=== PATIENT | male | born 1960 | race Caucasian/White ===

== ENCOUNTER 2019-01-12 18:37 | Inpatient (IN) | payer BC ==
[2019-01-12] MEDS ORDERED: IPRATROPIUM-ALBUTEROL 3 ML NEB INHALATION STA (19:37)
[2019-01-12] MEDS ORDERED: FUROSEMIDE 10 MG/ML 4 ML VIAL IV STA (19:37)
[2019-01-12] MEDS ORDERED: methylPREDNISolone SOD SUCCI 125 MG/2 ML VIAL IV STA (19:37)
[2019-01-12] MEDS ORDERED: ASPIRIN 81 MG PO STA (19:39)
[2019-01-12 20:29] LABS: Anisocytosis Slight; Basophils # (A) 0.1 k/uL (0-0.2); Basophils % (A) 1 %; Eosinophils # (A) 0.2 k/uL (0-0.7); Eosinophils % (A) 2 %; HCT 55.9 % (39.0-53.0); HGB 17.5 gm/dL (13.0-17.5); Hypochromasia Slight; Lymphocytes # (A) 1.2 k/uL (1.0-4.8); Lymphocytes % (A) 12 %; MCH 29.9 pg (25.0-35.0); MCHC 31.2 g/dL (31.0-37.0); MCV 95.8 fL (80.0-100.0); Mean Platelet Volume 8.4; Monocytes # (A) 0.7 k/uL (0-1.0); Monocytes % (A) 7 %; Neutrophils # (A) 7.5 k/uL (1.3-7.7); Neutrophils % (A) 77 %; Platelet Count 153 k/uL (150-450); RBC 5.84 m/uL (4.30-5.90); RDW 16.6 % (11.5-15.5); WBC 9.8 k/uL (3.8-10.6)
--- NOTE | 2019-01-12 20:30 | ED ---
SOB HPI - General Source: patient Mode of arrival: ambulatory Limitations: no limitations <Ed Jackson - Last Filed: 01/12/19 20:26> <Mark Victor - Last Filed: 01/13/19 04:48> - General Chief Complaint: Shortness of Breath Stated Complaint: POSS COPD, CHF Time Seen by Provider: 01/12/19 19:32 - History of Present Illness Initial Comments: This 58-year-old white male presents complaining of some shortness of breath. He states that this is been present over the past couple of weeks. He is had a cough with whitish production. He does relate that he has a history of COPD. He is not aware of a history of congestive heart failure. He states that he's had some lower extremity edema over the past 2 days. His symptoms are worse with any exertion. He was seen at his primary care physician's office today and they found his pulse ox to be of 78% so he was sent to the emergency department. He denies any fever or chills. He denies any chest pain. No other complaints or modifying factors. (Ed Jackson) - Related Data Home Medications Medication Instructions Recorded Confirmed Albuterol Inhaler [Ventolin Hfa 2 puff INHALATION RT-Q8H 01/12/19 01/12/19 Inhaler] Amoxicillin 500 mg PO QID 01/12/19 01/12/19 Allergies Allergy/AdvReac Type Severity Reaction Status Date / Time No Known Allergies Allergy Verified 01/12/19 19:55 Review of Systems ROS Other: All systems not noted in ROS Statement are negative. <Ed Jackson - Last Filed: 01/12/19 20:26> ROS Other: All systems not noted in ROS Statement are negative. <Mark Victor - Last Filed: 01/13/19 04:48> ROS Statement: Those systems with pertinent positive or pertinent negative responses have been documented in the HPI. Past Medical History Past Medical History: COPD History of Any Multi-Drug Resistant Organisms: None Reported Past Surgical History: Hernia Repair Past Psychological History: No Psychological Hx Reported Smoking Status: Current every day smoker Past Alcohol Use History: Occasional Past Drug Use History: None Reported <Ed Jackson - Last Filed: 01/12/19 20:26> - Past Family History Father Additional Family Medical History / Comment(s): father and grandfather had heartattacks 60's. <Mark Victor - Last Filed: 01/13/19 04:48> General Exam Limitations: no limitations <Ed Jackson - Last Filed: 01/12/19 20:26> - General Exam Comments Initial Comments: GENERAL: The patient is well nourished and well hydrated. VITAL SIGNS: Heart rate, blood pressure, respiratory rate reviewed as recorded in nurse's notes. EYES: Pupils are round and reactive. Extraocular movements are intact. No conjunctival / lid redness or swelling. ENT: No external evidence of injury, swelling, or ecchymosis. Airway is patent. Throat is clear. NECK: Nontender. No swelling or evidence of injury. No subcutaneous emphysema. Trachea is midline. No thyroid mass. HEART: Regular rate and rhythm. Good peripheral pulses. Peripheral edema noted bilateral lower extremities from the knee down. LUNGS/CHEST: Wheezing noted to bilateral chest. No acute respiratory distress identified. No ecchymosis, subcutaneous emphysema, or tenderness. ABDOMEN: Abdomen soft without tenderness. No palpable masses or organomegaly. No peritoneal signs. No abdominal wall swelling or ecchymosis. EXTREMITIES: No extremity tenderness. Normal muscle tone and function. No thoracolumbar tenderness. NEUROLOGIC: Sensation is grossly intact. Cranial nerve exam reveals face is symmetrical, tongue is midline, speech is clear. SKIN: No abrasions or ecchymosis is noted. No induration or masses noted. PSYCHIATRIC: Alert and oriented. Appropriate behavior and judgment. (Ed Jackson) Course Vital Signs 01/12/19 01/12/19 01/12/19 19:09 19:44 19:46 Temperature 98.6 F Pulse Rate 94 85 Pulse Rate [ Pulse Oximetery ] Respiratory 18 24 24 Rate Blood Pressure 116/68 123/73 Blood Pressure [Left Arm] O2 Sat by Pulse 78 L 91 L Oximetry 01/12/19 01/12/19 01/12/19 20:36 20:51 20:56 Temperature Pulse Rate 80 77 87 Pulse Rate [ Pulse Oximetery ] Respiratory 28 H Rate Blood Pressure 124/62 Blood Pressure [Left Arm] O2 Sat by Pulse 90 L Oximetry 01/12/19 01/12/19 22:40 23:15 Temperature 98.5 F 97.9 F Pulse Rate 80 Pulse Rate [ 93 Pulse Oximetery ] Respiratory 22 18 Rate Blood Pressure 114/86 Blood Pressure 134/68 [Left Arm] O2 Sat by Pulse 89 L 93 L Oximetry Medical Decision Making <Ed Jackson - Last Filed: 01/12/19 20:26> - Lab Data Result diagrams: 01/12/19 20:16 01/12/19 20:16 - EKG Data -: EKG Interpreted by Mt EKG shows normal: sinus rhythm (With bigeminy pattern), intervals (MT interval normal, QRS normal. QTC is 481 ms, mildly prolonged.), QRS complexes (There is a left posterior fascicular block) Rate: normal (Rate approximately 86 bpm) Interpretation: nonspecific ST-T wave changes <Mark Victor - Last Filed: 01/13/19 04:48> - Medical Decision Making The patient was seen and examined. All diagnostics were reviewed. 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 An IV is established she does receive some aspirin, Nitropaste, and 60 mg of Lasix intravenously. He receives a double DuoNeb breathing treatment as well as Solu-Medrol 125 mg IV. (Ed Jackson) I receive this patient has a sign out pending results of his studies. I reviewed these with the patient and also Dr. Jackson's recommendation for admission. The patient is in agreement. Case discussed with Dr. Brantley, who is covering and his treatment recommendations are incorporated. (Mark Victor) - Lab Data Lab Results 01/12/19 01/12/19 01/12/19 Range/Units 20:16 20:16 20:16 WBC 9.8 (3.8-10.6) k/uL RBC 5.84 (4.30-5.90) m/uL Hgb 17.5 (13.0-17.5) gm/dL Hct 55.9 H (39.0-53.0) % MCV 95.8 (80.0-100.0) fL MCH 29.9 (25.0-35.0) pg MCHC 31.2 (31.0-37.0) g/dL RDW 16.6 H (11.5-15.5) % Plt Count 153 (150-450) k/uL Neutrophils % 77 % Lymphocytes % 12 % Monocytes % 7 % Eosinophils % 2 % Basophils % 1 % Neutrophils # 7.5 (1.3-7.7) k/uL Lymphocytes # 1.2 (1.0-4.8) k/uL Monocytes # 0.7 (0-1.0) k/uL Eosinophils # 0.2 (0-0.7) k/uL Basophils # 0.1 (0-0.2) k/uL Hypochromasia Slight Anisocytosis Slight PT (9.0-12.0) sec INR (<1.2) APTT (22.0-30.0) sec Sodium 143 (137-145) mmol/L Potassium 4.0 (3.5-5.1) mmol/L Chloride 105 (98-107) mmol/L Carbon Dioxide 32 H (22-30) mmol/L Anion Gap 6 mmol/L BUN 18 (9-20) mg/dL Creatinine 0.78 (0.66-1.25) mg/dL Est GFR (CKD-EPI)AfAm >90 (>60 ml/min/1.73 sqM) Est GFR (CKD-EPI)NonAf >90 (>60 ml/min/1.73 sqM) Glucose 183 H (74-99) mg/dL Calcium 7.9 L (8.4-10.2) mg/dL Total Bilirubin 0.5 (0.2-1.3) mg/dL AST 36 (17-59) U/L ALT 43 (21-72) U/L Alkaline Phosphatase 77 (38-126) U/L Troponin I (0.000-0.034) ng/mL NT-Pro-B Natriuret Pep 1580 pg/mL Total Protein 5.8 L (6.3-8.2) g/dL Albumin 3.4 L (3.5-5.0) g/dL 01/12/19 01/12/19 Range/Units 20:16 21:39 WBC (3.8-10.6) k/uL RBC (4.30-5.90) m/uL Hgb (13.0-17.5) gm/dL Hct (39.0-53.0) % MCV (80.0-100.0) fL MCH (25.0-35.0) pg MCHC (31.0-37.0) g/dL RDW (11.5-15.5) % Plt Count (150-450) k/uL Neutrophils % % Lymphocytes % % Monocytes % % Eosinophils % % Basophils % % Neutrophils # (1.3-7.7) k/uL Lymphocytes # (1.0-4.8) k/uL Monocytes # (0-1.0) k/uL Eosinophils # (0-0.7) k/uL Basophils # (0-0.2) k/uL Hypochromasia Anisocytosis PT 12.1 H (9.0-12.0) sec INR 1.2 H (<1.2) APTT 27.2 (22.0-30.0) sec Sodium (137-145) mmol/L Potassium (3.5-5.1) mmol/L Chloride (98-107) mmol/L Carbon Dioxide (22-30) mmol/L Anion Gap mmol/L BUN (9-20) mg/dL Creatinine (0.66-1.25) mg/dL Est GFR (CKD-EPI)AfAm (>60 ml/min/1.73 sqM) Est GFR (CKD-EPI)NonAf (>60 ml/min/1.73 sqM) Glucose (74-99) mg/dL Calcium (8.4-10.2) mg/dL Total Bilirubin (0.2-1.3) mg/dL AST (17-59) U/L ALT (21-72) U/L Alkaline Phosphatase (38-126) U/L Troponin I 0.024 (0.000-0.034) ng/mL NT-Pro-B Natriuret Pep pg/mL Total Protein (6.3-8.2) g/dL Albumin (3.5-5.0) g/dL Disposition <Ed Jackson - Last Filed: 01/12/19 20:26> <Mark Victor - Last Filed: 01/13/19 04:48> Clinical Impression: Acute respiratory failure, Acute exacerbation of chronic obstructive airways disease, Bilateral lower extremity edema Disposition: ADMITTED IP TO THIS HOSP Condition: Fair
[2019-01-12 20:36] LABS: ALT 43 U/L (21-72); AST 36 U/L (17-59); African American GFR (CKD) >90 (>60 ml/min/1.73 sqM); Albumin 3.4 g/dL (3.5-5.0); Alkaline Phosphatase 77 U/L (38-126); Anion Gap 6 mmol/L; Blood Urea Nitrogen 18 mg/dL (9-20); Calcium 7.9 mg/dL (8.4-10.2); Carbon Dioxide 32 mmol/L (22-30); Chloride 105 mmol/L (98-107); Glucose 183 mg/dL (74-99); Sodium 143 mmol/L (137-145); Total Bilirubin 0.5 mg/dL (0.2-1.3); Total Protein 5.8 g/dL (6.3-8.2)
--- NOTE | 2019-01-12 21:10 | XR ---
EXAMINATION: XR chest 2V DATE AND TIME: 01/12/2019 8:29 PM CLINICAL INDICATION: PHH; difficulty breathing TECHNIQUE: Departmental protocol COMPARISON: None FINDINGS: EKG leads noted. There is moderate silhouetting of the pulmonary vasculature bilaterally by a fine reticular pattern o f increased attenuation symmetrically, consistent with interstitial phase pulmonary edema. Moderately enlarged cardiac silhouette noted. Pleural spaces are negative. No acute skeletal or soft tissue findings. IMPRESSION: Cardiogenic interstitial phase pulmonary edema.
[2019-01-12 21:54] LABS: INR 1.2 (<1.2); Partial Thromboplastin Time 27.2 sec (22.0-30.0); Prothrombin Time 12.1 sec (9.0-12.0)
[2019-01-12] MEDS ORDERED: IPRATROPIUM-ALBUTEROL 3 ML NEB INHALATION PRN (22:58)
[2019-01-13] MEDS: methylPREDNISolone SOD SUCCI 125 MG/2 ML VIAL IV SCH ×3 (00:29→12:36)
[2019-01-13 06:48] LABS: Glucose,Whole Blood 136 mg/dL (75-99)
[2019-01-13] MEDS: INSULIN ASPART (NovoLOG) 100 UNIT/ML VIAL SQ SCH ×4 (06:53→20:17)
[2019-01-13 11:54] VITALS: BMI 40.9
--- NOTE | 2019-01-13 12:08 | ECHOF ---
Referral Reason:mild CHF MEASUREMENTS -------- HEIGHT: 176.5 cm WEIGHT: 129.3 kg BP: 145/84 RVIDd: 3.6 cm (< 3.3) IVSd: 1.7 cm (0.6 - 1.1) LVIDd: 5.6 cm (3.9 - 5.3) LVPWd: 1.8 cm (0.6 - 1.1) IVSs: 2.1 cm LVIDs: 3.6 cm LVPWs: 2.1 cm LAESV Index (A-L): 26.61 ml/m Ao Diam: 3.7 cm (2.0 - 3.7) AV Cusp: 1.6 cm (1.5 - 2.6) LA Diam: 4.9 cm (2.7 - 3.8) MV EXCURSION: 15.618 mm (> 18.000) MV EF SLOPE: 61 mm/s (70 - 150) EPSS: 1.0 cm MV E Jose Daniel: 0.96 m/s MV DecT: 170 ms MV A Jose Daniel: 0.84 m/s MV E/A Ratio: 1.14 RAP: 20.00 mmHg RVSP: 76.91 mmHg FINDINGS -------- Sinus rhythm. This was a technically difficult study with suboptimal parasternal views. There is moderate concentric left ventricular hypertrophy. Overall left ventricular systolic functi on is normal with, an EF between 55 - 60 %. Mitral Doppler inflow pattern suggests diastolic fillin g abnormality 17.60. The right ventricle is mildly enlarged. Normal LA size by volume 22+/-6 ml/m2. The right atrium is moderately enlarged. Lumason used Interatrial and interventricular septum intact. Aortic valve is trileaflet and is mildly thickened. There is no evidence of aortic regurgitation. There is no evidence of aortic stenosis. There is trace to mild mitral regurgitation. Irzw-db-frovljzw tricuspid regurgitation present. There is severe pulmonary hypertension. The rig ht ventricular systolic pressure, as measured by Doppler, is 76.91mmHg. There is no pulmonic regurgitation present. The aortic root size is normal. The inferior vena cava is dilated with no significant inspiratory collapse which is consistent estima huseyin right atrial pressure of >20 mmHg. There is no pericardial effusion. CONCLUSIONS -------- 1. Sinus rhythm. 2. This was a technically difficult study with suboptimal parasternal views. 3. There is moderate concentric left ventricular hypertrophy. 4. Overall left ventricular systolic function is normal with, an EF between 55 - 60 %. 5. Mitral Doppler inflow pattern suggest diastolic filling abnormality 17.60. 6. The right ventricle is mildly enlarged. 7. Normal LA size by volume 22+/-6 ml/m2. 8. The right atrium is moderately enlarged. 9. Lumason used 10. Interatrial and interventricular septum intact. 11. Aortic valve is trileaflet and is mildly thickened. 12. There is no evidence of aortic regurgitation. 13. There is no evidence of aortic stenosis. 14. There is trace to mild mitral regurgitation. 15. Bivj-qn-lbslwabp tricuspid regurgitation present. 16. There is severe pulmonary hypertension. 17. The right ventricular systolic pressure, as measured by Doppler, is 76.91mmHg. 18. There is no pulmonic regurgitation present. 19. The aortic root size is normal. 20. The inferior vena cava is dilated with no significant inspiratory collapse which is consistent es timated right atrial pressure of >20 mmHg. 21. There is no pericardial effusion. JOURNEY[employer] SHEET METAL WORKER: Mónica Diez RDCS
[2019-01-13 12:23] LABS: Glucose,Whole Blood 186 mg/dL (75-99)
[2019-01-13] MEDS: FUROSEMIDE 40 MG TAB PO SCH (12:36)
[2019-01-13 13:21] LABS: African American GFR (CKD) >90 (>60 ml/min/1.73 sqM); Anion Gap 5 mmol/L; Blood Urea Nitrogen 15 mg/dL (9-20); Calcium 8.3 mg/dL (8.4-10.2); Carbon Dioxide 37 mmol/L (22-30); Chloride 101 mmol/L (98-107); Glucose 229 mg/dL (74-99); Potassium 4.1 mmol/L (3.5-5.1); Sodium 143 mmol/L (137-145)
[2019-01-13 16:45] LABS: Glucose,Whole Blood 160 mg/dL (75-99)
[2019-01-14] MEDS: INSULIN ASPART (NovoLOG) 100 UNIT/ML VIAL SQ SCH (06:21)
[2019-01-14 06:45] LABS: HGB 17.3 gm/dL (13.0-17.5); Hypochromasia Moderate; MCH 29.9 pg (25.0-35.0); MCHC 30.3 g/dL (31.0-37.0); MCV 98.6 fL (80.0-100.0); Macrocytosis Slight; Mean Platelet Volume 7.1; Platelet Count 190 k/uL (150-450); RBC 5.78 m/uL (4.30-5.90); RDW 15.7 % (11.5-15.5); WBC 12.2 k/uL (3.8-10.6)
[2019-01-14 06:52] LABS: African American GFR (CKD) >90 (>60 ml/min/1.73 sqM); Blood Urea Nitrogen 17 mg/dL (9-20); Calcium 8.2 mg/dL (8.4-10.2); Chloride 99 mmol/L (98-107); Glucose 110 mg/dL (74-99); Potassium 4.2 mmol/L (3.5-5.1); Sodium 142 mmol/L (137-145)
[2019-01-14 06:59] LABS: Anion Gap 2 mmol/L
[2019-01-14 07:02] LABS: Carbon Dioxide 41 mmol/L (22-30)
[2019-01-14] MEDS: FUROSEMIDE 10 MG/ML 4 ML VIAL IV SCH ×2 (09:57→17:54)
[2019-01-14] MEDS: SPIRONOLACTONE 25 MG TAB PO SCH (09:57)
[2019-01-14] MEDS: FUROSEMIDE 40 MG TAB PO SCH (09:58)
--- NOTE | 2019-01-14 10:08 | P.HPIM ---
History of Present Illness H&P Date: 01/13/19 Chief Complaint: JARET Lee is a 58 yo M with PMH significant for COPD, tobacco abuse, obesity who presents to [facility] for progressive dyspnea over the past few days. He also complains of new onset leg swelling and orthopnea which had previously never experienced. Pt states he usually loses weight every spring but this year he has gained an additional 10 lbs. He has never had an echocardiogram performed and no cardiac history. He denies fevers, chills, or cough productive for sputum. He is a current daily cigarette smoker. In the ED, his SpO2 was 89% on 2L O2, BNP 1500, creatinine at baseline and WBC 9.8. CXR with interstitial edema. He was given 60 mg IV lasix and solumedrol. On exam today he does feel his breathing has improved lying in bed but still complaining of leg swelling and orthopnea. Past Medical History Past Medical History: COPD History of Any Multi-Drug Resistant Organisms: None Reported Past Surgical History: Hernia Repair Additional Past Surgical History / Comment(s): dental implants. Past Anesthesia/Blood Transfusion Reactions: No Reported Reaction Past Psychological History: No Psychological Hx Reported Smoking Status: Current every day smoker Past Alcohol Use History: Occasional Past Drug Use History: None Reported - Past Family History Father Additional Family Medical History / Comment(s): father and grandfather had heartattacks 60's. Medications and Allergies Home Medications Medication Instructions Recorded Confirmed Type Albuterol Inhaler [Ventolin Hfa 2 puff INHALATION RT-Q8H 01/12/19 01/12/19 History Inhaler] Amoxicillin 500 mg PO QID 01/12/19 01/12/19 History Allergies Allergy/AdvReac Type Severity Reaction Status Date / Time No Known Allergies Allergy Verified 01/12/19 19:55 Physical Exam Vitals: Vital Signs Temp Pulse Pulse Resp BP BP Pulse Ox 01/13/19 08:25 98.2 F 83 17 144/82 90 L 01/13/19 08:17 92 L 01/13/19 04:00 78 18 145/84 92 L 01/12/19 23:15 97.9 F 93 18 134/68 93 L 01/12/19 22:40 98.5 F 80 22 114/86 89 L 01/12/19 20:56 87 28 H 124/62 90 L 01/12/19 20:51 77 01/12/19 20:36 80 01/12/19 19:46 85 24 123/73 91 L 01/12/19 19:44 24 01/12/19 19:09 98.6 F 94 18 116/68 78 L Intake and Output 01/12/19 01/13/19 01/13/19 22:59 06:59 14:59 Intake Total 240 Output Total 1400 Balance -1400 240 Intake: Oral 240 Output: Urine 1400 Other: Voiding Method Toilet # Voids 2 1 2 Weight 129.274 kg 127.6 kg General: upright in chair, conversational. Vitals reviewed Eyes: PERRL, EOMI, conjunctiva normal HENT: normocephalic, mucus membranes moist Neck: supple, no JVD Lungs: normal respiratory effort, minimal wheezing, no rales CV: Regular rate and rhythm, no murmur. 1+ edema bilaterally Abdomen: soft, nondistended, no organomegaly Lymph: no cervical or axillary LAD Skin: warm and dry Neuro: A&Ox3, normal mood and affect Results CBC & Chem 7: 01/12/19 20:16 01/12/19 20:16 Labs: Abnormal Lab Results - Last 24 Hours (Table) 01/12/19 01/12/19 01/12/19 Range/Units 20:16 20:16 21:39 Hct 55.9 H (39.0-53.0) % RDW 16.6 H (11.5-15.5) % PT 12.1 H (9.0-12.0) sec INR 1.2 H (<1.2) Carbon Dioxide 32 H (22-30) mmol/L Glucose 183 H (74-99) mg/dL POC Glucose (mg/dL) (75-99) mg/dL Calcium 7.9 L (8.4-10.2) mg/dL Total Protein 5.8 L (6.3-8.2) g/dL Albumin 3.4 L (3.5-5.0) g/dL 01/13/19 Range/Units 06:45 Hct (39.0-53.0) % RDW (11.5-15.5) % PT (9.0-12.0) sec INR (<1.2) Carbon Dioxide (22-30) mmol/L Glucose (74-99) mg/dL POC Glucose (mg/dL) 136 H (75-99) mg/dL Calcium (8.4-10.2) mg/dL Total Protein (6.3-8.2) g/dL Albumin (3.5-5.0) g/dL Thrombosis Risk Factor Assmnt - Choose All That Apply Each Factor Represents 1 point: Abnormal pulmonary function (COPD), Age 41-60 years, Obesity (BMI >25) Thrombosis Risk Factor Assessment Total Risk Factor Score: 3 Thrombosis Risk Factor Assessment Level: Moderate Risk Assessment and Plan (1) Acute exacerbation of CHF (congestive heart failure) Current Visit: Yes Status: Acute Code(s): I50.9 - HEART FAILURE, UNSPECIFIED SNOMED Code(s): 225789114 (2) COPD (chronic obstructive pulmonary disease) with chronic bronchitis Current Visit: Yes Status: Acute Code(s): J44.9 - CHRONIC OBSTRUCTIVE PULMONARY DISEASE, UNSPECIFIED SNOMED Code(s): 871369872 (3) Obesity Current Visit: Yes Status: Acute Code(s): E66.9 - OBESITY, UNSPECIFIED SNOMED Code(s): 133333466 (4) Bilateral lower extremity edema Current Visit: Yes Status: Acute Code(s): R60.0 - LOCALIZED EDEMA SNOMED Code(s): 269224052 (5) Obesity hypoventilation syndrome Current Visit: Yes Status: Acute Code(s): E66.2 - MORBID (SEVERE) OBESITY WITH ALVEOLAR HYPOVENTILATION SNOMED Code(s): 549376326 Plan: 1. Acute exacerbation of diastolic CHF. No previous diagnosis of CHF. BNP on admission 1500 and echo today with LVEF 60%, diastolic dysfunction noted. Pt given 60 mg IV lasix in the ED. Continue 40 mg lasix qd today. AM BMP 2. Obesity hypoventillation syndrome. Echo noted elevated RVSP. Consider sleep study and CPAP outpatient 3. COPD. No evidence of exacerbation. Pt given solumedrol in the ED. Continue breathing tx prn 4. Lower extremity edema
--- NOTE | 2019-01-14 10:13 | P.PN ---
Subjective Progress Note Date: 01/14/19 Darshan Lee is a 58 yo M with PMH significant for COPD, tobacco abuse, obesity who presents to [facility] for progressive dyspnea over the past few days. He also complains of new onset leg swelling and orthopnea which had previously never experienced. Pt states he usually loses weight every spring but this year he has gained an additional 10 lbs. He has never had an echocardiogram performed and no cardiac history. He denies fevers, chills, or cough productive for sputum. He is a current daily cigarette smoker. In the ED, his SpO2 was 89% on 2L O2, BNP 1500, creatinine at baseline and WBC 9.8. CXR with interstitial edema. He was given 60 mg IV lasix and solumedrol. On exam today he does feel his breathing has improved lying in bed but still complaining of leg swelling and orthopnea. 01/14/19. Pt seen and evaluated. He has diuresed approx 3 lbs since admission and feels his swelling has improved and breathing a bit better. His bicarb is elevated today and echo did show elevated RVSP and diastolic dysfunction. Pt has never used a CPAP but is okay with the idea. He continues to complain of orth opnea but denies shortness of breath at baseline. He is saturating high 80s on 2 L O2. Objective - Vital Signs Vital signs: Vital Signs Temp 98.2 F 01/14/19 04:00 Pulse 74 01/14/19 08:34 Resp 18 01/14/19 04:00 BP 137/84 01/14/19 04:00 Pulse Ox 93 L 01/14/19 04:00 Intake & Output 01/13/19 01/14/19 01/14/19 18:59 06:59 18:59 Intake Total 720 Balance 720 Weight 127.6 kg 128.5 kg Intake: Oral 720 Other: # Voids 1 2 - Exam General: upright in chair, conversational. Vitals reviewed Lungs: normal respiratory effort, minimal wheezing, no rales CV: Regular rate and rhythm, no murmur. No edema Skin: warm and dry Neuro: A&Ox3, normal mood and affect - Labs CBC & Chem 7: 01/14/19 06:18 01/14/19 06:18 Labs: Abnormal Lab Results - Last 24 Hours (Table) 01/13/19 01/13/19 01/13/19 Range/Units 11:52 12:20 16:42 WBC (3.8-10.6) k/uL Hct (39.0-53.0) % MCHC (31.0-37.0) g/dL RDW (11.5-15.5) % Carbon Dioxide 37 H (22-30) mmol/L Creatinine 0.55 L (0.66-1.25) mg/dL Glucose 229 H (74-99) mg/dL POC Glucose (mg/dL) 186 H 160 H (75-99) mg/dL Calcium 8.3 L (8.4-10.2) mg/dL 01/14/19 01/14/19 Range/Units 06:18 06:18 WBC 12.2 H (3.8-10.6) k/uL Hct 57.0 H (39.0-53.0) % MCHC 30.3 L (31.0-37.0) g/dL RDW 15.7 H (11.5-15.5) % Carbon Dioxide 41 H* (22-30) mmol/L Creatinine 0.62 L (0.66-1.25) mg/dL Glucose 110 H (74-99) mg/dL POC Glucose (mg/dL) (75-99) mg/dL Calcium 8.2 L (8.4-10.2) mg/dL Microbiology - Last 24 Hours (Table) 01/12/19 20:16 Blood Culture - Preliminary Blood No Growth after 24 hours Assessment and Plan (1) Acute exacerbation of CHF (congestive heart failure) Current Visit: Yes Status: Acute Code(s): I50.9 - HEART FAILURE, UNSPECIFIED SNOMED Code(s): 067757366 (2) COPD (chronic obstructive pulmonary disease) with chronic bronchitis Current Visit: Yes Status: Acute Code(s): J44.9 - CHRONIC OBSTRUCTIVE PULMONARY DISEASE, UNSPECIFIED SNOMED Code(s): 713193571 (3) Obesity Current Visit: Yes Status: Acute Code(s): E66.9 - OBESITY, UNSPECIFIED SNOMED Code(s): 937742575 (4) Bilateral lower extremity edema Current Visit: Yes Status: Acute Code(s): R60.0 - LOCALIZED EDEMA SNOMED Code(s): 990825056 (5) Obesity hypoventilation syndrome Current Visit: Yes Status: Acute Code(s): E66.2 - MORBID (SEVERE) OBESITY WITH ALVEOLAR HYPOVENTILATION SNOMED Code(s): 253784372 Plan: 1. Acute exacerbation of diastolic CHF. IV lasix 40 mg bid. Added spironolactone today. Continue strict I/Os 2. Obesity hypoventillation syndrome. Echo noted elevated RVSP and pt retaining CO2. Will try to stop O2 as this is likely suppressing his respiratory drive. Script written for CPAP on discharge 3. COPD. No evidence of exacerbation. Pt given solumedrol in the ED. Continue breathing tx prn 4. Lower extremity edema, improving
--- NOTE | 2019-01-14 15:15 | CDI ---
Documentation Clarification Form Date: 01/14/2019 3:02:59 PM From: Sharon Hooker Phone: [phone] Admit Date: 01/12/2019 10:59:00 PM Patient Name: Darshan Lee Visit Number: [id number] Discharge Date: ATTENTION: The Clinical Documentation Specialists (CDI) and [facility] Coding Staff appreciate your assistance in clarifying documentation. Please respond to the clarification below the line at the bottom and electronically sign. The CDI & [facility] Coding staff will review the response and follow-up if needed. Please note: Queries are made part of the Legal Health Record. If you have any questions, please contact the author of this message via ITS. Dr. Yevgeniy Brantley The patient presented with the progressive dyspnea over the past few days. History/Risk Factors: 58 y/o male presents to the ED with progressive shortness breath. Medical History of Obesity; Obesity hypoventilation syndrome, COPD; Tobacco use: abuse Clinical Indicators: Vital signs: On admission 116/68 94 98.6 18 78% ra 01/12/90% 3L nasal cannula Lung/Breathing assessment: Wheezing noted to bilateral chest Treatment: Breathing tx Ventolin; Duoneb; Lasix; Aldactone Solumedrol Oxygen Nasal cannula 3 5L nasal cannula In your professional opinion, can you please clarify if these findings signify one of the following conditions? Acute Hypoxic Respiratory Failure Acute Respiratory Distress Other Diagnosis, please specify Unable to determine (Last Revision: September 2017) This patient did have acute hypoxic respiratory failure on admission. MTDD
[2019-01-15 07:17] LABS: Anisocytosis Slight; HCT 54.8 % (39.0-53.0); HGB 17.1 gm/dL (13.0-17.5); Hypochromasia Moderate; MCH 30.5 pg (25.0-35.0); MCHC 31.2 g/dL (31.0-37.0); MCV 97.6 fL (80.0-100.0); Macrocytosis Slight; Mean Platelet Volume 8.1; Platelet Count 165 k/uL (150-450); RBC 5.62 m/uL (4.30-5.90); RDW 16.8 % (11.5-15.5); WBC 9.8 k/uL (3.8-10.6)
[2019-01-15 07:32] LABS: African American GFR (CKD) >90 (>60 ml/min/1.73 sqM); Blood Urea Nitrogen 20 mg/dL (9-20); Calcium 8.2 mg/dL (8.4-10.2); Chloride 93 mmol/L (98-107); Glucose 86 mg/dL (74-99); Potassium 3.9 mmol/L (3.5-5.1); Sodium 142 mmol/L (137-145)
[2019-01-15 07:39] LABS: Anion Gap 3 mmol/L
[2019-01-15 07:45] LABS: Carbon Dioxide 46 mmol/L (22-30)
[2019-01-15] MEDS: FUROSEMIDE 10 MG/ML 4 ML VIAL IV SCH ×2 (07:47→15:52)
[2019-01-15] MEDS: SPIRONOLACTONE 25 MG TAB PO SCH (07:47)
[2019-01-15] MEDS: ALBUTEROL NEBULIZED 2.5 MG/3 ML INHALATION PRN ×2 (07:52→11:55)
[2019-01-16 06:30] VITALS: BP 103/81; TEMP 97.9
[2019-01-16] MEDS: FUROSEMIDE 10 MG/ML 4 ML VIAL IV SCH (08:10)
[2019-01-16] MEDS: SPIRONOLACTONE 25 MG TAB PO SCH (08:10)
[2019-01-16 08:21] VITALS: PULSE 81
[2019-01-16 09:17] LABS: African American GFR (CKD) >90 (>60 ml/min/1.73 sqM); Blood Urea Nitrogen 18 mg/dL (9-20); Calcium 8.6 mg/dL (8.4-10.2); Chloride 93 mmol/L (98-107); Glucose 175 mg/dL (74-99); Sodium 140 mmol/L (137-145)
[2019-01-16 09:23] LABS: Anion Gap 4 mmol/L
[2019-01-16 09:31] LABS: Carbon Dioxide 43 mmol/L (22-30)
[2019-01-16 09:53] VITALS: RESP 16
--- NOTE | 2019-01-16 11:45 | P.DS ---
Providers Date of admission: 01/12/19 22:59 Expected date of discharge: 01/16/19 Attending physician: Yevgeniy Brantley MD Primary care physician: Vandana Wilkinson - Discharge Diagnosis(es) (1) Acute exacerbation of CHF (congestive heart failure) Current Visit: Yes Status: Acute (2) COPD (chronic obstructive pulmonary disease) with chronic bronchitis Current Visit: Yes Status: Acute (3) Obesity Current Visit: Yes Status: Acute (4) Bilateral lower extremity edema Current Visit: Yes Status: Acute (5) Obesity hypoventilation syndrome Current Visit: Yes Status: Acute Hospital Course: Darshan Lee is a 58 yo M with PMH significant for COPD, tobacco abuse, obesity who presents to [facility] for progressive dyspnea over the past few days. He also complains of new onset leg swelling and orthopnea which had previously never experienced. Pt states he usually loses weight every spring but this year he has gained an additional 10 lbs. He has never had an echocardiogram performed and no cardiac history. He denies fevers, chills, or cough productive for sputum. He is a current daily cigarette smoker. In the ED, his SpO2 was 89% on 2L O2, BNP 1500, creatinine at baseline and WBC 9.8. CXR with interstitial edema. He was given 60 mg IV lasix and solumedrol. Pt was admitted to medicine and an echocardiogram was performed. This demonstrated LVH, diastolic dysfunction and elevated RVSP to 75 mmHg. Pt was diuresed with IV lasix bid and started on aldactone. Throughout his hospitaliz ation pt diuresed approx 5 kg of fluid with resolution of his symptomatic dyspnea. During this hospitalization, pt's bicarbonate was persistently noted to be elevated and he remained hypoxic to the low 90s on room air, dropping into mid 80s with ambulation. He is given a new diagnosis of obesity hypoventillation syndrome and recommended to complete a sleep study which is scheduled with Dr. Fritz. Pt was discharged on home O2 to wear 2 L qhs and with activity. He was given a script to continue lasix and aldactone daily upon discharge. General: morbidly obese, NAD. Vitals reviewed Lungs: normal respiratory effort, no wheezes or rales CV: Regular rate and rhythm, no murmur. Peripheral pulses 2+ Abdomen: soft, nondistended, no organomegaly Skin: warm and dry. Patient Condition at Discharge: Fair Plan - Discharge Summary Discharge Rx Participant: No New Discharge Prescriptions: New Spironolactone [Aldactone] 25 mg PO DAILY #30 tab Furosemide [Lasix] 20 mg PO DAILY #20 tab Continue Albuterol Inhaler [Ventolin Hfa Inhaler] 2 puff INHALATION RT-Q8H Discontinued Amoxicillin 500 mg PO QID Discharge Medication List Albuterol Inhaler [Ventolin Hfa Inhaler] 2 puff INHALATION RT-Q8H 01/12/19 [History] Furosemide [Lasix] 20 mg PO DAILY #20 tab 01/16/19 [Rx] Spironolactone [Aldactone] 25 mg PO DAILY #30 tab 01/16/19 [Rx] Follow up Appointment(s)/Referral(s): Vandana Wilkinson DO [Primary Care Provider] - 01/19/19 1:30 pm (Friday at [place] office with [facility]) Patient Instructions/Handouts: COPD (Chronic Obstructive Pulmonary Disease) (DC) Activity/Diet/Wound Care/Special Instructions: Appointment at [facility] for Sleep Medicine - March [address] Fritz at 3:20 p.m. - given patient CPAP script at discharge home o2 set up for discharge Discharge Disposition: HOME SELF-CARE
--- NOTE | 2019-01-16 11:49 | P.PN ---
Subjective Progress Note Date: 01/15/19 Darshan Lee is a 58 yo M with PMH significant for COPD, tobacco abuse, obesity who presents to [facility] for progressive dyspnea over the past few days. He also complains of new onset leg swelling and orthopnea which had previously never experienced. Pt states he usually loses weight every spring but this year he has gained an additional 10 lbs. He has never had an echocardiogram performed and no cardiac history. He denies fevers, chills, or cough productive for sputum. He is a current daily cigarette smoker. In the ED, his SpO2 was 89% on 2L O2, BNP 1500, creatinine at baseline and WBC 9.8. CXR with interstitial edema. He was given 60 mg IV lasix and solumedrol. On exam today he does feel his breathing has improved lying in bed but still complaining of leg swelling and orthopnea. 01/14/19. Pt seen and evaluated. He has diuresed approx 3 lbs since admission and feels his swelling has improved and breathing a bit better. His bicarb is elevated today and echo did show elevated RVSP and diastolic dysfunction. Pt has never used a CPAP but is okay with the idea. He continues to complain of orth opnea but denies shortness of breath at baseline. He is saturating high 80s on 2 L O2. 01/15. Pt seen and evaluated, he continues to feel his breathing is better and his lower extremity edema is resolved today. His bicarbonate remains elevated. Pt remains on 2 L O2, will attempt to wean oxygen today. Objective - Vital Signs Vital signs: Vital Signs Temp 97.9 F 01/16/19 04:57 Pulse 81 01/16/19 07:36 Resp 16 01/16/19 08:00 BP 103/81 01/16/19 04:57 Pulse Ox 91 L 01/16/19 07:36 Intake & Output 01/15/19 01/16/19 01/16/19 18:59 06:59 18:59 Other: Voiding Method Toilet Toilet # Voids 1 2 - Exam General: upright in chair, conversational. Vitals reviewed Lungs: normal respiratory effort, minimal wheezing, no rales CV: Regular rate and rhythm, no murmur. No edema Skin: warm and dry Neuro: A&Ox3, normal mood and affect - Labs CBC & Chem 7: 01/15/19 06:33 01/16/19 08:20 Labs: Abnormal Lab Results - Last 24 Hours (Table) 01/16/19 Range/Units 08:20 Chloride 93 L (98-107) mmol/L Carbon Dioxide 43 H* (22-30) mmol/L Creatinine 0.62 L (0.66-1.25) mg/dL Glucose 175 H (74-99) mg/dL Microbiology - Last 24 Hours (Table) 01/12/19 20:16 Blood Culture - Preliminary Blood No Growth after 72 hours Assessment and Plan (1) Acute exacerbation of CHF (congestive heart failure) Current Visit: Yes Status: Acute Code(s): I50.9 - HEART FAILURE, UNSPECIFIED SNOMED Code(s): 842175828 (2) COPD (chronic obstructive pulmonary disease) with chronic bronchitis Current Visit: Yes Status: Acute Code(s): J44.9 - CHRONIC OBSTRUCTIVE PULMONARY DISEASE, UNSPECIFIED SNOMED Code(s): 962197369 (3) Obesity Current Visit: Yes Status: Acute Code(s): E66.9 - OBESITY, UNSPECIFIED SNOMED Code(s): 031561220 (4) Bilateral lower extremity edema Current Visit: Yes Status: Acute Code(s): R60.0 - LOCALIZED EDEMA SNOMED Code(s): 547328329 (5) Obesity hypoventilation syndrome Current Visit: Yes Status: Acute Code(s): E66.2 - MORBID (SEVERE) OBESITY WITH ALVEOLAR HYPOVENTILATION SNOMED Code(s): 896895573 Plan: 1. Acute exacerbation of diastolic CHF. Continue IV lasix and po aldactone. Diuresing well. Continue strict I/Os 2. Obesity hypoventillation syndrome. Attempt to wean O2. Needs outpatient sleep study 3. COPD. No evidence of exacerbation. Pt given solumedrol in the ED. Continue breathing tx prn 4. Lower extremity edema, resolved
== END 2019-01-16 12:41 | disposition home or self-care (01) | DRG 291 ==
LOC: EC 18:37 → 3SCARD 22:59 → 4MS4W 01-15 15:23
PROVIDERS: ADMIT Family Medicine; ATTEND Family Medicine
DX: I50.33 Acute on chronic diastolic (congestive) heart failure (principal); J96.01 Acute respiratory failure with hypoxia; E66.2 Morbid (severe) obesity with alveolar hypoventilation; Z68.41 Body mass index [BMI] 40.0-44.9, adult; J44.1 Chronic obstructive pulmonary disease with (acute) exacerbation; I44.5 Left posterior fascicular block; F17.210 Nicotine dependence, cigarettes, uncomplicated; Z71.6 Tobacco abuse counseling; Z79.899 Other long term (current) drug therapy; Z71.3 Dietary counseling and surveillance
CPT/HCPCS: 36415; 71046; 80048; 80053; 83880; 84484; 85025; 85027; 85610; 85730; 87040; 93005; 93306; 94640; 94760; 96374; 96375; 99285

== ENCOUNTER 2022-10-29 12:22 | Observation (INO) | payer BC ==
--- NOTE | 2022-10-29 12:24 | ED ---
General Adult HPI <Tracy Robles - Last Filed: 10/29/22 12:24> - General Source: patient, RN notes reviewed Mode of arrival: ambulatory Limitations: no limitations <Loyd Casillas - Last Filed: 10/29/22 15:32> - General Stated complaint: sob Time Seen by Provider: 10/29/22 12:24 - History of Present Illness Initial comments: 62-year-old male presents the emergency department with worsening shortness of breath over the last few days. Denies any chest pain or palpitations. Was sent here by PCP. (Tracy Robles) 62-year-old male presents emergency Department chief complaint shortness breath. Patient was PCPs office today and sent over for further evaluation secondary increasing shortness breath, intermittent confusion, hypoxia. Patient does have oxygen dependent COPD, CHF history patient has been intubated in the past. Patient states not very compliant with his current treatment he does not see a current coin machine collector. Patient denies any complaints of chest pain currently. Patient has minimal leg swelling at times. (Loyd Casillas) - Related Data Home Medications Medication Instructions Recorded Confirmed Albuterol Inhaler [Ventolin Hfa 2 puff INHALATION RT-Q6H PRN 01/12/19 10/29/22 Inhaler] Losartan Potassium [Cozaar] 12.5 mg PO DAILY 10/29/22 10/29/22 Sildenafil Citrate 25 mg PO DAILY 10/29/22 10/29/22 Previous Rx's Medication Instructions Recorded Furosemide [Lasix] 20 mg PO DAILY #20 tab 01/16/19 Spironolactone [Aldactone] 25 mg PO DAILY #30 tab 01/16/19 Allergies Allergy/AdvReac Type Severity Reaction Status Date / Time No Known Allergies Allergy Verified 10/29/22 15:07 Review of Systems ROS Other: All systems not noted in ROS Statement are negative. <Tracy Robles - Last Filed: 10/29/22 12:24> ROS Other: All systems not noted in ROS Statement are negative. <Loyd Casillas - Last Filed: 10/29/22 15:32> ROS Statement: Those systems with pertinent positive or pertinent negative responses have been documented in the HPI. Past Medical History Past Medical History: COPD History of Any Multi-Drug Resistant Organisms: None Reported Past Surgical History: Hernia Repair Additional Past Surgical History / Comment(s): dental implants. Past Anesthesia/Blood Transfusion Reactions: No Reported Reaction Past Psychological History: No Psychological Hx Reported Past Alcohol Use History: Occasional Past Drug Use History: None Reported - Past Family History Father Additional Family Medical History / Comment(s): father and grandfather had heartattacks 60's. <TravisTracy - Last Filed: 10/29/22 12:24> General Exam Limitations: no limitations General appearance: alert, in no apparent distress Head exam: Present: atraumatic, normocephalic, normal inspection Eye exam: Present: normal appearance, PERRL, EOMI. Absent: scleral icterus, conjunctival injection, periorbital swelling ENT exam: Present: normal exam, normal oropharynx, mucous membranes moist Neck exam: Present: normal inspection, full ROM. Absent: tenderness, meningismus, lymphadenopathy Respiratory exam: Present: normal lung sounds bilaterally. Absent: respiratory distress, wheezes, rales, rhonchi, stridor Cardiovascular Exam: Present: regular rate, normal rhythm, normal heart sounds. Absent: systolic murmur, diastolic murmur, rubs, gallop, clicks <Loyd Casillas - Last Filed: 10/29/22 15:32> Course Vital Signs 10/29/22 12:30 Temperature 98.0 F Pulse Rate 92 Respiratory 20 Rate Blood Pressure 101/64 O2 Sat by Pulse 86 L Oximetry EKG Findings - EKG Comments: EKG Findings:: KG performed at 12:50 sinus rhythm rate of 88 VT 182 QRS 77 QT/QTC 375/421 - EKG Results: EKG: interpreted by ERMD <Loyd Casillas - Last Filed: 10/29/22 15:32> Medical Decision Making - Lab Data Result diagrams: 10/29/22 12:51 10/29/22 12:51 <Loyd Casillas - Last Filed: 10/29/22 15:32> - Medical Decision Making Was pt. sent in by a medical professional or institution (, PA, DISTRICT SERVICE MANAGER, urgent care, hospital, or [place] health care facility...) When possible be specific @ -[PCP sent him] Did you speak to anyone other than the patient for history (EMS, parent, family, police, friend...)? What history was obtained from this source @ -[No] Did you review nursing and triage notes (agree or disagree)? Why? @ -[I reviewed and agree with nursing and triage notes] Were old charts reviewed (outside hosp., previous admission, EMS record, old EKG, old radiological studies, urgent care reports/EKG's, [place] health care facility records)? Report findings @ -[Reviewed prior laboratory studies, EKG] Differential Diagnosis (chest pain, altered mental status, abdominal pain women, abdominal pain men, vaginal bleeding, weakness, fever, dyspnea, syncope, headache, dizziness, GI bleed, back pain, seizure, CVA, palpatations, mental h ealth, musculoskeletal)? @ -[Differential Dyspnea: Coronary syndrome, arrhythmia, tamponade, asthma, COPD, pulmonary embolism, pneumonia, pneumothorax, pulmonary effusion, anaphylaxis, diabetic ketoacidosis, flailed chest, pulmonary contusion, diaphragmatic rupture, anemia, neur omuscular, this is not meant to be an all-inclusive list. e] EKG interpreted by me (3pts min.). @ -[As above] X-rays interpreted by me (1pt min.). @ -[Chest x-ray shows questionable pulmonary edema, COPD changes] CT interpreted by me (1pt min.). @ -[CT angiogram chest pending] U/S interpreted by me (1pt. min.). @ -[None done] What testing was considered but not performed or refused? (CT, X-rays, U/S, labs)? Why? @ -[None] What meds were considered but not given or refused? Why? @ -[None] Did you discuss the management of the patient with other professionals (professionals i.e. , PA, DISTRICT SERVICE MANAGER, lab, RT, psych nurse, social services coordinator, creative guru, teacher, airplane first officer, bottle caser)? Give summary @ -[Discuss case with PCP given patient's hypoxia, elevated CO2 with chronic COPD oxygen dependent and possible CHF changes. Patient be admitted for management and pulmonary evaluation] Was smoking cessation discussed for >3mins.? @ -[No] Was critical care preformed (if so, how long)? @ -[No] Were there social determinants of health that impacted care today? How? (Homelessness, low income, unemployed, alcoholism, drug addiction, transportat ion, low edu. Level, literacy, decrease access to med. care, long-term, rehab)? @ -[No] Was there de-escalation of care discussed even if they declined (Discuss DNR or withdrawal of care, Hospice)? DNR status @ -[No] What co-morbidities impacted this encounter? (DM, HTN, Smoking, COPD, CAD, Cancer, CVA, ARF, Chemo, Hep., AIDS, mental health diagnosis, sleep apnea, morbid obesity)? @ -[COPD, CHF, sleep apnea Was patient admitted / discharged? Hospital course, mention meds given and route , prescriptions, significant lab abnormalities, going to OR and other pertinent info. @ -[Admitted for hypoxia, COPD, possible CHF with have repeat echocardiogram, consult pulmonology, Undiagnosed new problem with uncertain prognosis? @ -[No] Drug Therapy requiring intensive monitoring for toxicity (Heparin, Nitro, Insulin, Cardizem)? @ -[No] Were any procedures done? @ -[No] Diagnosis/symptom? @ -[COPD, hypoxia, CHF] Acute, or Chronic, or Acute on Chronic? @ -[Acute on chronic] Uncomplicated (without systemic symptoms) or Complicated (systemic symptoms)? @ -[, Complicated] Side effects of treatment? @ -[No] Exacerbation, Progression, or Severe Exacerbation? @ -[No] Poses a threat to life or bodily function? How? (Chest pain, USA, DC, pneumonia, PE, COPD, DKA, ARF, appy, cholecystitis, CVA, Diverticulitis, Homicidal, Suicidal, threat to staff... and all critical care pts) @ -[yes at risk for respiratory failure] (Loyd Casillas) - Lab Data Lab Results 10/29/22 10/29/22 10/29/22 Range/Units 12:51 12:51 12:51 WBC 6.0 (3.8-10.6) k/uL RBC 5.02 (4.30-5.90) m/uL Hgb 15.0 (13.0-17.5) gm/dL Hct 47.7 (39.0-53.0) % MCV 95.0 (80.0-100.0) fL MCH 29.8 (25.0-35.0) pg MCHC 31.4 (31.0-37.0) g/dL RDW 13.5 (11.5-15.5) % Plt Count 154 (150-450) k/uL MPV 8.0 Neutrophils % 77 % Lymphocytes % 12 % Monocytes % 6 % Eosinophils % 2 % Basophils % 0 % Neutrophils # 4.6 (1.3-7.7) k/uL Lymphocytes # 0.7 L (1.0-4.8) k/uL Monocytes # 0.3 (0-1.0) k/uL Eosinophils # 0.1 (0-0.7) k/uL Basophils # 0.0 (0-0.2) k/uL Hypochromasia Slight PT (9.0-12.0) sec INR (<1.2) APTT (22.0-30.0) sec Sample Site ABG pH (7.35-7.45) ABG pCO2 (35-45) mmHg ABG pO2 (83-108) mmHg ABG HCO3 (21-25) mmol/L ABG O2 Saturation (94-97) % ABG Base Excess mmol/L Vadim Test FiO2 % Sodium 137 (137-145) mmol/L Potassium 4.0 (3.5-5.1) mmol/L Chloride 91 L (98-107) mmol/L Carbon Dioxide 42 H* (22-30) mmol/L Anion Gap 4 mmol/L BUN 13 (9-20) mg/dL Creatinine 0.61 L (0.66-1.25) mg/dL Est GFR (CKD-EPI)AfAm >90 (>60 ml/min/1.73 sqM) Est GFR (CKD-EPI)NonAf >90 (>60 ml/min/1.73 sqM) Glucose 228 H (74-99) mg/dL Calcium 8.4 (8.4-10.2) mg/dL Total Bilirubin 0.7 (0.2-1.3) mg/dL AST 26 (17-59) U/L ALT 22 (4-49) U/L Alkaline Phosphatase 71 (38-126) U/L Troponin I (0.000-0.034) ng/mL NT-Pro-B Natriuret Pep pg/mL Total Protein 6.6 (6.3-8.2) g/dL Albumin 3.7 (3.5-5.0) g/dL Influenza Type A (PCR) Not Detected (Not Detectd) Influenza Type B (PCR) Not Detected (Not Detectd) RSV (PCR) Not Detected (Not Detectd) SARS-CoV-2 (PCR) Not Detected (Not Detectd) 10/29/22 10/29/22 10/29/22 Range/Units 12:51 12:51 12:51 WBC (3.8-10.6) k/uL RBC (4.30-5.90) m/uL Hgb (13.0-17.5) gm/dL Hct (39.0-53.0) % MCV (80.0-100.0) fL MCH (25.0-35.0) pg MCHC (31.0-37.0) g/dL RDW (11.5-15.5) % Plt Count (150-450) k/uL MPV Neutrophils % % Lymphocytes % % Monocytes % % Eosinophils % % Basophils % % Neutrophils # (1.3-7.7) k/uL Lymphocytes # (1.0-4.8) k/uL Monocytes # (0-1.0) k/uL Eosinophils # (0-0.7) k/uL Basophils # (0-0.2) k/uL Hypochromasia PT 10.6 (9.0-12.0) sec INR 1.0 (<1.2) APTT 26.7 (22.0-30.0) sec Sample Site ABG pH (7.35-7.45) ABG pCO2 (35-45) mmHg ABG pO2 (83-108) mmHg ABG HCO3 (21-25) mmol/L ABG O2 Saturation (94-97) % ABG Base Excess mmol/L Vadim Test FiO2 % Sodium (137-145) mmol/L Potassium (3.5-5.1) mmol/L Chloride (98-107) mmol/L Carbon Dioxide (22-30) mmol/L Anion Gap mmol/L BUN (9-20) mg/dL Creatinine (0.66-1.25) mg/dL Est GFR (CKD-EPI)AfAm (>60 ml/min/1.73 sqM) Est GFR (CKD-EPI)NonAf (>60 ml/min/1.73 sqM) Glucose (74-99) mg/dL Calcium (8.4-10.2) mg/dL Total Bilirubin (0.2-1.3) mg/dL AST (17-59) U/L ALT (4-49) U/L Alkaline Phosphatase (38-126) U/L Troponin I <0.012 (0.000-0.034) ng/mL NT-Pro-B Natriuret Pep 48 pg/mL Total Protein (6.3-8.2) g/dL Albumin (3.5-5.0) g/dL Influenza Type A (PCR) (Not Detectd) Influenza Type B (PCR) (Not Detectd) RSV (PCR) (Not Detectd) SARS-CoV-2 (PCR) (Not Detectd) 10/29/22 Range/Units 14:04 WBC (3.8-10.6) k/uL RBC (4.30-5.90) m/uL Hgb (13.0-17.5) gm/dL Hct (39.0-53.0) % MCV (80.0-100.0) fL MCH (25.0-35.0) pg MCHC (31.0-37.0) g/dL RDW (11.5-15.5) % Plt Count (150-450) k/uL MPV Neutrophils % % Lymphocytes % % Monocytes % % Eosinophils % % Basophils % % Neutrophils # (1.3-7.7) k/uL Lymphocytes # (1.0-4.8) k/uL Monocytes # (0-1.0) k/uL Eosinophils # (0-0.7) k/uL Basophils # (0-0.2) k/uL Hypochromasia PT (9.0-12.0) sec INR (<1.2) APTT (22.0-30.0) sec Sample Site lt radial ABG pH 7.44 (7.35-7.45) ABG pCO2 65 H (35-45) mmHg ABG pO2 60 L (83-108) mmHg ABG HCO3 43 H* (21-25) mmol/L ABG O2 Saturation 92.1 L (94-97) % ABG Base Excess 15.7 mmol/L Vadim Test Yes FiO2 28 % Sodium (137-145) mmol/L Potassium (3.5-5.1) mmol/L Chloride (98-107) mmol/L Carbon Dioxide (22-30) mmol/L Anion Gap mmol/L BUN (9-20) mg/dL Creatinine (0.66-1.25) mg/dL Est GFR (CKD-EPI)AfAm (>60 ml/min/1.73 sqM) Est GFR (CKD-EPI)NonAf (>60 ml/min/1.73 sqM) Glucose (74-99) mg/dL Calcium (8.4-10.2) mg/dL Total Bilirubin (0.2-1.3) mg/dL AST (17-59) U/L ALT (4-49) U/L Alkaline Phosphatase (38-126) U/L Troponin I (0.000-0.034) ng/mL NT-Pro-B Natriuret Pep pg/mL Total Protein (6.3-8.2) g/dL Albumin (3.5-5.0) g/dL Influenza Type A (PCR) (Not Detectd) Influenza Type B (PCR) (Not Detectd) RSV (PCR) (Not Detectd) SARS-CoV-2 (PCR) (Not Detectd) Disposition <Tracy Robles - Last Filed: 10/29/22 12:24> Time of Disposition: 15:32 <Loyd Casillas - Last Filed: 10/29/22 15:32> Clinical Impression: COPD (chronic obstructive pulmonary disease), Hypoxia, Pulmonary edema, Hypercapnia Disposition: ADMITTED IP TO THIS HOSP Condition: Poor Referrals: Yevgeniy Brantley MD [Primary Care Provider] - 1-2 days
[2022-10-29 13:00] LABS: Basophils % (A) 0 %; Eosinophils # (A) 0.1 k/uL (0-0.7); Eosinophils % (A) 2 %; HCT 47.7 % (39.0-53.0); Hypochromasia Slight; Lymphocytes # (A) 0.7 k/uL (1.0-4.8); Lymphocytes % (A) 12 %; MCH 29.8 pg (25.0-35.0); MCHC 31.4 g/dL (31.0-37.0); Monocytes # (A) 0.3 k/uL (0-1.0); Monocytes % (A) 6 %; Neutrophils # (A) 4.6 k/uL (1.3-7.7); Neutrophils % (A) 77 %; Platelet Count 154 k/uL (150-450); RBC 5.02 m/uL (4.30-5.90); RDW 13.5 % (11.5-15.5)
[2022-10-29 13:11] LABS: ALT 22 U/L (4-49); AST 26 U/L (17-59); African American GFR (CKD) >90 (>60 ml/min/1.73 sqM); Albumin 3.7 g/dL (3.5-5.0); Alkaline Phosphatase 71 U/L (38-126); Blood Urea Nitrogen 13 mg/dL (9-20); Calcium 8.4 mg/dL (8.4-10.2); Chloride 91 mmol/L (98-107); Glucose 228 mg/dL (74-99); Non-African American GFR(CKD) >90 (>60 ml/min/1.73 sqM); Partial Thromboplastin Time 26.7 sec (22.0-30.0); Prothrombin Time 10.6 sec (9.0-12.0); Sodium 137 mmol/L (137-145); Total Bilirubin 0.7 mg/dL (0.2-1.3); Total Protein 6.6 g/dL (6.3-8.2)
[2022-10-29 13:18] LABS: Anion Gap 4 mmol/L
[2022-10-29 13:28] LABS: Carbon Dioxide 42 mmol/L (22-30)
--- NOTE | 2022-10-29 13:32 | XR ---
EXAMINATION TYPE: XR chest 2V DATE OF EXAM: 10/29/2022 1:21 PM COMPARISON: Chest radiographs from 01/12/2019 TECHNIQUE: XR chest 2V Frontal and lateral views of the chest. CLINICAL INDICATION:Male, 62 years old with history of SOB; FINDINGS: Lungs/Pleura: No evidence of focal consolidation or pneumothorax. Blunting of the costophrenic angles is present. Pulmonary vascularity: Pulmonary vascular congestion. Heart/mediastinum: Cardiomediastinal silhouette is enlarged and stable. Musculoskeletal: No acute osseous pathology. IMPRESSION: Cardiomegaly, pulmonary vascular congestion and bilateral pleural effusions. Correlate with BNP for c ongestive heart failure.
[2022-10-29 14:25] LABS: ABG Base Excess 15.7 mmol/L; ABG HCO3 43 mmol/L (21-25); ABG Oxygen Saturation 92.1 % (94-97); ABG PCO2 65 mmHg (35-45); ABG PH 7.44 (7.35-7.45); ABG PO2 60 mmHg (83-108); Allen Test Performed? Yes
[2022-10-29] MEDS ORDERED: FUROSEMIDE 10 MG/ML 2 ML VIAL IV ONE (15:23)
[2022-10-29] MEDS ORDERED: NALOXONE 0.4 MG/ML 1 ML VIAL IVP PRN (15:33)
[2022-10-29] MEDS ORDERED: ACETAMINOPHEN TAB 325 MG TAB PO PRN (15:33)
[2022-10-29] MEDS ORDERED: methylPREDNISolone SOD SUCCI 125 MG/2 ML VIAL IV STA (15:33)
[2022-10-29] MEDS ORDERED: IPRATROPIUM-ALBUTEROL 3 ML NEB INHALATION PRN ×2 (15:33→23:59)
--- NOTE | 2022-10-29 15:56 | CT ---
EXAMINATION TYPE: CT chest angio for PE DATE OF EXAM: 10/29/2022 COMPARISON: Radiograph same day HISTORY: 62-year-old male SOB, hx COPD TECHNIQUE: Contiguous axial scanning of the chest performed with IV Contrast, patient injected with 1 00 mL of Isovue 370. Coronal/sagittal MIP reconstructions performed. CT DLP: 788.7 mGycm Automated exposure control for dose reduction was used. FINDINGS: Heart mildly enlarged without pericardial effusion. No flattening of the interventricular septum or r eflux of contrast into the hepatic veins. LAD and circumflex coronary artery calcifications are prese nt. Aorta normal caliber with bovine configuration to the aortic arch and mild prostatic calcifications. Large caliber to the main right and left pulmonary arteries up to 3.3 cm with satisfactory enhancemen t. No pulmonary embolus is seen. Scattered mediastinal lymph nodes. Some of which contain punctate calcification suggesting prior gran ulomatous disease. Some of these are borderline to mildly enlarged measuring up to 1.7 cm lower right paratracheal and 1.4 cm subcarinal. 1.0 cm AP window. Likely reactive/post inflammatory. Small right-sided fat-containing Bochdalek hernia is demonstrated. Some subpleural reticular changes at the lung bases. Mild emphysematous change. Minimal bibasilar bro nchiolectasis is noted. Additional strandy scarring at the left base. No consolidation or pleural eff usion. Calcified granulomas within the left midlung. Visualized upper abdomen shows a 2.4 cm cystic lesion anterior superior aspect of the pancreatic tail for which a three-month follow-up pancreatic MRI is recommended. Bones: [facility] in the lower thoracic spine. IMPRESSION: 1. CARDIOMEGALY AND PULMONARY ARTERIAL HYPERTENSION. COPD WITH MINIMAL EMPHYSEMA. ADDITIONAL MILD BIB ASILAR FIBROSIS. 2. NO EVIDENCE FOR PULMONARY EMBOLUS. 3. A 2.4 CM CYSTIC LESION OF THE PANCREATIC TAIL FOR WHICH A THREE-MONTH FOLLOW-UP PANCREATIC MRI IS RECOMMENDED TO FURTHER CHARACTERIZE AND REASSESS.
[2022-10-30] MEDS ORDERED: DEXTROSE 50% SYRINGE 50 ML IVP PRN ×2 (00:33)
--- NOTE | 2022-10-30 00:35 | P.CNPUL ---
History of Present Illness Consult date: 10/30/22 Requesting physician: Loyd Casillas Reason for consult: dyspnea, COPD Chief complaint: Shortness of breath History of present illness: I'm seeing this patient in new consultation today 10/30/2022 in the emergency room waiting for a bed on the general medical floor. Patient is a 62-year-old white male with past medical history significant for COPD, chronic O2 dependence on 3-5 L/m, diastolic congestive heart failure, and is an ex-smoker quitting approximately one year ago. 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 He reportedly takes Advair and albuterol inhalers. Patient was sent to the emergency room yesterday afternoon from his primary care physician with symptoms of increasing shortness breath over the last couple days. He was found to be hypoxic in the office. Patient is currently sitting up in the chair, on 4 L nasal cannula, in no acute distress. The patient admits that he has not been taking his cardiac meds, including his Lasix, for the last 2 days. He also repo rts some associated lower extremity swelling and orthopnea. He sleeps in a recliner at night. He denies any infectious symptoms such as fever, chills, cough, chest pain, hemoptysis. Chest x-ray on arrival showed cardiomegaly, pulmonary vascular congestion, and trace bilateral pleural effusions. A follow- up chest CTA later that afternoon was negative for pulmonary embolism. It did show cardiomegaly, pulmonary hypertension, minimal emphysematous changes, and a 2.4 cm cystic lesion of the pancreatic tail which recommended 3 month follow-up. ABG on arrival showed a pO2 of 60, pCO2 of 65, and a pH is 7.44 on 4 L nasal cannula. CBC on arrival was essentially unremarkable. BMP on arrival showed a sodium 137, potassium 4, chloride 91, serum CO2 chronically elevated at 42, BUN 13, creatinine 0.61, glucose 228. Troponins were negative 1. NT BNP was low at 48. Patient was negative for influenza, RSV, COVID-19. Vital signs are stable. Review of Systems REVIEW OF SYSTEMS: CONSTITUTIONAL: Denies any recent significant weight loss or weight gain. EYES: Denies change in vision. EARS, NOSE, MOUTH, THROAT: Denies headaches, denies sore throat. CARDIOVASCULAR: Denies chest pain, palpitations or syncopal episodes. He does admit bilateral lower extremity swelling RESPIRATORY: See HPI GASTROINTESTINAL: Denies change in appetite, abdominal pain, nausea and vomiting, or diarrhea GENITOURINARY: Denies hematuria, denies infections. MUSKULOSKELETAL: Denies pain, denies swelling. INTEGUMENTARY: Denies rash, denies eczema. NEUROLOGICAL: Denies recent memory loss, no recent seizure activity. PSYCHIATRIC: Denies anxiety, denies depression. HEMATOLOGIC/LYMPHATIC: Denies anemia, denies enlarged lymph node Past Medical History Past Medical History: Heart Failure, COPD Additional Past Medical History / Comment(s): Chronic oxygen dependence on 3-5 L/m History of Any Multi-Drug Resistant Organisms: None Reported Past Surgical History: Hernia Repair Additional Past Surgical History / Comment(s): dental implants. Past Anesthesia/Blood Transfusion Reactions: No Reported Reaction Past Psychological History: No Psychological Hx Reported Smoking Status: Former smoker (Patient smokes approximately 2 packs per day s caren a teenager, quitting approximately one year ago) Past Alcohol Use History: Occasional Past Drug Use History: None Reported - Past Family History Father Additional Family Medical History / Comment(s): father and grandfather had heartattacks 60's. Medications and Allergies Home Medications Medication Instructions Recorded Confirmed Type Albuterol Inhaler [Ventolin Hfa 2 puff INHALATION RT-Q6H PRN 01/12/19 10/29/22 History Inhaler] Furosemide [Lasix] 20 mg PO DAILY #20 tab 01/16/19 10/29/22 Rx Spironolactone [Aldactone] 25 mg PO DAILY #30 tab 01/16/19 10/29/22 Rx Losartan Potassium [Cozaar] 12.5 mg PO DAILY 10/29/22 10/29/22 History Sildenafil Citrate 25 mg PO DAILY 10/29/22 10/29/22 History Allergies Allergy/AdvReac Type Severity Reaction Status Date / Time No Known Allergies Allergy Verified 10/29/22 15:07 Physical Exam Vitals: Vital Signs Temp Pulse Pulse Resp BP BP Pulse Ox 10/29/22 21:03 98.1 F 73 20 92 L 10/29/22 20:45 98.1 F 73 20 103/74 92 L 10/29/22 19:56 76 10/29/22 19:47 76 10/29/22 18:24 98.4 F 76 20 102/67 90 L 10/29/22 16:09 78 20 92 L 10/29/22 12:30 98.0 F 92 20 101/64 86 L Intake and Output 10/29/22 10/29/22 10/30/22 14:59 22:59 06:59 Intake Total 240 Balance 240 Intake: Oral 240 Other: Voiding Method Toilet # Voids 1 Weight 125.645 kg 125.645 kg GENERAL EXAM: Alert, 60-year-old white male, comfortable in no apparent distress. HEAD: Normocephalic and atraumatic EYES: Normal reaction of pupils, equal size. NOSE: Clear with pink turbinates. THROAT: No erythema or exudates. NECK: No masses, no JVD. CHEST: No chest wall deformity. LUNGS: Equal air entry with bibasilar crackles. No wheeze, rhonchi or dullness. On 4 L nasal cannula. No conversational dyspnea or accessory muscle use.. CVS: S1 and S2 normal with no audible murmur, regular rhythm. No extra heart sounds ABDOMEN: Obese abdomen. No hepatosplenomegaly, active bowel sounds, no guarding or rigidity. SPINE: No scoliosis or deformity SKIN: No rashes CENTRAL NERVOUS SYSTEM: No focal deficits, tone is normal in all 4 extremities. EXTREMITIES: There is bilateral 2+ lower extremity peripheral edema. No clubbing, or cyanosis. Peripheral pulses are intact. Results - Laboratory Findings CBC and BMP: 10/29/22 12:51 10/29/22 12:51 ABG ABG pH 7.44 (7.35-7.45) 10/29/22 14:04 ABG pCO2 65 mmHg (35-45) H 10/29/22 14:04 ABG pO2 60 mmHg (83-108) L 10/29/22 14:04 ABG O2 Saturation 92.1 % (94-97) L 10/29/22 14:04 PT/INR, D-dimer PT 10.6 sec (9.0-12.0) 10/29/22 12:51 INR 1.0 (<1.2) 10/29/22 12:51 Abnormal lab findings: Abnormal Labs 10/29/22 10/29/22 10/29/22 12:51 12:51 14:04 Lymphocytes # 0.7 L ABG pCO2 65 H ABG pO2 60 L ABG HCO3 43 H* ABG O2 Saturation 92.1 L Chloride 91 L Carbon Dioxide 42 H* Creatinine 0.61 L Glucose 228 H - Diagnostic Findings Chest x-ray: image reviewed CT scan - chest: image reviewed Assessment and Plan Assessment: Acute COPD exacerbation, possibly related to an acute exacerbation of the patient's diastolic congestive heart failure. Patient reports that he has been noncompliant with his cardiac medications, including his Lasix, for the last 2 days. Chest x-ray on arrival showed cardiomegaly, pulmonary vascular congestion, and trace bilateral pleural effusions. No focal consolidation or evidence of pneumonia Acute on chronic hypoxic and hypercapnic respiratory failure secondary to above. Patient normally utilizes 3-5 L/m nasal cannula at home. He is currently on 4 L nasal cannula. Pulmonary hypertension 2.4 cm cystic pancreatic lesion incidentally found on chest CT, which recommended 3 month follow-up Hyperglycemia Morbid obesity, with a BMI of 40.9 Medication noncompliance Ex-smoker, with significant [id number] history Plan: Patient's medications, labs, chest x-ray, chest CTA were reviewed Continue supplemental oxygen to maintain oxygen saturation of 92% or greater Add Lasix 20 mg twice a day Repeat chest x-ray in the morning Echocardiogram is pending Start patient on course Symbicort, DuoNeb, and IV Solu-Medrol Procalcitonin levels pending NovoLog insulin ACHS to scale while on steroids and check hemoglobin A1c We will continue to follow Recommend pulmonary evaluation in the office with full PFT on discharge I have personally seen and examined the patient, performed the documentation and the assessment and plan as written. Number of minutes spent on the visit:20 Time with Patient: Greater than 30
[2022-10-30] MEDS ORDERED: methylPREDNISolone SOD SUCCI 125 MG/2 ML VIAL IV SCH (06:00)
[2022-10-30 06:14] LABS: Glucose,Whole Blood 145 mg/dL (70-110)
[2022-10-30] MEDS: INSULIN ASPART (NovoLOG) 100 UNIT/ML VIAL SQ SCH ×4 (06:17→21:31)
[2022-10-30] MEDS: IPRATROPIUM-ALBUTEROL 3 ML NEB INHALATION SCH ×4 (07:31→20:16)
[2022-10-30] MEDS: SYMBICORT 160-4.5 MCG INHALER INHALATION SCH ×2 (07:31→20:16)
--- NOTE | 2022-10-30 07:51 | XR ---
EXAMINATION TYPE: XR chest 1V portable DATE OF EXAM: 10/30/2022 Comparison: 10/29/2022 Clinical History: 62-year-old male shortness of breath, dyspnea Findings: Heart mildly enlarged. Interstitial and patchy bilateral opacities persist but may be slightly increa sing in the left mid and lower lung. Impression: Mild cardiomegaly and possible mild pulmonary vascular congestion. Some patchy opacities such as at t he left mid and lower lung may be slightly increasing.
[2022-10-30] MEDS: FUROSEMIDE 10 MG/ML 2 ML VIAL IV SCH ×2 (09:09→21:23)
[2022-10-30] MEDS: SPIRONOLACTONE 25 MG TAB PO SCH (09:09)
[2022-10-30] MEDS: SILDENAFIL CITRATE 25 MG PO SCH (09:09)
[2022-10-30] MEDS: LOSARTAN 25 MG TAB PO SCH (09:09)
--- NOTE | 2022-10-30 15:56 | P.HPIM ---
History of Present Illness H&P Date: 11/06/22 Chief Complaint: Progressive shortness of breath This is a 62-year-old gentleman with past medical history significant for COPD, prior nicotine dependence-quit 1 year ago, obesity who presented to the ER with progressive dyspnea over the past few days. Reports he has also not been compliant wearing his BiPAP at home and has skipped his Lasix over the last couple of days. On admission ,O2 sat 86% on room air, respiratory rate 20 , afebrile ,ABGs reported pH of 7.44, pCO2 65, pO2 60, bicarbonate 43, O2 sat 92.1, base excess 15.7 FiO2 28. Hematology panel unremarkable, INR 1. Sodium 137, potassium 4, chloride 91, bicarb 42, BUN 13, creatinine 0.6, glucose 228. Denies chest pain, palpitations. Troponin negative 1.Viral testing negative for influenza type a, type B, RSV, coronavirus. Pro-calcitonin 0.06. ProBNP 48. EKG reporting sinus rhythm, occasional supraventricular premature complexes. Chest x-ray reported cardiomegaly, pulmonary vascular congestion, bilateral pleural effusions. CTA reported Cardiomegaly and pulmonary arterial hypertension, COPD, minimal emphysema, occasional mild bibasilar fibrosis, no evidence for PE, 2.4 cm cystic lesion of the pancreatic tail with a 3 month follow-up recommended. Repeat chest x-ray reported mild cardiomegaly, possible mild pulmonary vascular congestion, patchy opacity suggested the left mid and lower lung slightly increasing. IV push Lasix and IV steroids initiated in the ER. Review of Systems ROS Other: All systems not noted in ROS Statement are negative. ROS Statement: Those systems with pertinent positive or pertinent negative responses have been documented in the HPI. Past Medical History Past Medical History: Heart Failure, COPD Additional Past Medical History / Comment(s): Chronic oxygen dependence on 3-5 L/m History of Any Multi-Drug Resistant Organisms: None Reported Past Surgical History: Hernia Repair Additional Past Surgical History / Comment(s): dental implants. Past Anesthesia/Blood Transfusion Reactions: No Reported Reaction Past Psychological History: No Psychological Hx Reported Smoking Status: Former smoker (Patient smokes approximately 2 packs per day since a teenager, quitting approximately one year ago) Past Alcohol Use History: Occasional Past Drug Use History: None Reported - Past Family History Father Additional Family Medical History / Comment(s): father and grandfather had heartattacks 60's. Medications and Allergies Home Medications Medication Instructions Recorded Confirmed Type Albuterol Inhaler [Ventolin Hfa 2 puff INHALATION RT-Q6H PRN 01/12/19 10/29/22 History Inhaler] Furosemide [Lasix] 20 mg PO DAILY #20 tab 01/16/19 10/29/22 Rx Spironolactone [Aldactone] 25 mg PO DAILY #30 tab 01/16/19 10/29/22 Rx Losartan Potassium [Cozaar] 12.5 mg PO DAILY 10/29/22 10/29/22 History Sildenafil Citrate 25 mg PO DAILY 10/29/22 10/29/22 History Allergies Allergy/AdvReac Type Severity Reaction Status Date / Time No Known Allergies Allergy Verified 10/29/22 15:07 Physical Exam Vitals: Vital Signs Temp Pulse Pulse Pulse Resp BP BP 10/30/22 09:18 73 18 10/30/22 07:42 68 10/30/22 07:34 66 10/30/22 07:29 10/30/22 07:20 97.7 F 81 18 10/30/22 01:46 97.6 F 73 18 117/78 10/29/22 21:03 98.1 F 73 20 10/29/22 20:45 98.1 F 73 20 103/74 10/29/22 19:56 76 10/29/22 19:47 76 10/29/22 18:24 98.4 F 76 20 102/67 10/29/22 16:09 78 20 BP Pulse Ox 10/30/22 09:18 10/30/22 07:42 10/30/22 07:34 10/30/22 07:29 96 10/30/22 07:20 122/72 95 10/30/22 01:46 96 10/29/22 21:03 92 L 10/29/22 20:45 92 L 10/29/22 19:56 10/29/22 19:47 10/29/22 18:24 90 L 10/29/22 16:09 92 L Intake and Output 10/29/22 10/30/22 10/30/22 22:59 06:59 14:59 Intake Total 240 118 Balance 240 118 Intake: Oral 240 118 Other: Voiding Method Toilet Toilet Toilet # Voids 1 2 Weight 125.645 kg General: upright in chair, conversational. Vitals reviewed Eyes: PERRL, EOMI, conjunctiva normal HENT: normocephalic, mucus membranes moist Neck: supple, no JVD Lungs: normal respiratory effort, bilateral bases diminished, no wheezing, no rales CV: Regular rate and rhythm, no murmur. trace edema Abdomen: soft, nondistended, nontender, no organomegaly Skin: warm and dry, no rash Neuro: A&Ox3, normal mood and affect Results CBC & Chem 7: 10/29/22 12:51 10/29/22 12:51 Labs: Abnormal Lab Results - Last 24 Hours (Table) 10/30/22 Range/Units 06:13 POC Glucose (mg/dL) 145 H (70-110) mg/dL Thrombosis Risk Factor Assmnt - Choose All That Apply Any of the Below Risk Factors Present?: Yes Each Factor Represents 1 point: Abnormal pulmonary function (COPD) Each Risk Factor Represents 2 Points: Age 61-74 years Thrombosis Risk Factor Assessment Total Risk Factor Score: 3 Thrombosis Risk Factor Assessment Level: Moderate Risk Assessment and Plan Assessment: Acute COPD exacerbation, noncompliant with wearing BiPAP, reinforced compliance Chronic exacerbation of CHF, diastolic dysfunction, secondary to noncompliancy with Lasix over the last couple of days, Pro BNP 48, compliance reinforced Chronic hypoxic, hypercapnic respiratory failure secondary to all the above, currently wears 3-5 L nasal cannula at home-he has been on 5 L nasal cannula at home Pulmonary hypertension Minimal emphysema, mild bibasilar fibrosis History of nicotine dependence, quit 1 year ago Hyperglycemia, hemoglobin A1c pending Pancreatic tail cystic lesion, 2.4 cm, incidental finding reported per CTA, 3 month follow-up pancreatic MRI recommended Morbid obesity, BMI 40.9 Plan: Continue on current medication regime, monitoring and symptomatic treatment. Echo Doppler pending. Aggressive pulmonary toileting with nebulized bronchodilators, IV steroids, Lasix. Reinforced medical compliance-using his BiPAP at home as well as compliance with medication regimen. Evaluated by pulmonary with recommendations noted. Discharge planning in progress. The impression and plan of care has been dictated as directed. : I performed a history and examination of this patient, discussed the same with the dictator. I agree with the dictator's note ,documented as a scribe. Any additional findings or plans will be noted.
[2022-10-30 21:27] LABS: Glucose,Whole Blood 153 mg/dL (70-110)
[2022-10-31 06:39] LABS: Glucose,Whole Blood 98 mg/dL (70-110)
[2022-10-31] MEDS: INSULIN ASPART (NovoLOG) 100 UNIT/ML VIAL SQ SCH ×2 (06:39→12:37)
--- NOTE | 2022-10-31 07:27 | CA ---
Transthoracic Echo Report Name: Darshan Lee Age: 62 Gender: M : 1960 Exam Date: 10/30/2022 12:26 Exam Location: [place] [facility] Ht (in): 69 Wt (lb): 277 Ordering Physician: Loyd Casillas Attending/Referring Phys: [id number], Sonja Window Air Conditioner Installer Dandy Monroy, [facility] Procedure CPT: Indications: sob Cardiac Hx: HTN; CP; SOB; Technical Quality: Technically difficult study Contrast 1: Lumason Total Dose (mL): 6 Contrast 2: Total Dose (mL): MEASUREMENTS (Male / Female) Normal Values 2D ECHO LV Diastolic Diameter PLAX 5.3 cm 4.2 - 5.9 / 3.9 - 5.3 cm LV Systolic Diameter PLAX 4.2 cm LV Fractional Shortening PLAX 20.6 % IVS Diastolic Thickness 1.7 cm 0.6 - 1.0 / 0.6 - 0.9 cm IVS Systolic Thickness 2.5 cm LVPW Diastolic Thickness 1.9 cm 0.6 - 1.0 / 0.6 - 0.9 cm LVPW Systolic Thickness 1.5 cm LV Relative Wall Thickness 0.7 RV Internal Dim ED PLAX 3.2 cm LVOT Diameter 2.5 cm LA Systolic Diameter LX 4.3 cm 3.0 - 4.0 / 2.7 - 3.8 cm LV Diastolic Volume MOD BP 62.0 cm??? 67 - 155 / 56 - 104 cm??? LV Systolic Volume MOD BP 23.4 cm??? 22 - 58 / 19 - 49 cm??? LV Ejection Fraction MOD BP 62.3 % >= 55 % LV Stroke Volume MOD BP 38.6 cm??? LV Diastolic Volume MOD 4C 60.9 cm??? LV Systolic Volume MOD 4C 24.2 cm??? LV Ejection Fraction MOD 4C 60.2 % LV Stroke Volume MOD 4C 36.6 cm??? LV Diastolic Length 4C 8.9 cm LV Systolic Length 4C 7.1 cm LV Diastolic Volume MOD 2C 58.7 cm??? LV Systolic Volume MOD 2C 19.7 cm??? LV Ejection Fraction MOD 2C 66.4 % LV Stroke Volume MOD 2C 39.0 cm??? LV Diastolic Length 2C 8.2 cm LV Systolic Length 2C 6.2 cm Ascending Aorta Diameter 3.0 cm M-MODE Aortic Root Diameter MM 3.9 cm LA Systolic Diameter MM 4.8 cm LA Ao Ratio MM 1.2 AV Cusp Separation MM 2.0 cm DOPPLER AV Peak Velocity 145.6 cm/s AV Peak Gradient 8.5 mmHg MV Deceleration [place] 276.3 cm/s??? Mitral E Point Velocity 60.8 cm/s Mitral A Point Velocity 77.6 cm/s Mitral E to A Ratio 0.8 MV Deceleration Time 220.0 ms MV E' Velocity 7.6 cm/s Mitral E to MV E' Ratio 8.0 TR Peak Velocity 155.1 cm/s TR Peak Gradient 9.6 mmHg Right Ventricular Systolic Press 19.6 mmHg PV Peak Velocity 111.1 cm/s PV Peak Gradient 4.9 mmHg FINDINGS Left Ventricle Left ventricular ejection fraction is estimated at 55-60 %. Moderate concentric left ventricular hypertrophy. Left ventricular cavity size normal. Right Ventricle Normal right ventricular size and function. Right Atrium Normal right atrial size. Left Atrium Mild left atrial dilatation. Mitral Valve Mitral valve thickened. No mitral stenosis. Mild mitral regurgitation. Aortic Valve Trileaflet aortic valve.no aortic valve stenosis or regurgitation. Tricuspid Valve Mild tricuspid regurgitation.structurally normal tricuspid valve. Pulmonic Valve Pulmonic valve not well visualized. Pericardium Normal pericardium. No pericardial effusion. Aorta Mild aortic dilatation at the level of the sinuses of valsalva (root). CONCLUSIONS 1. Normal left ventricle size and systolic function 2. Mild mitral and tricuspid regurgitation technically difficult study. Previewed by: Dr. Rodger Cruz MD (Electronically Signed) Final Date: 31 Oct 2022 07:26
[2022-10-31 07:59] VITALS: RESP 18
[2022-10-31] MEDS ORDERED: predniSONE 20 MG TAB PO SCH (09:00)
[2022-10-31] MEDS: SPIRONOLACTONE 25 MG TAB PO SCH (09:02)
[2022-10-31] MEDS: SILDENAFIL CITRATE 25 MG PO SCH (09:03)
[2022-10-31] MEDS: LOSARTAN 25 MG TAB PO SCH (09:03)
[2022-10-31] MEDS: FUROSEMIDE 10 MG/ML 2 ML VIAL IV SCH (09:04)
[2022-10-31] MEDS: IPRATROPIUM-ALBUTEROL 3 ML NEB INHALATION SCH ×2 (09:45→12:59)
[2022-10-31] MEDS: SYMBICORT 160-4.5 MCG INHALER INHALATION SCH (09:45)
[2022-10-31 10:01] LABS: African American GFR (CKD) 120.2 (60.0-200.0); Anion Gap 8.9 mmol/L (10.00-18.00); BUN/Creat Ratio 22.64 Ratio (12.00-20.00); Blood Urea Nitrogen 14.9 mg/dL (9.0-27.0); Calcium 8.8 mg/dL (8.7-10.3); Carbon Dioxide 38.2 mmol/L (20.0-27.5); Non-African American GFR(CKD) 103.8 (60.0-200.0); Potassium 3.5 mmol/L (3.5-5.5)
[2022-10-31] MEDS ORDERED: bisacodyL 10 MG SUPP RECTAL PRN (10:22)
--- NOTE | 2022-10-31 11:45 | P.PN ---
Subjective Progress Note Date: 10/31/22 I'm seeing this patient in new consultation today 10/30/2022 in the emergency room waiting for a bed on the general medical floor. Patient is a 62-year-old white male with past medical history significant for COPD, chronic O2 dependence on 3-5 L/m, diastolic congestive heart failure, and is an ex-smoker quitting approximately one year ago. 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 He reportedly takes Advair and albuterol inhalers. Patient was sent to the emergency room yesterday afternoon from his primary care physician with symptoms of increasing shortness breath over the last couple days. He was found to be hypoxic in the office. Patient is currently sitting up in the chair, on 4 L ana al cannula, in no acute distress. The patient admits that he has not been taking his cardiac meds, including his Lasix, for the last 2 days. He also reports some associated lower extremity swelling and orthopnea. He sleeps in a recliner at night. He denies any infectious symptoms such as fever, chills, cough, chest pain, hemoptysis. Chest x-ray on arrival showed cardiomegaly, pulmonary vascular congestion, and trace bilateral pleural effusions. A follow-up chest CTA later that afternoon was negative for pulmonary embolism. It did show cardiomegaly, pulmonary hypertension, minimal emphysematous changes, and a 2.4 cm cystic lesion of the pancreatic tail which recommended 3 month follow-up. ABG on arrival showed a pO2 of 60, pCO2 of 65, and a pH is 7.44 on 4 L nasal cannula. CBC on arrival was essentially unremarkable. BMP on arrival showed a sodium 137, potassium 4, chloride 91, serum CO2 chronically elevated at 42, BUN 13, creatinine 0.61, glucose 228. Troponins were negative 1. NT BNP was low at 48. Patient was negative for influenza, RSV, COVID-19. Vital signs are stable. The patient is seen today 10/31/2022 in follow-up on the regular medical floor. He is currently sitting up at the bedside. Awake and alert in no acute distress. His breathing is better today compared to yesterday. Maintaining O2 saturations in the 90s on 4 L/m per nasal cannula. Echocardiogram revealed normal left ventricular size and function. No significant valvular heart disease. Sodium 143. Potassium 3.5. BUN 15. Creatinine 0.7. Glucose 106. He continues on Symbicort, DuoNeb inhalations, IV Solu-Medrol. Objective - Vital Signs Vital signs: Vital Signs Temp 98.1 F 10/31/22 07:00 Pulse 80 10/31/22 10:03 Resp 18 10/31/22 07:46 BP 115/68 10/31/22 09:04 Pulse Ox 94 L 10/31/22 07:00 FiO2 Intake & Output 10/30/22 10/31/22 10/31/22 18:59 06:59 18:59 Intake Total 236 Balance 236 Intake: Oral 236 Other: Voiding Method Toilet Toilet Toilet # Voids 2 4 - Exam GENERAL EXAM: Alert, pleasant 60-year-old male, on 4 L/m per nasal cannula, comfortable in no apparent distress. HEAD: Normocephalic and atraumatic EYES: Normal reaction of pupils, equal size. NOSE: Clear with pink turbinates. THROAT: No erythema or exudates. NECK: No masses, no JVD. CHEST: No chest wall deformity. LUNGS: Equal air entry with bibasilar crackles. No wheeze, rhonchi or dullness. No conversational dyspnea or accessory muscle use.. CVS: S1 and S2 normal with no audible murmur, regular rhythm. No extra heart sounds ABDOMEN: Obese abdomen. No hepatosplenomegaly, active bowel sounds, no guarding or rigidity. SPINE: No scoliosis or deformity SKIN: No rashes CENTRAL NERVOUS SYSTEM: No focal deficits, tone is normal in all 4 extremities. EXTREMITIES: There is bilateral 2+ lower extremity peripheral edema. No clubbing, or cyanosis. Peripheral pulses are intact. - Labs CBC & Chem 7: 10/29/22 12:51 10/31/22 05:40 Labs: Abnormal Lab Results - Last 24 Hours (Table) 10/30/22 10/31/22 Range/Units 21:25 05:40 Carbon Dioxide 38.2 H (20.0-27.5) mmol/L Anion Gap 8.90 L (10.00-18.00) mmol/L BUN/Creatinine Ratio 22.64 H (12.00-20.00) Ratio POC Glucose (mg/dL) 153 H (70-110) mg/dL Assessment and Plan Assessment: Acute COPD exacerbation, possibly related to an acute exacerbation of the patient's diastolic congestive heart failure. Patient reports that he has been noncompliant with his cardiac medications, including his Lasix, for the last 2 days. Chest x-ray on arrival showed cardiomegaly, pulmonary vascular congestion, and trace bilateral pleural effusions. No focal consolidation or evidence of pneumonia Acute on chronic hypoxic and hypercapnic respiratory failure secondary to above. Patient normally utilizes 3-5 L/m nasal cannula at home. He is currently on 4 L nasal cannula. Pulmonary hypertension 2.4 cm cystic pancreatic lesion incidentally found on chest CT, which recommended 3 month follow-up Hyperglycemia Morbid obesity, with a BMI of 40.9 Medication noncompliance Ex-smoker, with significant [id number] history Plan: The patient was seen and evaluated Improved and back to his baseline Cleared for discharge from the pulmonary standpoint Continue his home pulmonary medications Complete a prednisone taper starting at 40 mg daily for 4 days Recommend follow-up in our office in 1 week I have personally seen and examined the patient, performed the documentation and the assessment and plan as written. Number of minutes spent on the visit: 10.
[2022-10-31 12:37] LABS: Glucose,Whole Blood 111 mg/dL (70-110)
[2022-10-31 14:30] VITALS: BP 107/65; PULSE 79; TEMP 97.5
--- NOTE | 2022-11-03 13:03 | P.DS ---
Providers Date of admission: 10/29/22 16:08 Expected date of discharge: 10/31/22 Attending physician: Yevgeniy Brantley MD Consults: 10/29/22 15:33 Consult Physician Routine Consulting Provider: Ed Dooley Consult Reason/Comments: Hypoxia, COPD Do you want consulting provider notified?: Yes Primary care physician: Yevgeniy Brantley MD Hospital Course: Final diagnosis Acute COPD exacerbation, noncompliant with wearing BiPAP, reinforced compliance Chronic exacerbation of CHF, diastolic dysfunction, secondary to noncompliance Chronic hypoxic, hypercapnic respiratory failure secondary to all the above, currently wears 3-5 L nasal cannula at home-he has been on 5 L nasal cannula at home Pulmonary hypertension Minimal emphysema, mild bibasilar fibrosis History of nicotine dependence, quit 1 year ago Hyperglycemia Pancreatic tail cystic lesion, 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 Patient will follow-up with Dr. Brantley in the outpatient setting upon discharge. Patient is to continue with outpatient follow-up with pulmonary as well as cardiology as scheduled. Total time taken is greater than 35 minutes. Hospital course This is a 62-year-old male who was recently admitted with worsening shortness of breath with COPD exacerbation as well as mild CHF exacerbation. Patient chronically wears O2 outpatient has been cleared by consultations for discharge. Patient has been instructed to follow-up with pulmonary and cardiology outpatient in one week. Please refer to other consultation notes for further HPI. Currently no reports of chest pain, shortness of breath, or palpitations. Patient is afebrile. No reports of nausea or vomiting and patient is tolerating diet. Patient will be discharged home today. Guarded prognosis and high risk for readmissions due to noncompliance with treatment plan and medications. Physical exam: Gen: This is a 62-year-old male who is awake, alert and oriented 3, well- developed, well-nourished, obese. HEENT: Head is atraumatic, normocephalic. Pupils equal, round. Sclerae is anicteric. NECK: Supple. No JVD. No lymphadenopathy. No thyromegaly. LUNGS: Diminished breath sounds bilaterally with some scattered rhonchi, some forced expiratory wheezing noted. No intercostal retractions. HEART: S1, S2 are muffled ABDOMEN: Soft. Obese. Bowel sounds are present. No masses. No tenderness. EXTREMITIES: No pedal edema. No calf tenderness. NEUROLOGICAL: Patient is awake, alert and oriented x3. Cranial nerves 2 through 12 are grossly intact. Please refer to medication reconciliation sheet for a list of medications. The impression and plan of care has been dictated by Susanne Hussein, Nurse Practitioner as directed. Dr. MAHOGANY MD I have performed a history and examination and MDM of this patient, discussed the same with the dictator, and agree with the dictator's assessment and plan as written ,documented as a scribe. Based on total visit time, I have performed more than 50% of the visit. Patient Condition at Discharge: Fair Plan - Discharge Summary Discharge Rx Participant: No New Discharge Prescriptions: New predniSONE 10 mg PO DIRECTED #30 tab Budesonide-Formot 160-4.5 Mcg [Symbicort 160-4.5 Mcg Inhaler] 2 puff INHALATION RT-BID 30 Days #1 each Acetaminophen Tab [Tylenol] 650 mg PO Q4HR PRN tab PRN Reason: Mild Pain Or Fever > 100.5 Continue Albuterol Inhaler [Ventolin Hfa Inhaler] 2 puff INHALATION RT-Q6H PRN PRN Reason: Shortness Of Breath Spironolactone [Aldactone] 25 mg PO DAILY #30 tab Sildenafil Citrate 25 mg PO DAILY Losartan Potassium [Cozaar] 12.5 mg PO DAILY Changed Furosemide [Lasix] 20 mg PO BID #30 tab Discharge Medication List Albuterol Inhaler [Ventolin Hfa Inhaler] 2 puff INHALATION RT-Q6H PRN 01/12/19 [History] Spironolactone [Aldactone] 25 mg PO DAILY #30 tab 01/16/19 [Rx] Losartan Potassium [Cozaar] 12.5 mg PO DAILY 10/29/22 [History] Sildenafil Citrate 25 mg PO DAILY 10/29/22 [History] Acetaminophen Tab [Tylenol] 650 mg PO Q4HR PRN tab 10/31/22 [Rx] Budesonide-Formot 160-4.5 Mcg [Symbicort 160-4.5 Mcg Inhaler] 2 puff INHALATION RT-BID 30 Days #1 each 10/31/22 [Rx] Furosemide [Lasix] 20 mg PO BID #30 tab 10/31/22 [Rx] predniSONE 10 mg PO DIRECTED #30 tab 10/31/22 [Rx] Follow up Appointment(s)/Referral(s): Yevgeniy Brantley MD [Primary Care Provider] - 1-2 days Ed Dooley DO [Doctor of Osteopathic Medicine] - 11/11/22 9:00 am Patient Instructions/Handouts: Pulmonary Edema (DC), Hypoxia (GEN), Acute Respiratory Failure (GEN) Activity/Diet/Wound Care/Special Instructions: Activity Limited until follow-up Follow-up with primary care provider on discharge follow-up with pulmonary outpatient Continue taking medications as prescribed Discharge Disposition: HOME SELF-CARE
[2022-11-05 20:11] LABS: Glucose,Whole Blood 180 mg/dL (70-110)
[2022-11-05 20:11] LABS: Glucose,Whole Blood 240 mg/dL (70-110)
[2022-11-05 20:11] LABS: Glucose,Whole Blood 95 mg/dL (70-110)
== END 2022-10-31 16:03 | disposition home or self-care (01) ==
LOC: EC 12:22 → 6NMEDSUR 16:08
PROVIDERS: ADMIT Family Medicine; ATTEND Family Medicine
DX: J44.1 Chronic obstructive pulmonary disease with (acute) exacerbation (principal); J96.22 Acute and chronic respiratory failure with hypercapnia; J96.21 Acute and chronic respiratory failure with hypoxia; I50.32 Chronic diastolic (congestive) heart failure; Z91.199 Patient's noncompliance with other medical treatment and regimen due to unspecified reason; Z91.148 Patient's other noncompliance with medication regimen for other reason; I27.21 Secondary pulmonary arterial hypertension; R73.9 Hyperglycemia, unspecified; J84.10 Pulmonary fibrosis, unspecified; Z99.81 Dependence on supplemental oxygen; I49.1 Atrial premature depolarization; K86.9 Disease of pancreas, unspecified; E66.01 Morbid (severe) obesity due to excess calories; Z68.41 Body mass index [BMI] 40.0-44.9, adult; Z79.899 Other long term (current) drug therapy; Z96.5 Presence of tooth-root and mandibular implants; Z98.890 Other specified postprocedural states; Z87.891 Personal history of nicotine dependence; Z82.49 Family history of ischemic heart disease and other diseases of the circulatory system
CPT/HCPCS: 96376 ×2; 96374; 96375; 99285; 36415; 94640 ×5; 36600; 94760; 93005; 93306; 83880; 80053; 80048; 82805; 84484; 85025; 85610; 85730; 83036; 84145; 87636; 71045; 71046; 71275; G0378 ×3; J1940 ×3; J2930 ×2; J7512; Q9967

== ENCOUNTER → 2023-06-06 | Outpatient (CLI) | payer BC ==
--- NOTE | 2023-06-06 14:15 | CT ---
EXAMINATION TYPE: CT angio abdomen CT DLP: 1880.20 mGycm, Automated exposure control for dose reduction was used. DATE OF EXAM: 06/06/2023 9:46 AM COMPARISON: 10/29/2022 CTA chest . . 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 3-D reconstructed images and maximum intensity projection images were obtained. CT angio abdomen CT Contrast: Contrast used:100 mL of Isovue 370 with IV Contrast, Oral contrast used: None FINDINGS: CTA Abdomen: The abdominal aorta shows mild scattered atherosclerotic calcification throughout. There is mild narrowing of the proximal celiac artery. SMA and bilateral renal arteries appear patent. SUSAN is patent. No AAA is seen. Maximal diameter of the infrarenal aorta is 2.2 cm. Aortic bifurcation is patent. Mild atherosclerotic calcification of the bilateral iliac arteries without significant steno sis seen. LOWER CHEST: Mild bibasilar fibrosis. Heart size upper normal with partially seen aortic valve calcif ication. No evidence of focal consolidation, pneumothorax or pleural effusion. Small Bochdalek hernia on the right. LIVER: Reflux of contrast to the hepatic level IVC and hepatic veins, can be seen with right heart in sufficiency. Tiny hypodensity in the posterior right hepatic lobe is most likely benign. GALLBLADDER AND BILE DUCTS: Unremarkable. PANCREAS: No acute abnormality. A 2.5 x 1.9 cm ovoid hypodense nodule near the tail of the pancreas s uperiorly does not appear significantly changed and does not appear to enhance. SPLEEN: Unremarkable. ADRENAL GLANDS: Mild thickening and nodularity may be due to hyperplasia or adenomatoid change.. KIDNEYS AND URETERS: No evidence of hydronephrosis or renal calculus. The visualized ureters are unre markable. STOMACH AND BOWEL: Stomach and small bowel appear nondistended. No evidence of obstruction. Appendix is seen and looks unremarkable. Mild/moderate stool throughout the visualized colon. There are sever al scattered colonic diverticula without clear evidence of diverticulitis. PERITONEUM: No evidence of pneumoperitoneum or free fluid. VASCULATURE: As above. Splenic artery appears to enhance normally without evidence of aneurysm. MUSCULOSKELETAL: Mild/moderate degenerative changes of the visualized spine. No acute bony abnormalit y is seen. LYMPH NODES: No gross evidence for lymphadenopathy. SOFT TISSUE/ABDOMINAL WALL: Unremarkable IMPRESSION 1. Mild atherosclerotic disease involving the abdominal aorta and common iliac arteries. No evidence of high-grade stenosis or occlusion. 2. No evidence of AAA or splenic artery aneurysm. 3. Stable cystic lesion near the pancreatic tail could be further evaluated with periodic outpatient pancreatic MRI as clinically warranted.
== END | disposition home or self-care (01) ==
LOC: RADCTMAIN 08:42
PROVIDERS: ATTEND Family Medicine
DX: A52.0 Cardiovascular and cerebrovascular syphilis (principal); I70.0 Atherosclerosis of aorta; K86.89 Other specified diseases of pancreas
CPT/HCPCS: 74175; Q9967

== ENCOUNTER 2024-03-10 11:00 | Inpatient (IN) | payer BC ==
--- NOTE | 2024-03-10 11:28 | ED ---
SOB HPI - General Chief Complaint: Shortness of Breath Stated Complaint: SOB Time Seen by Provider: 03/10/24 11:27 Source: patient, family, RN notes reviewed Mode of arrival: wheelchair Limitations: no limitations - History of Present Illness Initial Comments: 64-year-old presented the ER with a chief complaint of weakness and dizziness. Patient has a past medical history significant of COPD and congestive heart failure. He typically wears 6 L of nasal cannula oxygen at home. He presents today due to shortness of breath worsening over the past couple of days. Patients oxygen saturation typically runs between 90 to 92% on 6 L. Daughter, at bedside, reports yesterday he had an episode in the 70s. Daughter also reports past couple days bilateral lower extremity edema. He does take a water pill. Patient admits to exertional dyspnea as he cannot walk longer than 50 feet without feeling short of breath. Positive orthopnea. He denies any chest pain, fevers, chills, cough, congestion or runny nose denies any abdominal pain, urinary complaints. Daughter also reports he seems more confused than normal. - Related Data Home Medications Medication Instructions Recorded Confirmed Losartan Potassium [Cozaar] 12.5 mg PO DAILY 10/29/22 03/10/24 Sildenafil Citrate 25 mg PO DAILY 10/29/22 03/10/24 Potassium Chloride ER [K-Dur 10] 10 meq PO DAILY 03/10/24 03/10/24 Previous Rx's Medication Instructions Recorded Spironolactone [Aldactone] 25 mg PO DAILY #30 tab 01/16/19 Furosemide [Lasix] 20 mg PO BID #30 tab 10/31/22 Allergies Allergy/AdvReac Type Severity Reaction Status Date / Time No Known Allergies Allergy Verified 03/10/24 13:15 Review of Systems ROS Statement: Those systems with pertinent positive or pertinent negative responses have been documented in the HPI. ROS Other: All systems not noted in ROS Statement are negative. Past Medical History Past Medical History: Heart Failure, COPD Additional Past Medical History / Comment(s): Chronic oxygen dependence on 3-5 L/m History of Any Multi-Drug Resistant Organisms: None Reported Past Surgical History: Hernia Repair Additional Past Surgical History / Comment(s): dental implants. Past Anesthesia/Blood Transfusion Reactions: No Reported Reaction Past Psychological History: No Psychological Hx Reported Smoking Status: Former smoker Past Alcohol Use History: Occasional Past Drug Use History: None Reported - Past Family History Father Additional Family Medical History / Comment(s): father and grandfather had heartattacks 60's. General Exam - General Exam Comments Initial Comments: Visual Physical Exam Vital signs reviewed General: Well-appearing, nontoxic, no acute distress. Head: Normocephalic, atraumatic Eyes: PERRLA, EOMI ENT: Airway patent Chest: Nonlabored breathing Skin: No visual rash, normal skin tone Neuro: Alert and oriented 3 Musculoskeletal: No gross abnormalities edematous bilateral feet Limitations: no limitations General appearance: alert, in no apparent distress Respiratory exam: Present: decreased breath sounds (Bilaterally) Cardiovascular Exam: Present: regular rate, normal rhythm, normal heart sounds. Absent: systolic murmur, diastolic murmur, rubs, gallop, clicks Extremities exam: Present: normal inspection, full ROM, normal capillary refill, pedal edema (1+ pretibial and pedal edema bilaterally). Absent: tenderness, joint swelling, calf tenderness Neurological exam: Present: alert, oriented X3, CN II-XII intact Skin exam: Present: warm, dry, intact, normal color. Absent: rash Course Vital Signs 03/10/24 03/10/24 03/10/24 11:04 13:30 16:00 Temperature 97.3 F L 97.9 F Pulse Rate 75 68 80 Respiratory 24 18 18 Rate Blood Pressure 139/78 118/71 100/70 O2 Sat by Pulse 94 L 94 L 92 L Oximetry 03/10/24 18:26 Temperature Pulse Rate 80 Respiratory 18 Rate Blood Pressure 93/86 O2 Sat by Pulse 90 L Oximetry - Reevaluation(s) Reevaluation #1: 03/10/24 13:[address] Brantley for admission. Medical Decision Making - Medical Decision Making I performed the quick note portion of this chart. Electronically signed by Munir Smith PA-C Was pt. sent in by a medical professional or institution ([facility], LANDCARE FACILITATOR, urgent care, hospital, or fpc...) When possible be specific @ -No Did you speak to anyone other than the patient for history (EMS, parent, family, police, friend...)? What history was obtained from this source @ -No Did you review nursing and triage notes (agree or disagree)? Why? @ -I reviewed and agree with nursing and triage notes Were old charts reviewed (outside hosp., previous admission, EMS record, old EKG, old radiological studies, urgent care reports/EKG's, fpc records)? Report findings @ -No old charts were reviewed Differential Diagnosis (chest pain, altered mental status, abdominal pain women, abdominal pain men, vaginal bleeding, weakness, fever, dyspnea, syncope, headache, dizziness, GI bleed, back pain, seizure, CVA, palpatations, mental health, musculoskeletal)? @ -Differential Dyspnea: Coronary syndrome, arrhythmia, tamponade, asthma, COPD, pulmonary embolism, pneumonia, pneumothorax, pulmonary effusion, anaphyl axis, diabetic ketoacidosis, flailed chest, pulmonary contusion, diaphragmatic rupture, anemia, neuromuscular, this is not meant to be an all-inclusive list. EKG interpreted by me (3pts min.). @ -As above X-rays interpreted by me (1pt min.). @ -Chest x-ray interpreted by me negative for acute cardiopulmonary process. CT interpreted by me (1pt min.). @ -None done U/S interpreted by me (1pt. min.). @ -None done What testing was considered but not performed or refused? (CT, X-rays, U/S, labs)? Why? @ -None What meds were considered but not given or refused? Why? @ -None Did you discuss the management of the patient with other professionals (professionals i.e. , PA, LANDCARE FACILITATOR, lab, RT, psych nurse, social studies department chair, dog breeder, teacher, corporate responsibility officer, ed case manager)? Give summary @ -Yes, case discussed with Dr. Brantley for admission. Was smoking cessation discussed for >3mins.? @ -No Was critical care preformed (if so, how long)? @ -Yes, 31 minutes Were there social determinants of health that impacted care today? How? (Homelessness, low income, unemployed, alcoholism, drug addiction, tra nsportation, low edu. Level, literacy, decrease access to med. care, skilled nursing, rehab)? @ -No Was there de-escalation of care discussed even if they declined (Discuss DNR or withdrawal of care, Hospice)? DNR status @ -No What co-morbidities impacted this encounter? (DM, HTN, Smoking, COPD, CAD, Cancer, CVA, ARF, Chemo, Hep., AIDS, mental health diagnosis, sleep apnea, morbid obesity)? @ -Obese, COPD, CHF Was patient admitted / discharged? Hospital course, mention meds given and route, prescriptions, significant lab abnormalities, going to OR and other pertinent info. @ -Admitted. 64-year-old male presented to the ER with a chief complaint of shortness of breath. History and physical exam completed. Vitals upon arrival remarkable for temperature 97.3, heart rate 75, respiratory rate 24, blood pressure 139/78, oxygen saturation 94% on 6 L. Patient no signs of acute distress upon examination. Patient was requesting to sit vertically in a recliner as he is uncomfortable laying down in the bed due to back pain and shortness of breath. Diminished lung sounds throughout. 1+ pretibial/pedal edema bilaterally. Laboratory studies showed a WBC 8.4, sodium 142, potassium 4.4, chloride 89, carbon dioxide 51. Troponin<0.012, BNP < 20, D-dimer 0.48. Viral swabs negative. Chest x-ray interpreted by me negative for acute cardiopulmonary process. Symptoms believed to be due to COPD exacerbation. Admission considered and discussed with Dr. Brantley for admission and treatment of COPD exacerbation. Pulmonology on consult. Patient started on azithromycin. BiPAP ordered. Patient agreeable for admission. Patient admitted in stable condition for further evaluation and treatment. Case discussed with ED attending, . Undiagnosed new problem with uncertain prognosis? @ -No Drug Therapy requiring intensive monitoring for toxicity (Heparin, Nitro, In sulin, Cardizem)? @ -No Were any procedures done? @ -No Diagnosis/symptom? @ -COPD/hypercapnia/obese Acute, or Chronic, or Acute on Chronic? @ -Acute on chronic Uncomplicated (without systemic symptoms) or Complicated (systemic symptoms)? @ -Complicated Side effects of treatment? @ -No Exacerbation, Progression, or Severe Exacerbation? @ -Exacerbation Poses a threat to life or bodily function? How? (Chest pain, [place], NE, pneumonia, PE, COPD, DKA, ARF, appy, cholecystitis, CVA, Diverticulitis, Homicidal, Suicidal, threat to staff... and all critical care pts) @ -Yes, COPD exacerbation can lead to hypoxia which is life-threatening. - Lab Data Result diagrams: 03/10/24 11:19 03/10/24 11:19 Lab Results 03/10/24 03/10/24 03/10/24 Range/Units 11:19 11:19 11:19 WBC 8.4 (3.8-10.6) k/uL RBC 4.55 (4.30-5.90) m/uL Hgb 14.0 (13.0-17.5) gm/dL Hct 45.4 (39.0-53.0) % MCV 99.8 (80.0-100.0) fL MCH 30.7 (25.0-35.0) pg MCHC 30.7 L (31.0-37.0) g/dL RDW 13.7 (11.5-15.5) % Plt Count 165 (150-450) k/uL MPV 7.8 Neutrophils % 75 % Lymphocytes % 13 % Monocytes % 7 % Eosinophils % 2 % Basophils % 0 % Neutrophils # 6.3 (1.3-7.7) k/uL Lymphocytes # 1.1 (1.0-4.8) k/uL Monocytes # 0.6 (0-1.0) k/uL Eosinophils # 0.1 (0-0.7) k/uL Basophils # 0.0 (0-0.2) k/uL Hypochromasia Moderate PT 10.3 (10.0-12.5) sec INR 0.9 (<1.2) APTT 27.1 (22.0-30.0) sec D-Dimer (<0.60) mg/L FEU Sodium 142 (137-145) mmol/L Potassium 4.4 (3.5-5.1) mmol/L Chloride 89 L (98-107) mmol/L Carbon Dioxide 51 H* (22-30) mmol/L Anion Gap 2 mmol/L BUN 13 (9-20) mg/dL Creatinine 0.55 L (0.66-1.25) mg/dL Est GFR (CKD-EPI)AfAm >90 (>60 ml/min/1.73 sqM) Est GFR (CKD-EPI)NonAf >90 (>60 ml/min/1.73 sqM) Glucose 131 H (74-99) mg/dL Calcium 8.3 L (8.4-10.2) mg/dL Total Bilirubin 0.5 (0.2-1.3) mg/dL AST 24 (17-59) U/L ALT 24 (4-49) U/L Alkaline Phosphatase 72 (38-126) U/L Troponin I (0.000-0.034) ng/mL NT-Pro-B Natriuret Pep <20 pg/mL Total Protein 6.4 (6.3-8.2) g/dL Albumin 3.6 (3.5-5.0) g/dL Influenza Type A (PCR) (Not Detectd) Influenza Type B (PCR) (Not Detectd) RSV (PCR) (Not Detectd) SARS-CoV-2 (PCR) (Not Detectd) 03/10/24 03/10/24 03/10/24 Range/Units 11:19 11:19 12:46 WBC (3.8-10.6) k/uL RBC (4.30-5.90) m/uL Hgb (13.0-17.5) gm/dL Hct (39.0-53.0) % MCV (80.0-100.0) fL MCH (25.0-35.0) pg MCHC (31.0-37.0) g/dL RDW (11.5-15.5) % Plt Count (150-450) k/uL MPV Neutrophils % % Lymphocytes % % Monocytes % % Eosinophils % % Basophils % % Neutrophils # (1.3-7.7) k/uL Lymphocytes # (1.0-4.8) k/uL Monocytes # (0-1.0) k/uL Eosinophils # (0-0.7) k/uL Basophils # (0-0.2) k/uL Hypochromasia PT (10.0-12.5) sec INR (<1.2) APTT (22.0-30.0) sec D-Dimer 0.48 (<0.60) mg/L FEU Sodium (137-145) mmol/L Potassium (3.5-5.1) mmol/L Chloride (98-107) mmol/L Carbon Dioxide (22-30) mmol/L Anion Gap mmol/L BUN (9-20) mg/dL Creatinine (0.66-1.25) mg/dL Est GFR (CKD-EPI)AfAm (>60 ml/min/1.73 sqM) Est GFR (CKD-EPI)NonAf (>60 ml/min/1.73 sqM) Glucose (74-99) mg/dL Calcium (8.4-10.2) mg/dL Total Bilirubin (0.2-1.3) mg/dL AST (17-59) U/L ALT (4-49) U/L Alkaline Phosphatase (38-126) U/L Troponin I <0.012 (0.000-0.034) ng/mL NT-Pro-B Natriuret Pep pg/mL Total Protein (6.3-8.2) g/dL Albumin (3.5-5.0) g/dL Influenza Type A (PCR) Not Detected (Not Detectd) Influenza Type B (PCR) Not Detected (Not Detectd) RSV (PCR) Not Detected (Not Detectd) SARS-CoV-2 (PCR) Not Detected (Not Detectd) - EKG Data -: EKG Interpreted by Me EKG Comments: EKG taken at 11: 16 showing a sinus rhythm. No acute ST segment or T wave abnormalities. Ventricular rate 77, MI #191, QRS duration 105, QT/QTc 377/4 9. - Radiology Data Radiology results: report reviewed, image reviewed Disposition Clinical Impression: Obesity, Hypercapnia, COPD exacerbation Disposition: ADMITTED IP TO THIS HOSP Condition: Stable Time of Disposition: 13:56
[2024-03-10 11:36] LABS: Basophils % (A) 0 %; Eosinophils # (A) 0.1 k/uL (0-0.7); Eosinophils % (A) 2 %; HCT 45.4 % (39.0-53.0); Hypochromasia Moderate; Lymphocytes # (A) 1.1 k/uL (1.0-4.8); Lymphocytes % (A) 13 %; MCH 30.7 pg (25.0-35.0); MCHC 30.7 g/dL (31.0-37.0); MCV 99.8 fL (80.0-100.0); Mean Platelet Volume 7.8; Monocytes # (A) 0.6 k/uL (0-1.0); Monocytes % (A) 7 %; Neutrophils # (A) 6.3 k/uL (1.3-7.7); Neutrophils % (A) 75 %; Platelet Count 165 k/uL (150-450); RBC 4.55 m/uL (4.30-5.90); RDW 13.7 % (11.5-15.5); WBC 8.4 k/uL (3.8-10.6)
[2024-03-10 11:41] LABS: INR 0.9 (<1.2); Partial Thromboplastin Time 27.1 sec (22.0-30.0); Prothrombin Time 10.3 sec (10.0-12.5)
[2024-03-10 11:55] LABS: ALT 24 U/L (4-49); AST 24 U/L (17-59); African American GFR (CKD) >90 (>60 ml/min/1.73 sqM); Albumin 3.6 g/dL (3.5-5.0); Alkaline Phosphatase 72 U/L (38-126); Blood Urea Nitrogen 13 mg/dL (9-20); Calcium 8.3 mg/dL (8.4-10.2); Chloride 89 mmol/L (98-107); Glucose 131 mg/dL (74-99); Non-African American GFR(CKD) >90 (>60 ml/min/1.73 sqM); Potassium 4.4 mmol/L (3.5-5.1); Sodium 142 mmol/L (137-145); Total Bilirubin 0.5 mg/dL (0.2-1.3); Total Protein 6.4 g/dL (6.3-8.2)
[2024-03-10 12:02] LABS: Anion Gap 2 mmol/L
[2024-03-10 12:04] LABS: Carbon Dioxide 51 mmol/L (22-30)
--- NOTE | 2024-03-10 12:08 | XR ---
EXAMINATION TYPE: XR chest 2V DATE OF EXAM: 03/10/2024 COMPARISON: 11/16/2022 HISTORY: Shortness of breath TECHNIQUE: Frontal and lateral views of the chest are obtained. FINDINGS: Scattered senescent parenchymal changes noted. Hyperinflation compatible with COPD. No evidence for infiltrate. No evidence for atelectasis. Heart size is stable. Mediastinal structures are stable and grossly unremarkable. No evidence for hilar prominence. Degenerative changes dorsal spine. IMPRESSION: 1. No evidence for acute pulmonary disease.
[2024-03-10 12:21] LABS: NT-Pro-B-Type Natriuretic Pept <20 pg/mL
[2024-03-10] MEDS ORDERED: ACETAMINOPHEN TAB 325 MG TAB PO PRN (13:52)
[2024-03-10] MEDS ORDERED: NALOXONE 0.4 MG/ML 1 ML VIAL IV PRN (13:52)
[2024-03-10] MEDS: AZITHROMYCIN 500 MG TAB PO STA (14:05)
[2024-03-10] MEDS: FUROSEMIDE 20 MG TAB PO SCH (16:22)
[2024-03-11] MEDS ORDERED: IPRATROPIUM-ALBUTEROL 3 ML NEB INHALATION PRN ×2 (01:21→05:55)
--- NOTE | 2024-03-11 06:04 | P.CNPUL ---
History of Present Illness Consult date: 03/11/24 Requesting physician: Marlen Smith Reason for consult: COPD Chief complaint: Shortness of breath History of present illness: Patient is a 64-year-old white male with past medical history significant for severe oxygen dependent COPD, pulmonary hypertension, heart failure, and is an ex-smoker quitting approximately one year ago. Patient presents to the emergency department yesterday after having a while getting up to go to the bathroom. He fell on his buttocks and lower back. Denies hitting his head. Denies anticoagulant use. Over the last several days he has been more weak generally. He is deconditioned and admits weight gain. He has also had increased lower extremity swelling bilaterally. Takes diuretics at home. May have missed a dose recently. Denies any chest pain, heart palpitations, or syncopal events. He also has severe COPD with an FEV1 45% of predicted, he is chronically oxygen dependent currently on 5 L/min nasal cannula 20/01. Recently, started following with Dr. Dooley in the pulmonary office. He has been more short of breath mostly with exertion. He states his pulse oximeter reads 70% with activity, and takes a long time to come back to baseline with rest. Intermittently confused at times. Denies any infectious symptoms such as cough, sputum production, fever, chills. Denies sick contacts. Patient is currently being evaluated in the emergency department, room 15. He is sitting up in the bedside recliner, he is on 4 L/min nasal cannula, no acute distress. Heart rhythm appears normal sinus on bedside monitor around 80 bpm. Blood pressure normotensive. Chest x-ray taken on admission showing hyperinflation consistent with COPD possible mild pulmonary vascular congestion, however, NT proBNP was low. CBC unremarkable, no leukocytosis. CMP: Sodium 142, potassium 4.4, chloride 89, serum bicarb 51, BUN 13, creatinine 0.55, glucose 131. Troponin less than 0.012. NT proBNP less than 20. Negative for influenza, RSV, COVID. Hemodynamics are stable. Review of Systems Constitutional: Reports fatigue, Reports weakness, Reports weight gain, Denies chills, Denies fever Ears, nose, mouth and throat: Denies headache, Denies nasal congestion, Denies nasal discharge, Denies sinus pressure, Denies sore throat Cardiovascular: Reports dyspnea on exertion, Reports leg edema, Reports orthopnea, Denies chest pain, Denies palpitations, Denies paroxysmal nocturnal dyspnea, Denies syncope Respiratory: Reports dyspnea, Reports home oxygen, Denies congestion, Denies cough, Denies excessive sputum, Denies hemoptysis, Denies pain on inspiration, Denies respiratory infections, Denies wheezing Gastrointestinal: Denies abdominal pain, Denies constipation, Denies diarrhea, Denies nausea, Denies vomiting Genitourinary: Denies dysuria, Denies hematuria, Denies urinary frequency Musculoskeletal: Denies arm numbness/tingling, Denies leg numbness/tingling, Denies limitation of motion Integumentary: Denies rash Neurological: Reports confusion, Reports memory loss, Denies headaches, Denies l oss of vision, Denies seizures, Denies syncope Psychiatric: Denies anxiety, Denies depression Past Medical History Past Medical History: Heart Failure, COPD Additional Past Medical History / Comment(s): Chronic oxygen dependence on 3-5 L/m History of Any Multi-Drug Resistant Organisms: None Reported Past Surgical History: Hernia Repair Additional Past Surgical History / Comment(s): dental implants. Past Anesthesia/Blood Transfusion Reactions: No Reported Reaction Past Psychological History: No Psychological Hx Reported Smoking Status: Former smoker Past Alcohol Use History: Occasional Past Drug Use History: None Reported - Past Family History Father Additional Family Medical History / Comment(s): father and grandfather had heartattacks 60's. Medications and Allergies Home Medications Medication Instructions Recorded Confirmed Type Spironolactone [Aldactone] 25 mg PO DAILY #30 tab 01/16/19 03/10/24 Rx Losartan Potassium [Cozaar] 12.5 mg PO DAILY 10/29/22 03/10/24 History Sildenafil Citrate 25 mg PO DAILY 10/29/22 03/10/24 History Furosemide [Lasix] 20 mg PO BID #30 tab 10/31/22 03/10/24 Rx Potassium Chloride ER [K-Dur 10] 10 meq PO DAILY 03/10/24 03/10/24 History Allergies Allergy/AdvReac Type Severity Reaction Status Date / Time No Known Allergies Allergy Verified 03/10/24 13:15 Physical Exam Vitals: Vital Signs Temp Pulse Resp BP Pulse Ox 03/10/24 23:58 76 20 127/70 93 L 03/10/24 22:00 76 18 111/66 90 L 03/10/24 19:32 74 2 L 93/68 90 L 03/10/24 18:26 80 18 93/86 90 L 03/10/24 16:00 80 18 100/70 92 L 03/10/24 13:30 97.9 F 68 18 118/71 94 L 03/10/24 11:04 97.3 F L 75 24 139/78 94 L Intake and Output 03/10/24 03/10/24 03/11/24 14:59 22:59 06:59 Other: Weight 131.542 kg GENERAL EXAM: Alert and oriented x 3, 64-year-old morbidly obese male, sitting up in bedside recliner, comfortable in no apparent distress. HEAD: Normocephalic and atraumatic EYES: Normal reaction of pupils, equal size. NOSE: Clear with pink turbinates. THROAT: No erythema or exudates. NECK: No masses, no JVD. CHEST: No chest wall deformity. LUNGS: Equal air entry with no crackles, wheeze, rhonchi or dullness. On 4 L/min nasal cannula. No conversational dyspnea or accessory muscle use.. CVS: S1 and S2 normal with no audible murmur, regular rhythm. No extra heart sounds ABDOMEN: No hepatosplenomegaly, active bowel sounds, no guarding or rigidity. SPINE: No scoliosis or deformity SKIN: No rashes CENTRAL NERVOUS SYSTEM: No focal deficits, tone is normal in all 4 extremities. EXTREMITIES: There is bilateral lower extremity edema, 1-2+ bilaterally. No clubbing, or cyanosis. Peripheral pulses are intact. Results - Laboratory Findings CBC and BMP: 03/10/24 11:19 03/10/24 11:19 PT/INR, D-dimer PT 10.3 sec (10.0-12.5) 03/10/24 11:19 INR 0.9 (<1.2) 03/10/24 11:19 D-Dimer 0.48 mg/L FEU (<0.60) 03/10/24 11:19 Abnormal lab findings: Abnormal Labs 03/10/24 03/10/24 11:19 11:19 MCHC 30.7 L Chloride 89 L Carbon Dioxide 51 H* Creatinine 0.55 L Glucose 131 H Calcium 8.3 L - Diagnostic Findings Chest x-ray: image reviewed Assessment and Plan Assessment: Acute COPD exacerbation, chest x-ray showing stable cardiac silhouette, possible mild pulmonary vascular congestion, however, NT proBNP was low. No obvious acute infiltrates. Acute on chronic hypoxemic and hypercapnic respiratory failure, secondary to above Severe chronic obstructive pulmonary disease, with FEV1 45% of predicted. Normally maintained on Symbicort maintenance inhaler, albuterol nebs [id number], and Ventolin rescue inhaler. Chronic hypoxemic respiratory failure, currently maintained on 5 L/min nasal cannula 20/01 History of heart failure with preserved ejection fraction History of pulmonary hypertension, on a phosphodiesterase inhibitor History of systemic hypertension Fall Generalized weakness and deconditioning Morbid obesity, with a BMI of 44.1 kg/m Former tobacco dependence Plan: Patient's medications, labs, chest x-ray reviewed Continue supplemental oxygen, to maintain oxygen saturation of 90% or greater, currently on 4 L/min nasal cannula. Patient is a chronic CO2 retainer. Started on a combination of Symbicort inhaler, DuoNebs [id number], and IV Solu-Medrol 60 mg every 6h No signs of CO2 narcosis Viral screen negative for influenza, RSV, COVID. Home diuretics have been resumed. Will continue to follow I have personally seen and examined the patient, performed the documentation and the assessment and plan as written. Number of minutes spent on the visit:20 Time with Patient: Greater than 30
[2024-03-11] MEDS: methylPREDNISolone SOD SUCCI 125 MG/2 ML VIAL IV SCH (06:06)
[2024-03-11] MEDS: IPRATROPIUM-ALBUTEROL 3 ML NEB INHALATION SCH (07:52)
[2024-03-11] MEDS: SYMBICORT 160-4.5 MCG INHALER INHALATION SCH (07:52)
[2024-03-11] MEDS ORDERED: DEXTROSE 50% SYRINGE 50 ML IVP PRN ×2 (08:53)
[2024-03-11] MEDS: LOSARTAN 25 MG TAB PO SCH (08:58)
[2024-03-11] MEDS: SPIRONOLACTONE 25 MG TAB PO SCH (08:58)
[2024-03-11] MEDS: POTASSIUM CHLORIDE ER 10 MEQ TAB.ER.PRT PO SCH (08:58)
[2024-03-11] MEDS ORDERED: predniSONE 20 MG TAB PO SCH (09:00)
[2024-03-11] MEDS: SILDENAFIL CITRATE 25 MG PO SCH (09:01)
[2024-03-11] MEDS: FUROSEMIDE 40 MG TAB PO SCH (09:03)
[2024-03-11 12:59] LABS: Glucose,Whole Blood 183 mg/dL (70-110)
[2024-03-11] MEDS: INSULIN ASPART (NovoLOG) 100 UNIT/ML VIAL SQ SCH (13:11)
--- NOTE | 2024-03-11 14:01 | P.HPIM ---
History of Present Illness H&P Date: 03/11/24 Chief Complaint: Progressive shortness of breath This is an obese 64-year-old gentleman presented to the ER with complaints of progressive shortness of breath over the last 2 weeks accompanied by increasing bilateral lower extremity edema in addition to sustaining a fall while attempting to get up and proceed to the bathroom. past medical history significant for CHF with preserved LV function, severe COPD, chronic hypoxic respiratory failure-wears 4 to 5 L nasal cannula O2, former nicotine dependence- quit 1 year ago, morbid obesity denies chest pain, palpitations or shortness of breath. Reports his O2 sats normally run less than or equal to 92% on 4 to 5 L, but yesterday O2 sat dipped down into the 70s. Reports also increased exertional dyspnea, positive orthopnea. Patient is on diuretics at home and may have missed a dose recently. denies chest pain, palpitations. Denies recent illness or being around anyone ill. Denies fever or chills. Denies nausea, vomiting or diarrhea. Denies abdominal pain. Family had reported to the ER that patient appeared more confused than his baseline. Telemetry sinus rhythm. Vital signs stable. Afebrile, normal WBC. Hematology , coagulation unremarkable. Sodium 142, potassium 4.4, bicarb 51, BUN 13, creatinine 0.55. Glucose 131. Viral studies negativeChest x-ray reported hyperinflation compatible with COPD, no evidence for infiltrate, no atelectasis. proBNP less than 20. Troponin negative x 1 Review of Systems ROS Statement: Those systems with pertinent positive or pertinent negative responses have been documented in the HPI. ROS Other: All systems not noted in ROS Statement are negative. Past Medical History Past Medical History: Heart Failure, COPD Additional Past Medical History / Comment(s): Chronic oxygen dependence on 3-5 L/m History of Any Multi-Drug Resistant Organisms: None Reported Past Surgical History: Hernia Repair Additional Past Surgical History / Comment(s): dental implants. Past Anesthesia/Blood Transfusion Reactions: No Reported Reaction Past Psychological History: No Psychological Hx Reported Smoking Status: Former smoker Past Alcohol Use History: Occasional Past Drug Use History: None Reported - Past Family History Father Additional Family Medical History / Comment(s): father and grandfather had heartattacks 60's. Medications and Allergies Home Medications Medication Instructions Recorded Confirmed Type Spironolactone [Aldactone] 25 mg PO DAILY #30 tab 01/16/19 03/10/24 Rx Losartan Potassium [Cozaar] 12.5 mg PO DAILY 10/29/22 03/10/24 History Sildenafil Citrate 25 mg PO DAILY 10/29/22 03/10/24 History Furosemide [Lasix] 20 mg PO BID #30 tab 10/31/22 03/10/24 Rx Potassium Chloride ER [K-Dur 10] 10 meq PO DAILY 03/10/24 03/10/24 History Allergies Allergy/AdvReac Type Severity Reaction Status Date / Time No Known Allergies Allergy Verified 03/10/24 13:15 Physical Exam Vitals: Vital Signs Temp Pulse Resp BP Pulse Ox 03/11/24 12:24 80 03/11/24 12:13 79 03/11/24 08:07 85 03/11/24 08:00 82 96 03/11/24 07:53 86 92 L 03/11/24 05:41 73 18 122/78 93 L 03/11/24 03:00 72 20 113/73 94 L 03/10/24 23:58 76 20 127/70 93 L 03/10/24 22:00 76 18 111/66 90 L 03/10/24 19:32 74 2 L 93/68 90 L 03/10/24 18:26 80 18 93/86 90 L 03/10/24 16:00 80 18 100/70 92 L 03/10/24 13:30 97.9 F 68 18 118/71 94 L Intake and Output 03/10/24 03/11/24 03/11/24 22:59 06:59 14:59 Output Total 250 Balance -250 Output: Urine 250 Other: # Voids 1 PHYSICAL EXAM: VITAL SIGNS: [Reviewed] GENERAL: Alert and oriented x 3, sitting up in recliner, no acute distress HEENT: Normocephalic, atraumatic conjunctivae normal. eyes normal. NECK: Supple, no JVD. No thyroid enlargement. No LNs CARDIOVASCULAR: S1, S2 regular.No murmur RESPIRATION: Unlabored, equal air entry breath sounds diminished in the bases. No rhonchi or crackles. ABDOMEN: Soft, nontender . No guarding. no masses palpable. No ascites, No hepatosplenomegaly.Bowel sounds heard. LEGS: Positive bilateral lower extremity edema, 1-2+, no clubbing, no cyanosis NERVOUS SYSTEM: Cranial N 2-12 grossly normal.No focal deficits.Strength and sensation grossly intact. Skin: Warm and dry, no rash Results CBC & Chem 7: 03/10/24 11:19 03/10/24 11:19 Assessment and Plan Assessment: Acute COPD exacerbation Acute pulmonary edema, possibly missed recent doses of his diuretics, echo pending Acute on chronic hypoxic, hypercapnic respiratory failure secondary to the above. Former nicotine dependence COPD, severe Chronic CHF with preserved EF Pulmonary hypertension Morbid obesity, BMI 44 Hypertension Medically debilitated Plan continue on current medication regimen ,monitoring and symptomatic treatment. Troponin series ,echo pending. diurese with Lasix IV push .aggressive pulmonary toileting with ATC nebulized bronchodilators, IV steroids, Symbicort. PT/OT consulted. Pulmonary and cardiology following. The impression and plan of care has been dictated as directed. : I performed a history and examination of this patient, discussed the same with the dictator. I agree with the dictator's note ,documented as a scribe. Any additional findings or plans will be noted.
[2024-03-11] MEDS ORDERED: FUROSEMIDE 40 MG TAB PO SCH (16:00)
[2024-03-11 17:42] LABS: Glucose,Whole Blood 212 mg/dL (70-110)
[2024-03-11] MEDS: FUROSEMIDE 10 MG/ML 4 ML VIAL IV SCH (18:12)
--- NOTE | 2024-03-11 18:52 | P.CRDCN ---
History of Present Illness Consult date: 03/11/24 Consult reason: congestive heart failure History of present illness: This is a 64-year-old male patient with past medical history of severe COPD with chronic hypoxic respiratory failure on home O2 at 5 L nasal cannula, pulmonary hypertension, chronic diastolic heart failure, remote history of tobacco use. We have been asked to evaluate the patient for heart failure. Patient states that he has had some shortness of breath over the past couple of days with weight gain and lower extremity edema. He denies any fever or chills. He states that he is no longer smoking. Also it sounds that patient has a history of obstructive sleep apnea but not on CPAP. Blood pressure 100/66, heart rate 86, pulse ox 93% on 4 L nasal cannula. Patient has been started on his home medication of Lasix 40 mg twice daily EKG: Sinus rhythm with no acute ST-T wave changes. Chest x-ray: No acute pulmonary disease. Laboratory studies: WBC 8.4, hemoglobi 14n. D-dimer 0.48. Sodium 142, potassium 4.4, CO2 51. Creatinine 0.55, BUN 13. Troponin negative x 1. proBNP less than 20. Influenza A, influenza B, RSV, COVID-19 not detected. Home cardiac medications: Lasix 20 mg twice daily, losartan 12.5 mg daily, potassium chloride 10 mEq daily, Aldactone 25 mg daily, patient is also on sildenafil. Echocardiogram performed on 10/30/2022 revealed EF 55 to 60%, mild MR and TR Review Of Systems: At the time of my exam: CONSTITUTIONAL: Denies fever or chills. HEENT: Denies blurred vision, vision changes, or eye pain. Denies hemoptysis CARDIOVASCULAR: Denies chest pain. Denies orthopnea. Denies PND. Denies palpitations RESPIRATORY: Reports shortness of breath. GASTROINTESTINAL: Denies abdominal pain. Denies nausea or vomiting. HEMATOLOGIC: Denies bleeding disorders. GENITOURINARY: Denies any blood in urine. SKIN: Denies puritis. Denies rash. Physical examination: Gen: This is a 64-year-old male in no acute distress VS: reviewed HEENT: Head is atraumatic, normocephalic. Pupils equal, round. Sclerae is anicteric. NECK: Supple. No JVD. LUNGS: Diminished. No intercostal retractions. HEART: Regular rate and rhythm. No murmur. ABDOMEN: Soft No tenderness. EXTREMITIES: No pedal edema. No calf tenderness. NEUROLOGICAL: Patient is awake, alert and oriented x3. Assessment: Acute on chronic hypoxic and hypercapnic respiratory failure secondary to COPD exacerbation Chronic diastolic heart failure Pulmonary hypertension Hypertension Morbid obesity with BMI of 44 Remote history of tobacco use and dependence Plan: Resume patient's home cardiac medications Repeat troponin x 2 Obtain 2-D echocardiogram and Doppler study to assess cardiac structure and function Further recommendations to follow based upon clinical course Thank you kindly for this consultation. Nurse practitioner note has been reviewed, I agree with documented findings and plan of care. Patient was seen and examined. Past Medical History Past Medical History: Heart Failure, COPD Additional Past Medical History / Comment(s): Chronic oxygen dependence on 3-5 L/m History of Any Multi-Drug Resistant Organisms: None Reported Past Surgical History: Hernia Repair Additional Past Surgical History / Comment(s): dental implants. Past Anesthesia/Blood Transfusion Reactions: No Reported Reaction Past Psychological History: No Psychological Hx Reported Smoking Status: Former smoker Past Alcohol Use History: Occasional Past Drug Use History: None Reported - Past Family History Father Additional Family Medical History / Comment(s): father and grandfather had heartattacks 60's. Medications and Allergies Home Medications Medication Instructions Recorded Confirmed Type Spironolactone [Aldactone] 25 mg PO DAILY #30 tab 01/16/19 03/10/24 Rx Losartan Potassium [Cozaar] 12.5 mg PO DAILY 10/29/22 03/10/24 History Sildenafil Citrate 25 mg PO DAILY 10/29/22 03/10/24 History Furosemide [Lasix] 20 mg PO BID #30 tab 10/31/22 03/10/24 Rx Potassium Chloride ER [K-Dur 10] 10 meq PO DAILY 03/10/24 03/10/24 History Allergies Allergy/AdvReac Type Severity Reaction Status Date / Time No Known Allergies Allergy Verified 03/10/24 13:15 Physical Exam Vitals: Vital Signs Temp Pulse Resp BP Pulse Ox 03/11/24 12:24 80 03/11/24 12:13 79 03/11/24 08:07 85 03/11/24 08:00 82 96 03/11/24 07:53 86 92 L 03/11/24 05:41 73 18 122/78 93 L 03/11/24 03:00 72 20 113/73 94 L 03/10/24 23:58 76 20 127/70 93 L 03/10/24 22:00 76 18 111/66 90 L 03/10/24 19:32 74 2 L 93/68 90 L 03/10/24 18:26 80 18 93/86 90 L 03/10/24 16:00 80 18 100/70 92 L 03/10/24 13:30 97.9 F 68 18 118/71 94 L Intake and Output 03/10/24 03/11/24 03/11/24 22:59 06:59 14:59 Output Total 250 Balance -250 Output: Urine 250 Other: # Voids 1 Results 03/10/24 11:19 03/10/24 11:19 Current Medications Generic Name Dose Route Start Last Admin Trade Name Freq PRN Reason Stop Dose Admin Acetaminophen 650 mg 03/10/24 13:52 Acetaminophen Tab 325 Mg Tab PO Q6HR PRN Mild Pain or Fever > 100.5 Albuterol/Ipratropium 3 ml 03/11/24 08:00 03/11/24 12:13 Ipratropium-Albuterol 3 Ml Neb INHALATION 3 ml RT-QID EILEEN Administration Albuterol/Ipratropium 3 ml 03/11/24 05:55 Ipratropium-Albuterol 3 Ml Neb INHALATION RT-Q4H PRN Shortness Of Breath Or Wheezing Budesonide/Formoterol Fumarate 2 puff 03/11/24 08:00 03/11/24 07:52 Symbicort 160-4.5 Mcg Inhaler INHALATION 2 puff RT-BID EILEEN Administration Dextrose/Water 25 ml 03/11/24 08:53 Dextrose 50% Syringe 50 Ml IVP PER PROTOCOL PRN Hypoglycemia Protocol Dextrose/Water 50 ml 03/11/24 08:53 Dextrose 50% Syringe 50 Ml IVP PER PROTOCOL PRN Hypoglycemia Protocol Furosemide 40 mg 03/11/24 09:00 03/11/24 09:03 Furosemide 40 Mg Tab PO 40 mg BID@0900,1600 EILEEN Administration Insulin Aspart 0 unit 03/11/24 12:30 Insulin Aspart (Novolog) 100 Unit/Ml Vial SQ ACHS EILEEN Protocol Losartan Potassium 12.5 mg 03/11/24 09:00 03/11/24 08:58 Losartan 25 Mg Tab PO 12.5 mg DAILY EILEEN Administration Methylprednisolone Sodium Succinate 60 mg 03/11/24 06:00 03/11/24 06:06 Methylprednisolone Sod Succi 125 Mg/2 Ml Vial IV 60 mg Q6HR EILEEN Administration Naloxone HCl 0.2 mg 03/10/24 13:52 Naloxone 0.4 Mg/Ml 1 Ml Vial IV Q2M PRN Opioid Reversal Non-Formulary Medication 25 mg 03/11/24 09:00 03/11/24 09:01 Sildenafil Citrate [Sildenafil Citrate] PO Not Given DAILY EILEEN Potassium Chloride 10 meq 03/11/24 09:00 03/11/24 08:58 Potassium Chloride Er 10 Meq Tab.Er.Prt PO 10 meq DAILY EILEEN Administration Spironolactone 25 mg 03/11/24 09:00 03/11/24 08:58 Spironolactone 25 Mg Tab PO 25 mg DAILY EILEEN Administration Intake and Output 03/10/24 03/11/24 03/11/24 22:59 06:59 14:59 Output Total 250 Balance -250 Output: Urine 250 Other: # Voids 1 03/10/24 11:19 03/10/24 11:19
[2024-03-11 20:22] LABS: Glucose,Whole Blood 228 mg/dL (70-110)
[2024-03-12 06:15] LABS: Glucose,Whole Blood 165 mg/dL (70-110)
[2024-03-12] MEDS: acetaZOLAMIDE 250 MG TAB PO SCH (10:32)
--- NOTE | 2024-03-12 10:33 | P.PN ---
Subjective Progress Note Date: 03/12/24 H&P Date: 03/11/24 Chief Complaint: Progressive shortness of breath This is an obese 64-year-old gentleman presented to the ER with complaints of progressive shortness of breath over the last 2 weeks accompanied by increasing bilateral lower extremity edema in addition to sustaining a fall while attempting to get up and proceed to the bathroom. past medical history significant for CHF with preserved LV function, severe COPD, chronic hypoxic respiratory failure-wears 4 to 5 L nasal cannula O2, former nicotine dependence- quit 1 year ago, morbid obesity denies chest pain, palpitations or shortness of breath. Reports his O2 sats normally run less than or equal to 92% on 4 to 5 L, but yesterday O2 sat dipped down into the 70s. Reports also increased exertional dyspnea, positive orthopnea. Patient is on diuretics at home and may have missed a dose recently. denies chest pain, palpitations. Denies recent illness or being around anyone ill. Denies fever or chills. Denies nausea, vomiting or diarrhea. Denies abdominal pain. Family had reported to the ER that patient appeared more confused than his baseline. Telemetry sinus rhythm. Vital signs stable. Afebrile, normal WBC. Hematology , coagulation unremarkable. Sodium 142, potassium 4.4, bicarb 51, BUN 13, creatinine 0.55. Glucose 131. Viral studies negativeChest x-ray reported hyperinflation compatible with COPD, no evidence for infiltrate, no atelectasis. proBNP less than 20. Troponin negative x 1. 03/12/2024 sitting up in chair, reports breathing easier today. Diuresing well on Lasix IV push with 24-hour I&O inaccurate, decreased edema. Echo pending. Maintained on nebulized bronchodilators, IV steroids and Symbicort . Reports did not sleep well last night, declining insomnia aids. Denies headache. Maintaining O2 sats in the 90s on 4 L nasal cannula. Reports minimal ambulation, becomes "winded" upon returning from bathroom. Blood sugars better controlled, hemoglobin A1c 6.2. Objective - Vital Signs Vital signs: Vital Signs Temp 97.8 F 03/12/24 04:00 Pulse 75 03/12/24 09:36 Resp 18 03/12/24 04:00 BP 107/70 03/12/24 04:00 Pulse Ox 92 L 03/12/24 09:23 FiO2 Intake & Output 03/11/24 03/12/24 03/12/24 18:59 06:59 18:59 Intake Total 250 Output Total 250 Balance -250 250 Weight 132.9 kg Intake: IV 10 Invasive Line 1 10 Oral 240 Output: Urine 250 Other: Voiding Method Urinal # Voids 1 1 - Exam PHYSICAL EXAM: VITAL SIGNS: [Reviewed] GENERAL: Alert and oriented x 3, sitting up in chair, no acute distress HEENT: Normocephalic, atraumatic conjunctivae normal. eyes normal. NECK: Supple, no JVD. CARDIOVASCULAR: S1, S2 regular.No murmur RESPIRATION: Unlabored, equal air entry breath sounds diminished in the bases. ABDOMEN: Soft, nontender . No guarding. no masses palpable. +BS LEGS: Decreased lower extremity edema, no clubbing, no cyanosis NERVOUS SYSTEM: Cranial N 2-12 grossly normal.No focal deficits.Strength and sensation grossly intact. Skin: Warm and dry, no rash - Labs CBC & Chem 7: 03/10/24 11:19 03/10/24 11:19 Labs: Abnormal Lab Results - Last 24 Hours (Table) 03/11/24 03/11/24 03/11/24 Range/Units 12:58 14:54 17:40 POC Glucose (mg/dL) 183 H 212 H (70-110) mg/dL Hemoglobin A1c 6.2 H (<=6.0) % 03/11/24 03/12/24 Range/Units 20:21 06:14 POC Glucose (mg/dL) 228 H 165 H (70-110) mg/dL Hemoglobin A1c (<=6.0) % Assessment and Plan Assessment: Acute COPD exacerbation Acute pulmonary edema, possibly missed recent doses of his diuretics, echo pending Acute on chronic hypoxic, hypercapnic respiratory failure secondary to the above. Former nicotine dependence COPD, severe Chronic CHF with preserved EF Pulmonary hypertension Morbid obesity, BMI 44 Hypertension Medically debilitated Plan continue on current medication regimen ,monitoring and symptomatic treatme nt. Echo pending. diuresing with Lasix IV push as per cardiology.strict I&O's. aggressive pulmonary toileting with ATC nebulized bronchodilators, IV steroids, Symbicort. PT/OT recommendations pending. The impression and plan of care has been dictated as directed. : I performed a history and examination of this patient, discussed the same with the dictator. I agree with the dictator's note ,documented as a scribe. Any additional findings or plans will be noted.
--- NOTE | 2024-03-12 10:59 | CA ---
Transthoracic Echo Report Name: Darshan Lee Age: 64 Gender: M : 1960 Exam Date: 03/12/2024 09:35 Exam Location: [facility] Ht (in): 68 Wt (lb): 290 Ordering Physician: Fide Schmitz Attending/Referring Phys: [id number], Ainsley Improvement Nurse Lisa Cordoba, RDRAJ Procedure CPT: Indications: LVF Cardiac Hx: COPD Technical Quality: Poor Contrast 1: Definity Total Dose (mL): 2 Contrast 2: Total Dose (mL): MEASUREMENTS (Male / Female) Normal Values 2D ECHO LV Diastolic Diameter PLAX 5.0 cm 4.2 - 5.9 / 3.9 - 5.3 cm LV Systolic Diameter PLAX 4.0 cm IVS Diastolic Thickness 1.8 cm 0.6 - 1.0 / 0.6 - 0.9 cm LVPW Diastolic Thickness 2.2 cm 0.6 - 1.0 / 0.6 - 0.9 cm LV Relative Wall Thickness 0.8 RV Internal Dim ED PLAX 3.5 cm LA Systolic Diameter LX 5.3 cm 3.0 - 4.0 / 2.7 - 3.8 cm M-MODE Aortic Root Diameter MM 3.4 cm LA Systolic Diameter MM 4.9 cm LA Ao Ratio MM 1.4 AV Cusp Separation MM 2.1 cm DOPPLER AV Peak Velocity 166.4 cm/s AV Peak Gradient 11.1 mmHg MV Area PHT 4.1 cm??? Mitral E Point Velocity 73.9 cm/s Mitral A Point Velocity 93.3 cm/s Mitral E to A Ratio 0.8 MV Deceleration Time 186.9 ms TR Peak Velocity 303.8 cm/s TR Peak Gradient 36.9 mmHg Right Ventricular Systolic Press 46.9 mmHg FINDINGS Left Ventricle Left ventricular ejection fraction is estimated at 55-60 %. Severely increased septal wall thickness. Left ventricular cavity size normal. No obvious regional wall motion abnormalities. Right Ventricle Severe right ventricular dilatation. Mild- Moderate pulmonary hypertension. Right Atrium Moderate right atrial dilatation. Left Atrium Severely increased left atrial diameter. Mildly increased left atrial area. Mitral Valve Structurally normal mitral valve. Trace mitral regurgitation. No mitral stenosis. Aortic Valve Trileaflet aortic valve. No aortic stenosis. No aortic regurgitation. Tricuspid Valve Structurally normal tricuspid valve. Mild tricuspid regurgitation. No tricuspid stenosis. Pulmonic Valve Pulmonic valve not well visualized. Pericardium No pericardial or pleural effusion. Echo free space anterior to the right ventricle likely represents a fat pad. Aorta Normal size aortic root and proximal ascending aorta. CONCLUSIONS Normal LV systolic function Severely dilated right ventricle Mild to moderate pulmonary hypertension Previewed by: Dr. Ramesh Edwards MD (Electronically Signed) Final Date: 12 March 2024 10:59
[2024-03-12 11:18] LABS: Glucose,Whole Blood 301 mg/dL (70-110)
--- NOTE | 2024-03-12 13:14 | P.PN ---
Subjective Progress Note Date: 03/12/24 Patient is a 64-year-old white male with past medical history significant for severe oxygen dependent COPD, pulmonary hypertension, heart failure, and is an ex-smoker quitting approximately one year ago. Patient presents to the emergency department yesterday after having a while getting up to go to the athroom. He fell on his buttocks and lower back. Denies hitting his head. Denies anticoagulant use. Over the last several days he has been more weak generally. He is deconditioned and admits weight gain. He has also had increased lower extremity swelling bilaterally. Takes diuretics at home. May have missed a dose recently. Denies any chest pain, heart palpitations, or syncopal events. He also has severe COPD with an FEV1 45% of predicted, he is chronically oxygen dependent currently on 5 L/min nasal cannula 20/01. Recently, started following with Dr. Dooley in the pulmonary office. He has been more short of breath mostly with exertion. He states his pulse oximeter reads 70% with activity, and takes a long time to come back to baseline with rest. Intermittently confused at times. Denies any infectious symptoms such as cough, sputum production, fever, chills. Denies sick contacts. Patient is currently being evaluated in the emergency department, room 15. He is sitting up in the bedside recliner, he is on 4 L/min nasal cannula, no acute distress. Heart rhythm appears normal sinus on bedside monitor around 80 bpm. Blood pressure normotensive. Chest x-ray taken on admission showing hyperinflation consistent with COPD possible mild pulmonary vascular congestion, however, NT proBNP was low. CBC unremarkable, no leukocytosis. CMP: Sodium 142, potassium 4.4, chlor warren 89, serum bicarb 51, BUN 13, creatinine 0.55, glucose 131. Troponin less than 0.012. NT proBNP less than 20. Negative for influenza, RSV, COVID. Hemodynamics are stable. The patient is seen today March 12, 2024 in follow-up on the selective care unit. He is currently up in a chair at the bedside. Awake and alert in no acute distress. Breathing a bit easier today compared to yesterday. Maintaining O2 saturations in the 90s on 4 L/min per nasal cannula. His only complaint today is lack of sleep. He was brought up from the ER late last night. Glucose 301. He is continued on DuoNeb and elations, Symbicort, Solu- Medrol. Remains on IV diuretics. No accurate I&O. Objective - Vital Signs Vital signs: Vital Signs Temp 97.9 F 03/12/24 12:35 Pulse 96 03/12/24 12:52 Resp 20 03/12/24 12:35 BP 113/75 03/12/24 12:35 Pulse Ox 92 L 03/12/24 12:53 FiO2 Intake & Output 03/11/24 03/12/24 03/12/24 18:59 06:59 18:59 Intake Total 250 Output Total 250 0 Balance -250 250 Weight 132.9 kg Intake: IV 10 Invasive Line 1 10 Oral 240 Output: Gastric Drainage 0 Urine 250 0 Stool 0 Urine/Stool Mix 0 Emesis 0 Oral Regurgitation 0 Other 0 Other: Voiding Method Urinal Urinal # Voids 1 1 0 # Bowel Movements 0 - Exam GENERAL EXAM: Alert and oriented, pleasant 64-year-old morbidly obese male, on 4 L nasal cannula, sitting up in recliner, comfortable in no apparent distress. HEAD: Normocephalic and atraumatic EYES: Normal reaction of pupils, equal size. NOSE: Clear with pink turbinates. THROAT: No erythema or exudates. NECK: No masses, no JVD. CHEST: No chest wall deformity. LUNGS: Equal air entry with no crackles, wheeze, rhonchi or dullness. CVS: S1 and S2 normal with no audible murmur, regular rhythm. No extra heart sounds ABDOMEN: No hepatosplenomegaly, active bowel sounds, no guarding or rigidity. SPINE: No scoliosis or deformity SKIN: No rashes CENTRAL NERVOUS SYSTEM: No focal deficits, tone is normal in all 4 extremities. EXTREMITIES: There is bilateral lower extremity edema, 1-2+ bilaterally. No clubbing, or cyanosis. Peripheral pulses are intact. - Labs CBC & Chem 7: 03/10/24 11:19 03/10/24 11:19 Labs: Abnormal Lab Results - Last 24 Hours (Table) 03/11/24 03/11/24 03/11/24 Range/Units 14:54 17:40 20:21 POC Glucose (mg/dL) 212 H 228 H (70-110) mg/dL Hemoglobin A1c 6.2 H (<=6.0) % 03/12/24 03/12/24 Range/Units 06:14 11:15 POC Glucose (mg/dL) 165 H 301 H (70-110) mg/dL Hemoglobin A1c (<=6.0) % Assessment and Plan Assessment: Acute COPD exacerbation, chest x-ray showing stable cardiac silhouette, possible mild pulmonary vascular congestion, however, NT proBNP was low. No obvious acute infiltrates. Acute on chronic hypoxemic and hypercapnic respiratory failure, secondary to above Severe chronic obstructive pulmonary disease, with FEV1 45% of predicted. Normally maintained on Symbicort maintenance inhaler, albuterol nebs [id number], and Ventolin rescue inhaler. Chronic hypoxemic respiratory failure, currently maintained on 5 L/min nasal cannula 20/01 History of heart failure with preserved ejection fraction History of pulmonary hypertension, on a phosphodiesterase inhibitor History of systemic hypertension Fall Generalized weakness and deconditioning Morbid obesity, with a BMI of 44.1 kg/m Former tobacco dependence Plan: The patient was seen and evaluated Labs and medications reviewed Stable and on 4 L nasal cannula Continue the current treatment plan We will continue to follow I have personally seen and examined the patient, performed the documentation and the assessment and plan as written. Number of minutes spent on the visit: 10.
--- NOTE | 2024-03-12 13:23 | P.PN ---
Subjective Progress Note Date: 03/12/24 Consult reason: congestive heart failure History of present illness: This is a 64-year-old male patient with past medical history of severe COPD with chronic hypoxic respiratory failure on home O2 at 5 L nasal cannula, pulmonary hypertension, chronic diastolic heart failure, remote history of tobacco use. We have been asked to evaluate the patient for heart failure. Patient states that he has had some shortness of breath over the past couple of days with weight gain and lower extremity edema. He denies any fever or chills. He states that he is no longer smoking. Also it sounds that patient has a history of obstructive sleep apnea but not on CPAP. Blood pressure 100/66, heart rate 86, pulse ox 93% on 4 L nasal cannula. Patient has been started on his home medication of Lasix 40 mg twice daily EKG: Sinus rhythm with no acute ST-T wave changes. Chest x-ray: No acute pulmonary disease. Laboratory studies: WBC 8.4, hemoglobi 14n. D-dimer 0.48. Sodium 142, potassium 4.4, CO2 51. Creatinine 0.55, BUN 13. Troponin negative x 1. proBNP less than 20. Influenza A, influenza B, RSV, COVID-19 not detected. Home cardiac medications: Lasix 20 mg twice daily, losartan 12.5 mg daily, potassium chloride 10 mEq daily, Aldactone 25 mg daily, patient is also on sildenafil. Echocardiogram performed on 10/30/2022 revealed EF 55 to 60%, mild MR and TR 03/12 Repeat troponins negative. Echocardiogram was EF of 55 to 60%, severely dilated right ventricle, mild to moderate pulmonary hypertension. Blood pressure 113/75, heart rate 98, pulse ox 92% on 4 L nasal cannula. Physical examination: Gen: This is a 64-year-old male in no acute distress VS: reviewed HEENT: Head is atraumatic, normocephalic. Pupils equal, round. Sclerae is anicteric. NECK: Supple. No JVD. LUNGS: Diminished. No intercostal retractions. HEART: Regular rate and rhythm. No murmur. ABDOMEN: Soft No tenderness. EXTREMITIES: No pedal edema. No calf tenderness. NEUROLOGICAL: Patient is awake, alert and oriented x3. Assessment: Acute on chronic hypoxic and hypercapnic respiratory failure secondary to COPD exacerbation Chronic diastolic heart failure Pulmonary hypertension Hypertension Morbid obesity with BMI of 44 Remote history of tobacco use and dependence Plan: Continue patient's home cardiac medications Transition IV Lasix to oral 40 mg twice daily No further cardiac workup at this time. Patient may follow-up in the office for possible stress test. Cardiology will sign off this case and follow on an as-needed basis. Please reconsult for any new concerns. Patient may follow-up in the office in one to 2 weeks. Nurse practitioner note has been reviewed, I agree with documented findings and plan of care. Patient was seen and examined. Objective - Vital Signs Vital signs: Vital Signs Temp 97.8 F 03/12/24 04:00 Pulse 83 03/12/24 04:00 Resp 18 03/12/24 04:00 BP 107/70 03/12/24 04:00 Pulse Ox 92 L 03/12/24 04:00 FiO2 Intake & Output 03/11/24 03/12/24 03/12/24 18:59 06:59 18:59 Output Total 250 Balance -250 Weight 132.9 kg Output: Urine 250 Other: Voiding Method Urinal # Voids 1 1 - Labs CBC & Chem 7: 03/10/24 11:19 03/10/24 11:19 Labs: Abnormal Lab Results - Last 24 Hours (Table) 03/11/24 03/11/24 03/11/24 Range/Units 12:58 14:54 17:40 POC Glucose (mg/dL) 183 H 212 H (70-110) mg/dL Hemoglobin A1c 6.2 H (<=6.0) % 03/11/24 03/12/24 Range/Units 20:21 06:14 POC Glucose (mg/dL) 228 H 165 H (70-110) mg/dL Hemoglobin A1c (<=6.0) %
[2024-03-12 16:49] LABS: Glucose,Whole Blood 184 mg/dL (70-110)
[2024-03-12] MEDS: methylPREDNISolone SOD SUCCI 40 MG/ML 1 ML VIAL IV SCH (16:53)
[2024-03-12] MEDS: FUROSEMIDE 40 MG TAB PO SCH (16:53)
[2024-03-12 20:15] LABS: Glucose,Whole Blood 202 mg/dL (70-110)
[2024-03-13 06:19] LABS: Glucose,Whole Blood 166 mg/dL (70-110)
[2024-03-13 08:15] LABS: African American GFR (CKD) >90 (>60 ml/min/1.73 sqM); Anion Gap 5 mmol/L; Blood Urea Nitrogen 24 mg/dL (9-20); Calcium 9.4 mg/dL (8.4-10.2); Carbon Dioxide 37 mmol/L (22-30); Chloride 95 mmol/L (98-107); Glucose 182 mg/dL (74-99); Non-African American GFR(CKD) >90 (>60 ml/min/1.73 sqM); Potassium 4.2 mmol/L (3.5-5.1); Sodium 137 mmol/L (137-145)
[2024-03-13 11:30] LABS: Glucose,Whole Blood 184 mg/dL (70-110)
--- NOTE | 2024-03-13 12:04 | P.PN ---
Subjective Progress Note Date: 03/13/24 Principal diagnosis: Acute on chronic hypoxemic and hypercapnic respiratory failure, Patient is a 64-year-old white male with past medical history significant for severe oxygen dependent COPD, pulmonary hypertension, heart failure, and is an ex-smoker quitting approximately one year ago. Patient presents to the emergency department yesterday after having a while getting up to go to the bathroom. He fell on his buttocks and lower back. Denies hitting his head. Denies anticoagulant use. Over the last several days he has been more weak generally. He is deconditioned and admits weight gain. He has also had increased lower extremity swelling bilaterally. Takes diuretics at home. May have missed a dose recently. Denies any chest pain, heart palpitations, or syncopal events. He also has severe COPD with an FEV1 45% of predicted, he is chronically oxygen dependent currently on 5 L/min nasal cannula 20/01. Recently, started following with Dr. Dooley in the pulmonary office. He has been more short of breath mostly with exertion. He states his pulse oximeter reads 70% with activity, and takes a long time to come back to baseline with rest. Intermittently confused at times. Denies any infectious symptoms such as cough, sputum production, fever, chills. Denies sick contacts. Patient is currently being evaluated in the emergency department, room 15. He is sitting up in the bedside recliner, he is on 4 L/min nasal cannula, no acute distress. Heart rhythm appears normal sinus on bedside monitor around 80 bpm. Blood pressure normotensive. Chest x-ray taken on admission showing hyperinflation consistent with COPD possible mild pulmonary vascular congestion, however, NT proBNP was low. CBC unremarkable, no leukocytosis. CMP: Sodium 142, potassium 4.4, chloride 89, serum bicarb 51, BUN 13, creatinine 0.55, glucose 131. Troponin less than 0.012. NT proBNP less than 20. Negative for influenza, RSV, COVID. Hemodynamics are stable. The patient is seen today March 12, 2024 in follow-up on the selective care unit. He is currently up in a chair at the bedside. Awake and alert in no acute distress. Breathing a bit easier today compared to yesterday. Maintaining O2 saturations in the 90s on 4 L/min per nasal cannula. His only complaint today is lack of sleep. He was brought up from the ER late last night. Glucose 301. He is continued on DuoNeb and elations, Symbicort, Solu- Medrol. Remains on IV diuretics. No accurate I&O. Patient was evaluated today on 03/13/2024, patient is feeling better, sitting at the bedside chair, does not seem to be in any distress, on 4 L nasal cannula with O2 sats of 94%, patient is normally on home O2. Remains on Diamox, and Lasix was added by cardiology. Remains on bronchodilators and methylprednisolone 40 mg IV push every 8 hours. Patient is on Symbicort. Objective - Vital Signs Vital signs: Vital Signs Temp 97.5 F L 03/13/24 11:42 Pulse 80 03/13/24 11:42 Resp 20 03/13/24 11:42 BP 111/70 03/13/24 11:42 Pulse Ox 94 L 03/13/24 11:42 FiO2 Intake & Output 03/12/24 03/13/24 03/13/24 18:59 06:59 18:59 Intake Total 500 20 248 Output Total 0 0 Balance 500 20 248 Weight 130.1 kg Intake: IV 20 20 10 Invasive Line 1 20 20 10 Oral 480 [id number] Output: Gastric Drainage 0 Urine 0 Stool 0 0 Urine/Stool Mix 0 Emesis 0 Oral Regurgitation 0 Other 0 Other: Voiding Method Urinal Urinal Urinal # Voids 0 2 # Bowel Movements 0 - Exam GENERAL EXAM: Alert and oriented, pleasant 64-year-old morbidly obese male, on 4 L nasal cannula, does not seem to be in any distress. HEAD: Normocephalic and atraumatic EYES: Normal reaction of pupils, equal size. NOSE: Clear with pink turbinates. THROAT: No erythema or exudates. NECK: No masses, no JVD. CHEST: No chest wall deformity. LUNGS: Equal air entry with no crackles, significant improvement in his rhonchi and wheezing noted. CVS: S1 and S2 normal with no audible murmur, regular rhythm. No extra heart sounds ABDOMEN: No hepatosplenomegaly, active bowel sounds, no guarding or rigidity. SKIN: No rashes CENTRAL NERVOUS SYSTEM: Alert oriented x 3 no gross focal deficit EXTREMITIES: There is bilateral lower extremity edema, 1-2+ bilaterally. No clubbing, or cyanosis. Peripheral pulses are intact. - Labs CBC & Chem 7: 03/10/24 11:19 03/13/24 07:00 Labs: Abnormal Lab Results - Last 24 Hours (Table) 03/12/24 03/12/24 03/13/24 Range/Units 16:47 20:14 06:18 Chloride (98-107) mmol/L Carbon Dioxide (22-30) mmol/L BUN (9-20) mg/dL Glucose (74-99) mg/dL POC Glucose (mg/dL) 184 H 202 H 166 H (70-110) mg/dL 03/13/24 03/13/24 Range/Units 07:00 11:28 Chloride 95 L (98-107) mmol/L Carbon Dioxide 37 H (22-30) mmol/L BUN 24 H (9-20) mg/dL Glucose 182 H (74-99) mg/dL POC Glucose (mg/dL) 184 H (70-110) mg/dL Assessment and Plan Plan: Impression: Acute COPD exacerbation Acute on chronic hypoxemic and hypercapnic respiratory failure, secondary to above Severe chronic obstructive pulmonary disease, with FEV1 45% of predicted. Normally maintained on Symbicort maintenance inhaler, albuterol nebs around-the- clock, and Ventolin rescue inhaler. Chronic hypoxemic respiratory failure, currently maintained on 5 L/min nasal cannula 20/01 History of heart failure with preserved ejection fraction History of pulmonary hypertension, on a phosphodiesterase inhibitor History of systemic hypertension Generalized weakness and deconditioning Morbid obesity, with a BMI of 44.1 kg/m Former tobacco dependence Recommendation: Continue bronchodilators Continue diuretics including Lasix and Diamox Continue to monitor daily electrolytes and renal profile Titrate oxygen accordingly Continue Solu-Medrol Will continue to follow Time with Patient: Less than 30
--- NOTE | 2024-03-13 15:24 | P.PN ---
Subjective Progress Note Date: 03/13/24 Interval History: This is an 64-year-old gentleman presented to the ER with complaints of progressive shortness of breath over the last 2 weeks accompanied by increasing bilateral lower extremity edema in addition to sustaining a fall while attempting to get up and proceed to the bathroom. past medical history significant for CHF with preserved LV function, severe COPD, chronic hypoxic respiratory failure-wears 4 to 5 L nasal cannula O2, former nicotine dependence- quit 1 year ago, morbid obesity denies chest pain, palpitations or shortness of breath. Reports his O2 sats normally run less than or equal to 92% on 4 to 5 L, but yesterday O2 sat dipped down into the 70s. Reports also increased exertional dyspnea, positive orthopnea. Patient is on diuretics at home and may have missed a dose recently. denies chest pain, palpitations. Denies recent illness or being around anyone ill. Denies fever or chills. Denies nausea, vomiting or diarrhea. Denies abdominal pain. Family had reported to the ER that patient appeared more confused than his baseline. Telemetry sinus rhythm. Vital signs stable. Afebrile, normal WBC. Hematology , coagulation unremarkable. Sodium 142, potassium 4.4, bicarb 51, BUN 13, creatinine 0.55. Glucose 131. Viral studies negativeChest x-ray reported hyperinflation compatible with COPD, no evidence for infiltrate, no atelectasis. proBNP less than 20. Troponin negative x 1. 03/12/2024 sitting up in chair, reports breathing easier today. Diuresing well on Lasix IV push with 24-hour I&O inaccurate, decreased edema. Echo pending. Maintained on nebulized bronchodilators, IV steroids and Symbicort . Reports did not sleep well last night, declining insomnia aids. Denies headache. Maintaining O2 sats in the 90s on 4 L nasal cannula. Reports minimal ambulation, becomes "winded" upon returning from bathroom. Blood sugars better controlled, hemoglobin A1c 6.2. 03/13/2024atient was seen and examined today. Sitting up in chair. Shortness of breath is better as compared to yesterday. Currently on 4 L oxygen. Complained of poor sleep overnight. Currently on DuoNeb, Symbicort, Solu- Medrol, on IV diuretics. Pulmonary and cardiology following.echo ---EF 55 to 60%, severe RV dilatation, moderate pulmonary hypertension. Assessment and plan: Acute COPD exacerbation Severe COPD with FEV1 45% - 5 L at baseline Acute pulmonary edema, possibly missed recent doses of his diuretics, echo ---EF 55 to 60%, severe RV dilatation, moderate pulmonary hypertension. -acute on chronic diastolic CHF Acute on chronic hypoxic, hypercapnic respiratory failure secondary to the above. Former nicotine dependence Contraction alkalosis Pulmonary hypertension Morbid obesity, BMI 44 Hypertension Medically debilitated Plan: Monitor vitals, monitor labs Continue inhaler/bronchodilator protocol Solu-Medrol Continue diuresis Monitor daily weight I&O's, cardiac diet On Diamox, holding Aldactone PHYSICAL EXAMINATION: GENERAL: The patient is A&O x3, NAD HEENT: EOMI, Sclerae anicteric, Moist Mucous membranes Neck: Supple, Non tender, No JVD PULMONARY: Dec breath souds B/L, No wheezing, No crackles. CARDIOVASCULAR: S1, S2 present. No murmurs, rubs, or gallops. ABDOMEN: Soft, nontender, nondistended, normoactive bowel sounds. No guarding or rebound tenderness. MUSCULOSKELETAL: + edema, No cyanosis. No clubbing. Normal ROM. Intact peripheral pulses. EXTREMITIES: No cyanosis, clubbing, or pedal edema. NEUROLOGICAL: CN 2-12 grossly intact. No FND Skin: No Rash REVIEW OF SYSTEMS: CONSTITUTIONAL: No fever or chills. CARDIOVASCULAR: No chest pain, palpitations or syncope. PULMONARY: Complains of shortness of breath. GASTROINTESTINAL: No nausea, vomiting, diarrhea, abdominal pain. : No Dysuria, urgency, frequency. Extremities: No edema. NEUROLOGICAL: No headaches, no weakness, or numbness Dictation was produced using [employer] dictation software. please excuse any grammatical, word or spelling errors. Objective - Vital Signs Vital signs: Vital Signs Temp 97.5 F L 03/13/24 11:42 Pulse 90 03/13/24 12:06 Resp 20 03/13/24 11:42 BP 111/70 03/13/24 11:42 Pulse Ox 94 L 03/13/24 11:42 FiO2 Intake & Output 03/12/24 03/13/24 03/13/24 18:59 06:59 18:59 Intake Total 500 20 366 Output Total 0 0 Balance 500 20 366 Weight 130.1 kg Intake: IV 20 20 10 Invasive Line 1 20 20 10 Oral 480 356 Output: Gastric Drainage 0 Urine 0 Stool 0 0 Urine/Stool Mix 0 Emesis 0 Oral Regurgitation 0 Other 0 Other: Voiding Method Urinal Urinal Urinal # Voids 0 2 # Bowel Movements 0 - Labs CBC & Chem 7: 03/10/24 11:19 03/13/24 07:00 Labs: Abnormal Lab Results - Last 24 Hours (Table) 03/12/24 03/12/24 03/13/24 Range/Units 16:47 20:14 06:18 Chloride (98-107) mmol/L Carbon Dioxide (22-30) mmol/L BUN (9-20) mg/dL Glucose (74-99) mg/dL POC Glucose (mg/dL) 184 H 202 H 166 H (70-110) mg/dL 03/13/24 03/13/24 Range/Units 07:00 11:28 Chloride 95 L (98-107) mmol/L Carbon Dioxide 37 H (22-30) mmol/L BUN 24 H (9-20) mg/dL Glucose 182 H (74-99) mg/dL POC Glucose (mg/dL) 184 H (70-110) mg/dL
[2024-03-13 16:45] LABS: Glucose,Whole Blood 197 mg/dL (70-110)
[2024-03-13 20:34] LABS: Glucose,Whole Blood 223 mg/dL (70-110)
[2024-03-14 06:18] LABS: Glucose,Whole Blood 194 mg/dL (70-110)
[2024-03-14 08:11] LABS: Basophils % (A) 0 %; Eosinophils % (A) 0 %; HGB 14.6 gm/dL (13.0-17.5); Hypochromasia Moderate; Lymphocytes # (A) 0.3 k/uL (1.0-4.8); Lymphocytes % (A) 3 %; MCH 29.9 pg (25.0-35.0); MCHC 30.5 g/dL (31.0-37.0); MCV 97.9 fL (80.0-100.0); Mean Platelet Volume 7.9; Monocytes # (A) 0.5 k/uL (0-1.0); Monocytes % (A) 5 %; Neutrophils # (A) 9.9 k/uL (1.3-7.7); Neutrophils % (A) 91 %; Platelet Count 220 k/uL (150-450); RDW 13.7 % (11.5-15.5); WBC 10.9 k/uL (3.8-10.6)
[2024-03-14 08:33] LABS: African American GFR (CKD) >90 (>60 ml/min/1.73 sqM); Anion Gap 5 mmol/L; Blood Urea Nitrogen 24 mg/dL (9-20); Carbon Dioxide 38 mmol/L (22-30); Chloride 93 mmol/L (98-107); Glucose 214 mg/dL (74-99); Non-African American GFR(CKD) >90 (>60 ml/min/1.73 sqM); Potassium 4.5 mmol/L (3.5-5.1); Sodium 136 mmol/L (137-145)
[2024-03-14 11:42] LABS: Glucose,Whole Blood 161 mg/dL (70-110)
--- NOTE | 2024-03-14 12:32 | P.PN ---
Subjective Progress Note Date: 03/14/24 Principal diagnosis: Acute on chronic hypoxemic and hypercapnic respiratory failure, Patient is a 64-year-old white male with past medical history significant for severe oxygen dependent COPD, pulmonary hypertension, heart failure, and is an ex-smoker quitting approximately one year ago. Patient presents to the emergency department yesterday after having a while getting up to go to the bathroom. He fell on his buttocks and lower back. Denies hitting his head. Denies anticoagulant use. Over the last several days he has been more weak generally. He is deconditioned and admits weight gain. He has also had increased lower extremity swelling bilaterally. Takes diuretics at home. May have missed a dose recently. Denies any chest pain, heart palpitations, or syncopal events. He also has severe COPD with an FEV1 45% of predicted, he is chronically oxygen dependent currently on 5 L/min nasal cannula 20/01. Recently, started following with Dr. Dooley in the pulmonary office. He has been more short of breath mostly with exertion. He states his pulse oximeter reads 70% with activity, and takes a long time to come back to baseline with rest. Intermittently confused at times. Denies any infectious symptoms such as cough, sputum production, fever, chills. Denies sick contacts. Patient is currently being evaluated in the emergency department, room 15. He is sitting up in the bedside recliner, he is on 4 L/min nasal cannula, no acute distress. Heart rhythm appears normal sinus on bedside monitor around 80 bpm. Blood pressure normotensive. Chest x-ray taken on admission showing hyperinflation consistent with COPD possible mild pulmonary vascular congestion, however, NT proBNP was low. CBC unremarkable, no leukocytosis. CMP: Sodium 142, potassium 4.4, chloride 89, serum bicarb 51, BUN 13, creatinine 0.55, glucose 131. Troponin less than 0.012. NT proBNP less than 20. Negative for influenza, RSV, COVID. Hemodynamics are stable. The patient is seen today March 12, 2024 in follow-up on the selective care unit. He is currently up in a chair at the bedside. Awake and alert in no acute distress. Breathing a bit easier today compared to yesterday. Maintaining O2 saturations in the 90s on 4 L/min per nasal cannula. His only complaint today is lack of sleep. He was brought up from the ER late last night. Glucose 301. He is continued on DuoNeb and elations, Symbicort, Solu- Medrol. Remains on IV diuretics. No accurate I&O. Patient was evaluated today on 03/13/2024, patient is feeling better, sitting at the bedside chair, does not seem to be in any distress, on 4 L nasal cannula with O2 sats of 94%, patient is normally on home O2. Remains on Diamox, and Lasix was added by cardiology. Remains on bronchodilators and methylprednisolone 40 mg IV push every 8 hours. Patient is on Symbicort. Reevaluate today on 03/14/2024, patient continues to do well, continues to respond well to diuretics, remains on bronchodilators, significantly improved over the last few days, and I believe the patient should be considered for possible discharge planning in the next 24 hours. Remains in negative fluid balance with diuretics. WBC count is 10.9 hemoglobin 14.6 electrolytes are normal bicarb is 38 BUN is 24 creatinine 0.77. Methylprednisolone will be changed today to oral prednisone. In the meantime we will continue with diuretics including Diamox and Lasix. Objective - Vital Signs Vital signs: Vital Signs Temp 97.6 F 03/14/24 12:00 Pulse 83 03/14/24 12:00 Resp 18 03/14/24 12:00 BP 105/65 03/14/24 12:00 Pulse Ox 97 03/14/24 12:00 FiO2 Intake & Output 03/13/24 03/14/24 03/14/24 18:59 06:59 18:59 Intake Total 494 10 240 Balance 494 10 240 Intake: IV 20 10 Invasive Line 1 20 10 Oral 474 240 Other: Voiding Method Urinal Urinal Urinal - Exam GENERAL EXAM: Alert and oriented, pleasant 64-year-old morbidly obese male, on 4 L nasal cannula, O2 saturation is 97% HEAD: Normocephalic and atraumatic EYES: Normal reaction of pupils, equal size. NOSE: Clear with pink turbinates. THROAT: No erythema or exudates. NECK: No masses, no JVD. CHEST: No chest wall deformity. LUNGS: Clear throughout no crackles rhonchi or wheezes CVS: S1 and S2 normal with no audible murmur, regular rhythm. No extra heart sounds ABDOMEN: No hepatosplenomegaly, active bowel sounds, no guarding or rigidity. SKIN: No rashes CENTRAL NERVOUS SYSTEM: Alert oriented x 3 no gross focal deficit EXTREMITIES: There is trace of bipedal edema - Labs CBC & Chem 7: 03/14/24 07:54 03/14/24 07:54 Labs: Abnormal Lab Results - Last 24 Hours (Table) 03/13/24 03/13/24 03/14/24 Range/Units 16:43 20:26 06:12 WBC (3.8-10.6) k/uL MCHC (31.0-37.0) g/dL Neutrophils # (1.3-7.7) k/uL Lymphocytes # (1.0-4.8) k/uL Sodium (137-145) mmol/L Chloride (98-107) mmol/L Carbon Dioxide (22-30) mmol/L BUN (9-20) mg/dL Glucose (74-99) mg/dL POC Glucose (mg/dL) 197 H 223 H 194 H (70-110) mg/dL 03/14/24 03/14/24 03/14/24 Range/Units 07:54 07:54 11:41 WBC 10.9 H (3.8-10.6) k/uL MCHC 30.5 L (31.0-37.0) g/dL Neutrophils # 9.9 H (1.3-7.7) k/uL Lymphocytes # 0.3 L (1.0-4.8) k/uL Sodium 136 L (137-145) mmol/L Chloride 93 L (98-107) mmol/L Carbon Dioxide 38 H (22-30) mmol/L BUN 24 H (9-20) mg/dL Glucose 214 H (74-99) mg/dL POC Glucose (mg/dL) 161 H (70-110) mg/dL Assessment and Plan Plan: Impression: Acute COPD exacerbation Acute on chronic hypoxemic and hypercapnic respiratory failure, secondary to ab ove Severe chronic obstructive pulmonary disease, with FEV1 45% of predicted. Normally maintained on Symbicort maintenance inhaler, albuterol nebs [id number], and Ventolin rescue inhaler. Chronic hypoxemic respiratory failure, currently maintained on 5 L/min nasal cannula 20/01 History of heart failure with preserved ejection fraction History of pulmonary hypertension, on a phosphodiesterase inhibitor History of systemic hypertension Generalized weakness and deconditioning Morbid obesity, with a BMI of 44.1 kg/m Former tobacco dependence Recommendation: Continue bronchodilators, change methylprednisolone to prednisone at 30 mg daily Continue diuretics including Lasix and Diamox, continue to monitor electrolytes Titrate oxygen accordingly patient is on home O2 Discontinue Solu-Medrol Consider discharge planning in the next 24 hours and follow-up on outpatient basis Will continue to follow Time with Patient: Less than 30
--- NOTE | 2024-03-14 13:19 | P.PN ---
Subjective Progress Note Date: 03/14/24 Interval History: This is an 64-year-old gentleman presented to the ER with complaints of progressive shortness of breath over the last 2 weeks accompanied by increasing bilateral lower extremity edema in addition to sustaining a fall while attempting to get up and proceed to the bathroom. past medical history significant for CHF with preserved LV function, severe COPD, chronic hypoxic respiratory failure-wears 4 to 5 L nasal cannula O2, former nicotine dependence- quit 1 year ago, morbid obesity denies chest pain, palpitations or shortness of breath. Reports his O2 sats normally run less than or equal to 92% on 4 to 5 L, but yesterday O2 sat dipped down into the 70s. Reports also increased exertional dyspnea, positive orthopnea. Patient is on diuretics at home and may have missed a dose recently. denies chest pain, palpitations. Denies recent illness or being around anyone ill. Denies fever or chills. Denies nausea, vomiting or diarrhea. Denies abdominal pain. Family had reported to the ER that patient appeared more confused than his baseline. Telemetry sinus rhythm. Vital signs stable. Afebrile, normal WBC. Hematology , coagulation unremarkable. Sodium 142, potassium 4.4, bicarb 51, BUN 13, creatinine 0.55. Glucose 131. Viral studies negativeChest x-ray reported hyperinflation compatible with COPD, no evidence for infiltrate, no atelectasis. proBNP less than 20. Troponin negative x 1. 03/12/2024 sitting up in chair, reports breathing easier today. Diuresing well on Lasix IV push with 24-hour I&O inaccurate, decreased edema. Echo pending. Maintained on nebulized bronchodilators, IV steroids and Symbicort . Reports did not sleep well last night, declining insomnia aids. Denies headache. Maintaining O2 sats in the 90s on 4 L nasal cannula. Reports minimal ambulation, becomes "winded" upon returning from bathroom. Blood sugars better controlled, hemoglobin A1c 6.2. 03/13/2024atient was seen and examined today. Sitting up in chair. Shortness of breath is better as compared to yesterday. Currently on 4 L oxygen. Complained of poor sleep overnight. Currently on DuoNeb, Symbicort, Solu- Medrol, on IV diuretics. Pulmonary and cardiology following.echo ---EF 55 to 60%, severe RV dilatation, moderate pulmonary hypertension. 03/14/2024atient stated that he is feeling better as compared to yesterday, still complains of shortness of breath, lower extremity edema. Responding well to diuresis, CO2 is 38, remains on Diamox and Lasix. Pulmonary following. Fluid balance is negative. WBCs 10.9, hemoglobin 14.6, BUN 24, creatinine 0.77. Methylprednisone changed to oral prednisone, remains on inhaler/bronchodilator protocol. Assessment and plan: Acute COPD exacerbation Severe COPD with FEV1 45% - 5 L at baseline Acute pulmonary edema, possibly missed recent doses of his diuretics, echo ---EF 55 to 60%, severe RV dilatation, moderate pulmonary hypertension. -acute on chronic diastolic CHF Acute on chronic hypoxic, hypercapnic respiratory failure secondary to the above. Former nicotine dependence Contraction alkalosis Pulmonary hypertension Morbid obesity, BMI 44 Hypertension Medically debilitated Plan: Monitor vitals, monitor labs Continue inhaler/bronchodilator protocol Solu-Medrol changed to prednisone Continue diuresis Monitor daily weight I&O's, cardiac diet On Diamox, holding Aldactone PHYSICAL EXAMINATION: GENERAL: The patient is A&O x3, NAD HEENT: EOMI, Sclerae anicteric, Moist Mucous membranes Neck: Supple, Non tender, No JVD PULMONARY: Dec breath souds B/L, No wheezing, No crackles. CARDIOVASCULAR: S1, S2 present. No murmurs, rubs, or gallops. ABDOMEN: Soft, nontender, nondistended, normoactive bowel sounds. No guarding or rebound tenderness. MUSCULOSKELETAL: + edema, No cyanosis. No clubbing. Normal ROM. Intact peripheral pulses. EXTREMITIES: No cyanosis, clubbing, or pedal edema. NEUROLOGICAL: CN 2-12 grossly intact. No FND Skin: No Rash REVIEW OF SYSTEMS: CONSTITUTIONAL: No fever or chills. CARDIOVASCULAR: No chest pain, palpitations or syncope. PULMONARY: Complains of shortness of breath. Leg swelling. GASTROINTESTINAL: No nausea, vomiting, diarrhea, abdominal pain. : No Dysuria, urgency, frequency. NEUROLOGICAL: No headaches, no weakness, or numbness Dictation was produced using [employer] dictation software. please excuse any grammatical, word or spelling errors. Objective - Vital Signs Vital signs: Vital Signs Temp 97.6 F 03/14/24 12:00 Pulse 83 09/15/24 12:00 Resp 18 03/14/24 12:00 BP 105/65 03/14/24 12:00 Pulse Ox 97 03/14/24 12:00 FiO2 Intake & Output 03/13/24 03/14/24 03/14/24 18:59 06:59 18:59 Intake Total 494 10 240 Balance 494 10 240 Intake: IV 20 10 Invasive Line 1 20 10 Oral 474 240 Other: Voiding Method Urinal Urinal Urinal - Labs CBC & Chem 7: 03/14/24 07:54 03/14/24 07:54 Labs: Abnormal Lab Results - Last 24 Hours (Table) 03/13/24 03/13/24 03/14/24 Range/Units 16:43 20:26 06:12 WBC (3.8-10.6) k/uL MCHC (31.0-37.0) g/dL Neutrophils # (1.3-7.7) k/uL Lymphocytes # (1.0-4.8) k/uL Sodium (137-145) mmol/L Chloride (98-107) mmol/L Carbon Dioxide (22-30) mmol/L BUN (9-20) mg/dL Glucose (74-99) mg/dL POC Glucose (mg/dL) 197 H 223 H 194 H (70-110) mg/dL 03/14/24 03/14/24 03/14/24 Range/Units 07:54 07:54 11:41 WBC 10.9 H (3.8-10.6) k/uL MCHC 30.5 L (31.0-37.0) g/dL Neutrophils # 9.9 H (1.3-7.7) k/uL Lymphocytes # 0.3 L (1.0-4.8) k/uL Sodium 136 L (137-145) mmol/L Chloride 93 L (98-107) mmol/L Carbon Dioxide 38 H (22-30) mmol/L BUN 24 H (9-20) mg/dL Glucose 214 H (74-99) mg/dL POC Glucose (mg/dL) 161 H (70-110) mg/dL
[2024-03-14] MEDS: predniSONE 10 MG TAB PO SCH (16:24)
[2024-03-14 16:29] LABS: Glucose,Whole Blood 147 mg/dL (70-110)
[2024-03-14 20:47] LABS: Glucose,Whole Blood 236 mg/dL (70-110)
[2024-03-15 06:11] LABS: Glucose,Whole Blood 134 mg/dL (70-110)
[2024-03-15 08:24] LABS: Basophils % (A) 0 %; Eosinophils % (A) 0 %; HCT 50.9 % (39.0-53.0); HGB 15.6 gm/dL (13.0-17.5); Hypochromasia Moderate; Lymphocytes % (A) 9 %; MCHC 30.7 g/dL (31.0-37.0); MCV 97.9 fL (80.0-100.0); Mean Platelet Volume 8.1; Monocytes # (A) 0.7 k/uL (0-1.0); Monocytes % (A) 7 %; Neutrophils # (A) 8.5 k/uL (1.3-7.7); Neutrophils % (A) 82 %; Platelet Count 217 k/uL (150-450); RDW 13.6 % (11.5-15.5); WBC 10.4 k/uL (3.8-10.6)
[2024-03-15 08:32] LABS: African American GFR (CKD) >90 (>60 ml/min/1.73 sqM); Anion Gap 3 mmol/L; Blood Urea Nitrogen 25 mg/dL (9-20); Calcium 9.1 mg/dL (8.4-10.2); Carbon Dioxide 39 mmol/L (22-30); Chloride 95 mmol/L (98-107); Glucose 148 mg/dL (74-99); Non-African American GFR(CKD) 86 (>60 ml/min/1.73 sqM); Potassium 3.8 mmol/L (3.5-5.1); Sodium 137 mmol/L (137-145)
--- NOTE | 2024-03-15 10:05 | P.DS ---
Providers Date of admission: 03/12/24 09:30 Expected date of discharge: 03/15/24 Attending physician: Yevgeniy Brantley MD Consults: 03/10/24 13:52 Consult Physician Urgent Consulting Provider: Yung Kearns Consult Reason/Comments: COPD exacerbation Do you want consulting provider notified?: Yes 03/11/24 08:30 Consult Physician Routine Consulting Provider: Nick Rich Consult Reason/Comments: chf Do you want consulting provider notified?: Yes Primary care physician: Vandana Wilkinson Hospital Course: Acute COPD exacerbation Acute pulmonary edema, possibly missed recent doses of his diuretics, echo reported EF 55 to 60%, mild to moderate pulmonary hypertension Acute on chronic hypoxic, hypercapnic respiratory failure secondary to the above. Former nicotine dependence COPD, severe Chronic CHF with preserved EF Pulmonary hypertension Morbid obesity, BMI 44 Hypertension Medically debilitated, evaluated by PT recommending home at DC This is an obese 64-year-old gentleman presented to the ER with complaints of progressive shortness of breath over the last 2 weeks accompanied by increasing bilateral lower extremity edema in addition to sustaining a fall while attempting to get up and proceed to the bathroom. past medical history significant for CHF with preserved LV function, severe COPD, chronic hypoxic respiratory failure-wears 4 to 5 L nasal cannula O2, former nicotine dependence- quit 1 year ago, morbid obesity denies chest pain, palpitations or shortness of breath. Reports his O2 sats normally run less than or equal to 92% on 4 to 5 L, but yesterday O2 sat dipped down into the 70s. Reports also increased exertional dyspnea, positive orthopnea. Patient is on diuretics at home and may have missed a dose recently. denies chest pain, palpitations. Denies recent illness or being around anyone ill. Denies fever or chills. Denies nausea, vomiting or diarrhea. Denies abdominal pain. Family had reported to the ER that patient appeared more confused than his baseline. Telemetry sinus rhythm. Vital signs stable. Afebrile, normal WBC. Hematology , coagulation unremarkable. Sodium 142, potassium 4.4, bicarb 51, BUN 13, creatinine 0.55. Glucose 131. Viral studies negativeChest x-ray reported hyperinflation compatible with COPD, no evidence for infiltrate, no atelectasis. proBNP less than 20. Troponin negative x 1. 03/12/2024 sitting up in chair, reports breathing easier today. Diuresing well on Lasix IV push with 24-hour I&O inaccurate, decreased edema. Echo pending. Maintained on nebulized bronchodilators, IV steroids and Symbicort . Reports did not sleep well last night, declining insomnia aids. Denies headache. Maintaining O2 sats in the 90s on 4 L nasal cannula. Reports minimal ambulation, becomes "winded" upon returning from bathroom. Blood sugars better controlled, hemoglobin A1c 6.2. Significant clinical improvement. Diuretics transition to oral; currently diuresing well on oral Lasix and metolazone. Bicarb 39.lungs essentially clear, no wheezing.reports he is now able to ambulate much further distances -ambulated in the hallway, tolerating exertion well. Maintaining O2 sats of 94% on 2 L n reinaldo cannula. Denies chest pain, palpitations or shortness of breath. Patient will be discharged home today in a stable condition with guarded prognosis pending final DC recommendations and clearance per pulmonary. The impression and plan of care has been dictated as directed. : I performed a history and examination of this patient, discussed the same with the dictator. I agree with the dictator's note ,documented as a scribe. Any additional findings or plans will be noted. Patient Condition at Discharge: Stable Plan - Discharge Summary New Discharge Prescriptions: New acetaZOLAMIDE [Diamox] 250 mg PO BID #60 tab Ipratropium-Albuterol Nebulize [Duoneb 0.5 mg-3 mg/3 ml Soln] 3 ml INHALATION RT-QID #120 each Furosemide [Lasix] 40 mg PO BID@0900,1600 #60 tab Budesonide-Formot 160-4.5 Mcg [Symbicort 160-4.5 Mcg Inhaler] 2 puff INHALATION RT-BID #1 each predniSONE 10 mg PO DIRECTED #18 tab Continue Sildenafil Citrate 25 mg PO DAILY Losartan Potassium [Cozaar] 12.5 mg PO DAILY Potassium Chloride ER [K-Dur 10] 10 meq PO DAILY Discontinued Spironolactone [Aldactone] 25 mg PO DAILY #30 tab Furosemide [Lasix] 20 mg PO BID #30 tab Discharge Medication List Losartan Potassium [Cozaar] 12.5 mg PO DAILY 10/29/22 [History] Sildenafil Citrate 25 mg PO DAILY 10/29/22 [History] Potassium Chloride ER [K-Dur 10] 10 meq PO DAILY 03/10/24 [History] Budesonide-Formot 160-4.5 Mcg [Symbicort 160-4.5 Mcg Inhaler] 2 puff INHALATION RT-BID #1 each 03/15/24 [Rx] Furosemide [Lasix] 40 mg PO BID@0900,1600 #60 tab 03/15/24 [Rx] Ipratropium-Albuterol Nebulize [Duoneb 0.5 mg-3 mg/3 ml Soln] 3 ml INHALATION RT-QID #120 each 03/15/24 [Rx] acetaZOLAMIDE [Diamox] 250 mg PO BID #60 tab 03/15/24 [Rx] predniSONE 10 mg PO DIRECTED #18 tab 03/15/24 [Rx] Follow up Appointment(s)/Referral(s): Yevgeniy Brantley MD [STAFF PHYSICIAN] - 3 Days Mason Alfaro MD [STAFF PHYSICIAN] - 1 Week Ed Dooley DO [Doctor of Osteopathic Medicine] - 1 Week Ambulatory/Diagnostic Orders: Basic Metabolic Panel [LAB.AMB] Time Frame: 3 Days, Location: None Selected Activity/Diet/Wound Care/Special Instructions: CHF Weigh yourself every morning after you urinate. If you gain 2-3 pounds overnight or 5 pounds in one week, call your primary physician for guidance on your medications. Keep a log of your weights. Avoid salt, or foods with hidden salt. Extra salt makes your heart work harder and traps the fluid in your body for longer. Take all of your medications as directed, especially your water pills. NEVER skip a dose. Elevate your legs when you are not up moving around to help with circulation and prevent swelling. Call your physician if you notice any extra swelling in your legs, ankles, feet or abdomen, if you have a new dry cough, if your shortness of breath worsens with activity or at rest, or if you feel more fatigued
[2024-03-15 11:13] LABS: Glucose,Whole Blood 134 mg/dL (70-110)
[2024-03-15 11:43] VITALS: BP 118/79; RESP 22; TEMP 97.8
[2024-03-15 11:47] VITALS: PULSE 72
--- NOTE | 2024-03-15 12:26 | P.PN ---
Subjective Progress Note Date: 03/15/24 Principal diagnosis: Shortness of breath. Patient is a 64-year-old white male with past medical history significant for severe oxygen dependent COPD, pulmonary hypertension, heart failure, and is an ex-smoker quitting approximately one year ago. Patient presents to the emergenc y department yesterday after having a while getting up to go to the bathroom. He fell on his buttocks and lower back. Denies hitting his head. Denies anticoagulant use. Over the last several days he has been more weak generally. He is deconditioned and admits weight gain. He has also had increased lower extremity swelling bilaterally. Takes diuretics at home. May have missed a dose recently. Denies any chest pain, heart palpitations, or syncopal events. He also has severe COPD with an FEV1 45% of predicted, he is chronically oxygen dependent currently on 5 L/min nasal cannula 20/01. Recently, started following with Dr. Dooley in the pulmonary office. He has been more short of breath mostly with exertion. He states his pulse oximeter reads 70% with activity, and takes a long time to come back to baseline with rest. Intermittently confused at times. Denies any infectious symptoms such as cough, sputum production, fever, chills. Denies sick contacts. Patient is currently being evaluated in the emergency department, room 15. He is sitting up in the bedside recliner, he is on 4 L/min nasal cannula, no acute distress. Heart rhythm appears normal sinus on bedside monitor around 80 bpm. Blood pressure normotensive. Chest x-ray taken on admission showing hyperinflation consistent with COPD possible mild pulmonary vascular congestion, however, NT proBNP was low. CBC unremarkable, no leukocytosis. CMP: Sodium 142, potassium 4.4, chloride 89, serum bicarb 51, BUN 13, creatinine 0.55, glucose 131. Troponin less than 0.012. NT proBNP less than 20. Negative for influenza, RSV, COVID. Hemodynamics are stable. The patient is seen today March 12, 2024 in follow-up on the selective care unit. He is currently up in a chair at the bedside. Awake and alert in no acute distress. Breathing a bit easier today compared to yesterday. Maintaining O2 saturations in the 90s on 4 L/min per nasal cannula. His only complaint today is lack of sleep. He was brought up from the ER late last night. Glucose 301. He is continued on DuoNeb and elations, Symbicort, Solu- Medrol. Remains on IV diuretics. No accurate I&O. Patient was evaluated today on 03/13/2024, patient is feeling better, sitting at the bedside chair, does not seem to be in any distress, on 4 L nasal cannula with O2 sats of 94%, patient is normally on home O2. Remains on Diamox, and Lasix was added by cardiology. Remains on bronchodilators and methylprednisolone 40 mg IV push every 8 hours. Patient is on Symbicort. Reevaluate today on 03/14/2024, patient continues to do well, continues to respond well to diuretics, remains on bronchodilators, significantly improved over the last few days, and I believe the patient should be considered for possible discharge planning in the next 24 hours. Remains in negative fluid balance with diuretics. WBC count is 10.9 hemoglobin 14.6 electrolytes are normal bicarb is 38 BUN is 24 creatinine 0.77. Methylprednisolone will be robe nged today to oral prednisone. In the meantime we will continue with diuretics including Diamox and Lasix. Progress note dated March 15, 2024. The patient was seen today in room 359. He is sitting in the chair next to the hospital bed. He is on 3 L of oxygen. No IV fluids. The patient is hoping to be discharged sometime today. The patient is feeling much improved. I see the patient in the office, and I have asked him to follow-up with me, in the next couple of weeks or so. Current labs include a white count 10.4, hemoglobin 15.6, hematocrit 50.9, and a normal platelet count. Sodium 137, potassium 3.8, chlorides 95, CO2 39, BUN 25, creatinine 0.94. Glucose is 134. Calcium is 9.1. Objective - Vital Signs Vital signs: Vital Signs Temp 97.8 F 03/15/24 11:39 Pulse 72 03/15/24 11:58 Resp 22 03/15/24 11:39 BP 118/79 03/15/24 11:39 Pulse Ox 92 L 03/15/24 11:39 FiO2 Intake & Output 03/14/24 03/15/24 03/15/24 18:59 06:59 18:59 Intake Total 1016 20 437 Balance 1016 20 437 Weight 131.1 kg Intake: IV 20 10 Invasive Line 1 20 10 Oral [id number] Other: Voiding Method Urinal Urinal Urinal - Exam No acute distress, oriented 3. Currently on 3 L. Saturations are 93%. HEENT examination is grossly unremarkable. Mucous membranes are moist. No oral lesions. Neck supple. Full range of motion. No adenopathy thyromegaly or neck vein distention. Cardiovascular examination reveals regular rhythm rate. S1-S2 normal. No S3 or S4. No discernible murmur noted. Lungs reveal clear breath sounds. Breath sounds are equal bilaterally. No adventitious lung sounds including wheezes rhonchi or crackles. Abdomen soft bowel sounds are heard. No masses or tenderness. Extremities are intact. No cyanosis or clubbing. Minimal edema present. Skin is without rash or lesion. Neurologic examination is brief but nonfocal. - Labs CBC & Chem 7: 03/15/24 08:02 03/15/24 08:02 Labs: Abnormal Lab Results - Last 24 Hours (Table) 03/14/24 03/14/24 03/15/24 Range/Units 16:28 20:32 06:03 MCHC (31.0-37.0) g/dL Neutrophils # (1.3-7.7) k/uL Chloride (98-107) mmol/L Carbon Dioxide (22-30) mmol/L BUN (9-20) mg/dL Glucose (74-99) mg/dL POC Glucose (mg/dL) 147 H 236 H 134 H (70-110) mg/dL 03/15/24 03/15/24 03/15/24 Range/Units 08:02 08:02 11:11 MCHC 30.7 L (31.0-37.0) g/dL Neutrophils # 8.5 H (1.3-7.7) k/uL Chloride 95 L (98-107) mmol/L Carbon Dioxide 39 H (22-30) mmol/L BUN 25 H (9-20) mg/dL Glucose 148 H (74-99) mg/dL POC Glucose (mg/dL) 134 H (70-110) mg/dL Assessment and Plan Assessment: Acute hypoxemic respiratory failure, secondary to COPD exacerbation. Severe COPD, with an FEV1 that is 45% of predicted. Chronic hypoxemic respiratory failure, on home O2, 20/01. Congestive heart failure with preserved ejection fraction. History of pulmonary hypertension. History of systemic hypertension. Generalized weakness and deconditioning. Morbid obesity. Former tobacco dependence. Plan: Plan dated March 15, 2024. The patient appears to be doing better. The patient is on 3 L. He does use oxygen at home, 20/01. Labs, x-rays, medications are reviewed. We will continue to follow, make recommendations along the way. Prognosis is guarded. Discharge planning underway. The patient is hoping to be discharged later today. He was seen in room 359. He looks well. He is sitting in a chair, next to the [facility] bed. Time with Patient: Less than 30
--- NOTE | 2024-03-15 13:58 | CDI ---
Documentation Clarification Form Date: 03/15/2024 01:35:05 PM From: Leida Hansen RN, CCDS Phone: [phone] Admit Date: 03/12/2024 09:30:00 AM Patient Name: Darshan Lee Visit Number: [id number] Discharge Date: ATTENTION: The Clinical Documentation Specialists (CDI) and [facility] Coding Staff appreciate your assistance in clarifying documentation. Please respond to the clarification below the line at the bottom and electronically sign. The CDI & [facility] Coding staff will review the response and follow-up if needed. Please note: Queries are made part of the Legal Health Record. If you have any questions, please contact the author of this message via ITS. Doctor Yevgeniy Brantley Conflicting documentation has been found in the medical record. As attending physician, please provide clarification. 03/12 and 03/13 IM: "acute on chronic diastolic CHF." H&P and Discharge summary: "chronic CHF with preserved EF." History/Risk Factors: Heart failure, morbid obesity, chronic oxygen dependence and COPD. Presented with progressive shortness of breath over the last 2 weeks accompanied by increasing bilateral lower extremity edema. Clinical Indicators: H&P: "Legs: Positive bilateral lower extremity edema, 1-2+, no clubbing, no cyanosis. Acute COPD exacerbation. Chronic CHF with preserved EF." 03/10 BNP: <20 03/12 Echo: Normal LV systolic function - EF 55-60%. Severely dilated right ventricle. Mild to moderate pulmonary hypertension. 03/12 and 03/13 IM: "acute on chronic diastolic CHF." Discharge summary: "Chronic CHF with preserved EF." 03/10-03/15 POX 92-97% on 3-4LNC Treatment: IV Lasix 40mg x1 on 03/12; PO Lasix 20mg po x1 on 03/11; Lasix 40mg po x1 on 03/11; PO Lasix 40mg BID 03/12-03/15; Oxygen 3-4LNC Please clarify which diagnosis is most appropriate: [ X ] Acute on chronic diastolic heart failure [ ] Chronic diastolic heart failure [ ] Other (please specify) [ ] Unable to determine MTDD
== END 2024-03-15 14:05 | disposition home or self-care (01) | DRG 291 ==
LOC: EC 11:00 → 3SCARD 14:41 → OBSVTOIN 03-12 09:30
PROVIDERS: ADMIT Family Medicine; ATTEND Family Medicine
DX: I11.0 Hypertensive heart disease with heart failure (principal); I50.33 Acute on chronic diastolic (congestive) heart failure; J96.21 Acute and chronic respiratory failure with hypoxia; J96.22 Acute and chronic respiratory failure with hypercapnia; J44.1 Chronic obstructive pulmonary disease with (acute) exacerbation; Z68.41 Body mass index [BMI] 40.0-44.9, adult; E87.3 Alkalosis; G47.00 Insomnia, unspecified; G47.33 Obstructive sleep apnea (adult) (pediatric); I27.20 Pulmonary hypertension, unspecified; E66.01 Morbid (severe) obesity due to excess calories; Z79.51 Long term (current) use of inhaled steroids; Z79.899 Other long term (current) drug therapy; Z87.891 Personal history of nicotine dependence; Z99.81 Dependence on supplemental oxygen; Z20.822 Contact with and (suspected) exposure to COVID-19
CPT/HCPCS: 25605; 36415; 71046; 80048; 80053; 83036; 83735; 83880; 84484; 85025; 85379; 85610; 85730; 87636; 93005; 93306; 94640; 94760; 96374; 99285

== ENCOUNTER 2024-07-09 05:20 | Inpatient (IN) | payer BC ==
[2024-07-09 05:34] LABS: Glucose,Whole Blood 146 mg/dL (70-110)
[2024-07-09 05:53] LABS: Basophils # (A) 0.1 k/uL (0-0.2); Basophils % (A) 1 %; Eosinophils # (A) 0.1 k/uL (0-0.7); Eosinophils % (A) 1 %; HCT 45.5 % (39.0-53.0); HGB 13.6 gm/dL (13.0-17.5); Hypochromasia Marked; Lymphocytes % (A) 11 %; MCH 29.6 pg (25.0-35.0); MCV 98.7 fL (80.0-100.0); Mean Platelet Volume 7.3; Monocytes # (A) 0.7 k/uL (0-1.0); Monocytes % (A) 8 %; Neutrophils # (A) 6.5 k/uL (1.3-7.7); Neutrophils % (A) 75 %; Platelet Count 198 k/uL (150-450); RBC 4.61 m/uL (4.30-5.90); RDW 13.3 % (11.5-15.5); WBC 8.7 k/uL (3.8-10.6)
[2024-07-09 06:04] LABS: ALT 29 U/L (4-49); AST 25 U/L (17-59); African American GFR (CKD) >90 (>60 ml/min/1.73 sqM); Alkaline Phosphatase 84 U/L (38-126); Blood Urea Nitrogen 13 mg/dL (9-20); Calcium 8.9 mg/dL (8.4-10.2); Chloride 91 mmol/L (98-107); Creatine Kinase 56 U/L (55-170); Glucose 159 mg/dL (74-99); Non-African American GFR(CKD) >90 (>60 ml/min/1.73 sqM); Potassium 4.1 mmol/L (3.5-5.1); Sodium 143 mmol/L (137-145); Total Bilirubin 0.6 mg/dL (0.2-1.3); Total Protein 6.6 g/dL (6.3-8.2)
[2024-07-09 06:11] LABS: Anion Gap 8 mmol/L
--- NOTE | 2024-07-09 06:15 | XR ---
EXAM: XR Chest, 1 View CLINICAL HISTORY: ITS.REASON XR Reason: altered mental status TECHNIQUE: Frontal view of the chest. COMPARISON: X-ray dated 03/10/2024 FINDINGS: Lungs: Confluent opacity is seen at the lateral right midlung. Prominence of the pulmonary vasculature. Pleural space: Unremarkable. No pneumothorax. Heart: Moderate enlargement of the cardiac silhouette. Mediastinum: Unremarkable. Normal mediastinal contour. Bones/joints: Degenerative changes are seen in the spine and shoulders. No acute fracture. Vasculature: Calcifications overlie the aorta. IMPRESSION: 1. Moderate pulmonary edema. 2. Concern for right lung pneumonia.
--- NOTE | 2024-07-09 06:17 | ED ---
General Adult HPI - General Chief complaint: Neuro Symptoms/Deficit Stated complaint: TOM, light headedness Time Seen by Provider: 07/09/24 05:30 Source: patient, RN notes reviewed, old records reviewed Mode of arrival: EMS Limitations: no limitations - History of Present Illness Initial comments: Patient is a 64-year-old male who presents emergency department for altered mental status. Patient called the EMS originally for lightheadedness dizziness episode. EMS arrived and they loaded him in his rig. He became hypoxic for them. He is normally on 3 to 4 L nasal cannula for COPD and CHF. They stated that patient was speaking normally and acting normally and then progressively on the way here he became more confused. They placed him on oxygen and brought him here for further evaluation. Patient currently cannot follow any directions, and can only repeat his name. Is following only very basic commands of lifting an arm. Presents for further evaluation at this time. Patient cannot provide any history. No blood thinners per EMS.I was called in by nursing staff as they were concerned for possible stroke considering his progression of mental status changes. Patient was laying down in the ambulance on the way here. - Related Data Home Medications Medication Instructions Recorded Confirmed Losartan Potassium [Cozaar] 12.5 mg PO DAILY 10/29/22 03/10/24 Sildenafil Citrate 25 mg PO DAILY 10/29/22 03/10/24 Potassium Chloride ER [K-Dur 10] 10 meq PO DAILY 03/10/24 03/10/24 Previous Rx's Medication Instructions Recorded Budesonide-Formot 160-4.5 Mcg 2 puff INHALATION RT-BID #1 each 03/15/24 [Symbicort 160-4.5 Mcg Inhaler] Furosemide [Lasix] 40 mg PO BID@0900,1600 #60 tab 03/15/24 Ipratropium-Albuterol Nebulize 3 ml INHALATION RT-QID #120 each 03/15/24 [Duoneb 0.5 mg-3 mg/3 ml Soln] acetaZOLAMIDE [Diamox] 250 mg PO BID #60 tab 03/15/24 predniSONE 10 mg PO DIRECTED #18 tab 03/15/24 Allergies Allergy/AdvReac Type Severity Reaction Status Date / Time No Known Allergies Allergy Verified 07/09/24 05:39 Review of Systems ROS Statement: Those systems with pertinent positive or pertinent negative responses have been documented in the HPI. ROS Other: All systems not noted in ROS Statement are negative. Past Medical History Past Medical History: Heart Failure, COPD Additional Past Medical History / Comment(s): Chronic oxygen dependence on 3-5 L/m History of Any Multi-Drug Resistant Organisms: None Reported Past Surgical History: Hernia Repair Additional Past Surgical History / Comment(s): dental implants. Past Anesthesia/Blood Transfusion Reactions: No Reported Reaction Past Psychological History: No Psychological Hx Reported Smoking Status: Former smoker Past Alcohol Use History: Occasional Past Drug Use History: None Reported - Past Family History Father Additional Family Medical History / Comment(s): father and grandfather had heartattacks 60's. General Exam - General Exam Comments Initial Comments: General: Appears in moderate distress from confusion. HEAD: Normal with no signs of head trauma. EYES: PERRLA, EOMI, conjunctiva normal, no discharge. ENT: Hearing grossly intact, normal oropharynx. RESPIRATORY: Coarse breath sounds bilaterally. Hypoxic on room air. Improved on nasal cannula oxygen. C/V: Tachycardic with regular rhythm.. S1 and S2 auscultated, significant lower extremity pitting edema, peripheral pulses 2+ and intact throughout ABD: Abd is soft, nontender, nondistended EXT: Normal range of motion, no obvious deformity SKIN: No rashes or lesions observed on exposed skin. NEURO: Alert but not oriented. Difficult to obtain an accurate neurological evaluation. Appears to be moving all 4 extremities. NIH is at least a 4 for not answering to questions correctly as well as for aphasia. Limitations: no limitations Course Vital Signs 07/09/24 07/09/24 07/09/24 05:21 06:21 06:22 Temperature 99.6 F Pulse Rate 113 H Respiratory 20 Rate Blood Pressure 134/75 O2 Sat by Pulse 94 L Oximetry Fraction of 50 50 Inspired Oxygen (FIO2) 07/09/24 07/09/24 07/09/24 06:28 06:42 07:00 Temperature Pulse Rate 108 H 108 H 107 H Respiratory 32 H Rate Blood Pressure 125/71 O2 Sat by Pulse 90 L Oximetry Fraction of Inspired Oxygen (FIO2) 07/09/24 07:47 Temperature Pulse Rate Respiratory Rate Blood Pressure O2 Sat by Pulse Oximetry Fraction of 50 Inspired Oxygen (FIO2) Medical Decision Making - Medical Decision Making Was pt. sent in by a medical professional or institution (, PA, STEWARD/STEWARDESS THIRD, urgent care, hospital, or shelter...) When possible be specific @ -No Did you speak to anyone other than the patient for history (EMS, parent, family, police, friend...)? What history was obtained from this source @ -EMS provided the patient's deterioration on the way to the emergency department. Did you review nursing and triage notes (agree or disagree)? Why? @ -I reviewed and agree with nursing and triage notes Were old charts reviewed (outside hosp., previous admission, EMS record, old EKG, old radiological studies, urgent care reports/EKG's, shelter records)? Report findings @ -No old charts were reviewed Differential Diagnosis (chest pain, altered mental status, abdominal pain women, abdominal pain men, vaginal bleeding, weakness, fever, dyspnea, syncope, headache, dizziness, GI bleed, back pain, seizure, CVA, palpatations, mental health, musculoskeletal)? @ -Differential Altered Mental Status: Hypoglycemia, DKA, hypercapnia, ETOH, overdose, CO poisoning, trauma, myxedema coma, HTN encephalopathy, infection, encephalitis, psychosis, intercranial hemorrhage, hepatic encephalopathy, meningitis, CVA, this is not meant to be an all-inclusive list EKG interpreted by me (3pts min.). @ -As above X-rays interpreted by me (1pt min.). @ -Chest x-ray reveals possible right sided pneumonia, pulmonary vascular congestion. CT interpreted by me (1pt min.). @ -CT brain and CT angiogram head and neck reveals no obvious large vessel occlusion or evidence of acute stroke. U/S interpreted by me (1pt. min.). @ -None done What testing was considered but not performed or refused? (CT, X-rays, U/S, labs)? Why? @ -None What meds were considered but not given or refused? Why? @ -None Did you discuss the management of the patient with other professionals (professionals i.e. , PA, STEWARD/STEWARDESS [employer], lab, RT, psych nurse, social media job titles, comedian, teacher, juvenile officer, disease case manager rn)? Give summary @ -Discussed with stroke neurointensivist, Dr. Singleton who was in agreement the plan for code tenecteplase administration at this time. I will keep you updated on any changes. I spoke with him again after speaking with family, daughter Bess who originally delayed tenecteplase administration over concern for patient possibly being on a blood thinner. This did allow us to have completed workup. CT imaging negative. Patient is hypercapnic. Patient is improving on BiPAP. Patient's daughter did not want tenecteplase and I believe this is reasonable as we do have an obvious cause for his confusion and he has drastic improvement, and now only has conversational confusion at this time. I discussed this with Dr. Spears who is in agreement the plan. I spoke with ROBERT Krueger for pulmonology and ICU who agreed with obtaining ABG and accepted the consult. He will speak with his attending, Dr. Fritz regarding possible ICU admission versus keeping the patient on stepdown. I discussed with the admitting provider, Dr. Brantley who accepted the admission. Was smoking cessation discussed for >3mins.? @ -No Was critical care preformed (if so, how long)? @ -Yes, 44 minutes. Were there social determinants of health that impacted care today? How? (Homelessness, low income, unemployed, alcoholism, drug addiction, transportation, low edu. Level, literacy, decrease access to med. care, long-term, rehab)? @ -No Was there de-escalation of care discussed even if they declined (Discuss DNR or withdrawal of care, Hospice)? DNR status @ -Yes, discussed at length with daughter Bess as well as son and they wish for the patient to be full code. What co-morbidities impacted this encounter? (DM, HTN, Smoking, COPD, CAD, Cancer, CVA, ARF, Chemo, Hep., AIDS, mental health diagnosis, sleep apnea, morbid obesity)? @ -CHF, COPD, chronic hypoxic respiratory failure. Was patient admitted / discharged? Hospital course, mention meds given and route, prescriptions, significant lab abnormalities, going to OR and other pertinent info. @ -Patient presents with altered mentation and possible CVA versus other etiology. Patient apparently had significant decreased mentation on the way her e with EMS. Concern for stroke as he is now mute and unable to communicate. NIH is 4. Last known well as he was acting relatively normally at 510 when EMS picked him up. Therefore code tenecteplase was activated. I spoke with Dr. Singleton of neurocrit care who was in agreement with the plan. Family has not yet arrived. Patient was not hypoxic on arrival on his baseline 4 L nasal cannula oxygen. CT imaging was completed. While patient was lying flat, became more hypoxic and at the 70%'s. Improved on BiPAP. At this time, patient's daughter arrived Bess. We discussed the patient's workup and discussed administering tenecteplase. She believes patient may be on a blood thinner and wants us to hold at this time after discussing risks and benefits. She also states he has presented similarly in the past secondary to respiratory issues and thinks this also may be playing a role, and I agree that this cannot be definitively ruled out. There was a delay in decision on tenecteplase because of the above, and patient's daughter retrieving his medications which show he is not on a blood thinner. However while she was retrieving them, imaging returned and CT brain and CT angiogram of the head and neck revealed no obvious acute evidence of stroke or large vessel occlusion. Chest x-ray showed the pulmonary vascular congestion as well as right-sided pneumonia. Laboratory studies revealed hypercapnia on VBG. On reevaluation at this time, patient's mentation is improved. He has no longer mute and not following commands. He is able to follow basic commands. Seems to have conversational confusion but is able to communicate improved. NIH is now at worst of 1 down from a 4. Many parts of NIH earlier was testable still likely higher than originally of 4. Due to the dressing proven NIH score, I spoke with patient's daughter and our suspicion is this being a respiratory hypercapnic altered mentation, we agree not to administer tenecteplase at this time. This was discussed with stroke neuro crit care Dr. singleton who agreed with this plan. Patient will not be administered tenecteplase due to improving symptoms, as well as risks outweighing benefits. The remainder the patient's labs returned remarkable for a normal BNP. Troponin is undetectable. ABG was ordered. Viral swabs negative. On subsequent reevaluation, patient once again is improving and still has conversational confusion but the significant mental status alteration that he presented with is significantly improved at this time. He is on BiPAP. Patient will be admitted to 3 S. IV fluids will not be administered as patient has CHF and I am concerned for volume overload. Patient will be started on IV Lasix, as well as continued on IV steroids, breathing treatments for COPD. Patient st chou on Zosyn and azithromycin as family believes he recently was admitted to the hospital on IV antibiotics within the last 3 months. Concern for possible pneumonia. Patient on aspirin. Neurology consulted due to the altered mentation as well as stroke activation. I spoke with ROBERT Krueger for pulmonology and ICU who agreed with obtaining ABG and accepted the consult. He will speak with his attending, Dr. Fritz regarding possible ICU admission versus keeping the patient on stepdown. I discussed with the admitting provider, Dr. Brantley who accepted the admission. Undiagnosed new problem with uncertain prognosis? @ -No Drug Therapy requiring intensive monitoring for toxicity (Heparin, Nitro, Insulin, Cardizem)? @ -No Were any procedures done? @ -No Diagnosis/symptom? @ -COPD, CHF, encephalopathy, BiPAP dependence, hypoxic hypercapnic respiratory failure on BiPAP, pneumonia Acute, or Chronic, or Acute on Chronic? @ -Acute Uncomplicated (without systemic symptoms) or Complicated (systemic symptoms)? @ -Complicated Side effects of treatment? @ -No Exacerbation, Progression, or Severe Exacerbation? @ -No Poses a threat to life or bodily function? How? (Chest pain, [place], [place], pneumonia, PE, COPD, DKA, ARF, appy, cholecystitis, CVA, Diverticulitis, Homicidal, Suicidal, threat to staff... and all critical care pts) @ -Yes - Lab Data Result diagrams: 07/09/24 05:40 07/09/24 05:40 Lab Results 07/09/24 07/09/24 07/09/24 Range/Units 05:33 05:40 05:40 WBC 8.7 (3.8-10.6) k/uL RBC 4.61 (4.30-5.90) m/uL Hgb 13.6 (13.0-17.5) gm/dL Hct 45.5 (39.0-53.0) % MCV 98.7 (80.0-100.0) fL MCH 29.6 (25.0-35.0) pg MCHC 30.0 L (31.0-37.0) g/dL RDW 13.3 (11.5-15.5) % Plt Count 198 (150-450) k/uL MPV 7.3 Neutrophils % 75 % Lymphocytes % 11 % Monocytes % 8 % Eosinophils % 1 % Basophils % 1 % Neutrophils # 6.5 (1.3-7.7) k/uL Lymphocytes # 1.0 (1.0-4.8) k/uL Monocytes # 0.7 (0-1.0) k/uL Eosinophils # 0.1 (0-0.7) k/uL Basophils # 0.1 (0-0.2) k/uL Hypochromasia Marked PT 11.0 (10.0-12.5) sec INR 1.0 (<1.2) APTT 26.0 (22.0-30.0) sec VBG pH (7.31-7.41) VBG pCO2 (37-51) mmHg VBG HCO3 (24-28) mmol/L Sodium (137-145) mmol/L Potassium (3.5-5.1) mmol/L Chloride (98-107) mmol/L Carbon Dioxide (22-30) mmol/L Anion Gap mmol/L BUN (9-20) mg/dL Creatinine (0.66-1.25) mg/dL Est GFR (CKD-EPI)AfAm (>60 ml/min/1.73 sqM) Est GFR (CKD-EPI)NonAf (>60 ml/min/1.73 sqM) Glucose (74-99) mg/dL POC Glucose (mg/dL) 146 H (70-110) mg/dL POC Glu Coffee Roaster Helper ID Constance Juan Plasma Lactic Acid Nakul (0.7-2.0) mmol/L Calcium (8.4-10.2) mg/dL Total Bilirubin (0.2-1.3) mg/dL AST (17-59) U/L ALT (4-49) U/L Alkaline Phosphatase (38-126) U/L Creatine Kinase (55-170) U/L Troponin I (0.000-0.034) ng/mL NT-Pro-B Natriuret Pep pg/mL Total Protein (6.3-8.2) g/dL Albumin (3.5-5.0) g/dL 07/09/24 07/09/24 07/09/24 Range/Units 05:40 05:40 05:40 WBC (3.8-10.6) k/uL RBC (4.30-5.90) m/uL Hgb (13.0-17.5) gm/dL Hct (39.0-53.0) % MCV (80.0-100.0) fL MCH (25.0-35.0) pg MCHC (31.0-37.0) g/dL RDW (11.5-15.5) % Plt Count (150-450) k/uL MPV Neutrophils % % Lymphocytes % % Monocytes % % Eosinophils % % Basophils % % Neutrophils # (1.3-7.7) k/uL Lymphocytes # (1.0-4.8) k/uL Monocytes # (0-1.0) k/uL Eosinophils # (0-0.7) k/uL Basophils # (0-0.2) k/uL Hypochromasia PT (10.0-12.5) sec INR (<1.2) APTT (22.0-30.0) sec VBG pH (7.31-7.41) VBG pCO2 (37-51) mmHg VBG HCO3 (24-28) mmol/L Sodium 143 (137-145) mmol/L Potassium 4.1 (3.5-5.1) mmol/L Chloride 91 L (98-107) mmol/L Carbon Dioxide 44 H* (22-30) mmol/L Anion Gap 8 mmol/L BUN 13 (9-20) mg/dL Creatinine 0.59 L (0.66-1.25) mg/dL Est GFR (CKD-EPI)AfAm >90 (>60 ml/min/1.73 sqM) Est GFR (CKD-EPI)NonAf >90 (>60 ml/min/1.73 sqM) Glucose 159 H (74-99) mg/dL POC Glucose (mg/dL) (70-110) mg/dL POC Glu Coffee Roaster Helper ID Plasma Lactic Acid Nakul (0.7-2.0) mmol/L Calcium 8.9 (8.4-10.2) mg/dL Total Bilirubin 0.6 (0.2-1.3) mg/dL AST 25 (17-59) U/L ALT 29 (4-49) U/L Alkaline Phosphatase 84 (38-126) U/L Creatine Kinase 56 (55-170) U/L Troponin I <0.012 (0.000-0.034) ng/mL NT-Pro-B Natriuret Pep 58 pg/mL Total Protein 6.6 (6.3-8.2) g/dL Albumin 4.0 (3.5-5.0) g/dL 07/09/24 07/09/24 Range/Units 05:40 06:11 WBC (3.8-10.6) k/uL RBC (4.30-5.90) m/uL Hgb (13.0-17.5) gm/dL Hct (39.0-53.0) % MCV (80.0-100.0) fL MCH (25.0-35.0) pg MCHC (31.0-37.0) g/dL RDW (11.5-15.5) % Plt Count (150-450) k/uL MPV Neutrophils % % Lymphocytes % % Monocytes % % Eosinophils % % Basophils % % Neutrophils # (1.3-7.7) k/uL Lymphocytes # (1.0-4.8) k/uL Monocytes # (0-1.0) k/uL Eosinophils # (0-0.7) k/uL Basophils # (0-0.2) k/uL Hypochromasia PT (10.0-12.5) sec INR (<1.2) APTT (22.0-30.0) sec VBG pH 7.33 (7.31-7.41) VBG pCO2 93 H* (37-51) mmHg VBG HCO3 48 H (24-28) mmol/L Sodium (137-145) mmol/L Potassium (3.5-5.1) mmol/L Chloride (98-107) mmol/L Carbon Dioxide (22-30) mmol/L Anion Gap mmol/L BUN (9-20) mg/dL Creatinine (0.66-1.25) mg/dL Est GFR (CKD-EPI)AfAm (>60 ml/min/1.73 sqM) Est GFR (CKD-EPI)NonAf (>60 ml/min/1.73 sqM) Glucose (74-99) mg/dL POC Glucose (mg/dL) (70-110) mg/dL POC Glu Coffee Roaster Helper ID Plasma Lactic Acid Nakul 1.7 (0.7-2.0) mmol/L Calcium (8.4-10.2) mg/dL Total Bilirubin (0.2-1.3) mg/dL AST (17-59) U/L ALT (4-49) U/L Alkaline Phosphatase (38-126) U/L Creatine Kinase (55-170) U/L Troponin I (0.000-0.034) ng/mL NT-Pro-B Natriuret Pep pg/mL Total Protein (6.3-8.2) g/dL Albumin (3.5-5.0) g/dL - EKG Data -: EKG Interpreted by Me EKG Comments: 12-lead Electrocardiogram Interpretation Note EKG was reviewed and interpreted by myself. 12-lead ECG performed at 0538 is interpreted by me as revealing sinus tachycardia at a rate of 113 beats per minute. Indeterminate axis. Incomplete right bundle branch block.. There were no ST or T wave abnormalities to suggest myocardial ischemia or injury. R wave progression across the precordium was satisfactory. By my interpretation this EKG is non-diagnostic for acute ischemia. Critical Care Time Critical Care Time: Yes Total Critical Care Time: 44 Disposition Clinical Impression: COPD (chronic obstructive pulmonary disease), CHF (congestive heart failure), Encephalopathy, Hypercapnic respiratory failure, Pneumonia, BiPAP (biphasic positive airway pressure) dependence Disposition: ADMITTED IP TO THIS HOSP Condition: Serious Time of Disposition: 07:00
[2024-07-09 06:18] LABS: VBG PH 7.33 (7.31-7.41)
--- NOTE | 2024-07-09 06:22 | CT ---
EXAM: CT Head Without Intravenous Contrast CLINICAL HISTORY: ITS.REASON CT Reason: Neuro deficit, acute, stroke suspected TECHNIQUE: Axial computed tomography images of the head/brain without intravenous contrast. CTDI is 32.7 mGy and DLP is 388.06 mGy-cm. This CT exam was performed using one or more of the following dose reduction techniques: automated exposure control, adjustment of the mA and/or kV according to patient size, and/or use of iterative reconstruction technique. COMPARISON: No relevant prior studies available. FINDINGS: The study is limited secondary to motion artifact in scanning technique. Brain: Unremarkable. No hemorrhage. No significant white matter disease. No edema. Ventricles: Unremarkable. No ventriculomegaly. Bones/joints: Unremarkable. No acute fracture. Soft tissues: Unremarkable. Sinuses: Unremarkable as visualized. No acute sinusitis. Mastoid air cells: Unremarkable as visualized. No mastoid effusion. IMPRESSION: No evidence of acute intracranial pathology on this limited study.
[2024-07-09] MEDS: IPRATROPIUM-ALBUTEROL 3 ML NEB INHALATION STA (06:27)
--- NOTE | 2024-07-09 06:27 | CT ---
EXAM: CT Angiography Head With Intravenous Contrast CLINICAL HISTORY: ITS.REASON CT Reason: Neuro deficit, acute, stroke suspected TECHNIQUE: Axial computed tomographic angiography images of the head with intravenous contrast. CTDI is 32.7 mGy and DLP is 688.06 mGy-cm. This CT exam was performed using one or more of the following dose reduction techniques: automated exposure control, adjustment of the mA and/or kV according to patient size, and/or use of iterative reconstruction technique. MIP reconstructed images were created and reviewed. COMPARISON: No relevant prior studies available. FINDINGS: The dural venous sinuses are patent. Right internal carotid artery: No acute findings. Intracranial segment is patent with no significant stenosis. No aneurysm. Right anterior cerebral artery: Unremarkable. No occlusion or significant stenosis. No aneurysm. Right middle cerebral artery: Unremarkable. No occlusion or significant stenosis. No aneurysm. Right posterior cerebral artery: Unremarkable. No occlusion or significant stenosis. No aneurysm. Right vertebral artery: Unremarkable as visualized. Left internal carotid artery: No acute findings. Intracranial segment is patent with no significant stenosis. No aneurysm. Left anterior cerebral artery: Unremarkable. No occlusion or significant stenosis. No aneurysm. Left middle cerebral artery: Unremarkable. No occlusion or significant stenosis. No aneurysm. Left posterior cerebral artery: Unremarkable. No occlusion or significant stenosis. No aneurysm. Left vertebral artery: Unremarkable as visualized. Basilar artery: Unremarkable. No occlusion or significant stenosis. No aneurysm. IMPRESSION: Negative CT angiogram of the head. EXAM: CT Angiography Neck With Intravenous Contrast CLINICAL HISTORY: ITS.REASON CT Reason: Neuro deficit, acute, stroke suspected TECHNIQUE: Routine carotid CT angiography protocol was performed with intravenous contrast. NASCET criteria using the distal ICAs for comparison were used for evaluation of stenoses. CTDI is 32.7 mGy and DLP is 688.06 mGy-cm. This CT exam was performed using one or more of the following dose reduction techniques: automated exposure control, adjustment of the mA and/or kV according to patient size, and/or use of iterative reconstruction technique. MIP reconstructed images were created and reviewed. COMPARISON: None. FINDINGS: VASCULATURE: The study is limited secondary to contrast bolus timing. Right common carotid artery: Unremarkable. No occlusion or significant stenosis. No dissection. Right internal carotid artery: Unremarkable. Extracranial segment is patent with no occlusion or significant stenosis. No dissection. Right external carotid artery: Unremarkable. No occlusion. Right vertebral artery: Unremarkable. No occlusion or significant stenosis. No dissection. Left common carotid artery: Unremarkable. No occlusion or significant stenosis. No dissection. Left internal carotid artery: Unremarkable. Extracranial segment is patent with no occlusion or significant stenosis. No dissection. Left external carotid artery: Unremarkable. No occlusion. Left vertebral artery: Unremarkable. No occlusion or significant stenosis. No dissection. NECK: Bones/joints: Unremarkable. No acute fracture. Soft tissues: Mediastinal lymphadenopathy. Prominent lingual tonsils. Lung apices: Bronchitis with pneumonitis. CAROTID STENOSIS REFERENCE USING NASCET CRITERIA: % ICA stenosis = (1 - narrowest ICA diameter/diameter of distal cervical ICA) x 100. Mild - <50% stenosis. Moderate - 50-69% stenosis. Severe - 70-94% stenosis. Near occlusion - 95-99% stenosis. Occluded - 100% stenosis. IMPRESSION: Negative CTA neck.
[2024-07-09 06:29] LABS: Carbon Dioxide 44 mmol/L (22-30)
[2024-07-09] MEDS ORDERED: PNEUMONIA PROTOCOL UTILIZED 1 EACH MISC PO PRN (06:44)
[2024-07-09] MEDS: methylPREDNISolone SOD SUCCI 125 MG/2 ML VIAL IV STA (07:04)
[2024-07-09] MEDS ORDERED: NALOXONE 0.4 MG/ML 1 ML VIAL IV PRN (07:13)
[2024-07-09] MEDS: PIPERACILLIN-TAZOBACTAM 3.375 GM in SODIUM CHLORIDE 0.9% 100 ML IVPB STA (07:14)
[2024-07-09] MEDS: SODIUM CHLORIDE 0.9% 500 ML 500 ML IV STA (07:22)
[2024-07-09] MEDS: AZITHROMYCIN 500 MG in SODIUM CHLORIDE 0.9% 250 ML IVPB STA (07:23)
[2024-07-09 08:00] LABS: ABG Base Excess 16.8 mmol/L; ABG Oxygen Saturation 94.3 % (94-97); ABG PO2 84 mmHg (83-108); ABG TCO2 51 mmol/L (19-24); Allen Test Performed? Yes
[2024-07-09 08:01] LABS: Influenza A Not Detected (Not Detectd); Influenza B Not Detected (Not Detectd); RSV Not Detected (Not Detectd)
[2024-07-09 08:25] LABS: ABG HCO3 48 mmol/L (21-25); ABG PCO2 97 mmHg (35-45)
[2024-07-09] MEDS: FUROSEMIDE 10 MG/ML 4 ML VIAL IV SCH (08:45)
[2024-07-09] MEDS: ASPIRIN 325 MG TAB PO STA (08:45)
[2024-07-09] MEDS: IPRATROPIUM-ALBUTEROL 3 ML NEB INHALATION PRN (08:54)
--- NOTE | 2024-07-09 09:17 | P.CNPUL ---
History of Present Illness Consult date: 07/09/24 Requesting physician: Dimitrios Wilkinson Reason for consult: COPD Chief complaint: Altered mental status History of present illness: Patient is a 64-year-old male with past medical history significant for severe COPD, pulmonary hypertension, and is a former tobacco smoker. Patient was brought in by EMS, apparently feeling short of breath, lightheaded and dizzy while at home. When EMS arrived he was noted to be hypoxic. In route, progressively became more confused and lethargic. Code stroke was initiated. Brain scans on arrival were unremarkable. Brain CT without contrast showing no evidence of intracranial abnormality, no hemorrhage or mass effect. Brain CTA did not show any significant carotid artery occlusions or stenosis or dissections. Dr. Wilkinson did call me on this patient. [place] possible cause of patient's altered mental status was hypercapnic respiratory failure. VBG showing a pCO2 of 93 and pH of 7.33. Patient was placed on BiPAP in ED. CBC was unremarkable for leukocytosis, WBC count 8.7, hemoglobin 13.6, platelets 198. Initial BIPAP settings 12/6 and FiO2 50% and PEEP. Chest x-ray shows cardiomegaly, patchy and interstitial interstitial airspace disease, possible pulmonary edema, superimposed infectious process was not excluded. CMP: Sodium 143, potassium 4.1, chloride 91, serum bicarb 44, BUN 13, creatinine 0.59, glucose 159. LFTs unremarkable. Troponin less than 0.012. NT proBNP 58. Patient was started empiric antibiotics in the ED in the form of azithromycin and Zosyn. Has remained afebrile. Also, started on diuretics in the form of Lasix 40 mg 3 times daily. Patient is currently being evaluated in room 11. He remains obtunded, will awaken to verbal stimuli. Currently on BiPAP with above- mentioned settings, achieving tidal volumes around 200, respiratory rate is in the mid teens. He does have some bilateral lower extremity pitting edema. His [id number]-[id number] is at the bedside, states he has been feeling unwell for several days. She is worried about his ability to take care of himself on his own. States he has not showered in several days. Review of Systems ROS unobtainable: due to mental status Past Medical History Past Medical History: Heart Failure, COPD Additional Past Medical History / Comment(s): Chronic oxygen dependence on 3-5 L/m History of Any Multi-Drug Resistant Organisms: None Reported Past Surgical History: Hernia Repair Additional Past Surgical History / Comment(s): dental implants. Past Anesthesia/Blood Transfusion Reactions: No Reported Reaction Past Psychological History: No Psychological Hx Reported Smoking Status: Former smoker Past Alcohol Use History: Occasional Past Drug Use History: None Reported - Past Family History Father Additional Family Medical History / Comment(s): father and grandfather had hea rtattacks 60's. Medications and Allergies Home Medications Medication Instructions Recorded Confirmed Type Losartan Potassium [Cozaar] 25 mg PO DAILY 10/29/22 07/09/24 History Sildenafil Citrate 25 mg PO DAILY 10/29/22 07/09/24 History Potassium Chloride ER [K-Dur 10] 10 meq PO DAILY 03/10/24 07/09/24 History Furosemide [Lasix] 40 mg PO BID@0900,1600 #60 tab 03/15/24 07/09/24 Rx acetaZOLAMIDE [Diamox] 250 mg PO BID #60 tab 03/15/24 07/09/24 Rx Albuterol Sulfate [Albuterol 2 puff PO Q4H PRN 07/09/24 07/09/24 History Sulfate Hfa] Ipratropium-Albuterol Nebulize 3 ml INHALATION RT-QID PRN 07/09/24 07/09/24 History [Duoneb 0.5 mg-3 mg/3 ml Soln] metFORMIN HCL [Glucophage] 500 mg PO BID 07/09/24 07/09/24 History Allergies Allergy/AdvReac Type Severity Reaction Status Date / Time No Known Allergies Allergy Verified 07/09/24 05:39 Physical Exam Vitals: Vital Signs Temp Pulse Resp BP Pulse Ox FiO2 07/09/24 07:00 107 H 32 H 125/71 90 L 07/09/24 06:42 108 H 07/09/24 06:28 108 H 07/09/24 06:22 50 07/09/24 06:21 50 07/09/24 05:21 99.6 F 113 H 20 134/75 94 L Intake and Output 07/08/24 07/09/24 07/09/24 22:59 06:59 14:59 Other: Weight 132.449 kg GENERAL EXAM: Obtunded, 64-year-old obese male, briefly awakens to verbal questioning and then falls back asleep. On BiPAP. HEAD: Normocephalic and atraumatic EYES: Normal reaction of pupils, equal size. NOSE: Clear with pink turbinates. THROAT: No erythema or exudates. NECK: No masses, no JVD. CHEST: No chest wall deformity. LUNGS: Equal air entry with diminished lung sounds bilaterally and bilateral rhonchi. On BiPAP with settings 12/5 FiO2 50%, achieving tidal volumes around of only 200 to 220 mL CVS: S1 and S2 normal with no audible murmur, regular rhythm. No extra heart sounds ABDOMEN: No hepatosplenomegaly, active bowel sounds, no guarding or rigidity. SPINE: No scoliosis or deformity SKIN: No rashes CENTRAL NERVOUS SYSTEM: Obtunded, oriented to self and place. No focal deficits, tone is normal in all 4 extremities. EXTREMITIES: Bilateral lower extremity 2+ pitting edema. No clubbing or cyanosis. Peripheral pulses are intact. Results - Laboratory Findings CBC and BMP: 07/09/24 05:40 07/09/24 05:40 PT/INR, D-dimer PT 11.0 sec (10.0-12.5) 07/09/24 05:40 INR 1.0 (<1.2) 07/09/24 05:40 Abnormal lab findings: Abnormal Labs 07/09/24 07/09/24 07/09/24 05:33 05:40 05:40 MCHC 30.0 L VBG pCO2 VBG HCO3 Chloride 91 L Carbon Dioxide 44 H* Creatinine 0.59 L Glucose 159 H POC Glucose (mg/dL) 146 H 07/09/24 06:11 MCHC VBG pCO2 93 H* VBG HCO3 48 H Chloride Carbon Dioxide Creatinine Glucose POC Glucose (mg/dL) - Diagnostic Findings Chest x-ray: image reviewed Assessment and Plan Assessment: Acute on chronic hypoxemic and hypercapnic respiratory failure, secondary to acute COPD exacerbation, Chest x-ray shows cardiomegaly, bilateral patchy and interstitial airspace disease, possible pulmonary edema, superimposed infectious process is not excluded. NT proBNP was low. Viral 4 Plex screen was negative for influenza, RSV, COVID. Altered mental status, likely secondary to component of hypercapnic encephalopathy Severe COPD, with an FEV1 that is 45% of predicted Chronic hypoxemic respiratory failure, on home O2 in the order of 3 to 4 L/min nasal cannula 20/01 History of heart failure with preserved ejection fraction, most recent echocardiogram from 03/11/2024 estimating a preserved left ventricular ejection fraction of 55 to 60%, without any significant valvular abnormalities and mild to moderate pulmonary hypertension. History of pulmonary hypertension. History of systemic hypertension Generalized weakness and deconditioning, patient's etmdriyx-zx-qhr is concerned about the patient's ability to take care of himself dependently at home Morbid obesity, with a BMI of 38.5 kg/m Former tobacco dependence Plan: Patient's medications, labs, imaging reviewed Continue on BiPAP, adjust IPAP to 16/6 with an FiO2 to be titrated accordingly Start combination of DuoNebs, budesonide inhalation, formoterol inhalation, and IV Solu-Medrol Follow-up ABG consistent with acute on chronic hypercapnic and hypoxemic respiratory failure, with a pH of 7.3, pCO2 97, PaO2 of 84. This was done on above-mentioned BiPAP settings. Nurses have noted increased alertness and ability to respond to questioning. Viral screen ordered the ED negative for influenza, RSV, COVID. Patient was started on empiric antibiotics in the ED in the form of azithromycin and Zosyn. Check procalcitonin Patient also started on Lasix 40 mg 3 times daily, however, NT proBNP was low We will continue to follow, additional recommendations to follow I have personally seen and examined the patient, performed the documentation and the assessment and plan as written. Number of minutes spent on the visit:20 This is a joint evaluation that was done along with the nurse practitioner. This evaluation was done more than 30 minutes. Note that this patient is hospitalized for shortness of breath and the patient's blood gases she is showing an acute on top of chronic hypoxic bro failure due to COPD exacerbation. There is also a component of CHF in addition. The chest x-ray was reviewed and it shows pulmonary vascular congestion/edema and moderate enlargement of the cardiac silhouette. No airspace disease. No consolidation. Blood gas was consistent with acute on top of chronic hypoxic and hypercapnic respiratory failure with a pH of 7.3 with a pCO2 of 97 and pO2 of 84. Based on that, the patient was placed on a BiPAP and he was having difficulties tolerat ing the BiPAP and he was quite restless. I saw the patient in Emergency Department. The patient was already started on diuretics and he was producing adequate amount of urine output. He seemed to be less bronchospastic and wheezy. He was quite restless. Made recommendations to take off the BiPAP and the patient will be placed on nasal cannula and currently is on 5 L of oxygen nasal cannula with a pulse ox of 93%. He will be started on low-dose Precedex should there be ongoing restlessness/delirium. Meanwhile, his CBC is within normal limits. Coagulations within normal limits. He has chronic metabolic alkalosis with a serum bicarb of 44 with BUN of 17 and a creatinine of 0.59. Troponins are negative. proBNP level was 58. He has increased edema in his lower extremities bilaterally. He was given DuoNeb updrafts, IV Solu-Medrol 40 mg every 12 hours and IV Lasix. Also covered with a combination of Zosyn and Zithromax. The patient is known to have severe COPD with an FEV1 of 45% of predicted. His previous echocardiogram has indicated preserved LV function with severe pulmonary hypertension. This is probably due to chronic hypoxic respiratory failure, group 3 pulmonary hypertension. The viral screen was negative. Will be given Haldol for delirium. Precedex drip if needed. Possible ICU care. Will follow. Time with Patient: Greater than 30
[2024-07-09 09:44] LABS: Appearance,Urine Clear (Clear); Bilirubin,Urine Negative (Negative); Blood,Urine Small (Negative); Color,Urine Yellow; Glucose,Urine (UA) Negative (Negative); Hyaline Casts,Urine 1 /lpf (0-2); Ketones,Urine 2+ (Negative); Leukocyte Esterase,Urine Negative (Negative); Mucus,Urine Rare /hpf; Nitrite,Urine Negative (Negative); Protein,Urine 1+ (Negative); RBC,Urine 8 /hpf (0-5); Specific Gravity,Urine 1.043 (1.001-1.035); Squamous Epithelial Cell,Urine <1 /hpf (0-4); Urobilinogen,Urine <2.0 mg/dL (<2.0); WBC,Urine 2 /hpf (0-5)
[2024-07-09] MEDS: HALOPERIDOL LACTATE 5 MG/ML 1 ML VIAL IM PRN (11:27)
[2024-07-09] MEDS ORDERED: ALPRAZolam 0.5 MG TAB PO PRN (12:07)
[2024-07-09] MEDS: HALOPERIDOL LACTATE 5 MG/ML 1 ML VIAL IM ONE (12:14)
[2024-07-09] MEDS: DEXMEDETOMIDINE/0.9% NACL(PMX) 400 MCG in EMPTY BAG 1 BAG IV SCH (13:32)
[2024-07-09 15:55] LABS: Glucose,Whole Blood 181 mg/dL (70-110)
[2024-07-09] MEDS: PIPERACILLIN-TAZOBACTAM 3.375 GM in SODIUM CHLORIDE 0.9% 100 ML IVPB SCH (16:46)
[2024-07-09 17:15] LABS: ABG Base Excess 21.7 mmol/L; ABG Oxygen Saturation 89.8 % (94-97); ABG PH 7.43 (7.35-7.45); ABG TCO2 53 mmol/L (19-24); Allen Test Performed? Yes
[2024-07-09 17:20] LABS: ABG HCO3 51 mmol/L (21-25); ABG PCO2 77 mmHg (35-45); ABG PO2 58 mmHg (83-108)
[2024-07-09] MEDS: methylPREDNISolone SOD SUCCI 40 MG/ML 1 ML VIAL IV SCH (21:16)
[2024-07-10 05:48] LABS: Basophils % (A) 0 %; Eosinophils % (A) 0 %; HCT 40.8 % (39.0-53.0); HGB 12.2 gm/dL (13.0-17.5); Hypochromasia Moderate; Lymphocytes # (A) 0.6 k/uL (1.0-4.8); Lymphocytes % (A) 7 %; MCH 28.8 pg (25.0-35.0); MCHC 29.8 g/dL (31.0-37.0); MCV 96.6 fL (80.0-100.0); Mean Platelet Volume 7.6; Monocytes # (A) 0.7 k/uL (0-1.0); Monocytes % (A) 7 %; Neutrophils % (A) 84 %; Platelet Count 229 k/uL (150-450); RBC 4.23 m/uL (4.30-5.90); RDW 13.3 % (11.5-15.5); WBC 9.5 k/uL (3.8-10.6)
[2024-07-10 06:37] LABS: ALT 22 U/L (4-49); AST 26 U/L (17-59); African American GFR (CKD) >90 (>60 ml/min/1.73 sqM); Albumin 3.7 g/dL (3.5-5.0); Alkaline Phosphatase 75 U/L (38-126); Blood Urea Nitrogen 22 mg/dL (9-20); Calcium 9.1 mg/dL (8.4-10.2); Chloride 88 mmol/L (98-107); Glucose 182 mg/dL (74-99); Non-African American GFR(CKD) >90 (>60 ml/min/1.73 sqM); Sodium 143 mmol/L (137-145); Total Bilirubin 0.4 mg/dL (0.2-1.3); Total Protein 6.5 g/dL (6.3-8.2)
[2024-07-10 06:44] LABS: Anion Gap 6 mmol/L; Carbon Dioxide 49 mmol/L (22-30)
--- NOTE | 2024-07-10 08:46 | XR ---
EXAMINATION TYPE: XR chest 1V portable DATE OF EXAM: 07/10/2024 5:36 AM COMPARISON: 07/09/2024 CLINICAL INDICATION: Male, 64 years old with history of pneumonia, previous abnormal chest x-ray TECHNIQUE: XR chest 1V portable view(s) obtained. FINDINGS: The heart size is mildly prominent. The pulmonary vasculature is prominent. There is diffuse increased lung markings bilaterally. This has improved from comparison IMPRESSION: 1. Improving diffuse bilateral lung infiltrates. Pneumonia and pulmonary edema could be considered [facility], , 07/10/2024 8:44 AM
[2024-07-10] MEDS: FUROSEMIDE 10 MG/ML 4 ML VIAL IV SCH (09:25)
[2024-07-10] MEDS: AZITHROMYCIN 500 MG in SODIUM CHLORIDE 0.9% 250 ML IVPB SCH (09:26)
[2024-07-10] MEDS ORDERED: DEXTROSE 50% SYRINGE 50 ML IVP PRN ×2 (09:26)
[2024-07-10 10:21] LABS: Chol/HDL Ratio 5.27 Ratio; LDL Cholesterol,Calculated 176.6 mg/dL (0.0-131.0)
[2024-07-10] MEDS: INSULIN ASPART (NovoLOG) 100 UNIT/ML VIAL SQ SCH (11:24)
[2024-07-10 11:25] LABS: Glucose,Whole Blood 126 mg/dL (70-110)
--- NOTE | 2024-07-10 11:44 | P.PN ---
Subjective Progress Note Date: 07/10/24 Patient is a 64-year-old male with past medical history significant for severe COPD, pulmonary hypertension, and is a former tobacco smoker. Patient was brought in by EMS, apparently feeling short of breath, lightheaded and dizzy while at home. When EMS arrived he was noted to be hypoxic. In route, progressively became more confused and lethargic. Code stroke was initiated. B rain scans on arrival were unremarkable. Brain CT without contrast showing no evidence of intracranial abnormality, no hemorrhage or mass effect. Brain CTA did not show any significant carotid artery occlusions or stenosis or dissections. Dr. Wilkinson did call me on this patient. [place] possible cause of patient's altered mental status was hypercapnic respiratory failure. VBG showing a pCO2 of 93 and pH of 7.33. Patient was placed on BiPAP in ED. CBC was unremarkable for leukocytosis, WBC count 8.7, hemoglobin 13.6, platelets 198. Initial BIPAP settings 12/6 and FiO2 50% and PEEP. Chest x-ray shows cardiomegaly, patchy and interstitial interstitial airspace disease, possible pulmonary edema, superimposed infectious process was not excluded. CMP: Sodium 143, potassium 4.1, chloride 91, serum bicarb 44, BUN 13, creatinine 0.59, glucose 159. LFTs unremarkable. Troponin less than 0.012. NT proBNP 58. Patient was started empiric antibiotics in the ED in the form of azithromycin a nd Zosyn. Has remained afebrile. Also, started on diuretics in the form of Lasix 40 mg 3 times daily. Patient is currently being evaluated in room 11. He remains obtunded, will awaken to verbal stimuli. Currently on BiPAP with above- mentioned settings, achieving tidal volumes around 200, respiratory rate is in the mid teens. He does have some bilateral lower extremity pitting edema. His pnqtujbh-wv-zwa is at the bedside, states he has been feeling unwell for several days. She is worried about his ability to take care of himself on his own. States he has not showered in several days. 07/10/2024, the patient is being seen for a follow-up. Much improved compared to yesterday. Mental status also improved. The patient did not require Precedex. The patient is currently in the intensive care unit. Off the BiPAP and the patient is currently on oxygen at 5 L nasal cannula with a pulse ox of 92%. Overnight, the patient declined the BiPAP at a pressure of 16 over 6 cm of water with an FiO2 of 40%. Fluid balance is -2.6 L over the past 24 hours. Remains on bronchodilators. Remains on IV Solu-Medrol. Remains on a combination of Zosyn and Zithromax. Remains on IV Lasix 40 mg every 12 hours. Monitor. 9.5 with a hemoglobin 12.2 with a platelet count of 229. Serum bicarb is at 29 and sodium levels at 143 with a potassium level of 4. LDL cholesterol was 176. LFTs are essentially within normal limits. Objective - Vital Signs Vital signs: Vital Signs Temp 98.0 F 07/10/24 04:00 Pulse 65 07/10/24 07:00 Resp 17 07/10/24 07:00 BP 121/63 07/10/24 07:00 Pulse Ox 93 L 07/10/24 07:00 FiO2 40 07/10/24 00:40 Intake & Output 07/09/24 07/10/24 07/10/24 18:59 06:59 18:59 Intake Total 136.810 502.649 0.828 Output Total 2040 1235 50 Balance -1903.190 -732.351 -49.172 Weight 132.449 kg 129 kg Intake: IV 100 200 Piperacillin-Tazobactam 3 100 200 .375 gm In Sodium Chloride 0.9% 100 ml @ 25 mls/hr IVPB Q8HR EILEEN Rx# :[id number] Intake, IV Titration 36.810 302.649 0.828 Amount Dexmedetomidine/0.9% NaCl 36.810 302.649 0.828 (Pmx) 400 mcg In Empty Bag 1 bag @ 0.2 MCG/KG/HR 6.622 mls/hr IV .[id number] EILEEN Rx#:[id number] Output: Urine 2040 1235 50 Uretheral ([place]) 400 Other: Voiding Method Indwelling Catheter Indwelling Catheter - Exam GENERAL EXAM: Obtunded, 64-year-old obese male,, comfortable on 5 L of O2 nasal cannula HEAD: Normocephalic and atraumatic EYES: Normal reaction of pupils, equal size. NOSE: Clear with pink turbinates. THROAT: No erythema or exudates. NECK: No masses, no JVD. CHEST: No chest wall deformity. LUNGS: Equal air entry with diminished lung sounds bilaterally and bilateral rhonchi. CVS: S1 and S2 normal with no audible murmur, regular rhythm. No extra heart sounds ABDOMEN: No hepatosplenomegaly, active bowel sounds, no guarding or rigidity. SPINE: No scoliosis or deformity SKIN: No rashes CENTRAL NERVOUS SYSTEM: Awake and alert and not confused oriented to self and place. No focal deficits, tone is normal in all 4 extremities. EXTREMITIES: Bilateral lower extremity 2+ pitting edema. No clubbing or cyanosis. Peripheral pulses are intact. - Labs CBC & Chem 7: 07/10/24 05:00 07/10/24 05:00 Labs: Abnormal Lab Results - Last 24 Hours (Table) 07/09/24 07/09/24 07/09/24 Range/Units 07:59 09:00 15:54 RBC (4.30-5.90) m/uL Hgb (13.0-17.5) gm/dL MCHC (31.0-37.0) g/dL Neutrophils # (1.3-7.7) k/uL Lymphocytes # (1.0-4.8) k/uL ABG pH 7.30 L (7.35-7.45) ABG pCO2 97 H* (35-45) mmHg ABG pO2 (83-108) mmHg ABG HCO3 48 H* (21-25) mmol/L ABG Total CO2 51 H (19-24) mmol/L ABG O2 Saturation (94-97) % Hemoglobin (13.0-17.5) gm/dL Chloride (98-107) mmol/L Carbon Dioxide (22-30) mmol/L BUN (9-20) mg/dL Glucose (74-99) mg/dL POC Glucose (mg/dL) 181 H (70-110) mg/dL Ur Specific [place] 1.043 H (1.001-1.035) Urine Protein 1+ H (Negative) Urine Ketones 2+ H (Negative) Urine Blood Small H (Negative) Urine RBC 8 H (0-5) /hpf Urine Mucus Rare H (None) /hpf 07/09/24 07/10/24 07/10/24 Range/Units 17:13 05:00 05:00 RBC 4.23 L (4.30-5.90) m/uL Hgb 12.2 L (13.0-17.5) gm/dL MCHC 29.8 L (31.0-37.0) g/dL Neutrophils # 8.0 H (1.3-7.7) k/uL Lymphocytes # 0.6 L (1.0-4.8) k/uL ABG pH (7.35-7.45) ABG pCO2 77 H* (35-45) mmHg ABG pO2 58 L* (83-108) mmHg ABG HCO3 51 H* (21-25) mmol/L ABG Total CO2 53 H (19-24) mmol/L ABG O2 Saturation 89.8 L (94-97) % Hemoglobin 12.9 L (13.0-17.5) gm/dL Chloride 88 L (98-107) mmol/L Carbon Dioxide 49 H* (22-30) mmol/L BUN 22 H (9-20) mg/dL Glucose 182 H (74-99) mg/dL POC Glucose (mg/dL) (70-110) mg/dL Ur Specific [place] (1.001-1.035) Urine Protein (Negative) Urine Ketones (Negative) Urine Blood (Negative) Urine RBC (0-5) /hpf Urine Mucus (None) /hpf Assessment and Plan Assessment: Acute on chronic hypoxemic and hypercapnic respiratory failure, secondary to acute COPD exacerbation, Chest x-ray shows cardiomegaly, bilateral patchy and interstitial airspace disease, possible pulmonary edema, superimposed infectious process is not excluded. NT proBNP was low. Viral 4 Plex screen was negative for influenza, RSV, COVID. The patient is currently off the BiPAP the patient is currently on 5 L of O2 nasal cannula. Altered mental status, likely secondary to component of hypercapnic encephalopathy, improved and the mental status is normalized. The patient was quite delirious in the emergency department, briefly placed on Precedex and this was subsequent discontinued Severe COPD, with an FEV1 that is 45% of predicted Chronic hypoxemic respiratory failure, on home O2 in the order of 3 to 4 L/min nasal cannula 20/01 History of heart failure with preserved ejection fraction, most recent echocardiogram from 03/11/2024 estimating a preserved left ventricular ejection fraction of 55 to 60%, without any significant valvular abnormalities and mild to moderate pulmonary hypertension. History of pulmonary hypertension. History of systemic hypertension Generalized weakness and deconditioning, patient's occckmvt-bf-kaw is concerned about the patient's ability to take care of himself dependently at home Morbid obesity, with a BMI of 38.5 kg/m Former tobacco dependence Plan: Keep the patient on O2 at 5 L and gradually wean it down BiPAP overnight to the pressure of 12/6 cm of water Continue combination of DuoNebs, budesonide inhalation, formoterol inhalation, and IV Solu-Medrol Continue IV Lasix Discontinue Zosyn Continue Zithromax Discontinue Precedex Change Lasix to 40 mg every 12 hours IV His previous echocardiogram has indicated preserved LV function with severe pulmonary hypertension. This is probably due to chronic hypoxic respiratory failure, group 3 pulmonary hypertension. The viral screen was negative. The patient is stable and the patient can be transferred to [facility]
--- NOTE | 2024-07-10 14:00 | P.HPIM ---
History of Present Illness H&P Date: 07/10/24 History of present illness; patient is a 64-year-old gentleman past medical history significant for COPD, chronic hypoxemic respiratory failure, CHF presented to the ER because of altered mental status. Patient initially called EMS because of complaint of feeling lightheaded and dizzy and short of breath. According to EMS report, patient stated he was feeling sick for the last few days. When EMS reached the spot patient was found to be hypoxemic, was placed on oxygen. En route to the ER patient became more altered. On reaching the ER, patient placed on BiPAP code stroke was initiated. Brain scans on arrival were unremarkable. Brain CT without contrast showing no evidence of intracranial abnormality, no hemorrhage or mass effect. Brain CTA did not show any sign ificant carotid artery occlusions or stenosis or dissections. Discussion took place between ER physician, family and interventional neurology at this time as patient was doing well on BiPAP decision was made not to give tenecteplase. Initial lab work done in the ER showed WBC 8.7, hemoglobin 13.6, platelet count 198, sodium 143, potassium 4.1, BUN 13, creatinine 0.59, glucose 159, AST 25, ALT 29, troponin 0.012, Pro-Jonathan 0.07 Influenza A not detected Influenza B not detected RSV not detected COVID-19 not detected EKG done in the ER showed heart rate of 113 , no ST segment elevation or depression seen, no T-wave inversions seen. Chest x-ray done in the ER showed moderate pulm edema, right lung pneumonia CT head done showed no acute intracranial process CTA head and neck done showed no significant stenosis, aneurysm or thrombus in the intracranial circulation Patient admitted to internal medicine service in ICU REVIEW OF SYSTEMS: CONSTITUTIONAL: No fever, no malaise, no fatigue. HEENT: No recent visual problems or hearing problems. Denied any sore throat. CARDIOVASCULAR: As mentioned above PULMONARY: As mentioned above GASTROINTESTINAL: No diarrhea, no nausea, no vomiting, no abdominal pain. NEUROLOGICAL: No headaches, no weakness, no numbness. HEMATOLOGICAL: Denies any bleeding or petechiae. GENITOURINARY: Denies any burning micturition, frequency, or urgency. MUSCULOSKELETAL/RHEUMATOLOGICAL: Denies any joint pain, swelling, or any muscle pain. ENDOCRINE: Denies any polyuria or polydipsia. The rest of the 14-point review of systems is negative. PHYSICAL EXAMINATION: GENERAL: The patient is alert and oriented x3, ill looking HEENT: Pupils are round and equally reacting to light. EOMI. No scleral icterus. No conjunctival pallor. Normocephalic, atraumatic. No pharyngeal erythema. No thyromegaly. CARDIOVASCULAR: S1 and S2 present. No murmurs, rubs, or gallops. PULMONARY: Good air entry bilaterally, bilateral crackles audible ABDOMEN: Soft, nontender, nondistended, normoactive bowel sounds. No palpable organomegaly. MUSCULOSKELETAL: No joint swelling or deformity. EXTREMITIES: No cyanosis, clubbing, 1+ pitting edema lower extremities NEUROLOGICAL: Gross neurological examination did not reveal any focal deficits. SKIN: No rashes. Assessment and plan Acute hypoxemic hypercapnic respiratory failure Acute metabolic encephalopathy Acute COPD exacerbation chronic hypoxemic respiratory failure, on home O2 in the order of 3 to 4 L/min nasal cannula 20/01 Chronic diastolic heart failure History of pulmonary hypertension. History of systemic hypertension Generalized weakness and deconditioning Morbid obesity Former tobacco dependence Monitor vital signs Monitor CBC Monitor CMP Continue telemetry monitoring Serial ABGs Continue oxygen supplementation Continue BiPAP Ordered breathing treatments ordered IV Solu-Medrol Ordered IV azithromycin Ordered echo Pulmonology consulted Cardiology consulted Labs and medication were reviewed.. Continue same treatment. Continue with symptomatic treatment. Resume home medication. Monitor labs and vitals. DVT and GI prophylaxis. Further recommendations as per clinical course of the patient Dictation was produced using [employer] dictation software. please excuse any grammatical, word or spelling errors. Past Medical History Past Medical History: Heart Failure, COPD Additional Past Medical History / Comment(s): Chronic oxygen dependence on 3-5 L/m History of Any Multi-Drug Resistant Organisms: None Reported Past Surgical History: Hernia Repair Additional Past Surgical History / Comment(s): dental implants. Past Anesthesia/Blood Transfusion Reactions: No Reported Reaction Past Psychological History: No Psychological Hx Reported Smoking Status: Former smoker Past Alcohol Use History: Occasional Past Drug Use History: None Reported - Past Family History Father Additional Family Medical History / Comment(s): father and grandfather had heartattacks 60's. Medications and Allergies Home Medications Medication Instructions Recorded Confirmed Type Losartan Potassium [Cozaar] 25 mg PO DAILY 10/29/22 07/09/24 History Sildenafil Citrate 25 mg PO DAILY 10/29/22 07/09/24 History Potassium Chloride ER [K-Dur 10] 10 meq PO DAILY 03/10/24 07/09/24 History Furosemide [Lasix] 40 mg PO BID@0900,1600 #60 tab 03/15/24 07/09/24 Rx acetaZOLAMIDE [Diamox] 250 mg PO BID #60 tab 03/15/24 07/09/24 Rx Albuterol Sulfate [Albuterol 2 puff PO Q4H PRN 07/09/24 07/09/24 History Sulfate Hfa] Ipratropium-Albuterol Nebulize 3 ml INHALATION RT-QID PRN 07/09/24 07/09/24 History [Duoneb 0.5 mg-3 mg/3 ml Soln] metFORMIN HCL [Glucophage] 500 mg PO BID 07/09/24 07/09/24 History Allergies Allergy/AdvReac Type Severity Reaction Status Date / Time No Known Allergies Allergy Verified 07/09/24 05:39 Physical Exam Vitals: Vital Signs Temp Pulse Resp BP Pulse Ox FiO2 07/10/24 08:33 60 28 H 07/10/24 08:29 40 07/10/24 08:25 63 33 H 07/10/24 07:00 65 17 121/63 93 L 07/10/24 06:00 54 L 25 H 119/60 94 L 07/10/24 05:00 60 22 120/65 94 L 07/10/24 04:00 98.0 F 55 L 24 111/62 94 L 07/10/24 03:00 55 L 16 116/63 97 07/10/24 02:00 53 L 14 122/69 99 07/10/24 01:00 57 L 14 140/70 07/10/24 00:40 40 07/10/24 00:00 98.2 F 52 L 16 142/73 40 07/09/24 23:00 53 L 10 L 138/68 07/09/24 22:25 52 L 16 126/65 07/09/24 22:00 63 18 132/65 98 07/09/24 21:00 66 23 116/57 98 07/09/24 20:31 58 L 07/09/24 20:19 64 40 07/09/24 20:00 98.1 F 58 L 28 H 105/56 40 07/09/24 19:00 58 L 26 H 103/53 92 L 07/09/24 18:00 72 28 H 102/55 90 L 07/09/24 17:00 92 20 104/54 93 L 07/09/24 16:00 98.8 F 89 29 H 124/72 89 L 07/09/24 15:06 96 20 105/64 90 L 07/09/24 14:00 105 H 18 108/61 93 L 07/09/24 13:44 112 H 20 117/71 88 L 07/09/24 13:15 104 H 07/09/24 13:05 110 H 07/09/24 11:31 98 26 H 108/61 93 L Intake and Output 07/09/24 07/10/24 07/10/24 22:59 06:59 14:59 Intake Total 333.499 300.221 0.828 Output Total 1994 880 50 Balance -1661.501 -579.779 -49.172 Intake: IV 200 100 Piperacillin-Tazobactam 3 200 100 .375 gm In Sodium Chloride 0.9% 100 ml @ 25 mls/hr IVPB Q8HR [facility] Rx# :[id number] Intake, IV Titration 133.499 200.221 0.828 Amount Dexmedetomidine/0.9% NaCl 133.499 200.221 0.828 (Pmx) 400 mcg In Empty Bag 1 bag @ 0.2 MCG/KG/HR 6.622 mls/hr IV .Q15H7M [facility] Rx#:[id number] Output: Urine 19940 50 Other: Voiding Method Indwelling Catheter Indwelling Catheter Weight 129 kg Results CBC & Chem 7: 07/10/24 05:00 07/10/24 05:00 Labs: Abnormal Lab Results - Last 24 Hours (Table) 07/09/24 07/09/24 07/09/24 Range/Units 09:00 15:54 17:13 RBC (4.30-5.90) m/uL Hgb (13.0-17.5) gm/dL MCHC (31.0-37.0) g/dL Neutrophils # (1.3-7.7) k/uL Lymphocytes # (1.0-4.8) k/uL ABG pCO2 77 H* (35-45) mmHg ABG pO2 58 L* (83-108) mmHg ABG HCO3 51 H* (21-25) mmol/L ABG Total CO2 53 H (19-24) mmol/L ABG O2 Saturation 89.8 L (94-97) % Hemoglobin 12.9 L (13.0-17.5) gm/dL Chloride (98-107) mmol/L Carbon Dioxide (22-30) mmol/L BUN (9-20) mg/dL Glucose (74-99) mg/dL POC Glucose (mg/dL) 181 H (70-110) mg/dL Ur Specific [place] 1.043 H (1.001-1.035) Urine Protein 1+ H (Negative) Urine Ketones 2+ H (Negative) Urine Blood Small H (Negative) Urine RBC 8 H (0-5) /hpf Urine Mucus Rare H (None) /hpf 07/10/24 07/10/24 Range/Units 05:00 05:00 RBC 4.23 L (4.30-5.90) m/uL Hgb 12.2 L (13.0-17.5) gm/dL MCHC 29.8 L (31.0-37.0) g/dL Neutrophils # 8.0 H (1.3-7.7) k/uL Lymphocytes # 0.6 L (1.0-4.8) k/uL ABG pCO2 (35-45) mmHg ABG pO2 (83-108) mmHg ABG HCO3 (21-25) mmol/L ABG Total CO2 (19-24) mmol/L ABG O2 Saturation (94-97) % Hemoglobin (13.0-17.5) gm/dL Chloride 88 L (98-107) mmol/L Carbon Dioxide 49 H* (22-30) mmol/L BUN 22 H (9-20) mg/dL Glucose 182 H (74-99) mg/dL POC Glucose (mg/dL) (70-110) mg/dL Ur Specific [place] (1.001-1.035) Urine Protein (Negative) Urine Ketones (Negative) Urine Blood (Negative) Urine RBC (0-5) /hpf Urine Mucus (None) /hpf Thrombosis Risk Factor Assmnt - Choose All That Apply Any of the Below Risk Factors Present?: Yes Each Factor Represents 1 point: Abnormal pulmonary function (COPD), Medical pt on bed rest, Obesity (BMI >25), Serious lung disease incl. pneumonia (< 1month) Other Risk Factors: Yes Each Risk Factor Represents 2 Points: Patient confined to bed Other congenital or acquired thrombophilia - If yes, enter type in comment: No Thrombosis Risk Factor Assessment Total Risk Factor Score: 6 Thrombosis Risk Factor Assessment Level: High Risk
--- NOTE | 2024-07-10 15:50 | CA ---
Transthoracic Echo Report Name: Darshan Lee Age: 64 Gender: M : 1960 Exam Date: 07/10/2024 13:50 Exam Location: [facility] Ht (in): 73 Wt (lb): 284 Ordering Physician: Vitaliy Barrgaan MD Attending/Referring Phys: Vp [facility] Mónica Diez RDCS Procedure CPT: Indications: SHORTNESS OF BREATH Cardiac Hx: Technical Quality: Technically difficult study Contrast 1: Definity Total Dose (mL): 2 Contrast 2: Total Dose (mL): MEASUREMENTS (Male / Female) Normal Values 2D ECHO LV Diastolic Diameter PLAX 5.4 cm 4.2 - 5.9 / 3.9 - 5.3 cm LV Systolic Diameter PLAX 3.9 cm IVS Diastolic Thickness 1.5 cm 0.6 - 1.0 / 0.6 - 0.9 cm LVPW Diastolic Thickness 1.5 cm 0.6 - 1.0 / 0.6 - 0.9 cm LV Relative Wall Thickness 0.5 DOPPLER AV Peak Velocity 194.8 cm/s AV Peak Gradient 15.2 mmHg AV Mean Velocity 130.7 cm/s AV Mean Gradient 7.8 mmHg AV Velocity Time Integral 30.4 cm FINDINGS Left Ventricle Limited study. Moderately increased septal wall thickness. Normal left ventricular systolic function with no obvious regional wall motion abnormalities. Left ventricular ejection fraction is estimated at 55 %. Right Ventricle Right ventricular dilatation. Right Atrium Left Atrium Mitral Valve Mild mitral regurgitation. Aortic Valve No aortic stenosis. No aortic regurgitation. Tricuspid Valve Mild tricuspid regurgitation. Pulmonic Valve Pulmonic valve not well visualized. Pericardium No pericardial effusion. Aorta CONCLUSIONS Limited and technically difficult study Left ventricular ejection fraction 55% Mild mitral regurgitation Mild tricuspid regurgitation Mild to moderate right ventricular dilation Previewed by: Dr. Nick Rich DO (Electronically Signed) Final Date: 10 July 2024 15:49
--- NOTE | 2024-07-10 15:51 | P.CRDCN ---
History of Present Illness Consult date: 07/10/24 Consult reason: shortness of breath Chief complaint: Shortness of breath weakness History of present illness: History of present illness: Is a pleasant 64-year-old male with significant past medical history of COPD on home oxygen 4-5 L and heart failure who presented to the emergency department with weakness and some confusion. He does follow with Dr. Post. He reports over the past 1 week he has been feeling generalized weakness with no strength. It got to the point where he could not walk across the room without feeling fatigued or short of breath. There is a family member sick at home with upper respiratory illness. He does not smoke or drink alcohol. He denies any chest pain or pressure. No palpitations. He was having lower extremity edema however this is better today per daughter at bedside. EKG upon admission showed sinus tachycardia with occasional PVCs 113 bpm. This x-ray today shows improving diffuse bilateral lung infiltrates. He did have a CTA of the head and neck which was negative. Labs reviewed: Hemoglobin 12.2, potassium 4.0, creatinine 0.81, troponin negative, total cholesterol 252, LDL 176, HDL 47, BNP 58. He did have prior echocardiogram 02/2024 with a EF 55-60%, severe right ventricular dilation, mildmoderate pulmonary hypertension no significant valve issues. Is feeling somewhat better today. REVIEW OF SYSTEMS: No fever or chills. No cough or expectoration. No d iaphoresis. Patient denies headache, dizziness, blurred vision, double vision. Patient denies any stomach discomfort. No nausea, vomiting. No hematochezia. No hematemesis. Denies any black stools or blood in his stools. Denies dysuria or hematuria. No numbness. No chest pain or pressure. Ports shortness of breath and generalized weakness. PHYSICAL EXAMINATION: This is a 64-year-old male in no apparent distress at the time of my examination. HEENT: Head is atraumatic, normocephalic. Pupils are equal, round. Sclerae anicteric. Conjunctivae are clear. Mucous membranes of the mouth are moist. Neck is supple. There is no jugular venous distention. No carotid bruit is heard. CHEST EXAMINATION: Lungs with wheezes. No chest wall tenderness is noted on palpation or with deep breathing. HEART EXAMINATION: Heart regular rate and rhythm. S1, S2 heard. No murmurs, gallops or rub. ABDOMEN: Soft, nontender. Bowel sounds are heard. EXTREMITIES: 2+ peripheral pulses with trace edema and no calf tenderness noted. NEUROLOGIC EXAMINATION: Patient is awake, alert and oriented x3. IMPRESSION AND PLAN: COPD on home oxygen Chronic diastolic heart failure Generalized weakness Dyspnea PLAN: No need to repeat echo as this was done in February. Symptoms are more likely lung related. Continue with diuretics for now. Further recommendations pending clinical course. I am dictating on behalf of Dr. Nick Rich's history/physical and assessment/plan. Past Medical History Past Medical History: Heart Failure, COPD Additional Past Medical History / Comment(s): Chronic oxygen dependence on 3-5 L/m History of Any Multi-Drug Resistant Organisms: None Reported Past Surgical History: Hernia Repair Additional Past Surgical History / Comment(s): dental implants. Past Anesthesia/Blood Transfusion Reactions: No Reported Reaction Past Psychological History: No Psychological Hx Reported Smoking Status: Former smoker Past Alcohol Use History: Occasional Past Drug Use History: None Reported - Past Family History Father Additional Family Medical History / Comment(s): father and grandfather had heartattacks 60's. Medications and Allergies Home Medications Medication Instructions Recorded Confirmed Type Losartan Potassium [Cozaar] 25 mg PO DAILY 10/29/22 07/09/24 History Sildenafil Citrate 25 mg PO DAILY 10/29/22 07/09/24 History Potassium Chloride ER [K-Dur 10] 10 meq PO DAILY 03/10/24 07/09/24 History Furosemide [Lasix] 40 mg PO BID@0900,1600 #60 tab 03/15/24 07/09/24 Rx acetaZOLAMIDE [Diamox] 250 mg PO BID #60 tab 03/15/24 07/09/24 Rx Albuterol Sulfate [Albuterol 2 puff PO Q4H PRN 07/09/24 07/09/24 History Sulfate Hfa] Ipratropium-Albuterol Nebulize 3 ml INHALATION RT-QID PRN 07/09/24 07/09/24 History [Duoneb 0.5 mg-3 mg/3 ml Soln] metFORMIN HCL [Glucophage] 500 mg PO BID 07/09/24 07/09/24 History Allergies Allergy/AdvReac Type Severity Reaction Status Date / Time No Known Allergies Allergy Verified 07/09/24 05:39 Physical Exam Vitals: Vital Signs Temp Pulse Pulse Resp BP BP Pulse Ox 07/10/24 15:31 62 07/10/24 15:20 64 07/10/24 11:55 97.9 F 85 16 141/73 90 L 07/10/24 11:00 51 L 24 110/79 92 L 07/10/24 10:00 55 L 19 111/67 87 L 07/10/24 09:00 57 L 28 H 103/69 92 L 07/10/24 08:33 60 28 H 07/10/24 08:29 07/10/24 08:25 63 33 H 07/10/24 08:00 98.5 F 58 L 24 102/61 93 L 07/10/24 07:00 65 17 121/63 93 L 07/10/24 06:00 54 L 25 H 119/60 94 L 07/10/24 05:00 60 22 120/65 94 L 07/10/24 04:00 98.0 F 55 L 24 111/62 94 L 07/10/24 03:00 55 L 16 116/63 97 07/10/24 02:00 53 L 14 122/69 99 07/10/24 01:00 57 L 14 140/70 07/10/24 00:40 07/10/24 00:00 98.2 F 52 L 16 142/73 07/09/24 23:00 53 L 10 L 138/68 07/09/24 22:25 52 L 16 126/65 07/09/24 22:00 63 18 132/65 98 07/09/24 21:00 66 23 116/57 98 07/09/24 20:31 58 L 07/09/24 20:19 64 07/09/24 20:00 98.1 F 58 L 28 H 105/56 07/09/24 19:00 58 L 26 H 103/53 92 L 07/09/24 18:00 72 28 H 102/55 90 L 07/09/24 17:00 92 20 104/54 93 L 07/09/24 16:00 98.8 F 89 29 H 124/72 89 L FiO2 07/10/24 15:31 07/10/24 15:20 07/10/24 11:55 07/10/24 11:00 07/10/24 10:00 07/10/24 09:00 07/10/24 08:33 07/10/24 08:29 40 07/10/24 08:25 07/10/24 08:00 07/10/24 07:00 07/10/24 06:00 07/10/24 05:00 07/10/24 04:00 07/10/24 03:00 07/10/24 02:00 07/10/24 01:00 07/10/24 00:40 40 07/10/24 00:00 40 07/09/24 23:00 07/09/24 22:25 07/09/24 22:00 07/09/24 21:00 07/09/24 20:31 07/09/24 20:19 40 07/09/24 20:00 40 07/09/24 19:00 07/09/24 18:00 07/09/24 17:00 07/09/24 16:00 Intake and Output 07/10/24 07/10/24 07/10/24 06:59 14:59 22:59 Intake Total 300.221 400.828 Output Total 880 1150 Balance -579.779 -749.172 Intake: IV 100 Piperacillin-Tazobactam 3 100 .375 gm In Sodium Chloride 0.9% 100 ml @ 25 mls/hr IVPB Q8HR [facility] Rx# :[id number] Intake, IV Titration 200.221 250.828 Amount Azithromycin 500 mg In 250 Sodium Chloride 0.9% 250 ml @ 250 mls/hr IVPB DAILY [facility] Rx#:[id number] Dexmedetomidine/0.9% NaCl 200.221 0.828 (Pmx) 400 mcg In Empty Bag 1 bag @ 0.2 MCG/KG/HR 6.622 mls/hr IV .Q15H7M [facility] Rx#:[id number] Oral 150 Output: Urine 880 1150 Other: Voiding Method Indwelling Catheter Indwelling Catheter Weight 129 kg Results 07/10/24 05:00 07/10/24 05:00 Cardiac Enzymes 07/10/24 Range/Units 05:00 AST 26 (17-59) U/L Lipids 07/10/24 Range/Units 05:00 Triglycerides 138.00 (0.00-149.00) mg/dL Cholesterol 252.00 H (0.00-200.00) mg/dL HDL Cholesterol 47.80 (40.00-60.00) mg/dL Cholesterol/HDL Ratio 5.27 Ratio CBC 07/10/24 Range/Units 05:00 WBC 9.5 (3.8-10.6) k/uL RBC 4.23 L (4.30-5.90) m/uL Hgb 12.2 L (13.0-17.5) gm/dL Hct 40.8 (39.0-53.0) % Plt Count 229 (150-450) k/uL Comprehensive Metabolic Panel 07/10/24 Range/Units 05:00 Sodium 143 (137-145) mmol/L Potassium 4.0 (3.5-5.1) mmol/L Chloride 88 L (98-107) mmol/L Carbon Dioxide 49 H* (22-30) mmol/L BUN 22 H (9-20) mg/dL Creatinine 0.81 (0.66-1.25) mg/dL Glucose 182 H (74-99) mg/dL Calcium 9.1 (8.4-10.2) mg/dL AST 26 (17-59) U/L ALT 22 (4-49) U/L Alkaline Phosphatase 75 (38-126) U/L Total Protein 6.5 (6.3-8.2) g/dL Albumin 3.7 (3.5-5.0) g/dL Current Medications Generic Name Dose Route Start Last Admin Trade Name Freq PRN Reason Stop Dose Admin Albuterol/Ipratropium 3 ml 07/09/24 06:44 07/10/24 15:20 Ipratropium-Albuterol 3 Ml Neb INHALATION 3 ml RT-Q4H PRN Administration shortness of breath Alprazolam 0.5 mg 07/09/24 12:07 Alprazolam 0.5 Mg Tab PO TID PRN Anxiety Dextrose/Water 25 ml 07/10/24 09:26 Dextrose 50% Syringe 50 Ml IVP PER PROTOCOL PRN Hypoglycemia Protocol Dextrose/Water 50 ml 07/10/24 09:26 Dextrose 50% Syringe 50 Ml IVP PER PROTOCOL PRN Hypoglycemia Protocol Furosemide 40 mg 07/10/24 09:00 07/10/24 09:25 Furosemide 10 Mg/Ml 4 Ml Vial IV 40 mg Q12HR [facility] Administration Haloperidol Lactate 5 mg 07/09/24 11:20 07/09/24 11:27 Haloperidol Lactate 5 Mg/Ml 1 Ml Vial IM 07/11/24 23:59 5 mg Q6HR PRN Administration Agitation or Acute Psychosis Azithromycin 500 mg/ Sodium 250 mls @ 250 mls/hr 07/10/24 09:00 07/10/24 09:26 Chloride IVPB 07/11/24 09:59 250 mls/hr DAILY [facility] Administration Protocol Insulin Aspart 0 unit 07/10/24 12:30 07/10/24 11:24 Insulin Aspart (Novolog) 100 Unit/Ml Vial SQ Not Given ACHS [facility] Protocol Methylprednisolone Sodium Succinate 40 mg 07/09/24 21:00 07/10/24 09:26 Methylprednisolone Sod Succi 40 Mg/Ml 1 Ml Vial IV 40 mg Q12HR [facility] Administration Miscellaneous Information 1 each 07/09/24 06:44 Pneumonia Protocol Utilized 1 Each Misc PO ONCE PRN Per Protocol Naloxone HCl 0.2 mg 07/09/24 07:13 Naloxone 0.4 Mg/Ml 1 Ml Vial IV Q2M PRN Opioid Reversal Intake and Output 07/10/24 07/10/24 07/10/24 06:59 14:59 22:59 Intake Total 300.221 400.828 Output Total 880 1150 Balance -579.779 -749.172 Intake: IV 100 Piperacillin-Tazobactam 3 100 .375 gm In Sodium Chloride 0.9% 100 ml @ 25 mls/hr IVPB Q8HR [facility] Rx# :[id number] Intake, IV Titration 200.221 250.828 Amount Azithromycin 500 mg In 250 Sodium Chloride 0.9% 250 ml @ 250 mls/hr IVPB DAILY [facility] Rx#:[id number] Dexmedetomidine/0.9% NaCl 200.221 0.828 (Pmx) 400 mcg In Empty Bag 1 bag @ 0.2 MCG/KG/HR 6.622 mls/hr IV .Q15H7M [facility] Rx#:[id number] Oral 150 Output: Urine 880 1150 Other: Voiding Method Indwelling Catheter Indwelling Catheter Weight 129 kg 07/10/24 05:00 07/10/24 05:00
[2024-07-10 16:29] LABS: Glucose,Whole Blood 181 mg/dL (70-110)
[2024-07-10 20:04] LABS: Glucose,Whole Blood 148 mg/dL (70-110)
[2024-07-11 06:27] LABS: Glucose,Whole Blood 183 mg/dL (70-110)
--- NOTE | 2024-07-11 07:14 | P.CNNES ---
History of Present Illness Consult date: 07/10/24 Requesting physician: Dimitrios Wilkinson Reason for Consult: co2 narcosis, encephalopathy, originally code stroke History of Present Illness: Patient is a 64-year-old male came to the hospital by ambulance yesterday at 5:20 AM for difficulty in breathing, lightheadedness. Patient while being transferred in the EMS to the hospital, became confused, not able to follow directions and was only able to repeat his name. Patient was not able to answer questions. His NIH stroke scale was 4 for not answering questions. Stroke code was activated in the ER. ED staff discussed case with neurointensivist Dr.Narav amador and TNK was considered. There was some delay from getting consent from patient's daughter. Patient apparently started improving after receiving BiPAP and patient's daughter declined TNK. Patient had drastic improvement after BiPAP was started. Neurology was consulted. Patient at present is sitting in the recliner fully oriented. Patient states that he came to the hospital because he was sick, out of strength for 1 week. He could not walk 20 feet. Could not talk. Therefore they called 911. He does have COPD. Patient denies any slurred speech, facial droop, problem with the vision, any numbness tingling or headache dysphagia or diplopia. He does admit to be shaky very much. As per EMS flowsheet, when they arrived, patient was sitting in his chair. Patient was complaining of lightheadedness and shortness of breath. Symptoms started 1 hour prior to EMS arrival. Patient does have history of CHF. He takes Lasix. 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 Blood glucose 171. Patient's vitals at the scene was blood pressure 158/66, pulse rate 111, respiration 24 saturation 88%. Chest x-ray showed moderate pulmonary edema. Concern for right lung pneumonia. CT head showed no acute intracranial process. I personally reviewed CT head, agree with the findings. CTA of head and neck showed no abnormalities. EKG shows sinus tachycardia. Chest x-ray showed improved diffuse bilateral lung infiltrates. Pneumonia and pulmonary edema could be considered. Blood test showed normal CBC, PT PTT, normal sodium and potassium, carbon oxide 44, renal functions, hepatic panel, troponin normal. Influenza, RSV, coronavirus PCR negative. VBG showed pH of 7.33, pCO2 93, HCO3 48. Repeat ABG confirmed pCO2 of 97. Most recent ABG with pH 7.43, pCO2 77, O2 58. Patient has smoked 1 pack/day for 30 years, quit 3 years ago. He does drink beer few of them. Not a regular drinker. Review of Systems All pertinent positive and negative review of systems mentioned HPI. Patient does have some shortness of breath, has oxygen on by nasal cannula. No abdominal pain. Past Medical History Past Medical History: Heart Failure, COPD Additional Past Medical History / Comment(s): Chronic oxygen dependence on 3-5 L/m History of Any Multi-Drug Resistant Organisms: None Reported Past Surgical History: Hernia Repair Additional Past Surgical History / Comment(s): dental implants. Past Anesthesia/Blood Transfusion Reactions: No Reported Reaction Past Psychological History: No Psychological Hx Reported Smoking Status: Former smoker Past Alcohol Use History: Occasional Past Drug Use History: None Reported - Past Family History Father Additional Family Medical History / Comment(s): father and grandfather had heartattacks 60's. Medications and Allergies Home Medications Medication Instructions Recorded Confirmed Type Losartan Potassium [Cozaar] 25 mg PO DAILY 10/29/22 07/09/24 History Sildenafil Citrate 25 mg PO DAILY 10/29/22 07/09/24 History Potassium Chloride ER [K-Dur 10] 10 meq PO DAILY 03/10/24 07/09/24 History Furosemide [Lasix] 40 mg PO BID@0900,1600 #60 tab 03/15/24 07/09/24 Rx acetaZOLAMIDE [Diamox] 250 mg PO BID #60 tab 03/15/24 07/09/24 Rx Albuterol Sulfate [Albuterol 2 puff PO Q4H PRN 07/09/24 07/09/24 History Sulfate Hfa] Ipratropium-Albuterol Nebulize 3 ml INHALATION RT-QID PRN 07/09/24 07/09/24 History [Duoneb 0.5 mg-3 mg/3 ml Soln] metFORMIN HCL [Glucophage] 500 mg PO BID 07/09/24 07/09/24 History Allergies Allergy/AdvReac Type Severity Reaction Status Date / Time No Known Allergies Allergy Verified 07/09/24 05:39 Physical Examination - Vital Signs Vital Signs: Vital Signs Temp Pulse Pulse Resp BP BP Pulse Ox 07/10/24 15:31 62 07/10/24 15:20 64 07/10/24 11:55 97.9 F 85 16 141/73 90 L 07/10/24 11:00 51 L 24 110/79 92 L 07/10/24 10:00 55 L 19 111/67 87 L 07/10/24 09:00 57 L 28 H 103/69 92 L 07/10/24 08:33 60 28 H 07/10/24 08:29 07/10/24 08:25 63 33 H 07/10/24 08:00 98.5 F 58 L 24 102/61 93 L 07/10/24 07:00 65 17 121/63 93 L 07/10/24 06:00 54 L 25 H 119/60 94 L 07/10/24 05:00 60 22 120/65 94 L 07/10/24 04:00 98.0 F 55 L 24 111/62 94 L 07/10/24 03:00 55 L 16 116/63 97 07/10/24 02:00 53 L 14 122/69 99 07/10/24 01:00 57 L 14 140/70 07/10/24 00:40 07/10/24 00:00 98.2 F 52 L 16 142/73 07/09/24 23:00 53 L 10 L 138/68 07/09/24 22:25 52 L 16 126/65 07/09/24 22:00 63 18 132/65 98 07/09/24 21:00 66 23 116/57 98 07/09/24 20:31 58 L 07/09/24 20:19 64 07/09/24 20:00 98.1 F 58 L 28 H 105/56 07/09/24 19:00 58 L 26 H 103/53 92 L FiO2 07/10/24 15:31 07/10/24 15:20 07/10/24 11:55 07/10/24 11:00 07/10/24 10:00 07/10/24 09:00 07/10/24 08:33 07/10/24 08:29 40 07/10/24 08:25 07/10/24 08:00 07/10/24 07:00 07/10/24 06:00 07/10/24 05:00 07/10/24 04:00 07/10/24 03:00 07/10/24 02:00 07/10/24 01:00 07/10/24 00:40 40 07/10/24 00:00 40 07/09/24 23:00 07/09/24 22:25 07/09/24 22:00 07/09/24 21:00 07/09/24 20:31 07/09/24 20:19 40 07/09/24 20:00 40 07/09/24 19:00 Intake and Output 07/10/24 07/10/24 07/10/24 06:59 14:59 22:59 Intake Total 300.221 518.828 118 Output Total 880 1150 Balance -579.779 -631.172 118 Intake: IV 100 Piperacillin-Tazobactam 3 100 .375 gm In Sodium Chloride 0.9% 100 ml @ 25 mls/hr IVPB Q8HR [facility] Rx# :[id number] Intake, IV Titration 200.221 250.828 Amount Azithromycin 500 mg In 250 Sodium Chloride 0.9% 250 ml @ 250 mls/hr IVPB DAILY [facility] Rx#:[id number] Dexmedetomidine/0.9% NaCl 200.221 0.828 (Pmx) 400 mcg In Empty Bag 1 bag @ 0.2 MCG/KG/HR 6.622 mls/hr IV .Q15H7M [facility] Rx#:[id number] Oral 268 118 Output: Urine 880 1150 Other: Voiding Method Indwelling Catheter Indwelling Catheter # Voids 1 Weight 129 kg Patient is an elderly male, in no distress, but using oxygen, sitting in the recliner. Patient is alert awake oriented to time place and person. Patient knows it is 07/10/2024 and that he is in [facility] imported on [place] and name of the current president Mr. Masterson. Speech and language functions are normal. Patient can name and repeat very well. No aphasia or dysarthria. Attention, concentration and fund of knowledge is adequate. On cranial nerve examination, pupils are slightly unequal, but the right leg appears slightly larger than the left, but both are round and reacting to light, visual nye are full on confrontation, with no neglect on double simultaneous stimulation. Extraocular muscles are intact with no nystagmus. Face is symmetric, tongue protrudes to the midline. Palatal elevation and sensation normal, hearing and shoulder shrug normal, facial sensation normal. On muscle strength testing, there is no pronator drift and the strength is normal in arms and legs distally and proximally. Patient has mild to moderate fine tremors of outstretched hands. Deep tendon reflexes are symmetric 2+ all over and plantars downgoing. Sensory to touch is equal with no neglect on double simultaneous stimulation. Cerebellar function showed no ataxia for [id number]-[id number] testing. No dysdiadochokinesia. No ataxia for [id number] testing on either side. Tone and bulk of muscles normal. Gait deferred.. On general examination, there is no carotid bruit or murmur, S1-S2 audible. Chest is clear on consultation. Abdomen is soft nontender. No organomegaly, bowel sounds present. Peripheral pulses are present. Mild to moderate peripheral edema. Results - Laboratory Findings CBC and BMP: 07/10/24 05:00 07/10/24 05:00 Abnormal Lab Findings: Abnormal Labs 07/09/24 07/09/24 07/09/24 05:33 05:40 05:40 RBC Hgb MCHC 30.0 L Neutrophils # Lymphocytes # ABG pH ABG pCO2 ABG pO2 ABG HCO3 ABG Total CO2 ABG O2 Saturation VBG pCO2 VBG HCO3 Hemoglobin Chloride 91 L Carbon Dioxide 44 H* BUN Creatinine 0.59 L Glucose 159 H POC Glucose (mg/dL) 146 H Cholesterol LDL Cholesterol, Calc Ur Specific Sharon Urine Protein Urine Ketones Urine Blood Urine RBC Urine Mucus 07/09/24 07/09/24 07/09/24 06:11 07:59 09:00 RBC Hgb MCHC Neutrophils # Lymphocytes # ABG pH 7.30 L ABG pCO2 97 H* ABG pO2 ABG HCO3 48 H* ABG Total CO2 51 H ABG O2 Saturation VBG pCO2 93 H* VBG HCO3 48 H Hemoglobin Chloride Carbon Dioxide BUN Creatinine Glucose POC Glucose (mg/dL) Cholesterol LDL Cholesterol, Calc Ur Specific Sharon 1.043 H Urine Protein 1+ H Urine Ketones 2+ H Urine Blood Small H Urine RBC 8 H Urine Mucus Rare H 07/09/24 07/09/24 07/10/24 15:54 17:13 05:00 RBC 4.23 L Hgb 12.2 L MCHC 29.8 L Neutrophils # 8.0 H Lymphocytes # 0.6 L ABG pH ABG pCO2 77 H* ABG pO2 58 L* ABG HCO3 51 H* ABG Total CO2 53 H ABG O2 Saturation 89.8 L VBG pCO2 VBG HCO3 Hemoglobin 12.9 L Chloride Carbon Dioxide BUN Creatinine Glucose POC Glucose (mg/dL) 181 H Cholesterol LDL Cholesterol, Calc Ur Specific Sharon Urine Protein Urine Ketones Urine Blood Urine RBC Urine Mucus 07/10/24 07/10/24 07/10/24 05:00 11:23 16:28 RBC Hgb MCHC Neutrophils # Lymphocytes # ABG pH ABG pCO2 ABG pO2 ABG HCO3 ABG Total CO2 ABG O2 Saturation VBG pCO2 VBG HCO3 Hemoglobin Chloride 88 L Carbon Dioxide 49 H* BUN 22 H Creatinine Glucose 182 H POC Glucose (mg/dL) 126 H 181 H Cholesterol 252.00 H LDL Cholesterol, Calc 176.6 H Ur Specific Sharon Urine Protein Urine Ketones Urine Blood Urine RBC Urine Mucus Assessment and Plan Assessment: * Altered mental status, likely due to metabolic encephalopathy. No evidence of acute stroke. Patient was found to have CO2 narcosis with elevated pCO2 97. * COPD * Chronic hypoxemic respiratory failure, on home oxygen * Hyperlipidemia * Hypertension * Prediabetes with A1c 6.2 * Chronic diastolic heart failure * Morbid obesity * Ex tobacco use Plan: No definitive evidence of stroke. Patient's confusion was likely from CO2 narcosis, however TIA cannot be ruled out. Patient does have multiple vascular risk factors as mentioned above. Recommend aggressive control of vascular risk factors. Suggest starting aspirin 81 mg daily, if no medical contraindications. 2-D echo revealed limited and technically difficult study. LVEF 55%. Mild MR. Mild TR. No aortic valve stenosis. Mild MR. Mild to moderate right ventricular dilation. CTA head and neck showed: No abnormalities. No stenosis or aneurysm. Fasting a.m. lipid panel cholesterol 252, LDL 176, HDL 47, triglycerides 138. Recommend starting Lipitor 40 mg daily for significant hyperlipidemia. Hemoglobin A1c 6.2 on 03/11/2024. Optimize control of blood pressure. Telemetry monitoring rule out any arrhythmia DVT prophylaxis: Start heparin 5000 units subcu every 12 hours Neurologically, no other workup indicated. Thank you for the consult.
[2024-07-11 10:06] LABS: Basophils % (A) 0 %; Eosinophils % (A) 0 %; HCT 41.7 % (39.0-53.0); HGB 13.1 gm/dL (13.0-17.5); Hypochromasia Moderate; Lymphocytes # (A) 1.3 k/uL (1.0-4.8); Lymphocytes % (A) 11 %; MCH 30.1 pg (25.0-35.0); MCHC 31.4 g/dL (31.0-37.0); MCV 95.9 fL (80.0-100.0); Mean Platelet Volume 7.4; Monocytes # (A) 0.7 k/uL (0-1.0); Monocytes % (A) 6 %; Neutrophils # (A) 9.1 k/uL (1.3-7.7); Neutrophils % (A) 81 %; Platelet Count 226 k/uL (150-450); RBC 4.35 m/uL (4.30-5.90); RDW 13.4 % (11.5-15.5); WBC 11.2 k/uL (3.8-10.6)
[2024-07-11] MEDS: ASPIRIN 81 MG PO SCH (10:14)
[2024-07-11] MEDS: HEPARIN SODIUM,PORCINE 5,000 UNIT/ML 1 ML VIAL SQ SCH (10:15)
[2024-07-11 10:16] LABS: ALT 22 U/L (4-49); AST 29 U/L (17-59); African American GFR (CKD) >90 (>60 ml/min/1.73 sqM); Albumin 3.8 g/dL (3.5-5.0); Alkaline Phosphatase 69 U/L (38-126); Blood Urea Nitrogen 21 mg/dL (9-20); Calcium 8.7 mg/dL (8.4-10.2); Chloride 82 mmol/L (98-107); Glucose 163 mg/dL (74-99); Non-African American GFR(CKD) >90 (>60 ml/min/1.73 sqM); Potassium 3.3 mmol/L (3.5-5.1); Sodium 138 mmol/L (137-145); Total Bilirubin 0.4 mg/dL (0.2-1.3); Total Protein 6.5 g/dL (6.3-8.2)
[2024-07-11 10:22] LABS: Anion Gap 5 mmol/L
[2024-07-11 10:31] LABS: Carbon Dioxide 51 mmol/L (22-30)
[2024-07-11 11:43] LABS: Glucose,Whole Blood 163 mg/dL (70-110)
--- NOTE | 2024-07-11 12:12 | P.PN ---
Subjective Progress Note Date: 07/11/24 History of present illness: Is a pleasant 64-year-old male with significant past medical history of COPD on home oxygen 4-5 L and heart failure who presented to the emergency department with weakness and some confusion. He does follow with Dr. Post. He reports over the past 1 week he has been feeling generalized weakness with no strength. It got to the point where he could not walk across the room without feeling fatigued or short of breath. There is a family member sick at home with upper respiratory illness. He does not smoke or drink alcohol. He denies any chest pain or pressure. No palpitations. He was having lower extremity edema however this is better today per daughter at bedside. EKG upon admission showed sinus tachycardia with occasional PVCs 113 bpm. This x-ray today shows improving diffuse bilateral lung infiltrates. He did have a CTA of the head and neck which was negative. Labs reviewed: Hemoglobin 12.2, potassium 4.0, creatinine 0.81, troponin negative, total cholesterol 252, LDL 176, HDL 47, BNP 58. He did have prior echocardiogram 02/2024 with a EF 55-60%, severe right ventricular dilation, mildmoderate pulmonary hypertension no significant valve issues. Is feeling somewhat better today. 07/11/24 Out of bed in chair. He reports his breathing is feeling better today. No chest pain or pressure. He did have limited echo which showed EF 55%, mild mitral regurgitation, mild tricuspid regurgitation. PHYSICAL EXAMINATION: This is a 64-year-old male in no apparent distress at the time of my examination. HEENT: Head is atraumatic, normocephalic. Pupils are equal, round. Sclerae anicteric. Conjunctivae are clear. Mucous membranes of the mouth are moist. Neck is supple. There is no jugular venous distention. No carotid bruit is heard. CHEST EXAMINATION: Lungs with wheezes. No chest wall tenderness is noted on palpation or with deep breathing. HEART EXAMINATION: Heart regular rate and rhythm. S1, S2 heard. No murmurs, gallops or rub. ABDOMEN: Soft, nontender. Bowel sounds are heard. EXTREMITIES: 2+ peripheral pulses with trace edema and no calf tenderness noted. NEUROLOGIC EXAMINATION: Patient is awake, alert and oriented x3. IMPRESSION AND PLAN: COPD on home oxygen Chronic diastolic heart failure Generalized weakness Dyspnea PLAN: Echo shows preserved EF. Agree with adding Diamox IV. Symptoms are more likely lung related. Continue with diuretics for now. Further recommendations pending clinical course. I am dictating on behalf of Dr. Nick Rich's history/physical and assessment/plan. Objective - Vital Signs Vital signs: Vital Signs Temp 98.1 F 07/10/24 20:00 Pulse 70 07/11/24 04:00 Resp 16 07/11/24 04:00 BP 129/77 07/11/24 04:00 Pulse Ox 92 L 07/11/24 04:00 FiO2 40 07/10/24 08:29 Intake & Output 07/10/24 07/11/24 07/11/24 18:59 06:59 18:59 Intake Total 636.828 540 Output Total 1150 1450 Balance -513.172 -910 Weight 130 kg Intake: Intake, IV Titration 250.828 Amount Azithromycin 500 mg In 250 Sodium Chloride 0.9% 250 ml @ 250 mls/hr IVPB DAILY [facility] Rx#:[id number] Dexmedetomidine/0.9% NaCl 0.828 (Pmx) 400 mcg In Empty Bag 1 bag @ 0.2 MCG/KG/HR 6.622 mls/hr IV .Q15H7M E[facility]EN Rx#:[id number] Oral 386 540 Output: Urine 1150 1450 Other: Voiding Method Indwelling Catheter Indwelling Catheter # Voids 1 # Bowel Movements 1 - Labs CBC & Chem 7: 07/11/24 09:51 07/11/24 09:51 Labs: Abnormal Lab Results - Last 24 Hours (Table) 07/10/24 07/10/24 07/10/24 Range/Units 05:00 11:23 16:28 POC Glucose (mg/dL) 126 H 181 H (70-110) mg/dL Cholesterol 252.00 H (0.00-200.00) mg/dL LDL Cholesterol, Calc 176.6 H (0.0-131.0) mg/dL 07/10/24 07/11/24 Range/Units 20:03 06:26 POC Glucose (mg/dL) 148 H 183 H (70-110) mg/dL Cholesterol (0.00-200.00) mg/dL LDL Cholesterol, Calc (0.0-131.0) mg/dL Microbiology - Last 24 Hours (Table) 07/09/24 06:59 Blood Culture - Preliminary Blood
[2024-07-11] MEDS: POTASSIUM CHLORIDE ER 20 MEQ TAB.ER PO STA (12:25)
--- NOTE | 2024-07-11 12:48 | P.PN ---
Subjective Progress Note Date: 07/11/24 Patient is a 64-year-old male with past medical history significant for severe COPD, pulmonary hypertension, and is a former tobacco smoker. Patient was brought in by EMS, apparently feeling short of breath, lightheaded and dizzy while at home. When EMS arrived he was noted to be hypoxic. In route, progressively became more confused and lethargic. Code stroke was initiated. B rain scans on arrival were unremarkable. Brain CT without contrast showing no evidence of intracranial abnormality, no hemorrhage or mass effect. Brain CTA did not show any significant carotid artery occlusions or stenosis or dissections. Dr. Wilkinson did call me on this patient. Kelly possible cause of patient's altered mental status was hypercapnic respiratory failure. VBG showing a pCO2 of 93 and pH of 7.33. Patient was placed on BiPAP in ED. CBC was unremarkable for leukocytosis, WBC count 8.7, hemoglobin 13.6, platelets 198. Initial BIPAP settings 12/6 and FiO2 50% and PEEP. Chest x-ray shows cardiomegaly, patchy and interstitial interstitial airspace disease, possible pulmonary edema, superimposed infectious process was not excluded. CMP: Sodium 143, potassium 4.1, chloride 91, serum bicarb 44, BUN 13, creatinine 0.59, glucose 159. LFTs unremarkable. Troponin less than 0.012. NT proBNP 58. Patient was started empiric antibiotics in the ED in the form of azithromycin a nd Zosyn. Has remained afebrile. Also, started on diuretics in the form of Lasix 40 mg 3 times daily. Patient is currently being evaluated in room 11. He remains obtunded, will awaken to verbal stimuli. Currently on BiPAP with above- mentioned settings, achieving tidal volumes around 200, respiratory rate is in the mid teens. He does have some bilateral lower extremity pitting edema. His efveojuo-sn-sak is at the bedside, states he has been feeling unwell for several days. She is worried about his ability to take care of himself on his own. States he has not showered in several days. 07/10/2024, the patient is being seen for a follow-up. Much improved compared to yesterday. Mental status also improved. The patient did not require Precedex. The patient is currently in the intensive care unit. Off the BiPAP and the patient is currently on oxygen at 5 L nasal cannula with a pulse ox of 92%. Overnight, the patient declined the BiPAP at a pressure of 16 over 6 cm of water with an FiO2 of 40%. Fluid balance is -2.6 L over the past 24 hours. Remains on bronchodilators. Remains on IV Solu-Medrol. Remains on a combination of Zosyn and Zithromax. Remains on IV Lasix 40 mg every 12 hours. Monitor. 9.5 with a hemoglobin 12.2 with a platelet count of 229. Serum bicarb is at 29 and sodium levels at 143 with a potassium level of 4. LDL cholesterol was 176. LFTs are essentially within normal limits. On 07/11/2024, the patient is feeling better, less short of breath, less bronchospastic and wheezy. Continues to have crackles in lung base bilaterally. The patient is still being diuresed with IV Lasix. The fluid balance has been -1.4 L over the past 24 hours. White cell count 11 with a hemoglobin 13.1 and a platelet count of 26. D-dimer is at 0.5. Serum bicarb is 51 and the patient will be offered Diamox. BUN 21 with a creatinine of 0.7 and a sodium level is at 138. Objective - Vital Signs Vital signs: Vital Signs Temp 98.2 F 07/11/24 08:15 Pulse 60 07/11/24 08:43 Resp 18 07/11/24 08:15 BP 135/76 07/11/24 08:15 Pulse Ox 94 L 07/11/24 08:15 FiO2 40 07/10/24 08:29 Intake & Output 07/10/24 07/11/24 07/11/24 18:59 06:59 18:59 Intake Total 636.828 540 Output Total 1150 1450 Balance -513.172 -910 Weight 130 kg Intake: Intake, IV Titration 250.828 Amount Azithromycin 500 mg In 250 Sodium Chloride 0.9% 250 ml @ 250 mls/hr IVPB DAILY [facility] Rx#:[id number] Dexmedetomidine/0.9% NaCl 0.828 (Pmx) 400 mcg In Empty Bag 1 bag @ 0.2 MCG/KG/HR 6.622 mls/hr IV .Q15H7M [facility]ILEEN Rx#:[id number] Oral [id number] 540 Output: Urine 1150 1450 Other: Voiding Method Indwelling Catheter Indwelling Catheter Indwelling Catheter # Voids 1 # Bowel Movements 1 - Exam GENERAL EXAM: Obtunded, 64-year-old obese male,, comfortable on 5 L of O2 nasal cannula HEAD: Normocephalic and atraumatic EYES: Normal reaction of pupils, equal size. NOSE: Clear with pink turbinates. THROAT: No erythema or exudates. NECK: No masses, no JVD. CHEST: No chest wall deformity. LUNGS: Equal air entry with diminished lung sounds bilaterally and bilateral rhonchi. CVS: S1 and S2 normal with no audible murmur, regular rhythm. No extra heart sounds ABDOMEN: No hepatosplenomegaly, active bowel sounds, no guarding or rigidity. SPINE: No scoliosis or deformity SKIN: No rashes CENTRAL NERVOUS SYSTEM: Awake and alert and not confused oriented to self and place. No focal deficits, tone is normal in all 4 extremities. EXTREMITIES: Bilateral lower extremity 2+ pitting edema. No clubbing or cyanosis. Peripheral pulses are intact. - Labs CBC & Chem 7: 07/11/24 09:51 07/11/24 09:51 Labs: Abnormal Lab Results - Last 24 Hours (Table) 07/10/24 07/10/24 07/10/24 Range/Units 11:23 16:28 20:03 WBC (3.8-10.6) k/uL Neutrophils # (1.3-7.7) k/uL POC Glucose (mg/dL) 126 H 181 H 148 H (70-110) mg/dL 07/11/24 07/11/24 Range/Units 06:26 09:51 WBC 11.2 H (3.8-10.6) k/uL Neutrophils # 9.1 H (1.3-7.7) k/uL POC Glucose (mg/dL) 183 H (70-110) mg/dL Microbiology - Last 24 Hours (Table) 07/09/24 06:59 Blood Culture - Preliminary Blood Assessment and Plan Assessment: Acute on chronic hypoxemic and hypercapnic respiratory failure, secondary to acute COPD exacerbation, Chest x-ray shows cardiomegaly, bilateral patchy and interstitial airspace disease, possible pulmonary edema, superimposed infectious process is not excluded. NT proBNP was low. Viral 4 Plex screen was negative for influenza, RSV, COVID. The patient is currently off the BiPAP the patient is currently on 4 L of O2 nasal cannula. Altered mental status, likely secondary to component of hypercapnic encephalopathy, improved and the mental status is normalized. The patient was quite delirious in the emergency department, briefly placed on Precedex and this was subsequent discontinued Severe COPD, with an FEV1 that is 45% of predicted Chronic hypoxemic respiratory failure, on home O2 in the order of 3 to 4 L/min nasal cannula 20/01 History of heart failure with preserved ejection fraction, most recent echocardiogram from 03/11/2024 estimating a preserved left ventricular ejection fraction of 55 to 60%, without any significant valvular abnormalities and mild to moderate pulmonary hypertension. History of pulmonary hypertension. History of systemic hypertension Generalized weakness and deconditioning, patient's [id number] is concerned about the patient's ability to take care of himself dependently at home Morbid obesity, with a BMI of 38.5 kg/m Former tobacco dependence Plan: Clinically improving Keep the patient on O2 at 4 L and gradually wean it down BiPAP overnight to the pressure of 12/6 cm of water Continue combination of DuoNebs, budesonide inhalation, formoterol inhalation, and IV Solu-Medrol. Will continue steroids for another 24 hours. Give the patient Diamox 500 mg IV x 2 doses Continue Zithromax Continue Lasix to 40 mg every 12 hours IV His previous echocardiogram has indicated preserved LV function with severe p ulmonary hypertension. This is probably due to chronic hypoxic respiratory failure, group 3 pulmonary hypertension. The viral screen was negative. Will continue to follow.
--- NOTE | 2024-07-11 13:01 | P.PN ---
Subjective Progress Note Date: 07/11/24 patient is a 64-year-old gentleman past medical history significant for COPD, chronic hypoxemic respiratory failure, CHF presented to the ER because of altered mental status. Patient initially called EMS because of complaint of feeling lightheaded and dizzy and short of breath. According to EMS report, hayley mancera stated he was feeling sick for the last few days. When EMS reached the spot patient was found to be hypoxemic, was placed on oxygen. En route to the ER patient became more altered. On reaching the ER, patient placed on BiPAP c ode stroke was initiated. Brain scans on arrival were unremarkable. Brain CT without contrast showing no evidence of intracranial abnormality, no hemorrhage or mass effect. Brain CTA did not show any significant carotid artery occlusions or stenosis or dissections. Discussion took place between ER physician, family and interventional neurology at this time as patient was doing well on BiPAP decision was made not to give tenecteplase. Initial lab work done in the ER showed WBC 8.7, hemoglobin 13.6, platelet count 198, sodium 143, potassium 4.1, BUN 13, creatinine 0.59, glucose 159, AST 25, ALT 29, troponin 0.012, Pro-Jonathan 0.07 Influenza A not detected Influenza B not detected RSV not detected COVID-19 not detected EKG done in the ER showed heart rate of 113 , no ST segment elevation or depression seen, no T-wave inversions seen. Chest x-ray done in the ER showed moderate pulm edema, right lung pneumonia CT head done showed no acute intracranial process CTA head and neck done showed no significant stenosis, aneurysm or thrombus in the intracranial circulation Patient admitted to internal medicine service in ICU 07/11. Patient seen and examined. 2D echo done showed no evidence of pericardial effusion, LVEF of 55%, mild tricuspid regurg, mild mitral regurg state he feels better. Still gets short of breath on exertion REVIEW OF SYSTEMS: CONSTITUTIONAL: No fever, no malaise,. CARDIOVASCULAR: No chest pain, no palpitations, no syncope. PULMONARY: No shortness of breath, no cough, GASTROINTESTINAL: No diarrhea, no nausea, no vomiting, no abdominal pain. NEUROLOGICAL: No headaches, no weakness, PHYSICAL EXAMINATION: GENERAL: The patient is alert and oriented x3, not in any acute distress. Well developed, well nourished. HEENT: Pupils are round and equally reacting to light. EOMI. No scleral icterus. No conjunctival pallor. Normocephalic, atraumatic. No pharyngeal erythema. No thyromegaly. CARDIOVASCULAR: S1 and S2 present. No murmurs, rubs, or gallops. PULMONARY: Tachypneic, coarse breath sound bilaterally, no wheezing or crackles. ABDOMEN: Soft, nontender, nondistended, normoactive bowel sounds. No palpable organomegaly. MUSCULOSKELETAL: No joint swelling or deformity. EXTREMITIES: No cyanosis, clubbing, or pedal edema. NEUROLOGICAL: Gross neurological examination did not reveal any focal deficits. SKIN: No rashes. Assessment and plan Acute hypoxemic hypercapnic respiratory failure Acute metabolic encephalopathy Acute COPD exacerbation chronic hypoxemic respiratory failure, on home O2 in the order of 3 to 4 L/min nasal cannula 20/01 Chronic diastolic heart failure History of pulmonary hypertension. History of systemic hypertension Generalized weakness and deconditioning Morbid obesity Former tobacco dependence Monitor vital signs Monitor CBC Monitor CMP Continue telemetry monitoring Serial ABGs Continue oxygen supplementation Continue BiPAP Continue breathing treatments Continue IV Solu-Medrol Continue aspirin, Lipitor Strict I's and O's, daily weights, continue IV Lasix 40 mg every 12 2D echo done showed no evidence of pericardial effusion, LVEF of 55%, mild tricuspid regurg, mild mitral regurg Pulmonology following Cardiology following Labs and medication were reviewed.. Continue same treatment. Continue with symptomatic treatment. Resume home medication. Monitor labs and vitals. DVT and GI prophylaxis. Further recommendations as per clinical course of the patient Dictation was produced using [employer] dictation software. please excuse any grammatical, word or spelling errors. Objective - Vital Signs Vital signs: Vital Signs Temp 98.1 F 07/10/24 20:00 Pulse 60 07/11/24 08:43 Resp 16 07/11/24 04:00 BP 129/77 07/11/24 04:00 Pulse Ox 92 L 07/11/24 04:00 FiO2 40 07/10/24 08:29 Intake & Output 07/10/24 07/11/24 07/11/24 18:59 06:59 18:59 Intake Total 636.828 540 Output Total 1150 1450 Balance -513.172 -910 Weight 130 kg Intake: Intake, IV Titration 250.828 Amount Azithromycin 500 mg In 250 Sodium Chloride 0.9% 250 ml @ 250 mls/hr IVPB DAILY [facility] Rx#:[id number] Dexmedetomidine/0.9% NaCl 0.828 (Pmx) 400 mcg In Empty Bag 1 bag @ 0.2 MCG/KG/HR 6.622 mls/hr IV .[id number] [facility] Rx#:[id number] Oral 386 540 Output: Urine 1150 1450 Other: Voiding Method Indwelling Catheter Indwelling Catheter # Voids 1 # Bowel Movements 1 - Labs CBC & Chem 7: 07/11/24 09:51 07/11/24 09:51 Labs: Abnormal Lab Results - Last 24 Hours (Table) 07/10/24 07/10/24 07/10/24 Range/Units 05:00 11:23 16:28 POC Glucose (mg/dL) 126 H 181 H (70-110) mg/dL Cholesterol 252.00 H (0.00-200.00) mg/dL LDL Cholesterol, Calc 176.6 H (0.0-131.0) mg/dL 07/10/24 07/11/24 Range/Units 20:03 06:26 POC Glucose (mg/dL) 148 H 183 H (70-110) mg/dL Cholesterol (0.00-200.00) mg/dL LDL Cholesterol, Calc (0.0-131.0) mg/dL Microbiology - Last 24 Hours (Table) 07/09/24 06:59 Blood Culture - Preliminary Blood
[2024-07-11 16:41] LABS: Glucose,Whole Blood 260 mg/dL (70-110)
[2024-07-11] MEDS ORDERED: Potassium Replacement Protocol 1 EACH MISC MISCELLANE PRN (17:52)
[2024-07-11] MEDS ORDERED: ARTIFICIAL TEARS-HYPROMELLOSE DROPS 15 ML BTL BOTH EYES PRN (18:01)
[2024-07-11 20:07] LABS: Glucose,Whole Blood 231 mg/dL (70-110)
[2024-07-11] MEDS: ATORVASTATIN 40 MG TAB PO SCH (20:59)
[2024-07-12 05:07] LABS: Basophils % (A) 0 %; Eosinophils % (A) 0 %; HCT 43.9 % (39.0-53.0); HGB 13.5 gm/dL (13.0-17.5); Hypochromasia Slight; Lymphocytes # (A) 0.5 k/uL (1.0-4.8); Lymphocytes % (A) 6 %; MCH 29.4 pg (25.0-35.0); MCHC 30.7 g/dL (31.0-37.0); MCV 95.7 fL (80.0-100.0); Mean Platelet Volume 7.9; Monocytes # (A) 0.4 k/uL (0-1.0); Monocytes % (A) 4 %; Neutrophils # (A) 8.9 k/uL (1.3-7.7); Neutrophils % (A) 90 %; Platelet Count 251 k/uL (150-450); RBC 4.59 m/uL (4.30-5.90); RDW 13.8 % (11.5-15.5); WBC 9.9 k/uL (3.8-10.6)
[2024-07-12 05:33] LABS: ALT 23 U/L (4-49); AST 25 U/L (17-59); African American GFR (CKD) >90 (>60 ml/min/1.73 sqM); Albumin 3.8 g/dL (3.5-5.0); Alkaline Phosphatase 79 U/L (38-126); Blood Urea Nitrogen 21 mg/dL (9-20); Calcium 8.9 mg/dL (8.4-10.2); Chloride 86 mmol/L (98-107); Glucose 211 mg/dL (74-99); Non-African American GFR(CKD) >90 (>60 ml/min/1.73 sqM); Potassium 3.5 mmol/L (3.5-5.1); Sodium 136 mmol/L (137-145); Total Bilirubin 0.4 mg/dL (0.2-1.3); Total Protein 6.7 g/dL (6.3-8.2)
[2024-07-12 05:39] LABS: Anion Gap 7 mmol/L
[2024-07-12 06:00] LABS: Carbon Dioxide 43 mmol/L (22-30)
[2024-07-12 06:26] LABS: Glucose,Whole Blood 168 mg/dL (70-110)
[2024-07-12] MEDS: FUROSEMIDE 40 MG TAB PO SCH (08:37)
[2024-07-12 11:26] LABS: Glucose,Whole Blood 160 mg/dL (70-110)
[2024-07-12] MEDS ORDERED: acetaZOLAMIDE 250 MG TAB PO SCH (11:45)
--- NOTE | 2024-07-12 14:06 | P.PN ---
Subjective Progress Note Date: 07/12/24 History of present illness: Is a pleasant 64-year-old male with significant past medical history of COPD on home oxygen 4-5 L and heart failure who presented to the emergency department with weakness and some confusion. He does follow with Dr. Post. He reports over the past 1 week he has been feeling generalized weakness with no strength. It got to the point where he could not walk across the room without feeling fatigued or short of breath. There is a family member sick at home with upper respiratory illness. He does not smoke or drink alcohol. He denies any chest pain or pressure. No palpitations. He was having lower extremity edema however this is better today per daughter at bedside. EKG upon admission showed sinus tachycardia with occasional PVCs 113 bpm. This x-ray today shows improving diffuse bilateral lung infiltrates. He did have a CTA of the head and neck which was negative. Labs reviewed: Hemoglobin 12.2, potassium 4.0, creatinine 0.81, troponin negative, total cholesterol 252, LDL 176, HDL 47, BNP 58. He did have prior echocardiogram 02/2024 with a EF 55-60%, severe right ventricular dilation, mildmoderate pulmonary hypertension no significant valve issues. Is feeling somewhat better today. 07/11/24 Out of bed in chair. He reports his breathing is feeling better today. No chest pain or pressure. He did have limited echo which showed EF 55%, mild mitral regurgitation, mild tricuspid regurgitation. 07/12/2024 Patient seen and examined. Patient has been on oral Lasix 40 mg daily. Patient was on IV Diamox per pulmonary medicine. No complaints of chest pain. Blood pressure 129/80, heart rate 82, pulse ox 95% on 4 L nasal cannula. Repeat blood work reveals hemoglobin 13.5, CO2 43, BUN 21 creatinine 0.87, sodium 136 and potassium 3.5. PHYSICAL EXAMINATION: This is a 64-year-old male in no apparent distress at the time of my examination. HEENT: Head is atraumatic, normocephalic. Pupils are equal, round. Sclerae anicteric. Conjunctivae are clear. Mucous membranes of the mouth are moist. Neck is supple. There is no jugular venous distention. No carotid bruit is heard. CHEST EXAMINATION: Lungs with wheezes. No chest wall tenderness is noted on palpation or with deep breathing. HEART EXAMINATION: Heart regular rate and rhythm. S1, S2 heard. No murmurs, gallops or rub. ABDOMEN: Soft, nontender. Bowel sounds are heard. EXTREMITIES: 2+ peripheral pulses with trace edema and no calf tenderness noted. NEUROLOGIC EXAMINATION: Patient is awake, alert and oriented x3. IMPRESSION AND PLAN: COPD on home oxygen Chronic diastolic heart failure Generalized weakness Dyspnea PLAN: Echo shows preserved EF. Patient is off Diamox IV. Symptoms are more likely lung related. Continue with diuretics for now. Further recommendations pending clinical course. Nurse practitioner note has been reviewed, I agree with documented findings and plan of care. Patient was seen and examined. Objective - Vital Signs Vital signs: Vital Signs Temp 97.6 F 07/12/24 12:00 Pulse 82 07/12/24 12:00 Resp 20 07/12/24 12:00 BP 129/80 07/12/24 12:00 Pulse Ox 95 07/12/24 12:00 FiO2 40 07/11/24 23:42 Intake & Output 07/11/24 07/12/24 07/12/24 18:59 06:59 18:59 Intake Total 236 480 Output Total 975 675 Balance -739 -675 480 Weight 126.5 kg Intake: Oral 236 480 Output: Urine 975 675 Other: Voiding Method Indwelling Catheter Toilet Urinal # Voids 2 # Bowel Movements 1 - Labs CBC & Chem 7: 07/12/24 04:34 07/12/24 04:34 Labs: Abnormal Lab Results - Last 24 Hours (Table) 07/11/24 07/11/24 07/12/24 Range/Units 16:38 20:06 04:34 MCHC 30.7 L (31.0-37.0) g/dL Neutrophils # 8.9 H (1.3-7.7) k/uL Lymphocytes # 0.5 L (1.0-4.8) k/uL Sodium (137-145) mmol/L Chloride (98-107) mmol/L Carbon Dioxide (22-30) mmol/L BUN (9-20) mg/dL Glucose (74-99) mg/dL POC Glucose (mg/dL) 260 H 231 H (70-110) mg/dL 07/12/24 07/12/24 07/12/24 Range/Units 04:34 06:24 11:24 MCHC (31.0-37.0) g/dL Neutrophils # (1.3-7.7) k/uL Lymphocytes # (1.0-4.8) k/uL Sodium 136 L (137-145) mmol/L Chloride 86 L (98-107) mmol/L Carbon Dioxide 43 H* (22-30) mmol/L BUN 21 H (9-20) mg/dL Glucose 211 H (74-99) mg/dL POC Glucose (mg/dL) 168 H 160 H (70-110) mg/dL Microbiology - Last 24 Hours (Table) 07/09/24 06:59 Blood Culture - Preliminary Blood
[2024-07-12 16:30] LABS: Glucose,Whole Blood 205 mg/dL (70-110)
--- NOTE | 2024-07-12 16:55 | P.PN ---
Subjective Progress Note Date: 07/12/24 Principal diagnosis: Acute on chronic hypoxic respiratory failure secondary to acute exacerbation of COPD Patient is a 64-year-old male with past medical history significant for severe COPD, pulmonary hypertension, and is a former tobacco smoker. Patient was brought in by EMS, apparently feeling short of breath, lightheaded and dizzy while at home. When EMS arrived he was noted to be hypoxic. In route, progressively became more confused and lethargic. Code stroke was initiated. Brain scans on arrival were unremarkable. Brain CT without contrast showing no evidence of intracranial abnormality, no hemorrhage or mass effect. Brain CTA did not show any significant carotid artery occlusions or stenosis or dissections. Dr. Wilkinson did call me on this patient. [place] possible cause of patient's altered mental status was hypercapnic respiratory failure. VBG showing a pCO2 of 93 and pH of 7.33. Patient was placed on BiPAP in ED. CBC was unremarkable for leukocytosis, WBC count 8.7, hemoglobin 13.6, platelets 198. Initial BIPAP settings 12/6 and FiO2 50% and PEEP. Chest x-ray shows cardiomegaly, patchy and interstitial interstitial airspace disease, possible pulmonary edema, superimposed infectious process was not excluded. CMP: Sodium 143, potassium 4.1, chloride 91, serum bicarb 44, BUN 13, creatinine 0.59, glucose 159. LFTs unremarkable. Troponin less than 0.012. NT proBNP 58. Patient was started empiric antibiotics in the ED in the form of azithromycin and Zosyn. Has remained afebrile. Also, started on diuretics in the form of Lasix 40 mg 3 times daily. Patient is currently being evaluated in room 11. He remains obtunded, will awaken to verbal stimuli. Currently on BiPAP with above- mentioned settings, achieving tidal volumes around 200, respiratory rate is in the mid teens. He does have some bilateral lower extremity pitting edema. His [id number] is at the bedside, states he has been feeling unwell for several days. She is worried about his ability to take care of himself on his own. States he has not showered in several days. 07/10/2024, the patient is being seen for a follow-up. Much improved compared to yesterday. Mental status also improved. The patient did not require Precedex. The patient is currently in the intensive care unit. Off the BiPAP and the patient is currently on oxygen at 5 L nasal cannula with a pulse ox of 92%. Overnight, the patient declined the BiPAP at a pressure of 16 over 6 cm of water with an FiO2 of 40%. Fluid balance is -2.6 L over the past 24 hours. Remains on bronchodilators. Remains on IV Solu-Medrol. Remains on a combination of Zosyn and Zithromax. Remains on IV Lasix 40 mg every 12 hours. Monitor. 9.5 with a hemoglobin 12.2 with a platelet count of 229. Serum bicarb is at 29 and sodium levels at 143 with a potassium level of 4. LDL cholesterol was 176. LFTs are essentially within normal limits. On 07/11/2024, the patient is feeling better, less short of breath, less bronchospastic and wheezy. Continues to have crackles in lung base bilaterally. The patient is still being diuresed with IV Lasix. The fluid balance has been -1.4 L over the past 24 hours. White cell count 11 with a hemoglobin 13.1 and a platelet count of 26. D-dimer is at 0.5. Serum bicarb is 51 and the patient will be offered Diamox. BUN 21 with a creatinine of 0.7 and a sodium level is at 138. Seen today on 07/12/2024, patient continues to steadily improve, feeling better today compared to how he felt on admission less cough less wheezing less short ness of breath. Remains on bronchodilators remains on steroids and he also remains on diuretics, steady improvement noted since admission.WBC count is 9.9 hemoglobin 13.5 basic metabolic profile is normal bicarb is 43 BUN is 7 creatinine 0.87 chest x-ray showed improving diffuse bilateral infiltrat es/edema. Objective - Vital Signs Vital signs: Vital Signs Temp 97.6 F 07/12/24 12:00 Pulse 92 07/12/24 16:28 Resp 20 07/12/24 12:00 BP 129/80 07/12/24 12:00 Pulse Ox 95 07/12/24 12:00 FiO2 40 07/11/24 23:42 Intake & Output 07/11/24 07/12/24 07/12/24 18:59 06:59 18:59 Intake Total 236 480 Output Total 574 305 482 Balance -739 -675 -420 Weight 126.5 kg Intake: Oral 236 480 Output: Urine 975 675 900 Other: Voiding Method Indwelling Catheter Toilet Urinal # Voids 2 # Bowel Movements 1 - Exam GENERAL EXAM: Revealed 64-year-old white male on nasal cannula not in distress, very comfortable. HEAD: Normocephalic and atraumatic EYES: Normal reaction of pupils, equal size. NOSE: Clear with pink turbinates. THROAT: No erythema or exudates. NECK: No masses, no JVD. CHEST: No chest wall deformity. LUNGS: Diminished breath sound bilaterally no crackles rhonchi or wheezes CVS: S1 and S2 normal with no audible murmur, regular rhythm. No extra heart sounds ABDOMEN: No hepatosplenomegaly, active bowel sounds, no guarding or rigidity. SKIN: No rashes alert Neurologic: Alert oriented x 3 no gross focal deficit EXTREMITIES: Bilateral lower extremity trace of bipedal edema - Labs CBC & Chem 7: 07/12/24 04:34 07/12/24 04:34 Labs: Abnormal Lab Results - Last 24 Hours (Table) 07/11/24 07/12/24 07/12/24 Range/Units 20:06 04:34 04:34 MCHC 30.7 L (31.0-37.0) g/dL Neutrophils # 8.9 H (1.3-7.7) k/uL Lymphocytes # 0.5 L (1.0-4.8) k/uL Sodium 136 L (137-145) mmol/L Chloride 86 L (98-107) mmol/L Carbon Dioxide 43 H* (22-30) mmol/L BUN 21 H (9-20) mg/dL Glucose 211 H (74-99) mg/dL POC Glucose (mg/dL) 231 H (70-110) mg/dL 07/12/24 07/12/24 07/12/24 Range/Units 06:24 11:24 16:27 MCHC (31.0-37.0) g/dL Neutrophils # (1.3-7.7) k/uL Lymphocytes # (1.0-4.8) k/uL Sodium (137-145) mmol/L Chloride (98-107) mmol/L Carbon Dioxide (22-30) mmol/L BUN (9-20) mg/dL Glucose (74-99) mg/dL POC Glucose (mg/dL) 168 H 160 H 205 H (70-110) mg/dL Microbiology - Last 24 Hours (Table) 07/09/24 06:59 Blood Culture - Preliminary Blood Assessment and Plan Assessment: Impression: Acute on chronic hypoxic and hypercapnic respiratory failure secondary to acute exacerbation of COPD Acute hypercapnic encephalopathy/metabolic encephalopathy Severe COPD FEV1 of 45% Chronic hypoxic respiratory failure and chronic hypercapnic respiratory failure normally on O2 at home 3 to 4 L/min Acute diastolic congestive heart failure History of pulmonary hypertension Benign essential hypertension Morbid obesity with BMI of 38.5 Former smoker Recommendation: Continue DuoNeb, continue budesonide and formoterol, continue IV Solu-Medrol, Continue diuretics for his congestive heart failure Continue to monitor electrolytes, Use BiPAP at night, Patient may qualify for home or retirement BiPAP considering his hypercapnia Will continue to follow Time with Patient: Less than 30
[2024-07-12 20:15] LABS: Glucose,Whole Blood 158 mg/dL (70-110)
[2024-07-12] MEDS: acetaZOLAMIDE 250 MG TAB PO SCH (20:46)
--- NOTE | 2024-07-13 03:35 | P.PN ---
Subjective Progress Note Date: 07/12/24 patient is a 64-year-old gentleman past medical history significant for COPD, chronic hypoxemic respiratory failure, CHF presented to the ER because of altered mental status. Patient initially called EMS because of complaint of feeling lightheaded and dizzy and short of breath. According to EMS report, patient stated he was feeling sick for the last few days. When EMS reached the spot patient was found to be hypoxemic, was placed on oxygen. En route to the ER patient became more altered. On reaching the ER, patient placed on BiPAP c ode stroke was initiated. Brain scans on arrival were unremarkable. Brain CT without contrast showing no evidence of intracranial abnormality, no hemorrhage or mass effect. Brain CTA did not show any significant carotid artery occlusion s or stenosis or dissections. Discussion took place between ER physician, family and interventional neurology at this time as patient was doing well on BiPAP decision was made not to give tenecteplase. Initial lab work done in the ER showed WBC 8.7, hemoglobin 13.6, platelet count 198, sodium 143, potassium 4.1, BUN 13, creatinine 0.59, glucose 159, AST 25, ALT 29, troponin 0.012, Pro-Jonathan 0.07 Influenza A not detected Influenza B not detected RSV not detected COVID-19 not detected EKG done in the ER showed heart rate of 113 , no ST segment elevation or depression seen, no T-wave inversions seen. Chest x-ray done in the ER showed moderate pulm edema, right lung pneumonia CT head done showed no acute intracranial process CTA head and neck done showed no significant stenosis, aneurysm or thrombus in the intracranial circulation Patient admitted to internal medicine service in ICU 07/11. Patient seen and examined. 2D echo done showed no evidence of pericardial effusion, LVEF of 55%, mild tricuspid regurg, mild mitral regurg state he feels better. Still gets short of breath on exertion 07/12/2024 Patient is seen in follow-up currently up and walking in the room reporting continued shortness of breath maintained on 4 L via nasal cannula. Patient is using BiPAP at night being followed by pulmonary and cardiology. Patient is off IV Diamox and will continue other current medications along with DuoNebs and steroids. Patient to arrange for outpatient follow-up for sleep study testing and may need BiPAP in the home. REVIEW OF SYSTEMS: CONSTITUTIONAL: No fever, no malaise,. CARDIOVASCULAR: No chest pain, no palpitations, no syncope. PULMONARY: Reports of continued shortness of breath, no cough GASTROINTESTINAL: No diarrhea, no nausea, no vomiting, no abdominal pain. NEUROLOGICAL: No headaches, no weakness, PHYSICAL EXAMINATION: GENERAL: The patient is alert and oriented x3, not in any acute distress. Well developed, well nourished. Elderly appearing, obese HEENT: Pupils are round and equally reacting to light. EOMI. No scleral icterus. No conjunctival pallor. Normocephalic, atraumatic. No pharyngeal erythema. No thyromegaly. CARDIOVASCULAR: S1 and S2 present. No murmurs, rubs, or gallops. PULMONARY: Diminished breath sounds bilaterally, coarse breath sound bilaterally, no wheezing or crackles. ABDOMEN: Soft, obese, nontender, nondistended, normoactive bowel sounds. No palpable organomegaly. MUSCULOSKELETAL: No joint swelling or deformity. EXTREMITIES: No cyanosis, clubbing, or pedal edema. NEUROLOGICAL: Gross neurological examination did not reveal any focal deficits. SKIN: No rashes. Assessment: Acute hypoxemic hypercapnic respiratory failure secondary to COPD exacerbation, maintained on BiPAP at night Acute metabolic encephalopathy secondary to above, improved Acute COPD exacerbation chronic hypoxemic respiratory failure, on home O2 in the order of 3 to 4 L/min nasal cannula 20/01 Chronic diastolic heart failure History of pulmonary hypertension. History of systemic hypertension Generalized weakness and deconditioning Obesity with a BMI 36.8 Former tobacco dependence DVT prophylaxis GI prophylaxis Full code Plan: Patient being followed by cardiology and pulmonary with no further interventions noted per cardiology and off Diamox recommending outpatient follow-up Patient is continued on DuoNeb treatments along with steroids with pulmonary following. Patient chronically wears O2 outpatient and is currently on 4 L and also using BiPAP at night. Patient will require outpatient sleep testing and will work with pulmonary regarding possible BiPAP in the home. Encouraged increase activity as tolerated Continue monitoring Accu-Cheks and use sliding scale as needed for elevated blood sugars secondary to steroids Due to multiple complex medical issues, overall prognosis is guarded Possible discharge planning in the next 24 hours The impression and plan of care has been dictated by Nurse Apolinar Pr actitioner as directed. Dr. John Paul MD I have performed a history and examination and MDM of this patient, discussed the same with the dictator, and agree with the dictator's assessment and plan as written ,documented as a scribe. Based on total visit time, I have performed more than 50% of the visit. Objective - Vital Signs Vital signs: Vital Signs Temp 97.5 F L 07/12/24 03:33 Pulse 76 07/12/24 11:17 Resp 20 07/12/24 11:17 BP 124/83 07/12/24 08:00 Pulse Ox 96 07/12/24 08:00 FiO2 40 07/11/24 23:42 Intake & Output 07/11/24 07/12/24 07/12/24 18:59 06:59 18:59 Intake Total 236 480 Output Total 975 675 Balance -739 -675 480 Weight 126.5 kg Intake: Oral 236 480 Output: Urine 975 675 Other: Voiding Method Indwelling Catheter Toilet Urinal # Voids 2 # Bowel Movements 1 - Labs CBC & Chem 7: 07/12/24 04:34 07/12/24 04:34 Labs: Abnormal Lab Results - Last 24 Hours (Table) 07/11/24 07/11/24 07/12/24 Range/Units 16:38 20:06 04:34 MCHC 30.7 L (31.0-37.0) g/dL Neutrophils # 8.9 H (1.3-7.7) k/uL Lymphocytes # 0.5 L (1.0-4.8) k/uL Sodium (137-145) mmol/L Chloride (98-107) mmol/L Carbon Dioxide (22-30) mmol/L BUN (9-20) mg/dL Glucose (74-99) mg/dL POC Glucose (mg/dL) 260 H 231 H (70-110) mg/dL 07/12/24 07/12/24 07/12/24 Range/Units 04:34 06:24 11:24 MCHC (31.0-37.0) g/dL Neutrophils # (1.3-7.7) k/uL Lymphocytes # (1.0-4.8) k/uL Sodium 136 L (137-145) mmol/L Chloride 86 L (98-107) mmol/L Carbon Dioxide 43 H* (22-30) mmol/L BUN 21 H (9-20) mg/dL Glucose 211 H (74-99) mg/dL POC Glucose (mg/dL) 168 H 160 H (70-110) mg/dL Microbiology - Last 24 Hours (Table) 07/09/24 06:59 Blood Culture - Preliminary Blood
[2024-07-13 06:02] LABS: Glucose,Whole Blood 253 mg/dL (70-110)
[2024-07-13 11:22] LABS: Glucose,Whole Blood 153 mg/dL (70-110)
--- NOTE | 2024-07-13 11:43 | P.PN ---
Subjective Progress Note Date: 07/13/24 History of present illness: Is a pleasant 64-year-old male with significant past medical history of COPD on home oxygen 4-5 L and heart failure who presented to the emergency department with weakness and some confusion. He does follow with Dr. Post. He reports over the past 1 week he has been feeling generalized weakness with no strength. It got to the point where he could not walk across the room without feeling fatigued or short of breath. There is a family member sick at home with upper respiratory illness. He does not smoke or drink alcohol. He denies any chest pain or pressure. No palpitations. He was having lower extremity edema however this is better today per daughter at bedside. EKG upon admission showed sinus tachycardia with occasional PVCs 113 bpm. This x-ray today shows improving diffuse bilateral lung infiltrates. He did have a CTA of the head and neck which was negative. Labs reviewed: Hemoglobin 12.2, potassium 4.0, creatinine 0.81, troponin negative, total cholesterol 252, LDL 176, HDL 47, BNP 58. He did have prior echocardiogram 02/2024 with a EF 55-60%, severe right ventricular dilation, mildmoderate pulmonary hypertension no significant valve issues. Is feeling somewhat better today. 07/11/24 Out of bed in chair. He reports his breathing is feeling better today. No chest pain or pressure. He did have limited echo which showed EF 55%, mild mitral regurgitation, mild tricuspid regurgitation. 07/12/2024 Patient seen and examined. Patient has been on oral Lasix 40 mg daily. Patient was on IV Diamox per pulmonary medicine. No complaints of chest pain. Blood pressure 129/80, heart rate 82, pulse ox 95% on 4 L nasal cannula. Repeat blood work reveals hemoglobin 13.5, CO2 43, BUN 21 creatinine 0.87, sodium 136 and potassium 3.5. 07/13/2024 Patient is seen and examined. Heart rate is running between 75 and 100, blood pressure 130/85, he is currently on O2 at 4 L nasal cannula. Patient states that his breathing is better today. Discussed again need for outpatient sleep study. Echocardiogram reveals EF 55%, mild MR, mild TR. PHYSICAL EXAMINATION: This is a 64-year-old male in no apparent distress at the time of my examination. HEENT: Head is atraumatic, normocephalic. Pupils are equal, round. Sclerae anicteric. Conjunctivae are clear. Mucous membranes of the mouth are moist. Neck is supple. There is no jugular venous distention. No carotid bruit is heard. CHEST EXAMINATION: Lungs with wheezes. No chest wall tenderness is noted on palpation or with deep breathing. HEART EXAMINATION: Heart regular rate and rhythm. S1, S2 heard. No murmurs, gallops or rub. ABDOMEN: Soft, nontender. Bowel sounds are heard. EXTREMITIES: 2+ peripheral pulses with trace edema and no calf tenderness noted. NEUROLOGIC EXAMINATION: Patient is awake, alert and oriented x3. IMPRESSION: COPD on home oxygen Chronic diastolic heart failure Generalized weakness Dyspnea Suspected obstructive sleep apnea and pulmonary hypertension PLAN: Patient's symptoms most likely related to pulmonary hypertension and obstructive sleep apnea. Patient will benefit from sleep study as an outpatient. No further cardiac workup at this time. Cardiology will sign off this case and follow on an as-needed basis. Please reconsult for any new concerns. Patient may follow-up in the office in one to [address] Alfaro. Nurse practitioner note has been reviewed, I agree with documented findings and plan of care. Patient was seen and examined. Objective - Vital Signs Vital signs: Vital Signs Temp 97.4 F L 07/13/24 03:37 Pulse 100 07/13/24 08:35 Resp 19 07/13/24 03:37 BP 138/85 07/13/24 03:37 Pulse Ox 93 L 07/13/24 03:37 FiO2 40 07/13/24 03:37 Intake & Output 07/12/24 07/13/24 07/13/24 18:59 06:59 18:59 Intake Total 480 240 Output Total 900 400 Balance -420 -160 Weight 126.3 kg Intake: Oral 480 240 Output: Urine 900 400 Other: Voiding Method Toilet # Voids 2 - Labs CBC & Chem 7: 07/12/24 04:34 07/12/24 04:34 Labs: Abnormal Lab Results - Last 24 Hours (Table) 07/12/24 07/12/24 07/12/24 Range/Units 11:24 16:27 20:14 POC Glucose (mg/dL) 160 H 205 H 158 H (70-110) mg/dL 07/13/24 Range/Units 06:00 POC Glucose (mg/dL) 253 H (70-110) mg/dL Microbiology - Last 24 Hours (Table) 07/09/24 06:59 Blood Culture - Preliminary Blood
--- NOTE | 2024-07-13 13:29 | P.PN ---
Subjective Progress Note Date: 07/13/24 Principal diagnosis: Acute on chronic hypoxic respiratory failure secondary to acute exacerbation of COPD Patient is a 64-year-old male with past medical history significant for severe COPD, pulmonary hypertension, and is a former tobacco smoker. Patient was brought in by EMS, apparently feeling short of breath, lightheaded and dizzy while at home. When EMS arrived he was noted to be hypoxic. In route, progressively became more confused and lethargic. Code stroke was initiated. Brain scans on arrival were unremarkable. Brain CT without contrast showing no evidence of intracranial abnormality, no hemorrhage or mass effect. Brain CTA did not show any significant carotid artery occlusions or stenosis or dissections. Dr. Wilkinson did call me on this patient. [place] possible cause of patient's altered mental status was hypercapnic respiratory failure. VBG showing a pCO2 of 93 and pH of 7.33. Patient was placed on BiPAP in ED. CBC was unremarkable for leukocytosis, WBC count 8.7, hemoglobin 13.6, platelets 198. Initial BIPAP settings 12/6 and FiO2 50% and PEEP. Chest x-ray shows cardiomegaly, patchy and interstitial interstitial airspace disease, possible pulmonary edema, superimposed infectious process was not excluded. CMP: Sodium 143, potassium 4.1, chloride 91, serum bicarb 44, BUN 13, creatinine 0.59, glucose 159. LFTs unremarkable. Troponin less than 0.012. NT proBNP 58. Patient was started empiric antibiotics in the ED in the form of azithromycin and Zosyn. Has remained afebrile. Also, started on diuretics in the form of Lasix 40 mg 3 times daily. Patient is currently being evaluated in room 11. He remains obtunded, will awaken to verbal stimuli. Currently on BiPAP with above- mentioned settings, achieving tidal volumes around 200, respiratory rate is in the mid teens. He does have some bilateral lower extremity pitting edema. His [id number] is at the bedside, states he has been feeling unwell for several days. She is worried about his ability to take care of himself on his own. States he has not showered in several days. 07/10/2024, the patient is being seen for a follow-up. Much improved compared to yesterday. Mental status also improved. The patient did not require Precedex. The patient is currently in the intensive care unit. Off the BiPAP and the patient is currently on oxygen at 5 L nasal cannula with a pulse ox of 92%. Overnight, the patient declined the BiPAP at a pressure of 16 over 6 cm of water with an FiO2 of 40%. Fluid balance is -2.6 L over the past 24 hours. Remains on bronchodilators. Remains on IV Solu-Medrol. Remains on a combination of Zosyn and Zithromax. Remains on IV Lasix 40 mg every 12 hours. Monitor. 9.5 with a hemoglobin 12.2 with a platelet count of 229. Serum bicarb is at 29 and sodium levels at 143 with a potassium level of 4. LDL cholesterol was 176. LFTs are essentially within normal limits. On 07/11/2024, the patient is feeling better, less short of breath, less bronchospastic and wheezy. Continues to have crackles in lung base bilaterally. The patient is still being diuresed with IV Lasix. The fluid balance has been -1.4 L over the past 24 hours. White cell count 11 with a hemoglobin 13.1 and a platelet count of 26. D-dimer is at 0.5. Serum bicarb is 51 and the patient will be offered Diamox. BUN 21 with a creatinine of 0.7 and a sodium level is at 138. Seen today on 07/12/2024, patient continues to steadily improve, feeling better today compared to how he felt on admission less cough less wheezing less short ness of breath. Remains on bronchodilators remains on steroids and he also remains on diuretics, steady improvement noted since admission.WBC count is 9.9 hemoglobin 13.5 basic metabolic profile is normal bicarb is 43 BUN is 7 creatinine 0.87 chest x-ray showed improving diffuse bilateral infiltrat es/edema. Seen today on 07/13/2024, patient is feeling good, does not complain of any shortness of breath, remains on 4 L nasal cannula, patient used his BiPAP last night, remains on bronchodilators and steroids he is also on diuretics, steadily feeling better. Ordered a overnight pulse ox this was not done yesterday, hopefully will be done today. In the meantime discharge planning is supposedly in progress. Objective - Vital Signs Vital signs: Vital Signs Temp 98.5 F 07/13/24 08:00 Pulse 96 07/13/24 12:01 Resp 18 07/13/24 08:00 BP 113/80 07/13/24 08:00 Pulse Ox 95 07/13/24 08:00 FiO2 40 07/13/24 03:37 Intake & Output 07/12/24 07/13/24 07/13/24 18:59 06:59 18:59 Intake Total 480 240 Output Total 900 400 Balance -420 -160 Weight 126.3 kg Intake: Oral 480 240 Output: Urine 900 400 Other: Voiding Method Toilet # Voids 2 - Exam GENERAL EXAM: Revealed 64-year-old white male on 3 L nasal cannula not in distress, very comfortable. HEAD: Normocephalic and atraumatic EYES: Normal reaction of pupils, equal size. NOSE: Clear with pink turbinates. THROAT: No erythema or exudates. NECK: No masses, no JVD. CHEST: No chest wall deformity. LUNGS: Clear bilaterally no rhonchi no wheezes CVS: S1 and S2 normal with no audible murmur, regular rhythm. No extra heart sounds ABDOMEN: No hepatosplenomegaly, active bowel sounds, no guarding or rigidity. SKIN: No rashes alert Neurologic: Alert oriented x 3 no gross focal deficit EXTREMITIES: Bilateral lower extremity trace of bipedal edema - Labs CBC & Chem 7: 07/12/24 04:34 07/12/24 04:34 Labs: Abnormal Lab Results - Last 24 Hours (Table) 07/12/24 07/12/24 07/13/24 Range/Units 16:27 20:14 06:00 POC Glucose (mg/dL) 205 H 158 H 253 H (70-110) mg/dL 07/13/24 Range/Units 11:18 POC Glucose (mg/dL) 153 H (70-110) mg/dL Microbiology - Last 24 Hours (Table) 07/09/24 06:59 Blood Culture - Preliminary Blood Assessment and Plan Assessment: Impression: Acute on chronic hypoxic and hypercapnic respiratory failure secondary to acute exacerbation of COPD Acute hypercapnic encephalopathy/metabolic encephalopathy Severe COPD FEV1 of 45% Chronic hypoxic respiratory failure and chronic hypercapnic respiratory failure normally on O2 at home 3 to 4 L/min Acute diastolic congestive heart failure History of pulmonary hypertension Benign essential hypertension Morbid obesity with BMI of 38.5 Former smoker Recommendation: Continue DuoNeb, continue budesonide and formoterol, continue IV Solu-Medrol, Continue diuretics for his congestive heart failure Continue to monitor electrolytes, Use BiPAP at night, hopefully we could qualify the patient for home BiPAP discharge planning. Is in progress Will continue to follow Time with Patient: Less than 30
--- NOTE | 2024-07-13 16:11 | P.PN ---
Subjective Progress Note Date: 07/13/24 This 64-year-old gentleman with acute on chronic hypoxic, hypercapnic respiratory failure, acute COPD exacerbation. Maintained on nebulized bronchodilators, steroids, diuretics and BiPAP at night. Reports significant improvement. Continuous overnight pulse ox had been ordered yesterday, unfortunately was not completed in an attempt to qualify patient for BiPAP at discharge. Denies chest pain, palpitations or increase in shortness of breath. Maintaining O2 sats in the 90s on 4 L nasal cannula. Echo reported normal LV function, EF 55%, mild mitral regurgitation and tricuspid regurgitation. Objective - Vital Signs Vital signs: Vital Signs Temp 98.5 F 07/13/24 08:00 Pulse 96 07/13/24 12:01 Resp 18 07/13/24 08:00 BP 113/80 07/13/24 08:00 Pulse Ox 95 07/13/24 08:00 FiO2 40 07/13/24 03:37 Intake & Output 07/12/24 07/13/24 07/13/24 18:59 06:59 18:59 Intake Total 480 240 Output Total 637 420 5722 Balance -420 -160 -1150 Weight 126.3 kg Intake: Oral 480 240 Output: Urine 441 397 5582 Other: Voiding Method Toilet # Voids 2 - Exam PHYSICAL EXAM: VITAL SIGNS: Reviewed GENERAL: Alert and oriented x 3, sitting up in chair, no acute distress HEENT: Conjunctivae normal. eyes normal. MMM. NECK: Supple, no JVD. CARDIOVASCULAR: S1, S2 regular.No murmur RESPIRATION: Unlabored, equal air entry, clear to auscultation . ABDOMEN: Soft, nondistended, nontender . No guarding. no masses palpable. Positive bowel sound LEGS: Trace edema. no cyanosis, no clubbing, no calf tenderness NERVOUS SYSTEM: Cranial N 2-12 grossly normal.No focal deficits.Strength and sensation grossly intact. Skin: Warm and dry, no rash noted - Labs CBC & Chem 7: 07/12/24 04:34 07/12/24 04:34 Labs: Abnormal Lab Results - Last 24 Hours (Table) 07/12/24 07/12/24 07/13/24 Range/Units 16:27 20:14 06:00 POC Glucose (mg/dL) 205 H 158 H 253 H (70-110) mg/dL 07/13/24 Range/Units 11:18 POC Glucose (mg/dL) 153 H (70-110) mg/dL Microbiology - Last 24 Hours (Table) 07/09/24 06:59 Blood Culture - Preliminary Blood Assessment and Plan Assessment: Acute on chronic hypoxic and hypercapnic respiratory failure secondary to acute COPD exacerbation Acute hypercapnic and metabolic encephalopathy Chronic hypoxic and hypercapnic respiratory failure, 4 L nasal cannula at home Acute CHF exacerbation, diastolic dysfunction Pulmonary hypertension Hypertension Morbid obesity, BMI 37 Obstructive sleep apnea, suspected Former nicotine dependence Plan: Continue on current medication regimen ,monitoring and symptomatic treatment. Continuous pulse ox overnight reordered, nursing staff notifying respiratory therapist; attempting to qualify patient for home BiPAP at DC. Maintain nebulized bronchodilators, IV steroids, diuretics. Discharge planning in progress for tomorrow, pending final DC recommendations and clearance per pulmonary. The impression and plan of care has been dictated as directed. : I performed a history and examination of this patient, discussed the same with the dictator. I agree with the dictator's note ,documented as a scribe. Any additional findings or plans will be noted. No
[2024-07-13 16:47] LABS: Glucose,Whole Blood 243 mg/dL (70-110)
[2024-07-13 19:48] LABS: Glucose,Whole Blood 187 mg/dL (70-110)
[2024-07-14 05:49] LABS: Glucose,Whole Blood 190 mg/dL (70-110)
[2024-07-14 06:55] LABS: African American GFR (CKD) >90 (>60 ml/min/1.73 sqM); Anion Gap 7 mmol/L; Blood Urea Nitrogen 22 mg/dL (9-20); Calcium 9.3 mg/dL (8.4-10.2); Carbon Dioxide 36 mmol/L (22-30); Chloride 92 mmol/L (98-107); Glucose 186 mg/dL (74-99); Magnesium 1.9 mg/dL (1.6-2.3); Non-African American GFR(CKD) >90 (>60 ml/min/1.73 sqM); Sodium 135 mmol/L (137-145)
[2024-07-14 08:58] VITALS: RESP 18; TEMP 97.4
[2024-07-14 11:43] LABS: Glucose,Whole Blood 154 mg/dL (70-110)
[2024-07-14 12:12] VITALS: BP 116/59; PULSE 85
--- NOTE | 2024-07-14 16:12 | P.PN ---
Subjective Progress Note Date: 07/14/24 Principal diagnosis: Acute on chronic hypoxic respiratory failure secondary to acute exacerbation of COPD Patient is a 64-year-old male with past medical history significant for severe COPD, pulmonary hypertension, and is a former tobacco smoker. Patient was brought in by EMS, apparently feeling short of breath, lightheaded and dizzy while at home. When EMS arrived he was noted to be hypoxic. In route, progressively became more confused and lethargic. Code stroke was initiated. Brain scans on arrival were unremarkable. Brain CT without contrast showing no evidence of intracranial abnormality, no hemorrhage or mass effect. Brain CTA did not show any significant carotid artery occlusions or stenosis or dissections. Dr. Wilkinson did call me on this patient. [place] possible cause of patient's altered mental status was hypercapnic respiratory failure. VBG showing a pCO2 of 93 and pH of 7.33. Patient was placed on BiPAP in ED. CBC was unremarkable for leukocytosis, WBC count 8.7, hemoglobin 13.6, platelets 198. Initial BIPAP settings 12/6 and FiO2 50% and PEEP. Chest x-ray shows cardiomegaly, patchy and interstitial interstitial airspace disease, possible pulmonary edema, superimposed infectious process was not excluded. CMP: Sodium 143, potassium 4.1, chloride 91, serum bicarb 44, BUN 13, creatinine 0.59, glucose 159. LFTs unremarkable. Troponin less than 0.012. NT proBNP 58. Patient was started empiric antibiotics in the ED in the form of azithromycin and Zosyn. Has remained afebrile. Also, started on diuretics in the form of Lasix 40 mg 3 times daily. Patient is currently being evaluated in room 11. He remains obtunded, will awaken to verbal stimuli. Currently on BiPAP with above- mentioned settings, achieving tidal volumes around 200, respiratory rate is in the mid teens. He does have some bilateral lower extremity pitting edema. His [id number] is at the bedside, states he has been feeling unwell for several days. She is worried about his ability to take care of himself on his own. States he has not showered in several days. 07/10/2024, the patient is being seen for a follow-up. Much improved compared to yesterday. Mental status also improved. The patient did not require Precedex. The patient is currently in the intensive care unit. Off the BiPAP and the patient is currently on oxygen at 5 L nasal cannula with a pulse ox of 92%. Overnight, the patient declined the BiPAP at a pressure of 16 over 6 cm of water with an FiO2 of 40%. Fluid balance is -2.6 L over the past 24 hours. Remains on bronchodilators. Remains on IV Solu-Medrol. Remains on a combination of Zosyn and Zithromax. Remains on IV Lasix 40 mg every 12 hours. Monitor. 9.5 with a hemoglobin 12.2 with a platelet count of 229. Serum bicarb is at 29 and sodium levels at 143 with a potassium level of 4. LDL cholesterol was 176. LFTs are essentially within normal limits. On 07/11/2024, the patient is feeling better, less short of breath, less bronchospastic and wheezy. Continues to have crackles in lung base bilaterally. The patient is still being diuresed with IV Lasix. The fluid balance has been -1.4 L over the past 24 hours. White cell count 11 with a hemoglobin 13.1 and a platelet count of 26. D-dimer is at 0.5. Serum bicarb is 51 and the patient will be offered Diamox. BUN 21 with a creatinine of 0.7 and a sodium level is at 138. Seen today on 07/12/2024, patient continues to steadily improve, feeling better today compared to how he felt on admission less cough less wheezing less short ness of breath. Remains on bronchodilators remains on steroids and he also remains on diuretics, steady improvement noted since admission.WBC count is 9.9 hemoglobin 13.5 basic metabolic profile is normal bicarb is 43 BUN is 7 creatinine 0.87 chest x-ray showed improving diffuse bilateral infiltrat es/edema. Seen today on 07/13/2024, patient is feeling good, does not complain of any shortness of breath, remains on 4 L nasal cannula, patient used his BiPAP last night, remains on bronchodilators and steroids he is also on diuretics, steadily feeling better. Ordered a overnight pulse ox this was not done yesterday, hopefully will be done today. In the meantime discharge planning is supposedly in progress. Patient was seen today on 07/14/2024, doing well, asymptomatic, on oxygen at 4 L/min, does not seem to be in any distress remains on bronchodilators, diuretics, hardly any pulmonary symptoms, patient did not qualify for BiPAP based on his overnight pulse oximetry. Patient will eventually need home sleep study and I am certain that the patient may have significant amount of obstructi ve sleep apnea that may qualify him for CPAP or BiPAP on outpatient basis. Objective - Vital Signs Vital signs: Vital Signs Temp 97.4 F L 07/14/24 08:00 Pulse 85 07/14/24 12:00 Resp 18 07/14/24 12:00 BP 116/59 07/14/24 12:00 Pulse Ox 93 L 07/14/24 12:00 FiO2 40 07/13/24 03:37 Intake & Output 07/13/24 07/14/24 07/14/24 18:59 06:59 18:59 Intake Total 180 Output Total 1150 1500 Balance -1150 -1500 180 Weight 126.5 kg Intake: Oral 180 Output: Urine 1150 1500 Other: Voiding Method Toilet - Exam GENERAL EXAM: Revealed 64-year-old white male on 3 L nasal cannula not in distress, very comfortable. HEAD: Normocephalic and atraumatic EYES: Normal reaction of pupils, equal size. NOSE: Clear with pink turbinates. THROAT: No erythema or exudates. NECK: No masses, no JVD. CHEST: No chest wall deformity. LUNGS: Clear bilaterally no rhonchi no wheezes CVS: S1 and S2 normal with no audible murmur, regular rhythm. No extra heart sounds ABDOMEN: No hepatosplenomegaly, active bowel sounds, no guarding or rigidity. SKIN: No rashes alert Neurologic: Alert oriented x 3 no gross focal deficit EXTREMITIES: Trace of bipedal edema - Labs CBC & Chem 7: 07/12/24 04:34 07/14/24 06:19 Labs: Abnormal Lab Results - Last 24 Hours (Table) 07/13/24 07/13/24 07/14/24 Range/Units 16:39 19:47 05:48 Sodium (137-145) mmol/L Chloride (98-107) mmol/L Carbon Dioxide (22-30) mmol/L BUN (9-20) mg/dL Glucose (74-99) mg/dL POC Glucose (mg/dL) 243 H 187 H 190 H (70-110) mg/dL 07/14/24 07/14/24 Range/Units 06:19 11:41 Sodium 135 L (137-145) mmol/L Chloride 92 L (98-107) mmol/L Carbon Dioxide 36 H (22-30) mmol/L BUN 22 H (9-20) mg/dL Glucose 186 H (74-99) mg/dL POC Glucose (mg/dL) 154 H (70-110) mg/dL Microbiology - Last 24 Hours (Table) 07/09/24 06:59 Blood Culture - Final Blood Assessment and Plan Assessment: Impression: Acute on chronic hypoxic and hypercapnic respiratory failure secondary to acute exacerbation of COPD Acute hypercapnic encephalopathy/metabolic encephalopathy Severe COPD FEV1 of 45% Chronic hypoxic respiratory failure and chronic hypercapnic respiratory failure normally on O2 at home 3 to 4 L/min Acute diastolic congestive heart failure History of pulmonary hypertension Benign essential hypertension Morbid obesity with BMI of 38.5 Former smoker Recommendation: Continue DuoNeb, continue bronchodilators, change Solu-Medrol to prednisone orally taper over 2 weeks Continue diuretics for his congestive heart failure Patient did not qualify for BiPAP Will clear for discharge if cleared by other consultants and admitting physician Time with Patient: Less than 30
--- NOTE | 2024-07-15 14:09 | P.DS ---
Providers Date of admission: 07/09/24 07:13 Expected date of discharge: 07/15/24 Attending physician: Yevgeniy Brantley MD Consults: 07/09/24 07:10 Consult Physician Urgent Consulting Provider: Ellie Fritz Consult Reason/Comments: copd/chf, pneumonia, hypercapneic hypoxic resp failure on bipap Do you want consulting provider notified?: Yes 07/09/24 07:13 Consult Physician Routine Consulting Provider: [facility] Consult Reason/Comments: chf Do you want consulting provider notified?: Yes 07/09/24 07:22 Consult Physician Routine Consulting Provider: Amber Mendez Consult Reason/Comments: co2 narcosis, encephalopathy, originally code stroke Do you want consulting provider notified?: Yes Primary care physician: Vandana Wilkinson Hospital Course: Final Diagnosis: Acute on chronic hypoxic and hypercapnic respiratory failure secondary to acute COPD exacerbation Acute hypercapnic and metabolic encephalopathy Chronic hypoxic and hypercapnic respiratory failure, 4 L nasal cannula at home Acute CHF exacerbation, diastolic dysfunction Pulmonary hypertension Hypertension Morbid obesity, BMI 37 Obstructive sleep apnea, suspected Former nicotine dependence Hospital course: 07/13/2024 this 64-year-old gentleman with acute on chronic hypoxic, hypercapnic respiratory failure, acute COPD exacerbation. Maintained on nebulized bronchodilators, steroids, diuretics and BiPAP at night. Reports significant improvement. Continuous overnight pulse ox had been ordered yesterday, unfortunately was not completed in an attempt to qualify patient for BiPAP at ischarge. Denies chest pain, palpitations or increase in shortness of breath. Maintaining O2 sats in the 90s on 4 L nasal cannula. Echo reported normal LV function, EF 55%, mild mitral regurgitation and tricuspid regurgitation. Continuous pulse ox overnight reordered, nursing staff notifying respiratory therapist; attempting to qualify patient for home BiPAP at [place]. Maintain nebulized bronchodilators, IV steroids, diuretics. Discharge planning in progress for tomorrow, pending final [place] recommendations and clearance per pulmonary. 07/14/2024 denies chest pain, palpitations or shortness of breath. Maintaining O2 in the high 90s on 4 L nasal cannula-baseline. Completed his overnight pulse oximetry, per pulmonary did not qualify for BiPAP. Patient will need home sleep study to qualify for BiPAP.Patient has been cleared by pulmonary and cardiology for discharge. Patient will be discharged home today in a stable condition with guarded prognosis. The impression and plan of care has been dictated as directed. : I performed a history and examination of this patient, discussed the same with the dictator. I agree with the dictator's note ,documented as a scribe. Any additional findings or plans will be noted. Patient Condition at Discharge: Stable Plan - Discharge Summary Discharge Rx Participant: No New Discharge Prescriptions: New Artificial Tears-Hypromellose [Artificial Tear Drops] 2 drops BOTH EYES QID PRN ml PRN Reason: Dry Eye(S) Atorvastatin [Lipitor] 40 mg PO HS #30 tab predniSONE 10 mg PO DIRECTED #30 tab Aspirin 81 mg PO DAILY #0 tab Furosemide [Lasix] 40 mg PO DAILY tab Continue acetaZOLAMIDE [Diamox] 250 mg PO BID #60 tab Ipratropium-Albuterol Nebulize [Duoneb 0.5 mg-3 mg/3 ml Soln] 3 ml INHALATION RT-QID PRN PRN Reason: Shortness Of Breath metFORMIN HCL [Glucophage] 500 mg PO BID Albuterol Sulfate [Albuterol Sulfate Hfa] 2 puff PO Q4H PRN PRN Reason: Shortness Of Breath Discontinued Losartan Potassium [Cozaar] 25 mg PO DAILY Potassium Chloride ER [K-Dur 10] 10 meq PO DAILY Furosemide [Lasix] 40 mg PO BID@0900,1600 #60 tab No Action Sildenafil Citrate 25 mg PO DAILY Discharge Medication List Sildenafil Citrate 25 mg PO DAILY 10/29/22 [History] acetaZOLAMIDE [Diamox] 250 mg PO BID #60 tab 03/15/24 [Rx] Albuterol Sulfate [Albuterol Sulfate Hfa] 2 puff PO Q4H PRN 07/09/24 [History] Ipratropium-Albuterol Nebulize [Duoneb 0.5 mg-3 mg/3 ml Soln] 3 ml INHALATION RT-QID PRN 07/09/24 [History] metFORMIN HCL [Glucophage] 500 mg PO BID 07/09/24 [History] Artificial Tears-Hypromellose [Artificial Tear Drops] 2 drops BOTH EYES QID PRN ml 07/14/24 [Rx] Aspirin 81 mg PO DAILY #0 tab 07/14/24 [Rx] Atorvastatin [Lipitor] 40 mg PO HS #30 tab 07/14/24 [Rx] Furosemide [Lasix] 40 mg PO DAILY tab 07/14/24 [Rx] predniSONE 10 mg PO DIRECTED #30 tab 07/14/24 [Rx] Follow up Appointment(s)/Referral(s): Yung Kearns MD [STAFF PHYSICIAN] - 07/28/24 9:45 am (With Dr. Dooley ) Yevgeniy Brantley MD [STAFF PHYSICIAN] - 07/21/24 9:30 am (In [facility] office) Mason Alfaro MD [STAFF PHYSICIAN] - 07/26/24 10:00 am () Patient Instructions/Handouts: Heart Failure (DC), COPD (Chronic Obstructive Pulmonary Disease) (DC) Activity/Diet/Wound Care/Special Instructions: Cozaar currently on hold secondary to soft blood pressures Discharge Disposition: HOME WITH HOME HEALTH SERVICES
== END 2024-07-14 14:24 | disposition home health service (06) | DRG 189 ==
LOC: EC 05:20 → 3SCARD 07:13 → 2SICU 13:58 → 3SCARD 07-10 11:43
PROVIDERS: ADMIT Family Medicine; ATTEND Family Medicine
PROC: 5A09357 Assistance with Respiratory Ventilation, Less than 24 Consecutive Hours, Continuous Positive Airway Pressure (ICD-10-PCS; principal; 2024-07-09)
DX: J96.22 Acute and chronic respiratory failure with hypercapnia (principal); G93.41 Metabolic encephalopathy; I50.33 Acute on chronic diastolic (congestive) heart failure; I27.20 Pulmonary hypertension, unspecified; J44.1 Chronic obstructive pulmonary disease with (acute) exacerbation; I11.0 Hypertensive heart disease with heart failure; E66.01 Morbid (severe) obesity due to excess calories; I08.1 Rheumatic disorders of both mitral and tricuspid valves; J96.21 Acute and chronic respiratory failure with hypoxia; E78.5 Hyperlipidemia, unspecified; G47.33 Obstructive sleep apnea (adult) (pediatric); I49.3 Ventricular premature depolarization; Z20.822 Contact with and (suspected) exposure to COVID-19; R73.03 Prediabetes; Z68.38 Body mass index [BMI] 38.0-38.9, adult; Z79.51 Long term (current) use of inhaled steroids; Z79.84 Long term (current) use of oral hypoglycemic drugs; Z79.899 Other long term (current) drug therapy; Z87.891 Personal history of nicotine dependence; Z99.81 Dependence on supplemental oxygen
CPT/HCPCS: 36415; 36600; 51702; 51798; 70450; 70496; 70498; 71045; 80048; 80053; 80061; 81001; 82550; 82803; 82805; 83605; 83735; 83880; 84145; 84484; 85025; 85379; 85610; 85730; 87040; 87449; 87636; 93005; 93308; 94640; 94660; 94760; 96365; 96366; 96367; 96372; 96375; 99291

== ENCOUNTER 2024-08-12 11:01 | Observation (INO) | payer BC ==
--- NOTE | 2024-08-12 11:35 | ED ---
Recheck HPI - General Source: patient, RN notes reviewed Mode of arrival: wheelchair Limitations: no limitations <Liberty Campos - Last Filed: 08/12/24 12:15> <Dmitriy Cleary - Last Filed: 08/12/24 13:59> - General Chief Complaint: Recheck/Abnormal Lab/Rx Stated Complaint: Abn labs Time Seen by Provider: 08/12/24 11:34 - History of Present Illness Initial Comments: Quick [id number] female with history of congestive heart failure and COPD on oxygen presenting for hypokalemia. Patient states he had labs drawn by [facility]RN yesterday and received a call that his potassium was 2.6. States he is currently asymptomatic. I spoke with Velma Roblero ([phone]) medic who cares for patient who states she noticed EKG changes yesterday with atrial fibrillation. Patient has no history of A-fib and is not on a blood thinner. Patient follows with Dr. Alfaro and Dr. Dooley. (Liberty Campos) This is a 64-year-old who presents to the emergency department with a past history of COPD and congestive heart failure and is on oxygen. Patient comes in because he was told his potassium was low. Patient states he is not having any new symptoms. Patient denies any chest pain or palpitations. Patient has not difficulty breathing or shortness of breath. Patient denies any fever chills or cough or patient has abdominal pain patient has nausea vomiting diarrhea. (Dmitriy Cleary) - Related Data Home Medications Medication Instructions Recorded Confirmed Sildenafil Citrate 25 mg PO DAILY 10/29/22 08/12/24 Albuterol Sulfate [Albuterol 2 puff PO RT-Q4H PRN 07/09/24 08/12/24 Sulfate Hfa] Ipratropium-Albuterol Nebulize 3 ml INHALATION RT-QID PRN 07/09/24 08/12/24 [Duoneb 0.5 mg-3 mg/3 ml Soln] metFORMIN HCL [Glucophage] 500 mg PO BID 07/09/24 08/12/24 Furosemide [Lasix] 40 mg PO BID 08/12/24 08/12/24 Potassium Chloride [Klor-Con M10] 10 meq PO BID 08/12/24 08/12/24 metOLazone 2.5 mg PO DAILY 08/12/24 08/12/24 Previous Rx's Medication Instructions Recorded acetaZOLAMIDE [Diamox] 250 mg PO BID #60 tab 03/15/24 Artificial Tears-Hypromellose 2 drops BOTH EYES QID PRN ml 07/14/24 [Artificial Tear Drops] Aspirin 81 mg PO DAILY #0 tab 07/14/24 Atorvastatin [Lipitor] 40 mg PO HS #30 tab 07/14/24 Allergies Allergy/AdvReac Type Severity Reaction Status Date / Time No Known Allergies Allergy Verified 08/12/24 13:47 Review of Systems ROS Other: All systems not noted in ROS Statement are negative. <Liberty Campos - Last Filed: 08/12/24 12:15> ROS Other: All systems not noted in ROS Statement are negative. <Dmitriy Cleary - Last Filed: 08/12/24 13:59> ROS Statement: Those systems with pertinent positive or pertinent negative responses have been documented in the HPI. Past Medical History Past Medical History: Heart Failure, COPD Additional Past Medical History / Comment(s): Chronic oxygen dependence on 3-5 L/m History of Any Multi-Drug Resistant Organisms: None Reported Past Surgical History: Hernia Repair Additional Past Surgical History / Comment(s): dental implants. Past Anesthesia/Blood Transfusion Reactions: No Reported Reaction Past Psychological History: No Psychological Hx Reported Smoking Status: Former smoker Past Alcohol Use History: Occasional Past Drug Use History: None Reported - Past Family History Father Additional Family Medical History / Comment(s): father and grandfather had heartattacks 60's. <Liberty Campos - Last Filed: 08/12/24 12:15> General Exam Limitations: no limitations <Liberty Campos - Last Filed: 08/12/24 12:15> <Dmitriy Cleary - Last Filed: 08/12/24 13:59> - General Exam Comments Initial Comments: Visual Physical Exam Vital signs reviewed General: Well-appearing, nontoxic, no acute distress. Head: Normocephalic, atraumatic Eyes: PERRLA, EOMI ENT: Airway patent Chest: Nonlabored breathing Skin: No visual rash, normal skin tone Neuro: Alert and oriented 3 Musculoskeletal: No gross abnormalities (Liberty Campos) GENERAL: Patient is well-developed and well-nourished. Patient is nontoxic and well- hydrated and is in no acute distress. ENT: Neck is soft and supple. No significant lymphadenopathy is noted. Oropharynx is clear. Moist mucous membranes. Neck has full range of motion without eliciting any pain. EYES: The sclera were anicteric and conjunctiva were pink and moist. Extraocular movements were intact and pupils were equal round and reactive to light. Eyelids were unremarkable. PULMONARY: Unlabored respirations. Good breath sounds bilaterally. No audible rales rhonchi or wheezing was noted. CARDIOVASCULAR: There is a regular rate and rhythm without any murmurs gallops or rubs. ABDOMEN: Soft and nontender with normal bowel sounds. SKIN: Skin is clear with no lesions or rashes and otherwise unremarkable. NEUROLOGIC: Patient is alert and oriented x3. Cranial nerves II through XII are grossly intact. Motor and sensory are also intact. Normal speech, volume and content. Symmetrical smile. MUSCULOSKELETAL: Normal extremities with adequate strength and full range of motion. No lower extremity swelling or edema. No calf tenderness. LYMPHATICS: No significant lymphadenopathy is noted PSYCHIATRIC: Normal psychiatric evaluation. (Dmitriy Cleary) Course Vital Signs 08/12/24 08/12/24 11:08 13:12 Temperature 97.8 F Pulse Rate 92 61 Respiratory 18 18 Rate Blood Pressure 106/62 121/71 O2 Sat by Pulse 90 L 93 L Oximetry Medical Decision Making - Lab Data Result diagrams: 08/12/24 11:47 <Liberty Campos - Last Filed: 08/12/24 12:15> - Lab Data Result diagrams: 08/12/24 11:47 08/12/24 11:47 <Dmitriy Cleary - Last Filed: 08/12/24 13:59> - Medical Decision Making I completed the quick note portion of this chart signed Liberty Campos PA-C (Liberty Campos) EKG is interpreted by myself. EKG shows atrial fibrillation at 89 bpm QRS is 126 QT interval 391 QTc is 438. Patient's EKG shows no ST segment elevation Was pt. sent in by a medical professional or institution ([facility], PROCESS TREATER, urgent care, hospital, or usp...) When possible be specific @ -No Did you speak to anyone other than the patient for history (EMS, parent, family, police, friend...)? What history was obtained from this source @ -No Did you review nursing and triage notes (agree or disagree)? Why? @ -I reviewed and agree with nursing and triage notes Were old charts reviewed (outside hosp., previous admission, EMS record, old EK G, old radiological studies, urgent care reports/EKG's, usp records)? Report findings @ -No old charts were reviewed Differential Diagnosis? @ -Hypokalemia, hemolysis on lab draw, hyperkalemia, diluted lab draw, this is not all-inclusive EKG interpreted by me (3pts min.). @ -As above X-rays interpreted by me (1pt min.). @ -None done CT interpreted by me (1pt min.). @ -None done U/S interpreted by me (1pt. min.). @ -None done What testing was considered but not performed or refused? (CT, X-rays, U/S, labs)? Why? @ -None What meds were considered but not given or refused? Why? @ -None Did you discuss the management of the patient with other professionals (professionals i.e. , PA, PROCESS TREATER, lab, RT, psych nurse, social science professor, data conversion analyst, teacher, training and development officer, pillowcase turner)? Give summary @ -I spoke with Dr. Balderrama he agreed to admit the patient admit the patient recommending orders Was smoking cessation discussed for >3mins.? @ -No Was critical care preformed (if so, how long)? @ -No Were there social determinants of health that impacted care today? How? (Homelessness, low income, unemployed, alcoholism, drug addiction, transportation, low edu. Level, literacy, decrease access to med. care, penitentiary, rehab)? @ -No Was there de-escalation of care discussed even if they declined (Discuss DNR or withdrawal of care, Hospice)? DNR status @ -No What co-morbidities impacted this encounter? (DM, HTN, Smoking, COPD, CAD, Cancer, CVA, ARF, Chemo, Hep., AIDS, mental health diagnosis, sleep apnea, morbid obesity)? @ -None Was patient admitted / discharged? Hospital course, mention meds given and route, prescriptions, significant lab abnormalities, going to OR and other pertinent info. @ -Received IV and oral potassium and will be admitted to Dr. Balderrama Undiagnosed new problem with uncertain prognosis? @ -No Drug Therapy requiring intensive monitoring for toxicity (Heparin, Nitro, I nsulin, Cardizem)? @ -No Were any procedures done? @ -No Diagnosis/symptom? @ -Hypokalemia Acute, or Chronic, or Acute on Chronic? @ -Acute Uncomplicated (without systemic symptoms) or Complicated (systemic symptoms)? @ -Complicated Side effects of treatment? @ -No Exacerbation, Progression, or Severe Exacerbation? @ -No Poses a threat to life or bodily function? How? (Chest pain, [place], [place], pneumonia, PE, COPD, DKA, ARF, appy, cholecystitis, CVA, Diverticulitis, Homicidal, Suicidal, threat to staff... and all critical care pts) @ -Yes this can lead to arrhythmias (Dmitriy Cleary) - Lab Data Lab Results 08/12/24 08/12/24 08/12/24 Range/Units 11:47 11:47 11:47 WBC 11.9 H (3.8-10.6) k/uL RBC 4.75 (4.30-5.90) m/uL Hgb 13.9 (13.0-17.5) gm/dL Hct 43.9 (39.0-53.0) % MCV 92.3 (80.0-100.0) fL MCH 29.3 (25.0-35.0) pg MCHC 31.7 (31.0-37.0) g/dL RDW 13.3 (11.5-15.5) % Plt Count 350 (150-450) k/uL MPV 7.5 Neutrophils % 80 % Lymphocytes % 10 % Monocytes % 6 % Eosinophils % 1 % Basophils % 0 % Neutrophils # 9.5 H (1.3-7.7) k/uL Lymphocytes # 1.2 (1.0-4.8) k/uL Monocytes # 0.7 (0-1.0) k/uL Eosinophils # 0.1 (0-0.7) k/uL Basophils # 0.1 (0-0.2) k/uL PT 10.3 (10.0-12.5) sec INR 0.9 (<1.2) APTT 24.5 (22.0-30.0) sec Sodium 130 L (137-145) mmol/L Potassium 2.8 L (3.5-5.1) mmol/L Chloride 73 L* (98-107) mmol/L Carbon Dioxide 42 H* (22-30) mmol/L Anion Gap 15 mmol/L BUN 51 H (9-20) mg/dL Creatinine 1.14 (0.66-1.25) mg/dL Est GFR (CKD-EPI)AfAm 79 (>60 ml/min/1.73 sqM) Est GFR (CKD-EPI)NonAf 68 (>60 ml/min/1.73 sqM) Glucose 266 H (74-99) mg/dL Calcium 9.0 (8.4-10.2) mg/dL Magnesium 1.9 (1.6-2.3) mg/dL Total Bilirubin 0.9 (0.2-1.3) mg/dL AST 40 (17-59) U/L ALT 36 (4-49) U/L Alkaline Phosphatase 113 (38-126) U/L Total Protein 7.5 (6.3-8.2) g/dL Albumin 4.4 (3.5-5.0) g/dL Disposition <Liberty Campos - Last Filed: 08/12/24 12:15> Time of Disposition: 13:59 <Dmitriy Cleary - Last Filed: 08/12/24 13:59> Clinical Impression: Hypokalemia Disposition: ADMITTED IP TO THIS HOSP Referrals: Vandana Wilkinson DO [Primary Care Provider] - 1-2 days
--- NOTE | 2024-08-12 11:45 | XR ---
EXAMINATION TYPE: XR chest 2V DATE OF EXAM: 08/12/2024 11:40 AM COMPARISON: Chest radiographs from 07/10/2024 CLINICAL INDICATION: Male, 64 years old with history of Chest Pain; TECHNIQUE: XR chest 2V Frontal and lateral views of the chest. FINDINGS: Lungs/Pleura: There is no evidence of pleural effusion, focal consolidation, or pneumothorax. Pulmonary vascularity: Unremarkable. Heart/mediastinum: Cardiomediastinal silhouette is unremarkable. Musculoskeletal: No acute osseous pathology. IMPRESSION: No acute cardiopulmonary disease/process. [facility], , 08/12/2024 11:43 AM
[2024-08-12 12:07] LABS: Basophils # (A) 0.1 k/uL (0-0.2); Basophils % (A) 0 %; Eosinophils # (A) 0.1 k/uL (0-0.7); Eosinophils % (A) 1 %; HCT 43.9 % (39.0-53.0); HGB 13.9 gm/dL (13.0-17.5); Lymphocytes # (A) 1.2 k/uL (1.0-4.8); Lymphocytes % (A) 10 %; MCH 29.3 pg (25.0-35.0); MCHC 31.7 g/dL (31.0-37.0); MCV 92.3 fL (80.0-100.0); Mean Platelet Volume 7.5; Monocytes # (A) 0.7 k/uL (0-1.0); Monocytes % (A) 6 %; Neutrophils # (A) 9.5 k/uL (1.3-7.7); Neutrophils % (A) 80 %; Platelet Count 350 k/uL (150-450); RBC 4.75 m/uL (4.30-5.90); RDW 13.3 % (11.5-15.5); WBC 11.9 k/uL (3.8-10.6)
[2024-08-12 12:18] LABS: ALT 36 U/L (4-49); African American GFR (CKD) 79 (>60 ml/min/1.73 sqM); Albumin 4.4 g/dL (3.5-5.0); Blood Urea Nitrogen 51 mg/dL (9-20); Glucose 266 mg/dL (74-99); Non-African American GFR(CKD) 68 (>60 ml/min/1.73 sqM); Sodium 130 mmol/L (137-145); Total Bilirubin 0.9 mg/dL (0.2-1.3); Total Protein 7.5 g/dL (6.3-8.2)
[2024-08-12 12:24] LABS: Anion Gap 15 mmol/L
[2024-08-12 12:26] LABS: AST 40 U/L (17-59); Alkaline Phosphatase 113 U/L (38-126); Chloride 73 mmol/L (98-107); Magnesium 1.9 mg/dL (1.6-2.3); Potassium 2.8 mmol/L (3.5-5.1)
[2024-08-12 12:27] LABS: Carbon Dioxide 42 mmol/L (22-30)
[2024-08-12 12:29] LABS: INR 0.9 (<1.2); Partial Thromboplastin Time 24.5 sec (22.0-30.0); Prothrombin Time 10.3 sec (10.0-12.5)
[2024-08-12] MEDS: POTASSIUM CHLORIDE 20 MEQ in WATER FOR INJECTION 1 100ML.BAG IVPB STA ×2 (14:17→16:14)
[2024-08-12] MEDS: POTASSIUM CHLORIDE ER 20 MEQ TAB.ER PO STA (14:20)
[2024-08-12] MEDS ORDERED: ARTIFICIAL TEARS-HYPROMELLOSE DROPS 15 ML BTL BOTH EYES PRN (14:55)
--- NOTE | 2024-08-12 14:56 | P.HPIM ---
History of Present Illness This is a pleasant 64 years old male who was recently discharged from the hospital about 2 weeks ago for acute hypoxia secondary to COPD exacerbation and acute diastolic CHF. He was discharged on oral Lasix 40 mg twice daily. He has a visiting nurse who checked his potassium at home and it was low at 2.6 so he was referred to the hospital. In the emergency room repeat potassium was 2.8 and replacement started Patient himself denies any specific symptoms no chest pain or dyspnea. No dizziness or weakness numbness. No specific GI/ symptoms He is not a smoker, does not drink alcohol. He is afebrile He is at home dose of 4 L oxygen via nasal cannula WBC 12.9 Sodium 130, potassium 2.8, carbon dioxide is 42. Creatinine 1.1 and glucose 266. Patient needs to be started on potassium upon discharge Continue monitoring and check labs in the morning Review of Systems Review of systems CONSTITUTIONAL: No fever, no malaise, no fatigue. HEENT: No recent visual problems or hearing problems. Denied any sore throat. CARDIOVASCULAR: No orthopnea, PND, no palpitations, no syncope. PULMONARY: No shortness of breath, no cough, no hemoptysis. GASTROINTESTINAL: No diarrhea, no nausea, no vomiting, no abdominal pain. Normoactive bowel sounds. NEUROLOGICAL: No headaches, no weakness, no numbness. HEMATOLOGICAL: Denies any bleeding or petechiae. GENITOURINARY: Denies any burning micturition, frequency, or urgency. MUSCULOSKELETAL/RHEUMATOLOGICAL: Denies any joint pain, swelling, or any muscle pain. ENDOCRINE: Denies any polyuria or polydipsia. Past Medical History Past Medical History: Heart Failure, COPD Additional Past Medical History / Comment(s): Chronic oxygen dependence on 3-5 L/m History of Any Multi-Drug Resistant Organisms: None Reported Past Surgical History: Hernia Repair Additional Past Surgical History / Comment(s): dental implants. Past Anesthesia/Blood Transfusion Reactions: No Reported Reaction Past Psychological History: No Psychological Hx Reported Smoking Status: Former smoker Past Alcohol Use History: Occasional Past Drug Use History: None Reported - Past Family History Father Additional Family Medical History / Comment(s): father and grandfather had heartattacks 60's. Medications and Allergies Home Medications Medication Instructions Recorded Confirmed Type Sildenafil Citrate 25 mg PO DAILY 10/29/22 08/12/24 History acetaZOLAMIDE [Diamox] 250 mg PO BID #60 tab 03/15/24 08/12/24 Rx Albuterol Sulfate [Albuterol 2 puff PO RT-Q4H PRN 07/09/24 08/12/24 History Sulfate Hfa] Ipratropium-Albuterol Nebulize 3 ml INHALATION RT-QID PRN 07/09/24 08/12/24 History [Duoneb 0.5 mg-3 mg/3 ml Soln] metFORMIN HCL [Glucophage] 500 mg PO BID 07/09/24 08/12/24 History Artificial Tears-Hypromellose 2 drops BOTH EYES QID PRN ml 07/14/24 08/12/24 Rx [Artificial Tear Drops] Aspirin 81 mg PO DAILY #0 tab 07/14/24 08/12/24 Rx Atorvastatin [Lipitor] 40 mg PO HS #30 tab 07/14/24 08/12/24 Rx Furosemide [Lasix] 40 mg PO BID 08/12/24 08/12/24 History Potassium Chloride [Klor-Con M10] 10 meq PO BID 08/12/24 08/12/24 History metOLazone 2.5 mg PO DAILY 08/12/24 08/12/24 History Allergies Allergy/AdvReac Type Severity Reaction Status Date / Time No Known Allergies Allergy Verified 08/12/24 13:47 Physical Exam Vitals: Vital Signs Temp Pulse Resp BP Pulse Ox 08/12/24 13:12 61 18 121/71 93 L 08/12/24 11:08 97.8 F 92 18 106/62 90 L Intake and Output 08/11/24 08/12/24 08/12/24 22:59 06:59 14:59 Other: Weight 126.099 kg GENERAL: The patient is alert and oriented x3, not in any acute distress. Well developed, well nourished. HEENT: Pupils are round and equally reacting to light. EOMI. No scleral icterus. No conjunctival pallor. Normocephalic, atraumatic. No pharyngeal erythema. No thyromegaly. CARDIOVASCULAR: S1 and S2 present. No murmurs, rubs, or gallops. PULMONARY: Chest is clear to auscultation, no wheezing , no crackles. ABDOMEN: Soft, nontender, nondistended, normoactive bowel sounds. No palpable organomegaly. MUSCULOSKELETAL: No joint swelling or deformity. EXTREMITIES: No cyanosis, clubbing, or pedal edema. NEUROLOGICAL: Gross neurological examination did not reveal any focal deficits. SKIN: No rashes. no petechiae. Results CBC & Chem 7: 08/12/24 11:47 08/12/24 11:47 Labs: Abnormal Lab Results - Last 24 Hours (Table) 08/12/24 08/12/24 Range/Units 11:47 11:47 WBC 11.9 H (3.8-10.6) k/uL Neutrophils # 9.5 H (1.3-7.7) k/uL Sodium 130 L (137-145) mmol/L Potassium 2.8 L (3.5-5.1) mmol/L Chloride 73 L* (98-107) mmol/L Carbon Dioxide 42 H* (22-30) mmol/L BUN 51 H (9-20) mg/dL Glucose 266 H (74-99) mg/dL Assessment and Plan Assessment: Asymptomatic hypokalemia secondary to Lasix Chronic diastolic CHF on oral Lasix Severe COPD with recent exacerbation. Currently no exacerbation Chronic hypoxic respiratory failure at home 3 to 4 L/min Pulmonary hypertension Essential hypertension Morbid obesity Previous smoker Plan: Replace potassium per protocol Replace magnesium Monitor level Recommend starting potassium upon discharge Keep checking potassium and magnesium as an outpatient Resume home medication Labs and medication were reviewed.. Continue same treatment. Continue with symptomatic treatment. Resume home medication. Monitor labs and vitals. DVT and GI prophylaxis. Further recommendations as per clinical course of the patient DVT prophylaxis: Subcutaneous heparin GI Prophylaxis: Pepcid
[2024-08-12] MEDS: MAGNESIUM SULFATE-D5W PMX 1 GM in DEXTROSE/WATER 1 100ML.BAG IVPB ONE (15:34)
[2024-08-12] MEDS: FUROSEMIDE 40 MG TAB PO SCH (15:38)
[2024-08-12] MEDS: MAGNESIUM OXIDE 400 MG TAB PO SCH (15:38)
[2024-08-12] MEDS: acetaZOLAMIDE 250 MG TAB PO SCH (22:38)
[2024-08-12] MEDS: ATORVASTATIN 40 MG TAB PO SCH (22:38)
[2024-08-12] MEDS: POTASSIUM CHLORIDE ER 20 MEQ TAB.ER PO SCH (22:38)
[2024-08-12] MEDS: metFORMIN 500 MG TAB PO SCH (22:38)
[2024-08-13] MEDS: ALBUTEROL HFA INHALER INHALATION PRN (08:28)
[2024-08-13] MEDS: SILDENAFIL CITRATE 25 MG PO SCH (08:46)
[2024-08-13] MEDS: metOLazone 2.5 MG TAB PO SCH (08:47)
[2024-08-13] MEDS: ASPIRIN 81 MG PO SCH (08:47)
[2024-08-13 10:33] LABS: Magnesium 2.2 mg/dL (1.5-2.4)
[2024-08-13 10:34] LABS: BUN/Creat Ratio 34.45 Ratio (12.00-20.00); Blood Urea Nitrogen 37.9 mg/dL (9.0-27.0); Carbon Dioxide 44.2 mmol/L (21.6-31.8); Chloride 83 mmol/L (96-109); Glucose 220 mg/dL (70-110); Potassium 2.6 mmol/L (3.5-5.5); Sodium 136 mmol/L (135-145)
[2024-08-13] MEDS: POTASSIUM CHLORIDE ER 20 MEQ TAB.ER PO SCH (11:47)
[2024-08-13 17:14] LABS: ALT 35 U/L (4-49); AST 38 U/L (17-59); African American GFR (CKD) 76 (>60 ml/min/1.73 sqM); Albumin 4.1 g/dL (3.5-5.0); Albumin/Globulin Ratio 1.5; Alkaline Phosphatase 100 U/L (38-126); Blood Urea Nitrogen 40 mg/dL (9-20); Calcium 9.1 mg/dL (8.4-10.2); Chloride 77 mmol/L (98-107); Globulin 2.7 g/dL; Glucose 283 mg/dL (74-99); Non-African American GFR(CKD) 65 (>60 ml/min/1.73 sqM); Potassium 2.9 mmol/L (3.5-5.1); Sodium 131 mmol/L (137-145); Total Bilirubin 0.5 mg/dL (0.2-1.3); Total Protein 6.8 g/dL (6.3-8.2)
[2024-08-13 17:20] LABS: Anion Gap 10 mmol/L
[2024-08-13 17:39] LABS: Carbon Dioxide 44 mmol/L (22-30)
[2024-08-13 17:40] LABS: Glucose,Whole Blood 339 mg/dL (70-110)
[2024-08-13] MEDS ORDERED: DEXTROSE 50% SYRINGE 50 ML IVP PRN ×2 (19:37)
[2024-08-13 20:12] LABS: Glucose,Whole Blood 267 mg/dL (70-110)
[2024-08-13] MEDS: INSULIN ASPART (NovoLOG) 100 UNIT/ML VIAL SQ SCH (21:59)
[2024-08-14 05:50] LABS: Glucose,Whole Blood 256 mg/dL (70-110)
[2024-08-14] MEDS ORDERED: IPRATROPIUM-ALBUTEROL 3 ML NEB INHALATION PRN (08:21)
[2024-08-14 08:30] LABS: African American GFR (CKD) 82 (>60 ml/min/1.73 sqM); Anion Gap 13 mmol/L; Blood Urea Nitrogen 38 mg/dL (9-20); Calcium 9.1 mg/dL (8.4-10.2); Chloride 77 mmol/L (98-107); Glucose 227 mg/dL (74-99); Non-African American GFR(CKD) 71 (>60 ml/min/1.73 sqM); Potassium 2.9 mmol/L (3.5-5.1); Sodium 130 mmol/L (137-145)
[2024-08-14 08:42] LABS: Carbon Dioxide 40 mmol/L (22-30)
[2024-08-14] MEDS: IPRATROPIUM-ALBUTEROL 3 ML NEB INHALATION SCH (11:06)
[2024-08-14 12:17] LABS: Glucose,Whole Blood 313 mg/dL (70-110)
[2024-08-14] MEDS ORDERED: Potassium Replacement Protocol 1 EACH MISC MISCELLANE PRN (13:54)
[2024-08-14] MEDS: POTASSIUM CHLORIDE ER 20 MEQ TAB.ER PO SCH ×2 (15:00→21:01)
[2024-08-14 17:30] LABS: Glucose,Whole Blood 237 mg/dL (70-110)
[2024-08-14 20:19] LABS: Glucose,Whole Blood 328 mg/dL (70-110)
--- NOTE | 2024-08-14 20:49 | P.PN ---
Subjective Progress Note Date: 08/14/24 64 years old male who was recently discharged from the hospital about 2 weeks ago for acute hypoxia secondary to COPD exacerbation and acute diastolic CHF. He was discharged on oral Lasix 40 mg twice daily. He has a visiting nurse who checked his potassium at home and it was low at 2.6 so he was referred to the hospital. In the emergency room repeat potassium was 2.8 and replacement started Patient himself denies any specific symptoms no chest pain or dyspnea. No dizziness or weakness numbness. No specific GI/ symptoms He is not a smoker, does not drink alcohol. He is afebrile He is at home dose of 4 L oxygen via nasal cannula WBC 12.9 Sodium 130, potassium 2.8, carbon dioxide is 42. Creatinine 1.1 and glucose 266. Patient needs to be started on potassium upon discharge Continue monitoring and check labs in the morning 08/14/2024 Patient seen and evaluated in room at bedside; denies any complaint of chest pain shortness of breath Vital signs are reviewed and remained stable Lab review shows potassium remaining low at 2.8; patient has been refusing IV potassium supplement; IV is ordered -Patient remains on Lasix 40 mg twice daily along with daily potassium supplement of 20 mg twice daily; we will increase oral supplement to 40 mg grams twice daily and repeat electrolytes Objective - Vital Signs Vital signs: Vital Signs Temp 97.7 F 08/14/24 07:00 Pulse 89 08/14/24 14:57 Resp 18 08/14/24 07:00 BP 109/70 08/14/24 07:00 Pulse Ox 95 08/14/24 07:47 FiO2 Intake & Output 08/13/24 08/14/24 08/14/24 18:59 06:59 18:59 Weight 126.099 kg Other: # Voids 2 5 # Bowel Movements 1 - Exam GENERAL: The patient is alert and oriented x3, not in any acute distress. Well developed, well nourished. HEENT: Pupils are round and equally reacting to light. EOMI. No scleral icterus. No conjunctival pallor. Normocephalic, atraumatic. No pharyngeal erythema. No thyromegaly. CARDIOVASCULAR: S1 and S2 present. No murmurs, rubs, or gallops. PULMONARY: Chest is clear to auscultation, no wheezing , no crackles. ABDOMEN: Soft, nontender, nondistended, normoactive bowel sounds. No palpable organomegaly. MUSCULOSKELETAL: No joint swelling or deformity. EXTREMITIES: No cyanosis, clubbing, or pedal edema. NEUROLOGICAL: Gross neurological examination did not reveal any focal deficits. SKIN: No rashes. no petechiae. - Labs CBC & Chem 7: 08/12/24 11:47 08/14/24 16:04 Labs: Abnormal Lab Results - Last 24 Hours (Table) 08/13/24 08/13/24 08/13/24 Range/Units 16:42 17:31 20:09 Sodium 131 L (137-145) mmol/L Potassium 2.9 L (3.5-5.1) mmol/L Chloride 77 L (98-107) mmol/L Carbon Dioxide 44 H* (22-30) mmol/L BUN 40 H (9-20) mg/dL Glucose 283 H (74-99) mg/dL POC Glucose (mg/dL) 339 H 267 H (70-110) mg/dL Hemoglobin A1c (<=6.0) % 08/14/24 08/14/24 08/14/24 Range/Units 05:47 06:33 06:33 Sodium 130 L (137-145) mmol/L Potassium 2.9 L (3.5-5.1) mmol/L Chloride 77 L (98-107) mmol/L Carbon Dioxide 40 H (22-30) mmol/L BUN 38 H (9-20) mg/dL Glucose 227 H (74-99) mg/dL POC Glucose (mg/dL) 256 H (70-110) mg/dL Hemoglobin A1c 8.0 H (<=6.0) % 08/14/24 Range/Units 12:16 Sodium (137-145) mmol/L Potassium (3.5-5.1) mmol/L Chloride (98-107) mmol/L Carbon Dioxide (22-30) mmol/L BUN (9-20) mg/dL Glucose (74-99) mg/dL POC Glucose (mg/dL) 313 H (70-110) mg/dL Hemoglobin A1c (<=6.0) % Assessment and Plan Assessment: Asymptomatic hypokalemia secondary to Lasix Chronic diastolic CHF on oral Lasix Severe COPD with recent exacerbation. Currently no exacerbation Chronic hypoxic respiratory failure at home 3 to 4 L/min Pulmonary hypertension Essential hypertension Morbid obesity Previous smoker Plan: Replace potassium per protocol Replace magnesium Monitor level Recommend starting potassium upon discharge Keep checking potassium and magnesium as an outpatient Resume home medication Labs and medication were reviewed.. Continue same treatment. Continue with symptomatic treatment. Resume home medication. Monitor labs and vitals. DVT and GI prophylaxis. Further recommendations as per clinical course of the patient DVT prophylaxis: Subcu
[2024-08-15 05:48] LABS: Glucose,Whole Blood 273 mg/dL (70-110)
[2024-08-15 10:18] LABS: BUN/Creat Ratio 33.09 Ratio (12.00-20.00); Blood Urea Nitrogen 36.4 mg/dL (9.0-27.0); Calcium 9.1 mg/dL (8.7-10.3); Carbon Dioxide 38.7 mmol/L (21.6-31.8); Chloride 84 mmol/L (96-109); Glucose 255 mg/dL (70-110); Potassium 3.1 mmol/L (3.5-5.5); Sodium 137 mmol/L (135-145)
[2024-08-15 12:42] LABS: Glucose,Whole Blood 247 mg/dL (70-110)
[2024-08-15] MEDS: POTASSIUM CHLORIDE ER 20 MEQ TAB.ER PO STA (15:39)
[2024-08-15] MEDS: POTASSIUM CHLORIDE 20 MEQ in WATER FOR INJECTION 1 100ML.BAG IVPB STA (15:45)
[2024-08-15 17:22] LABS: Glucose,Whole Blood 244 mg/dL (70-110)
[2024-08-15] MEDS: metFORMIN 850 MG TAB PO SCH (17:29)
--- NOTE | 2024-08-15 17:51 | P.PN ---
Subjective Progress Note Date: 08/15/24 64 years old male who was recently discharged from the hospital about 2 weeks ago for acute hypoxia secondary to COPD exacerbation and acute diastolic CHF. He was discharged on oral Lasix 40 mg twice daily. He has a visiting nurse who checked his potassium at home and it was low at 2.6 so he was referred to the hospital. In the emergency room repeat potassium was 2.8 and replacement started Patient himself denies any specific symptoms no chest pain or dyspnea. No dizziness or weakness numbness. No specific GI/ symptoms He is not a smoker, does not drink alcohol. He is afebrile He is at home dose of 4 L oxygen via nasal cannula WBC 12.9 Sodium 130, potassium 2.8, carbon dioxide is 42. Creatinine 1.1 and glucose 266. Patient needs to be started on potassium upon discharge Continue monitoring and check labs in the morning 08/14/2024 Patient seen and evaluated in room at bedside; denies any complaint of chest pain shortness of breath Vital signs are reviewed and remained stable Lab review shows potassium remaining low at 2.8; patient has been refusing IV potassium supplement; IV is ordered -Patient remains on Lasix 40 mg twice daily along with daily potassium supplement of 20 mg twice daily; we will increase oral supplement to 40 mg grams twice daily and repeat electrolytes 08/15/2024 Patient is seen and evaluated in room at bedside; remains noncompliant with recommendations and continues to refuse IV potassium replacement Vital signs are reviewed and stable Labs are reviewed which reveal sodium 138, potassium potassium remains low at 3.1; patient refused IV potassium infusion and was given 40 mEq p.o. per protocol; repeat potassium level remains low at 3.1; potassium supplement has been increased to 40 mEq twice daily; we will give another extra dose of 40 mEq p.o. x 1 -We will repeat electrolytes in next 24 hours; given current potassium supplement of 40 mEq twice daily, will recommend adding Aldactone if potassium level remains low -Possible discharge in next 24 hours if potassium is stable Objective - Vital Signs Vital signs: Vital Signs Temp 97.5 F L 08/15/24 07:00 Pulse 88 08/15/24 09:28 Resp 18 08/15/24 07:00 BP 103/71 08/15/24 07:00 Pulse Ox 97 08/15/24 07:00 FiO2 Intake & Output 02/08/15/24 08/15/24 18:59 06:59 18:59 Intake Total 298 Balance 298 Intake: Oral 298 Other: # Voids 6 4 # Bowel Movements 1 1 - Exam GENERAL: The patient is alert and oriented x3, not in any acute distress. Well developed, well nourished. HEENT: Pupils are round and equally reacting to light. EOMI. No scleral icterus. No conjunctival pallor. Normocephalic, atraumatic. No pharyngeal erythema. No thyromegaly. CARDIOVASCULAR: S1 and S2 present. No murmurs, rubs, or gallops. PULMONARY: Chest is clear to auscultation, no wheezing , no crackles. ABDOMEN: Soft, nontender, nondistended, normoactive bowel sounds. No palpable organomegaly. MUSCULOSKELETAL: No joint swelling or deformity. EXTREMITIES: No cyanosis, clubbing, or pedal edema. NEUROLOGICAL: Gross neurological examination did not reveal any focal deficits. SKIN: No rashes. no petechiae. - Labs CBC & Chem 7: 08/12/24 11:47 08/15/24 11:44 Labs: Abnormal Lab Results - Last 24 Hours (Table) 08/14/24 08/14/24 08/14/24 Range/Units 06:33 16:04 17:28 Potassium 2.8 L (3.5-5.1) mmol/L Chloride (96-109) mmol/L Carbon Dioxide (21.6-31.8) mmol/L Anion Gap (4.00-12.00) mmol/L BUN (9.0-27.0) mg/dL BUN/Creatinine Ratio (12.00-20.00) Ratio Glucose (70-110) mg/dL POC Glucose (mg/dL) 237 H (70-110) mg/dL Hemoglobin A1c 8.0 H (<=6.0) % 08/14/24 08/14/24 08/15/24 Range/Units 20:12 22:47 05:37 Potassium 3.1 L 3.1 L (3.5-5.1) mmol/L Chloride 84 L (96-109) mmol/L Carbon Dioxide 38.7 H (21.6-31.8) mmol/L Anion Gap 14.30 H (4.00-12.00) mmol/L BUN 36.4 H (9.0-27.0) mg/dL BUN/Creatinine Ratio 33.09 H (12.00-20.00) Ratio Glucose 255 H (70-110) mg/dL POC Glucose (mg/dL) 328 H (70-110) mg/dL Hemoglobin A1c (<=6.0) % 08/15/24 08/15/24 Range/Units 05:46 11:44 Potassium 3.1 L (3.5-5.1) mmol/L Chloride (96-109) mmol/L Carbon Dioxide (21.6-31.8) mmol/L Anion Gap (4.00-12.00) mmol/L BUN (9.0-27.0) mg/dL BUN/Creatinine Ratio (12.00-20.00) Ratio Glucose (70-110) mg/dL POC Glucose (mg/dL) 273 H (70-110) mg/dL Hemoglobin A1c (<=6.0) % Assessment and Plan Assessment: Asymptomatic hypokalemia secondary to Lasix Chronic diastolic CHF on oral Lasix Severe COPD with recent exacerbation. Currently no exacerbation Chronic hypoxic respiratory failure at home 3 to 4 L/min Pulmonary hypertension Essential hypertension Morbid obesity Previous smoker Plan: Replace potassium per protocol Replace magnesium Monitor level Recommend starting potassium upon discharge Keep checking potassium and magnesium as an outpatient Resume home medication Labs and medication were reviewed.. Continue same treatment. Continue with symptomatic treatment. Resume home medication. Monitor labs and vitals. DVT and GI prophylaxis. Further recommendations as per clinical course of the patient DVT prophylaxis: Subcu
[2024-08-15 20:10] LABS: Glucose,Whole Blood 226 mg/dL (70-110)
[2024-08-15 23:57] LABS: Magnesium 1.9 mg/dL (1.6-2.3)
[2024-08-16] MEDS: MAGNESIUM OXIDE 400 MG TAB PO SCH (00:04)
--- NOTE | 2024-08-16 03:37 | P.CNPUL ---
History of Present Illness Consult date: 08/16/24 Requesting physician: Elvi Bartlett Reason for consult: COPD Chief complaint: Abnormal labs History of present illness: Patient is a 64-year-old male with past medical history significant for COPD, pulmonary hypertension, former tobacco smoker. Of note, recently hospitalized approximately 1 month ago for an acute COPD exacerbation. More recently, patient had some outpatient labs drawn, significant for severe hypokalemia with a potassium of 2.6. Admitted to the hospital back on 08/12/2024 for IV potassium replacement. Most recent potassium up to 3. He was taking Lasix 40 mg twice a day on an outpatient basis. As far as patient's COPD, this has remained stable. He is normally oxygen dependent on 3 to 4 L 20/01. He denies any worsening of his chronic shortness of breath. Denies any increased coughing, sputum amount or purulence, hemoptysis, chest pain. Denies any fevers or chills. Denies any previous sick contacts. Does endorse some lower extremity swelling, bilaterally. He does follow in the pulmonary office with Dr. Dooley. States he does have a follow-up appointment this week, and a home sleep study is reportedly scheduled. Patient currently being evaluated on the medical floor. Alert and oriented without signs of CO2 narcosis. He is resting comfortably in the bedside recliner on 3 L/min nasal cannula. Most recent CMP includes a sodium 137, potassium 3, chloride 84, serum bicarb 39, BUN 36, creatinine 1.1, glucose 255. Magnesium 1.9. Continues on Lasix 40 mg twice daily. He is refusing IV potassium replacement, but is okay with orals. Most recent available chest x-ray from this admission did not show any acute cardiopulmonary process. Current vital signs temperature 97.3 F, heart rate 65 bpm, blood pressure 121/66 mmHg, nontachypneic, SpO2 96% on above-mentioned 3 L/min nasal cannula. Review of Systems Constitutional: Reports fatigue, Reports weight gain, Denies chills, Denies fever, Denies poor appetite, Denies weight loss Ears, nose, mouth and throat: Denies headache, Denies nasal congestion, Denies nasal discharge, Denies post-nasal drip, Denies sinus pain, Denies sinus pressure, Denies sore throat Cardiovascular: Reports dyspnea on exertion, Reports leg edema, Denies chest pain, Denies lightheadedness, Denies orthopnea, Denies palpitations, Denies paroxysmal nocturnal dyspnea, Denies syncope Respiratory: Reports as per HPI Gastrointestinal: Denies abdominal pain, Denies constipation, Denies diarrhea, Denies nausea, Denies vomiting Genitourinary: Denies dysuria Musculoskeletal: Denies limitation of motion Integumentary: Denies rash Neurological: Denies seizures, Denies syncope Psychiatric: Denies anxiety, Denies depression Past Medical History Past Medical History: Heart Failure, COPD, Diabetes Mellitus Additional Past Medical History / Comment(s): Chronic oxygen dependence on 3-5 L/m History of Any Multi-Drug Resistant Organisms: None Reported Past Surgical History: Hernia Repair, Tonsillectomy Additional Past Surgical History / Comment(s): dental implants. Past Anesthesia/Blood Transfusion Reactions: No Reported Reaction Past Psychological History: No Psychological Hx Reported Smoking Status: Former smoker Past Alcohol Use History: Occasional Additional Past Alcohol Use History / Comment(s): 1 beer a month Past Drug Use History: None Reported - Past Family History Father Additional Family Medical History / Comment(s): father and grandfather had heartattacks 60's. Medications and Allergies Home Medications Medication Instructions Recorded Confirmed Type Sildenafil Citrate 25 mg PO DAILY 10/29/22 08/12/24 History Albuterol Sulfate [Albuterol 2 puff PO RT-Q4H PRN 07/09/24 08/12/24 History Sulfate Hfa] Ipratropium-Albuterol Nebulize 3 ml INHALATION RT-QID PRN 07/09/24 08/12/24 History [Duoneb 0.5 mg-3 mg/3 ml Soln] metFORMIN HCL [Glucophage] 500 mg PO BID 07/09/24 08/12/24 History Artificial Tears-Hypromellose 2 drops BOTH EYES QID PRN ml 07/14/24 08/12/24 Rx [Artificial Tear Drops] Aspirin 81 mg PO DAILY #0 tab 07/14/24 08/12/24 Rx Atorvastatin [Lipitor] 40 mg PO HS #30 tab 07/14/24 08/12/24 Rx Furosemide [Lasix] 40 mg PO BID 08/12/24 08/12/24 History Magnesium Oxide [Mag-Ox] 400 mg PO BID 2 Days #4 tab 02/17/25 Rx Potassium Chloride ER [K-Dur 20] 20 meq PO BID 10 Days #20 tab 08/16/24 Rx Allergies Allergy/AdvReac Type Severity Reaction Status Date / Time No Known Allergies Allergy Verified 08/12/24 13:47 Physical Exam Vitals: Vital Signs Temp Pulse Pulse Resp BP Pulse Ox 08/16/24 01:53 97.3 F L 65 19 121/66 96 08/15/24 21:46 100 08/15/24 19:50 88 08/15/24 19:41 80 08/15/24 19:16 97.3 F L 100 19 107/67 95 08/15/24 17:31 14 95 08/15/24 16:51 86 08/15/24 16:39 85 08/15/24 15:00 97.8 F 87 18 101/67 96 08/15/24 13:04 87 08/15/24 12:53 85 08/15/24 09:28 88 08/15/24 09:15 86 08/15/24 07:00 97.5 F L 83 18 103/71 97 Intake and Output 08/15/24 08/15/24 08/16/24 14:59 22:59 06:59 Intake Total 821 339 Balance 821 339 Intake: Oral 821 339 Other: # Voids 5 2 GENERAL EXAM: Alert, 64-year-old obese male, sitting up in the bedside recliner, comfortable in no apparent distress. HEAD: Normocephalic and atraumatic EYES: Normal reaction of pupils, equal size. NOSE: Clear with pink turbinates. THROAT: No erythema or exudates. NECK: No masses, no JVD. CHEST: No chest wall deformity. LUNGS: Equal air entry with no crackles, wheeze, rhonchi or dullness. On 3 L/min nasal cannula. No conversational dyspnea or accessory muscle use.. CVS: S1 and S2 normal with no audible murmur, regular rhythm. No extra heart sounds ABDOMEN: No hepatosplenomegaly, active bowel sounds, no guarding or rigidity. SPINE: No scoliosis or deformity SKIN: No rashes CENTRAL NERVOUS SYSTEM: No focal deficits, tone is normal in all 4 extremities. EXTREMITIES: There is 1-2+ bilateral lower extremity pitting edema. No clubbing or cyanosis. Peripheral pulses are intact. Results - Laboratory Findings CBC and BMP: 08/12/24 11:47 08/16/24 05:17 PT/INR, D-dimer PT 10.3 sec (10.0-12.5) 08/12/24 11:47 INR 0.9 (<1.2) 08/12/24 11:47 Abnormal lab findings: Abnormal Labs 08/12/24 08/12/24 08/13/24 11:47 11:47 06:55 WBC 11.9 H Neutrophils # 9.5 H Sodium 130 L Potassium 2.8 L 2.6 A* Chloride 73 L* 83 L Carbon Dioxide 42 H* 44.2 A* Anion Gap BUN 51 H 37.9 H BUN/Creatinine Ratio 34.45 H Glucose 266 H 220 H POC Glucose (mg/dL) Hemoglobin A1c 08/13/24 08/13/24 08/13/24 16:42 17:31 20:09 WBC Neutrophils # Sodium 131 L Potassium 2.9 L Chloride 77 L Carbon Dioxide 44 H* Anion Gap BUN 40 H BUN/Creatinine Ratio Glucose 283 H POC Glucose (mg/dL) 339 H 267 H Hemoglobin A1c 08/14/24 08/14/24 08/14/24 05:47 06:33 06:33 WBC Neutrophils # Sodium 130 L Potassium 2.9 L Chloride 77 L Carbon Dioxide 40 H Anion Gap BUN 38 H BUN/Creatinine Ratio Glucose 227 H POC Glucose (mg/dL) 256 H Hemoglobin A1c 8.0 H 08/14/24 08/14/24 08/14/24 12:16 16:04 17:28 WBC Neutrophils # Sodium Potassium 2.8 L Chloride Carbon Dioxide Anion Gap BUN BUN/Creatinine Ratio Glucose POC Glucose (mg/dL) 313 H 237 H Hemoglobin A1c 08/14/24 08/14/24 08/15/24 20:12 22:47 05:37 WBC Neutrophils # Sodium Potassium 3.1 L 3.1 L Chloride 84 L Carbon Dioxide 38.7 H Anion Gap 14.30 H BUN 36.4 H BUN/Creatinine Ratio 33.09 H Glucose 255 H POC Glucose (mg/dL) 328 H Hemoglobin A1c 08/15/24 08/15/24 08/15/24 05:46 11:44 12:41 WBC Neutrophils # Sodium Potassium 3.1 L Chloride Carbon Dioxide Anion Gap BUN BUN/Creatinine Ratio Glucose POC Glucose (mg/dL) 273 H 247 H Hemoglobin A1c 08/15/24 08/15/2408/15/25 17:20 20:08 23:08 WBC Neutrophils # Sodium Potassium 3.0 L Chloride Carbon Dioxide Anion Gap BUN BUN/Creatinine Ratio Glucose POC Glucose (mg/dL) 244 H 226 H Hemoglobin A1c - Diagnostic Findings Chest x-ray: image reviewed Assessment and Plan Assessment: Severe hypokalemia, being replaced, most recent potassium is up to 3 mmol/L Severe COPD, with an FEV1 45% of predicted, stable and inactive Chronic hypoxemic respiratory failure, maintained on 3 to 4 L nasal cannula 20/01 History of heart failure preserved ejection fraction History of pulmonary hypertension History of systemic hypertension History of hyperlipidemia Morbid obesity, with a BMI of 41.1 kg/m Former tobacco dependence Plan: Continues to receive potassium replacement Continues on Lasix 40 mg p.o. twice daily COPD is stable and inactive Currently on his standard 3 to 4 L/min nasal cannula Resume COPD maintenance medications Reportedly, does have a follow-up appointment scheduled this week in the office with Dr. Dooley; as well as, sleep study to evaluate for JASON I have personally seen and examined the patient, performed the documentation and the assessment and plan as written. Number of minutes spent on the visit:20 Patient joint evaluation that was done along with the nurse practitioner. The patient was seen for COPD. His potassium level is being replaced for now. Clinically stable. Overall condition is stable. The patient can be potentially discharged home to be followed up on outpatient basis to the pulmonary clinic. No additional recommendations were made. This evaluation was done and 30 minutes. Time with Patient: Greater than 30
[2024-08-16 05:37] LABS: Glucose,Whole Blood 296 mg/dL (70-110)
[2024-08-16] MEDS: SYMBICORT 160-4.5 MCG INHALER INHALATION SCH (06:01)
[2024-08-16 07:56] VITALS: RESP 16
[2024-08-16 08:51] LABS: BUN/Creat Ratio 29.77 Ratio (12.00-20.00); Blood Urea Nitrogen 38.7 mg/dL (9.0-27.0); Calcium 9.4 mg/dL (8.7-10.3); Carbon Dioxide 37.4 mmol/L (21.6-31.8); Chloride 82 mmol/L (96-109); Glucose 234 mg/dL (70-110); Potassium 3.2 mmol/L (3.5-5.5); Sodium 134 mmol/L (135-145)
[2024-08-16 11:00] LABS: Magnesium 2.1 mg/dL (1.5-2.4)
[2024-08-16 12:14] LABS: Glucose,Whole Blood 251 mg/dL (70-110)
[2024-08-16 14:32] VITALS: BP 100/61; TEMP 98
[2024-08-16] MEDS: POTASSIUM CHLORIDE ER 20 MEQ TAB.ER PO STA (14:39)
[2024-08-16 15:11] VITALS: PULSE 80
[2024-08-16] MEDS ORDERED: POTASSIUM CHLORIDE ER 20 MEQ TAB.ER PO SCH (21:00)
--- NOTE | 2024-08-16 22:09 | P.DS ---
Providers Date of admission: 08/12/24 14:01 Attending physician: Fam Balderrama MD Consults: 08/15/24 15:26 Consult Physician Routine Consulting Provider: Ed Dooley Consult Reason/Comments: copd, known Do you want consulting provider notified?: Yes Primary care physician: Vandana Wilkinson Hospital Course: Diagnoses: Asymptomatic intractable hypokalemia secondary to 3 diuretics. Improved upon discharge Chronic diastolic CHF on oral Lasix Severe COPD with recent exacerbation. Currently no exacerbation Chronic hypoxic respiratory failure at home 3 to 4 L/min Pulmonary hypertension Essential hypertension Morbid obesity Previous smoker Hospital course: 64 years old male who was recently discharged from the hospital about 2 weeks ago for acute hypoxia secondary to COPD exacerbation and acute diastolic CHF. He was discharged on oral Lasix 40 mg twice daily. He has a visiting nurse who checked his potassium at home and it was low at 2.6 so he was referred to the hospital. In the emergency room repeat potassium was 2.8 and replacement started Patient spent 5 days in the hospital and is potassium remains on the low side. At home regimen he was taking oral Lasix 40 mg twice daily, metolazone 2.5 mg once daily and acetazolamide to 50 mg twice daily. Also he was on oral potassium chloride 10 milliequivalent twice daily. This morning patient was adamant to go home today. His potassium was 3.2 which was replaced as appropriate. I offered to recheck his potassium before he leaves however he declined he does not want to go home. Patient diuretic regiment was adjusted. He was kept on oral Lasix 40 mg twice daily however we discontinued his metolazone and acetazolamide. Also increase his potassium dose to 20 mEq twice daily. A follow-up Appointment made for him with his PCP. He sees a nurse practitioner at Dr. Wilkinson Shel[place] office in his city of residence but when I called her office the respective canal is off for the whole week as an alternative they referred him to an appointment with nurse practitioner Michel Prince on 08/18 at the [place] office at 1 PM, patient informed of this recommendation and he agrees to drive to [place] office on the appointment date. I spoke with FLAQUITA Skinner and I discussed the case with her with the recommendation to check his potassium level in 2 days and she kindly took notes of this and she is going to follow-up with the patient Other than that patient denies any other new complaints He is very eager to go home today Problems and management plan were discussed with the patient and he verbalized understanding and acceptance Patient was found stable and can be discharged home in guarded prognosis however he needs follow-up as an outpatient. Patient was instructed to follow up with PCP within one week and patient agrees Pulmonary team evaluated the patient and he is motivated to follow-up with Dr. Dooley office for pulmonary function test and contact information provided for him Physical exam -Gen: patient is a AAOx3, no distress. Morbidly obese CVS: S1-S2, RRR, no murmur Lungs: B/L CTA, no wheezing Abdomen: soft, no distention, no tenderness, positive bowel sounds Extremity: no leg edema or induration Time spent more than 35 minutes Plan - Discharge Summary Discharge Rx Participant: Yes New Discharge Prescriptions: New Magnesium Oxide [Mag-Ox] 400 mg PO BID 2 Days #4 tab Potassium Chloride ER [K-Dur 20] 20 meq PO BID 10 Days #20 tab Continue Sildenafil Citrate 25 mg PO DAILY Ipratropium-Albuterol Nebulize [Duoneb 0.5 mg-3 mg/3 ml Soln] 3 ml INHALATION RT-QID PRN PRN Reason: Shortness Of Breath Artificial Tears-Hypromellose [Artificial Tear Drops] 2 drops BOTH EYES QID PRN ml PRN Reason: Dry Eye(S) Atorvastatin [Lipitor] 40 mg PO HS #30 tab Furosemide [Lasix] 40 mg PO BID metFORMIN HCL [Glucophage] 500 mg PO BID Albuterol Sulfate [Albuterol Sulfate Hfa] 2 puff PO RT-Q4H PRN PRN Reason: Shortness Of Breath Aspirin 81 mg PO DAILY #0 tab Discontinued acetaZOLAMIDE [Diamox] 250 mg PO BID #60 tab Potassium Chloride [Klor-Con M10] 10 meq PO BID metOLazone 2.5 mg PO DAILY Discharge Medication List Sildenafil Citrate 25 mg PO DAILY 10/29/22 [History] Albuterol Sulfate [Albuterol Sulfate Hfa] 2 puff PO RT-Q4H PRN 07/09/24 [History] Ipratropium-Albuterol Nebulize [Duoneb 0.5 mg-3 mg/3 ml Soln] 3 ml INHALATION RT-QID PRN 07/09/24 [History] metFORMIN HCL [Glucophage] 500 mg PO BID 07/09/24 [History] Artificial Tears-Hypromellose [Artificial Tear Drops] 2 drops BOTH EYES QID PRN ml 07/14/24 [Rx] Aspirin 81 mg PO DAILY #0 tab 07/14/24 [Rx] Atorvastatin [Lipitor] 40 mg PO HS #30 tab 07/14/24 [Rx] Furosemide [Lasix] 40 mg PO BID 08/12/24 [History] Magnesium Oxide [Mag-Ox] 400 mg PO BID 2 Days #4 tab 08/16/24 [Rx] Potassium Chloride ER [K-Dur 20] 20 meq PO BID 10 Days #20 tab 08/16/24 [Rx] Follow up Appointment(s)/Referral(s): Vandana Wilkinson DO [Primary Care Provider] - 08/18/24 1:00 pm (michel TREVINO) Ed Dooley DO [Doctor of Osteopathic Medicine] - 1 Week Ambulatory/Diagnostic Orders: Basic Metabolic Panel [LAB.AMB] Location: None Selected Patient Instructions/Handouts: Hypokalemia (DC) Activity/Diet/Wound Care/Special Instructions: heart healthy diet hold lasix dose tonight follow up with your doctor and nurse practitioner Michel Prince with your appointment this coming Friday 08/18 to check your potassium and creatinine levels. Activity is restricted till you see your doctor Discharge Disposition: HOME SELF-CARE
== END 2024-08-16 16:04 | disposition home or self-care (01) ==
LOC: EC 11:01 → 6NMEDSUR 14:01
PROVIDERS: ADMIT Internal Medicine; ATTEND Internal Medicine
DX: E87.6 Hypokalemia (principal); T50.1X5A Adverse effect of loop [high-ceiling] diuretics, initial encounter; T50.2X5A Adverse effect of carbonic-anhydrase inhibitors, benzothiadiazides and other diuretics, initial encounter; I11.0 Hypertensive heart disease with heart failure; I50.33 Acute on chronic diastolic (congestive) heart failure; I48.91 Unspecified atrial fibrillation; J96.11 Chronic respiratory failure with hypoxia; I27.20 Pulmonary hypertension, unspecified; J44.9 Chronic obstructive pulmonary disease, unspecified; E78.5 Hyperlipidemia, unspecified; Z99.81 Dependence on supplemental oxygen; E66.01 Morbid (severe) obesity due to excess calories; Z68.41 Body mass index [BMI] 40.0-44.9, adult; Z79.84 Long term (current) use of oral hypoglycemic drugs; Z79.82 Long term (current) use of aspirin; Z79.899 Other long term (current) drug therapy; Z87.891 Personal history of nicotine dependence; Z91.148 Patient's other noncompliance with medication regimen for other reason
CPT/HCPCS: 96365 ×2; 96366; 99285; 36415; 94640 ×7; 94760 ×3; 93005 ×2; 80053 ×2; 80048 ×4; 83735 ×4; 84132 ×2; 85025; 85610; 85730; 83036; 71046; G0378 ×5; J3480; J3475

== ENCOUNTER 2024-08-29 19:43 | Inpatient (IN) | payer BC ==
--- NOTE | 2024-08-29 20:01 | ED ---
SOB HPI - General Chief Complaint: Shortness of Breath Stated Complaint: TOM, water retention Time Seen by Provider: 08/29/24 19:59 Source: patient, RN notes reviewed, old records reviewed Mode of arrival: ambulatory Limitations: no limitations - History of Present Illness Initial Comments: This is a 64-year-old male to the ER for evaluation today. Patient presents today for evaluation of severe shortness of breath with dyspnea patient has history of COPD on oxygen and states that he cannot catch his breath he would normally wears home O2 and increase his oxygen requirement today is still remains short of breath. No fevers. No travel no sick contacts no chest pain patient does feel he is having abdominal pain and his belly is bloated and more painful than normal MD Complaint: shortness of breath, cough, "asthma attack" -: hour(s) Severity: moderate Severity scale (1-10): 7 Consistency: constant Improves With: nothing Known History Of: COPD, congestive heart failure Context: recent URI, anxiety, recent illness Associated Symptoms: chest pain, pain with inspiration, cough, sputum production Treatments Prior to Arrival: none - Related Data Home Medications Medication Instructions Recorded Confirmed Sildenafil Citrate 25 mg PO DAILY 10/29/22 08/30/24 Albuterol Sulfate [Albuterol 2 puff PO RT-Q4H PRN 07/09/24 08/30/24 Sulfate Hfa] Ipratropium-Albuterol Nebulize 3 ml INHALATION RT-QID PRN 07/09/24 08/30/24 [Duoneb 0.5 mg-3 mg/3 ml Soln] metFORMIN HCL [Glucophage] 500 mg PO BID 07/09/24 08/30/24 Furosemide [Lasix] 40 mg PO BID 08/12/24 08/30/24 Previous Rx's Medication Instructions Recorded Artificial Tears-Hypromellose 2 drops BOTH EYES QID PRN ml 07/14/24 [Artificial Tear Drops] Aspirin 81 mg PO DAILY #0 tab 07/14/24 Atorvastatin [Lipitor] 40 mg PO HS #30 tab 07/14/24 Magnesium Oxide [Mag-Ox] 400 mg PO BID 2 Days #4 tab 08/16/24 Potassium Chloride ER [K-Dur 20] 20 meq PO BID 10 Days #20 tab 08/16/24 Metoprolol Tartrate [Lopressor] 12.5 mg PO BID 30 Days #60 tab 09/04/24 predniSONE 10 mg PO DAILY 8 Days #20 tab 09/04/24 Allergies Allergy/AdvReac Type Severity Reaction Status Date / Time No Known Allergies Allergy Verified 08/30/24 09:02 Review of Systems ROS Statement: Those systems with pertinent positive or pertinent negative responses have been documented in the HPI. ROS Other: All systems not noted in ROS Statement are negative. Past Medical History Past Medical History: Heart Failure, COPD, Diabetes Mellitus Additional Past Medical History / Comment(s): Chronic oxygen dependence on 3-5 L/m History of Any Multi-Drug Resistant Organisms: None Reported Past Surgical History: Hernia Repair, Tonsillectomy Additional Past Surgical History / Comment(s): dental implants. Past Anesthesia/Blood Transfusion Reactions: No Reported Reaction Past Psychological History: No Psychological Hx Reported Smoking Status: Former smoker Past Alcohol Use History: Occasional Past Drug Use History: None Reported - Past Family History Father Additional Family Medical History / Comment(s): father and grandfather had heartattacks 60's. General Exam Limitations: no limitations General appearance: anxious, in distress Head exam: Present: atraumatic, normocephalic, normal inspection Eye exam: Present: normal appearance, PERRL, EOMI. Absent: scleral icterus, conjunctival injection, periorbital swelling ENT exam: Present: normal exam, mucous membranes moist Neck exam: Present: normal inspection. Absent: tenderness, meningismus, lymphadenopathy Respiratory exam: Present: respiratory distress, wheezes, accessory muscle use, decreased breath sounds, prolonged expiratory. Absent: rales, rhonchi, stridor Cardiovascular Exam: Present: regular rate, normal rhythm, normal heart sounds. Absent: systolic murmur, diastolic murmur, rubs, gallop, clicks GI/Abdominal exam: Present: soft, normal bowel sounds. Absent: distended, tenderness, guarding, rebound, rigid Extremities exam: Present: normal inspection, full ROM, normal capillary refill. Absent: tenderness, pedal edema, joint swelling, calf tenderness Back exam: Present: normal inspection Neurological exam: Present: alert, oriented X3, CN II-XII intact Psychiatric exam: Present: normal affect, normal mood Skin exam: Present: warm, dry, intact, normal color. Absent: rash Course Vital Signs 08/29/24 08/29/24 08/29/24 19:47 19:55 20:05 Temperature 98.0 F Pulse Rate 127 H 118 H Respiratory 24 24 22 Rate Blood Pressure 83/44 127/66 O2 Sat by Pulse 88 L 93 L Oximetry Fraction of Inspired Oxygen (FIO2) 08/29/24 08/29/24 08/29/24 20:21 20:28 21:35 Temperature Pulse Rate 122 H 124 H 116 H Respiratory 22 Rate Blood Pressure 116/65 O2 Sat by Pulse 95 Oximetry Fraction of Inspired Oxygen (FIO2) 08/30/24 08/30/24 08/30/24 01:18 03:37 04:52 Temperature Pulse Rate 101 H 93 99 Respiratory 20 22 22 Rate Blood Pressure 129/76 112/67 139/77 O2 Sat by Pulse 92 L 95 95 Oximetry Fraction of Inspired Oxygen (FIO2) 08/30/24 08/30/24 08/30/24 08:11 08:26 10:20 Temperature Pulse Rate 93 94 Respiratory Rate Blood Pressure O2 Sat by Pulse 94 L Oximetry Fraction of 40 Inspired Oxygen (FIO2) 08/30/24 08/30/24 08/30/24 10:31 10:38 11:28 Temperature 98.4 F Pulse Rate 86 Respiratory 22 Rate Blood Pressure 115/72 O2 Sat by Pulse 95 92 L Oximetry Fraction of 35 Inspired Oxygen (FIO2) 08/30/24 08/30/24 08/30/24 11:40 11:52 15:00 Temperature Pulse Rate 87 91 83 Respiratory 21 Rate Blood Pressure 115/68 O2 Sat by Pulse 94 L Oximetry Fraction of Inspired Oxygen (FIO2) 08/30/24 08/30/24 08/30/24 15:22 15:24 15:38 Temperature Pulse Rate 67 61 Respiratory Rate Blood Pressure O2 Sat by Pulse Oximetry Fraction of 35 Inspired Oxygen (FIO2) 08/30/24 08/30/24 08/30/24 17:27 20:07 20:20 Temperature Pulse Rate 64 96 93 Respiratory 22 Rate Blood Pressure 122/66 O2 Sat by Pulse 97 Oximetry Fraction of Inspired Oxygen (FIO2) 08/30/24 08/31/24 08/31/24 22:43 00:12 03:26 Temperature Pulse Rate Respiratory 20 Rate Blood Pressure 116/55 O2 Sat by Pulse 94 L Oximetry Fraction of 35 35 Inspired Oxygen (FIO2) 08/31/24 08/31/24 08/31/24 05:15 08:28 08:39 Temperature Pulse Rate 91 95 96 Respiratory 18 Rate Blood Pressure 138/71 O2 Sat by Pulse 95 Oximetry Fraction of Inspired Oxygen (FIO2) 08/31/24 08/31/24 08/31/24 08:55 09:33 12:00 Temperature Pulse Rate 98 99 88 Respiratory 18 18 16 Rate Blood Pressure 138/71 122/74 121/71 O2 Sat by Pulse 95 96 97 Oximetry Fraction of Inspired Oxygen (FIO2) 08/31/24 08/31/24 08/31/24 12:24 12:36 15:10 Temperature 98.2 F Pulse Rate 116 H 92 86 Respiratory 18 Rate Blood Pressure 122/61 O2 Sat by Pulse 97 Oximetry Fraction of Inspired Oxygen (FIO2) - Reevaluation(s) Reevaluation #1: 08/29/24 23:29 Medical records reviewed Patient has longstanding history of COPD and CHF Reevaluation #2: 08/29/24 23:30 Patient showing significant improvement with breathing treatments and respiratory therapy here in the ER Patient symptoms continue to improve her oxygenation was improved with increased oxygen Reevaluation #3: 08/29/24 23:30 Patient informed of results and questions answered Reevaluation #4: Was pt. sent in by a medical professional or institution (, PA, [employer] P[employer] DEVELOPER, urgent care, hospital, or shelter...) When possible be specific @ -no Did you speak to anyone other than the patient for history (EMS, parent, family, police, friend...)? What history was obtained from this source @ -no Did you review nursing and triage notes (agree or disagree)? Why? @ -agree Are old charts reviewed (outside hosp., previous admission, EMS record, old EKG, old radiological studies, urgent care reports/EKG's, shelter records)? Report findings @ -yes Differential Diagnosis (chest pain, altered mental status, abdominal pain women, abdominal pain men, vaginal bleeding, weakness, fever, dyspnea, syncope, headache, dizziness, GI bleed, back pain, seizure, CVA, palpatations, mental health, musculoskeletal)? @ -prior EKG interpreted by me (3pts min.). @ -yes X-rays interpreted by me (1pt min.). @ -yes negative for acute disease CT interpreted by me (1pt min.). @ -Yes negative for acute disease U/S interpreted by me (1pt. min.). @ -no What testing was considered but not performed or refused? (CT, X-rays, U/S, labs)? Why? @ -none What meds were considered but not given or refused? Why? @ -none Did you discuss the management of the patient with other professionals (professionals i.e. , PA, [employer] DEVELOPER, lab, RT, psych nurse, administrator social welfare, machine deicer element winder, teacher, anti air warfare operations officer, case packer and sealer)? Give summary @ -no Was smoking cessation discussed for >3mins.? @ -no Was critical care preformed (if so, how long)? @ -yes31 Were there social determinants of health that impacted care today? How? (Homelessness, low income, unemployed, alcoholism, drug addiction, transportation, low edu. Level, literacy, decrease access to med. care, senior living, rehab)? @ -none Was there de-escalation of care discussed even if they declined (Discuss DNR or withdrawal of care, Hospice)? DNR status @ -no What co-morbidities impacted this encounter? (DM, HTN, Smoking, COPD, CAD, Cancer, CVA, ARF, Chemo, Hep., AIDS, mental health diagnosis, sleep apnea, morbid obesity)? @ -none Was patient admitted / discharged? Hospital course, mention meds given and route, prescriptions, significant lab abnormalities, going to OR and other pertinent info. @ - 64 male presenting with COPD CHF and hypoxia patient shows some significant improvement here in the emergency department with breathing treatments patient will be admitted for further supportive care Admitted for CHF COPD hypoxia Undiagnosed new problem with uncertain prognosis? @ -no Drug Therapy requiring intensive monitoring for toxicity (Heparin, Nitro, Insulin, Cardizem)? @ -no Were any procedures done? @ -no Diagnosis/symptom? @ - Acute, or Chronic, or Acute on Chronic? @ -Acute Uncomplicated (without systemic symptoms) or Complicated (systemic symptoms)? @ -Complicated Side effects of treatment? @ -no Exacerbation, Progression, or Severe Exacerbation? @ -exacerbation Poses a threat to life or bodily function? How? (Chest pain, USA, [place], pneumonia, PE, COPD, DKA, ARF, appy, cholecystitis, CVA, Diverticulitis, Homicidal, Suicidal, threat to staff... and all critical care pts) @ -yes severe hypoxia Reevaluation #5: Differential Dyspnea: Coronary syndrome, arrhythmia, tamponade, asthma, COPD, pulmonary embolism, pneumonia, pneumothorax, pulmonary effusion, anaphylaxis, diabetic ketoacidosis, flailed chest, pulmonary contusion, diaphragmatic rupture, anemia, neuromuscular, this is not meant to be an all-inclusive list. - Consultations Consultation #1: Spoke with [facility] who agrees to admit this patient Medical Decision Making - Medical Decision Making 64 male presenting with COPD CHF and hypoxia patient shows some significant improvement here in the emergency department with breathing treatments patient will be admitted for further supportive care - Lab Data Result diagrams: 09/04/24 04:55 09/04/24 04:55 Lab Results 08/29/24 08/29/24 08/29/24 Range/Units 20:06 20:06 20:06 WBC 10.6 (3.8-10.6) k/uL RBC 3.90 L (4.30-5.90) m/uL Hgb 12.6 L (13.0-17.5) gm/dL Hct 38.7 L (39.0-53.0) % MCV 99.3 D (80.0-100.0) fL MCH 32.3 (25.0-35.0) pg MCHC 32.5 (31.0-37.0) g/dL RDW 15.1 (11.5-15.5) % Plt Count 187 (150-450) k/uL MPV 7.8 Neutrophils % 83 % Lymphocytes % 9 % Monocytes % 5 % Eosinophils % 1 % Basophils % 0 % Neutrophils # 8.9 H (1.3-7.7) k/uL Lymphocytes # 1.0 (1.0-4.8) k/uL Monocytes # 0.5 (0-1.0) k/uL Eosinophils # 0.1 (0-0.7) k/uL Basophils # 0.0 (0-0.2) k/uL Hypochromasia Moderate Macrocytosis Slight PT 10.4 (10.0-12.5) sec INR 0.9 (<1.2) APTT 24.5 (22.0-30.0) sec Sodium 137 (137-145) mmol/L Potassium 3.6 (3.5-5.1) mmol/L Chloride 88 L (98-107) mmol/L Carbon Dioxide 39 H (22-30) mmol/L Anion Gap 10 mmol/L BUN 9 (9-20) mg/dL Creatinine 0.80 (0.66-1.25) mg/dL Est GFR (CKD-EPI)AfAm >90 (>60 ml/min/1.73 sqM) Est GFR (CKD-EPI)NonAf >90 (>60 ml/min/1.73 sqM) Glucose 253 H (74-99) mg/dL Plasma Lactic Acid Nakul (0.7-2.0) mmol/L Calcium 8.6 (8.4-10.2) mg/dL Magnesium 1.4 L (1.6-2.3) mg/dL Total Bilirubin 0.6 (0.2-1.3) mg/dL AST 29 (17-59) U/L ALT 34 (4-49) U/L Alkaline Phosphatase 90 (38-126) U/L Troponin I (0.000-0.034) ng/mL NT-Pro-B Natriuret Pep 766 pg/mL Total Protein 6.4 (6.3-8.2) g/dL Albumin 3.7 (3.5-5.0) g/dL 08/29/24 08/29/24 Range/Units 20:06 20:06 WBC (3.8-10.6) k/uL RBC (4.30-5.90) m/uL Hgb (13.0-17.5) gm/dL Hct (39.0-53.0) % MCV (80.0-100.0) fL MCH (25.0-35.0) pg MCHC (31.0-37.0) g/dL RDW (11.5-15.5) % Plt Count (150-450) k/uL MPV Neutrophils % % Lymphocytes % % Monocytes % % Eosinophils % % Basophils % % Neutrophils # (1.3-7.7) k/uL Lymphocytes # (1.0-4.8) k/uL Monocytes # (0-1.0) k/uL Eosinophils # (0-0.7) k/uL Basophils # (0-0.2) k/uL Hypochromasia Macrocytosis PT (10.0-12.5) sec INR (<1.2) APTT (22.0-30.0) sec Sodium (137-145) mmol/L Potassium (3.5-5.1) mmol/L Chloride (98-107) mmol/L Carbon Dioxide (22-30) mmol/L Anion Gap mmol/L BUN (9-20) mg/dL Creatinine (0.66-1.25) mg/dL Est GFR (CKD-EPI)AfAm (>60 ml/min/1.73 sqM) Est GFR (CKD-EPI)NonAf (>60 ml/min/1.73 sqM) Glucose (74-99) mg/dL Plasma Lactic Acid Nakul 1.8 (0.7-2.0) mmol/L Calcium (8.4-10.2) mg/dL Magnesium (1.6-2.3) mg/dL Total Bilirubin (0.2-1.3) mg/dL AST (17-59) U/L ALT (4-49) U/L Alkaline Phosphatase (38-126) U/L Troponin I 0.014 (0.000-0.034) ng/mL NT-Pro-B Natriuret Pep pg/mL Total Protein (6.3-8.2) g/dL Albumin (3.5-5.0) g/dL - EKG Data -: EKG Interpreted by Me (EKG is sinus tachycardia 118 NE 188 QRS 119 QTc 368) - Radiology Data Radiology results: report reviewed (Chest x-ray shows CHF CT abdomen pelvis negative for acute disease), image reviewed Critical Care Time Critical Care Time: Yes Total Critical Care Time: 31 Disposition Clinical Impression: CHF (congestive heart failure), Acute exacerbation of chronic obstructive airways disease, Bilateral lower extremity edema, COPD exacerbation, Obesity, Hypoxia Disposition: ADMITTED IP TO THIS HOSP Condition: Fair Is patient prescribed a controlled substance at d/c from ED?: No Time of Disposition: 22:45
[2024-08-29] MEDS: IPRATROPIUM-ALBUTEROL 3 ML NEB INHALATION STA (20:19)
--- NOTE | 2024-08-29 20:19 | XR ---
EXAMINATION TYPE: XR chest 1V portable DATE OF EXAM: 08/29/2024 8:15 PM COMPARISON: Previous chest radiographs, most recently dated 08/12/2024. CLINICAL INDICATION: Male, 64 years old with history of sob; [facility] TECHNIQUE: XR chest 1V portable Frontal view of the chest. FINDINGS: Lungs/Pleura: Mild pulmonary vascular congestive changes and fluid along the right fissure. No sizabl e pleural effusion. Pulmonary vascularity: Unremarkable. Heart/mediastinum: Cardiomegaly. Musculoskeletal: No acute osseous pathology. Other findings: None IMPRESSION: Cardiomegaly and mild pulmonary vascular congestion. [facility], , 08/29/2024 8:17 PM
[2024-08-29 20:28] LABS: Basophils % (A) 0 %; Eosinophils # (A) 0.1 k/uL (0-0.7); Eosinophils % (A) 1 %; HCT 38.7 % (39.0-53.0); HGB 12.6 gm/dL (13.0-17.5); Hypochromasia Moderate; Lymphocytes % (A) 9 %; MCH 32.3 pg (25.0-35.0); MCHC 32.5 g/dL (31.0-37.0); Macrocytosis Slight; Mean Platelet Volume 7.8; Monocytes # (A) 0.5 k/uL (0-1.0); Monocytes % (A) 5 %; Neutrophils # (A) 8.9 k/uL (1.3-7.7); Neutrophils % (A) 83 %; Platelet Count 187 k/uL (150-450); RDW 15.1 % (11.5-15.5); WBC 10.6 k/uL (3.8-10.6)
[2024-08-29 20:34] LABS: MCV 99.3 fL (80.0-100.0)
[2024-08-29 20:51] LABS: INR 0.9 (<1.2); Partial Thromboplastin Time 24.5 sec (22.0-30.0); Prothrombin Time 10.4 sec (10.0-12.5)
[2024-08-29] MEDS: methylPREDNISolone SOD SUCCI 125 MG/2 ML VIAL IV STA (21:17)
[2024-08-29 21:24] LABS: ALT 34 U/L (4-49); AST 29 U/L (17-59); African American GFR (CKD) >90 (>60 ml/min/1.73 sqM); Albumin 3.7 g/dL (3.5-5.0); Alkaline Phosphatase 90 U/L (38-126); Blood Urea Nitrogen 9 mg/dL (9-20); Calcium 8.6 mg/dL (8.4-10.2); Chloride 88 mmol/L (98-107); Glucose 253 mg/dL (74-99); Magnesium 1.4 mg/dL (1.6-2.3); Non-African American GFR(CKD) >90 (>60 ml/min/1.73 sqM); Potassium 3.6 mmol/L (3.5-5.1); Sodium 137 mmol/L (137-145); Total Bilirubin 0.6 mg/dL (0.2-1.3); Total Protein 6.4 g/dL (6.3-8.2)
[2024-08-29 21:26] LABS: NT-Pro-B-Type Natriuretic Pept 766 pg/mL
[2024-08-29 21:30] LABS: Anion Gap 10 mmol/L
[2024-08-29 21:31] LABS: Carbon Dioxide 39 mmol/L (22-30)
--- NOTE | 2024-08-29 22:05 | CT ---
EXAMINATION TYPE: CT abdomen pelvis wo con DATE OF EXAM: 08/29/2024 9:57 PM COMPARISON: Previous CT study 06/06/2023. CLINICAL INDICATION: Male, 64 years old with history of pain; Pt presents to ED for c/o TOM and incre ased edema. Pt states hx COPD. Pt currently on 5L oxygen via nasal cannula home o2. TECHNIQUE: Axial CT abdomen pelvis wo con;Sagittal and coronal reformats were created on a separate workstation. Oral contrast used: without Oral Contrast CT DLP: 1872.8 mGycm, Automated exposure control for dose reduction was used. FINDINGS: LOWER CHEST: Unremarkable ABDOMEN LIVER: Diffusely hypoattenuating parenchyma. GALLBLADDER AND BILE DUCTS: Unremarkable. PANCREAS: Cystic density lesion in the pancreatic tail measuring 2.5 x 1.9 cm, stable from prior stud y. No pancreatic duct dilatation. SPLEEN: Unremarkable. ADRENAL GLANDS: Unremarkable. KIDNEYS AND URETERS: No evidence of hydronephrosis or renal calculus. The ureters are unremarkable. PELVIS BLADDER: No evidence for wall thickening or mass given limitations of exam. REPRODUCTIVE: Unremarkable. ABDOMEN & PELVIS STOMACH AND BOWEL: Stomach and duodenum are unremarkable. Scattered diverticula are noted throughout the colon. No evidence of bowel obstruction. PERITONEUM/RETROPERITONEUM: No evidence of pneumoperitoneum or free fluid. VASCULATURE: No evidence of aortic aneurysm. MUSCULOSKELETAL: No acute osseous abnormalities LYMPH NODES: No gross evidence for lymphadenopathy. SOFT TISSUE/ABDOMINAL WALL: Fat-containing right inguinal hernia. IMPRESSION: No acute abnormality in the abdomen/pelvis. [facility], , 08/29/2024 10:03 PM
[2024-08-29] MEDS: SODIUM CHLORIDE 0.9% 1,000 ML IV STA ×2 (22:34→22:56)
[2024-08-29] MEDS: SODIUM CHLORIDE 0.9% 500 ML 500 ML IV STA (22:34)
[2024-08-29] MEDS ORDERED: NALOXONE 0.4 MG/ML 1 ML VIAL IV PRN (22:44)
[2024-08-29] MEDS ORDERED: MORPHINE SULFATE 4 MG/ML SYRINGE IV PRN (22:44)
[2024-08-29] MEDS ORDERED: NALOXONE 0.4 MG/ML 1 ML VIAL IVP PRN ×2 (22:44)
[2024-08-29] MEDS ORDERED: ONDANSETRON 4 MG/2 ML VIAL IVP PRN (22:44)
[2024-08-29] MEDS: MAGNESIUM OXIDE 400 MG TAB PO STA (22:55)
[2024-08-29] MEDS: MAGNESIUM SULFATE-D5W PMX 1 GM in DEXTROSE/WATER 1 100ML.BAG IVPB ONE (22:58)
[2024-08-29] MEDS: SODIUM CHLORIDE 0.9% 1,000 ML IV SCH (23:15)
[2024-08-30] MEDS ORDERED: ALBUTEROL NEBULIZED 2.5 MG/3 ML INHALATION SCH
[2024-08-30] MEDS: methylPREDNISolone SOD SUCCI 125 MG/2 ML VIAL IV SCH
[2024-08-30] MEDS: IPRATROPIUM-ALBUTEROL 3 ML NEB INHALATION STA (01:18)
[2024-08-30] MEDS ORDERED: DEXTROSE 50% SYRINGE 50 ML IVP PRN ×2 (03:36)
--- NOTE | 2024-08-30 03:41 | P.CNPUL ---
History of Present Illness Consult date: 08/30/24 Requesting physician: Dmitriy Schreiber Reason for consult: COPD Chief complaint: Acute on chronic dyspnea History of present illness: Patient is a 64-year-old male with past medical history significant for COPD, pulmonary pretension, and former tobacco dependence. Patient does follow in the pulmonary office with Dr. Dooley. He has severe COPD with an FEV1 45% of predicted. He is oxygen dependent at baseline, normally wears 3 to 4 L of supplemental oxygen 20/01. Also, is being considered for sleep study. Patient presented the emergency department last night with a chief complaint of acute worsening of his chronic shortness of breath. Patient states that he cannot catch his breath, especially on exertion, and this started 3 to 4 days ago. He had to increase his home oxygen up to 5 L/min. States he recently started smoking up again, 10 or so cigarettes. Endorses increased productive cough. Denies fever/chills. Denies any sick contacts or recent travel. Denies any chest pain, nausea, diaphoresis. States he has noticed increased swelling in his legs. Workup in the emergency department including a chest x-ray which showed cardiomegaly and possible mild pulmonary vascular congestion. No focal infiltrates or evidence of pneumonia. No pneumothoraces or pleural effusions. NT proBNP only 766. CBC: WBC count 10.6, hemoglobin 12.6, platelets 327. CMP: Sodium 137, potassium 3.6, chloride 88, serum bicarb 39, BUN 9, creatinine 0.8, glucose 253. Normal saline infusing at 75 mL/h. Serum bicarb likely reflecting a component of chronic hypercapnic respiratory failure, no signs of CO2 narcosis on clinical exam. Lactic 1.8. Magnesium 1.4, LFTs not elevated. Troponin 0.014. EKG: Sinus tachycardia, rate 118 bpm, no acute ST elevations. . Patient currently being evaluated the emergency department. Sitting up in a bedside recliner. He has a sunglasses on. He is on 5 L/min nasal cannula. No remarkable respiratory distress. He does have bilateral expiratory wheezing. Does report increased cough with a creamy yellow sputum production. States he has been severely fatigued and "out of energy". There is some lower extremity edema. He does normally take Lasix 40 mg twice a day, denies missing any doses. Afebrile. Current vital signs: Heart rate 116 bpm, blood pressure 116/65 mmHg, nontachypneic, SpO2 reading 95% on 5 L/min nasal cannula. Review of Systems Constitutional: Reports fatigue, Denies chills, Denies fever, Denies poor appetite, Denies sweats, Denies weight gain, Denies weight loss Ears, nose, mouth and throat: Denies headache, Denies nasal congestion, Denies nasal discharge, Denies post-nasal drip, Denies sinus pain, Denies sinus pressure, Denies sore throat Cardiovascular: Reports leg edema, Denies chest pain, Denies orthopnea, Denies palpitations, Denies paroxysmal nocturnal dyspnea, Denies syncope Respiratory: Reports congestion, Reports cough with sputum, Reports dyspnea, Reports home oxygen, Denies hemoptysis, Denies pain on inspiration Gastrointestinal: Denies abdominal pain, Denies diarrhea, Denies nausea, Denies vomiting Genitourinary: Denies dysuria Musculoskeletal: Denies limitation of motion Integumentary: Denies rash, Denies wounds Neurological: Denies seizures, Denies syncope Psychiatric: Denies anxiety, Denies depression Past Medical History Past Medical History: Heart Failure, COPD, Diabetes Mellitus Additional Past Medical History / Comment(s): Chronic oxygen dependence on 3-5 L/m History of Any Multi-Drug Resistant Organisms: None Reported Past Surgical History: Hernia Repair, Tonsillectomy Additional Past Surgical History / Comment(s): dental implants. Past Anesthesia/Blood Transfusion Reactions: No Reported Reaction Past Psychological History: No Psychological Hx Reported Smoking Status: Former smoker Past Alcohol Use History: Occasional Past Drug Use History: None Reported - Past Family History Father Additional Family Medical History / Comment(s): father and grandfather had heartattacks 60's. Medications and Allergies Home Medications Medication Instructions Recorded Confirmed Type Sildenafil Citrate 25 mg PO DAILY 10/29/22 08/12/24 History Albuterol Sulfate [Albuterol 2 puff PO RT-Q4H PRN 07/09/24 08/12/24 History Sulfate Hfa] Ipratropium-Albuterol Nebulize 3 ml INHALATION RT-QID PRN 07/09/24 08/12/24 History [Duoneb 0.5 mg-3 mg/3 ml Soln] metFORMIN HCL [Glucophage] 500 mg PO BID 07/09/24 08/12/24 History Artificial Tears-Hypromellose 2 drops BOTH EYES QID PRN ml 07/14/24 08/12/24 Rx [Artificial Tear Drops] Aspirin 81 mg PO DAILY #0 tab 07/14/24 08/12/24 Rx Atorvastatin [Lipitor] 40 mg PO HS #30 tab 07/14/24 08/12/24 Rx Furosemide [Lasix] 40 mg PO BID 08/12/24 08/12/24 History Magnesium Oxide [Mag-Ox] 400 mg PO BID 2 Days #4 tab 08/16/24 Rx Potassium Chloride ER [K-Dur 20] 20 meq PO BID 10 Days #20 tab 08/16/24 Rx Allergies Allergy/AdvReac Type Severity Reaction Status Date / Time No Known Allergies Allergy Verified 08/29/24 19:50 Physical Exam Vitals: Vital Signs Temp Pulse Resp BP Pulse Ox 08/29/24 21:35 116 H 22 116/65 95 08/29/24 20:28 124 H 08/29/24 20:21 122 H 08/29/24 20:05 118 H 22 127/66 93 L 08/29/24 19:55 24 08/29/24 19:47 98.0 F 127 H 24 83/44 88 L Intake and Output 08/29/24 08/29/24 08/30/24 14:59 22:59 06:59 Other: Weight 130.635 kg GENERAL EXAM: Alert, 64-year-old obese male, sitting in bedside recliner, has sunglasses on, comfortable in no apparent distress. No signs of CO2 narcosis. HEAD: Normocephalic and atraumatic EYES: Normal reaction of pupils, equal size. NOSE: Clear with pink turbinates. THROAT: No erythema or exudates. NECK: No masses, no JVD. CHEST: No chest wall deformity. LUNGS: Equal air entry with expiratory wheezing heard bilaterally throughout. On 5 L/min nasal cannula.. No conversational dyspnea or accessory muscle use while at rest CVS: S1 and S2 normal with no audible murmur, regular rhythm. No extra heart sounds ABDOMEN: No hepatosplenomegaly, active bowel sounds, no guarding or rigidity. SPINE: No scoliosis or deformity SKIN: No rashes CENTRAL NERVOUS SYSTEM: No focal deficits, tone is normal in all 4 extremities. EXTREMITIES: There is mild nonpitting lower extremity edema. No clubbing or cyanosis. Peripheral pulses are intact. Results - Laboratory Findings CBC and BMP: 08/29/24 20:06 08/29/24 20:06 PT/INR, D-dimer PT 10.4 sec (10.0-12.5) 08/29/24 20:06 INR 0.9 (<1.2) 08/29/24 20:06 Abnormal lab findings: Abnormal Labs 08/29/24 08/29/24 20:06 20:06 RBC 3.90 L Hgb 12.6 L Hct 38.7 L Neutrophils # 8.9 H Chloride 88 L Carbon Dioxide 39 H Glucose 253 H Magnesium 1.4 L - Diagnostic Findings Chest x-ray: image reviewed Assessment and Plan Assessment: Acute on chronic hypoxemic respiratory failure, secondary to acute COPD exacerbation, chest x-ray which showed cardiomegaly and possible mild pulmonary vascular congestion. No focal infiltrates or evidence of pneumonia. No pneumothoraces or pleural effusions. NT proBNP only 766 Severe COPD, with an FEV1 that is 45% of predicted Chronic hypoxemic respiratory failure, on home O2 in the order of 3 to 4 L/min nasal cannula 20/01 Hypomagnesemia, replaced History of heart failure with preserved ejection fraction, most recent echocardiogram from 03/11/2024 estimating a preserved left ventricular ejection fraction of 55 to 60%, without any significant valvular abnormalities and mild to moderate pulmonary hypertension. History of pulmonary hypertension, on a phosphodiesterase inhibitor History of systemic hypertension Morbid obesity, with a BMI of 42.5 kg/m Former tobacco dependence, relapsed, recently started smoking again Plan: Patient's medications, labs, chest x-ray reviewed Continues supplemental oxygen to maintain oxygen saturation of 90% or greater, currently on 5 L/min nasal cannula Continue combination of DuoNebs [id number], Symbicort inhaler, and IV Solu-Medrol Check Cepheid 4 Plex Smoking cessation counseling performed Home medications restarted, including Lasix 40 mg twice daily DVT prophylaxis: Heparin subcu GI prophylaxis: Protonix We will continue to follow I have personally seen and examined the patient, performed the documentation and the assessment and plan as written. Number of minutes spent on the visit:20 This dictation was produced using [employer] dictation software please excuse grammatical errors Time with Patient: Greater than 30
[2024-08-30 04:45] LABS: Influenza A Not Detected (Not Detectd); Influenza B Not Detected (Not Detectd); RSV Not Detected (Not Detectd)
[2024-08-30 06:22] LABS: Glucose,Whole Blood 235 mg/dL (70-110)
[2024-08-30] MEDS: SYMBICORT 160-4.5 MCG INHALER INHALATION SCH (08:10)
[2024-08-30] MEDS: IPRATROPIUM-ALBUTEROL 3 ML NEB INHALATION SCH (08:10)
[2024-08-30] MEDS: INSULIN LISPRO (HumaLOG) 100 UNIT/ML 10 mL VL SQ SCH (08:30)
[2024-08-30] MEDS: HEPARIN SODIUM,PORCINE 5,000 UNIT/ML 1 ML VIAL SQ SCH (08:33)
[2024-08-30] MEDS: PANTOPRAZOLE 40 MG TABLET PO SCH (08:33)
[2024-08-30] MEDS: FUROSEMIDE 40 MG TAB PO SCH (08:34)
[2024-08-30] MEDS: MAGNESIUM OXIDE 400 MG TAB PO SCH (08:34)
[2024-08-30] MEDS: ASPIRIN 81 MG PO SCH (08:34)
[2024-08-30 08:38] LABS: Glucose,Whole Blood 241 mg/dL (70-110)
[2024-08-30 08:46] LABS: ALT 34 U/L (4-49); African American GFR (CKD) >90 (>60 ml/min/1.73 sqM); Albumin 3.7 g/dL (3.5-5.0); Blood Urea Nitrogen 11 mg/dL (9-20); Calcium 8.4 mg/dL (8.4-10.2); Chloride 93 mmol/L (98-107); Glucose 216 mg/dL (74-99); Non-African American GFR(CKD) >90 (>60 ml/min/1.73 sqM); Phosphorus 4.9 mg/dL (2.5-4.5); Sodium 138 mmol/L (137-145); Total Bilirubin 0.7 mg/dL (0.2-1.3); Total Protein 6.4 g/dL (6.3-8.2)
[2024-08-30 08:52] LABS: Anion Gap 4 mmol/L
[2024-08-30 08:55] LABS: AST 29 U/L (17-59); Alkaline Phosphatase 68 U/L (38-126); Magnesium 2.1 mg/dL (1.6-2.3); Potassium 5.1 mmol/L (3.5-5.1)
[2024-08-30 08:56] LABS: Carbon Dioxide 41 mmol/L (22-30)
[2024-08-30 09:07] LABS: HCT 40.8 % (39.0-53.0); HGB 12.3 gm/dL (13.0-17.5); Hypochromasia Marked; MCH 30.3 pg (25.0-35.0); MCHC 30.1 g/dL (31.0-37.0); MCV 100.8 fL (80.0-100.0); Macrocytosis Slight; Mean Platelet Volume 8.8; Platelet Count 214 k/uL (150-450); RBC 4.05 m/uL (4.30-5.90); RDW 14.7 % (11.5-15.5); WBC 9.1 k/uL (3.8-10.6)
[2024-08-30] MEDS: SILDENAFIL CITRATE 25 MG PO SCH (09:26)
--- NOTE | 2024-08-30 09:37 | US ---
EXAMINATION TYPE: US abdomen limited DATE OF EXAM: 08/30/2024 COMPARISON: CT 08/30/23 CLINICAL INDICATION: Male, 64 years old with history of ascites ascites check; CT yesterday shows no free fluid TECHNIQUE: Grayscale imaging of the abdomen for ascites. FINDINGS/IMPRESSION: No ascites is demonstrated corresponding to CT from yesterday. [facility], , 08/30/2024 9:34 AM
[2024-08-30 09:58] LABS: Lymphocytes # (M) 0.46 k/uL (1.0-4.8); Monocytes # (M) 0.64 k/uL (0-1.0); Neutrophils # (M) 8.01 k/uL (1.3-7.7); Neutrophils % (M) 88 %; Nucleated Red Blood Cells 0 /100 WBC (0-0); Total Cells Counted 100
[2024-08-30 10:12] LABS: Allen Test Performed? Yes
[2024-08-30 10:13] LABS: ABG PH 7.25 (7.35-7.45); ABG PO2 81 mmHg (83-108)
[2024-08-30 10:16] LABS: ABG PCO2 >98 mmHg (35-45)
[2024-08-30 11:38] LABS: Glucose,Whole Blood 243 mg/dL (70-110)
--- NOTE | 2024-08-30 15:23 | P.HPIM ---
History of Present Illness H&P Date: 08/30/24 Chief Complaint: Shortness of breath Patient is a 64 year old male with past medical history of CHF, COPD, diabetes mellitus who presented to the ED with shortness of breath. Patient states that severe shortness of breath with dyspnea and that he cannot catch his breath. He admits to open oxygen at home at 2 L and has a history of COPD. Daily his oxygen requirement has increased and he still remains short of breath. He reportedly had abdominal pain and felt that his belly was bloated. Patient was very drowsy at the time of this interview and would wake up to say a couple words before falling back to sleep again. Most of the HPI has been obtained from ED documentation. Later he was placed on BiPAP and was trying to remove the mask with his oxygen saturation dropping down to the high 70s. Denies fever, chills, cough, chest pain, palpitations, nausea, vomiting, hematuria, dysuria, hematochezia, melena, headache, slurred speech, numbness, tingling, dizziness, l ightheadedness, blurred vision, double vision. ED documentation reviewed. In the ED patient was treated with magnesium oxide, magnesium sulfate, 0.9 normal saline, Solu-Medrol. Vitals on admission T 90 F, [place] 127 bpm, RR 24, BP 83/44, oxygen saturation 88% on 5 L via nasal cannula EKG independently interpreted as sinus tachycardia, rate 118 bpm, QTc 368 ms Chest x-ray shows cardiomegaly and mild pulmonary vascular congestion Abdomen and pelvis CT shows no acute abnormality in the abdomen/pelvis Abdomen ultrasound shows no ascites is demonstrated corresponding to CT Labs on admission show WBC 10.6, hemoglobin 12.6, platelet count 187, INR 0.9, sodium 137, potassium 3.6, bicarb 39, BUN 9, creatinine 0.8, glucose 253, magnesium 1.4, lactic acid 1.8, troponin I 0.014, NT proBNP 766 ABG shows pO2 81,pCO2 >98, pH 7.25 Respiratory panel is negative Review of systems: Pertinent positives and negatives as discussed in HPI, a complete review of systems was performed and all other systems are negative. Social history: Tobacco: Former smoker Alcohol: Occasional Recreational drugs: Denies use Travel: No recent travel history Sick contacts: None Physical examination: Vital signs reviewed General: nontoxic, no distress, appears at stated age, drowsy, obese Derm: warm, dry, intact Head: atraumatic, normocephalic, symmetric Eyes: EOMI, anicteric sclera Mouth: no lip lesion, mucus membranes moist Cardiovascular: S1 S2 reg, no murmur Lungs: bilateral wheezing, no accessory muscle use Abdominal: soft, non-tender to palpation Extremities: No cyanosis, clubbing, or pedal edema. Neuro: drowsy, Oriented, Gross neurological examination did not reveal any focal deficits. Psych: well appearing, appropriate affect Assessment/Plan: Patient is a 64 year old male with past medical history of CHF, COPD, diabetes mellitus who presented to the ED with shortness of breath. Active: #. Acute on chronic hypoxemic respiratory failure #. Acute COPD exacerbation Chest x-ray shows cardiomegaly and mild pulmonary vascular congestion ABG shows pO2 81,pCO2 >98, pH 7.25 Continue supplemental oxygen to maintain oxygen saturation of 90% or greater,, currently on BIPAP at 14/6/35% Continue Duoneb QID and Q2HR PRN, Symbicort BID, Solumedrol 60 mg IV Q6HR Continue home med Furosemide 40 mg PO BID Pulmonology is following #. Metabolic alkalosis secondary to diuretics Bicarb 39 in admission Monitor BMP #. Nausea and vomiting Continue Ondansetron 4 mg IVP Q8HR PRN #. Hypomagnesemia, resolved Patient received Magnesium sulphate 1gm IVPB and Magnesium oxide 400 mg x2 PO in the ED Chronic: #. Heart failure with preserved ejection fraction, EF 55-60% on 03/11/24 #. Pulmonary hypertension #. Hypertension #. Hyperlipidemia Continue Insulin sliding scale, Sildenafil 25 mg PO daily, Aspirin 81 mg PO daily, Atorvastatin 40 mg PO HS F: None E: Replete as required N: Heart healthy diet DVT prophylaxis: Heparin 5000 units SQ every 8 hours GI prophylaxis: Pantoprazole 40 mg p.o. daily The patient is admitted with an anticipated more than 2 midnight stay for evaluation of shortness of breath CODE STATUS: Full code Discussed with: Patient Anticipated discharge place: Home Attestation: I have personally seen and examined the patient with Resident, reviewed the documentation and participated and agree with the assessment and plan as written. Marcus Adame MD Past Medical History Past Medical History: Heart Failure, COPD, Diabetes Mellitus Additional Past Medical History / Comment(s): Chronic oxygen dependence on 3-5 L/m History of Any Multi-Drug Resistant Organisms: None Reported Past Surgical History: Hernia Repair, Tonsillectomy Additional Past Surgical History / Comment(s): dental implants. Past Anesthesia/Blood Transfusion Reactions: No Reported Reaction Past Psychological History: No Psychological Hx Reported Smoking Status: Former smoker Past Alcohol Use History: Occasional Past Drug Use History: None Reported - Past Family History Father Additional Family Medical History / Comment(s): father and grandfather had heartattacks 60's. Medications and Allergies Home Medications Medication Instructions Recorded Confirmed Type Sildenafil Citrate 25 mg PO DAILY 10/29/22 08/30/24 History Albuterol Sulfate [Albuterol 2 puff PO RT-Q4H PRN 07/09/24 08/30/24 History Sulfate Hfa] Ipratropium-Albuterol Nebulize 3 ml INHALATION RT-QID PRN 07/09/24 08/30/24 History [Duoneb 0.5 mg-3 mg/3 ml Soln] metFORMIN HCL [Glucophage] 500 mg PO BID 07/09/24 08/30/24 History Artificial Tears-Hypromellose 2 drops BOTH EYES QID PRN ml 07/14/24 08/30/24 Rx [Artificial Tear Drops] Aspirin 81 mg PO DAILY #0 tab 07/14/24 08/30/24 Rx Atorvastatin [Lipitor] 40 mg PO HS #30 tab 07/14/24 08/30/24 Rx Furosemide [Lasix] 40 mg PO BID 08/12/24 08/30/24 History Magnesium Oxide [Mag-Ox] 400 mg PO BID 2 Days #4 tab 08/16/24 08/30/24 Rx Potassium Chloride ER [K-Dur 20] 20 meq PO BID 10 Days #20 tab 08/16/24 08/30/24 Rx Allergies Allergy/AdvReac Type Severity Reaction Status Date / Time No Known Allergies Allergy Verified 08/30/24 09:02 Physical Exam Vitals: Vital Signs Temp Pulse Resp BP Pulse Ox FiO2 08/30/24 11:52 91 08/30/24 11:40 87 08/30/24 11:28 98.4 F 86 22 115/72 92 L 08/30/24 10:38 35 08/30/24 10:31 95 08/30/24 10:20 40 08/30/24 08:26 94 08/30/24 08:11 93 94 L 08/30/24 04:52 99 22 139/77 95 08/30/24 03:37 93 22 112/67 95 08/30/24 01:18 101 H 20 129/76 92 L 08/29/24 21:35 116 H 22 116/65 95 08/29/24 20:28 124 H 08/29/24 20:21 122 H 08/29/24 20:05 118 H 22 127/66 93 L 08/29/24 19:55 24 08/29/24 19:47 98.0 F 127 H 24 83/44 88 L Intake and Output 08/29/24 08/30/24 08/30/24 22:59 06:59 14:59 Other: Weight 130.635 kg Results CBC & Chem 7: 09/01/24 07:18 09/01/24 07:18 Labs: Abnormal Lab Results - Last 24 Hours (Table) 08/29/24 08/29/24 08/30/24 Range/Units 20:06 20:06 06:20 RBC 3.90 L (4.30-5.90) m/uL Hgb 12.6 L (13.0-17.5) gm/dL Hct 38.7 L (39.0-53.0) % MCV (80.0-100.0) fL MCHC (31.0-37.0) g/dL Neutrophils # 8.9 H (1.3-7.7) k/uL Neutrophils # (Manual) (1.3-7.7) k/uL Lymphocytes # (Manual) (1.0-4.8) k/uL ABG pH (7.35-7.45) ABG pCO2 (35-45) mmHg ABG pO2 (83-108) mmHg ABG O2 Saturation (94-97) % Hemoglobin (13.0-17.5) gm/dL Chloride 88 L (98-107) mmol/L Carbon Dioxide 39 H (22-30) mmol/L Creatinine (0.66-1.25) mg/dL Glucose 253 H (74-99) mg/dL POC Glucose (mg/dL) 235 H (70-110) mg/dL Phosphorus (2.5-4.5) mg/dL Magnesium 1.4 L (1.6-2.3) mg/dL 08/30/24 08/30/24 08/30/24 Range/Units 08:09 08:09 08:36 RBC 4.05 L (4.30-5.90) m/uL Hgb 12.3 L (13.0-17.5) gm/dL Hct (39.0-53.0) % MCV 100.8 H (80.0-100.0) fL MCHC 30.1 L (31.0-37.0) g/dL Neutrophils # (1.3-7.7) k/uL Neutrophils # (Manual) 8.01 H (1.3-7.7) k/uL Lymphocytes # (Manual) 0.46 L (1.0-4.8) k/uL ABG pH (7.35-7.45) ABG pCO2 (35-45) mmHg ABG pO2 (83-108) mmHg ABG O2 Saturation (94-97) % Hemoglobin (13.0-17.5) gm/dL Chloride 93 L (98-107) mmol/L Carbon Dioxide 41 H* (22-30) mmol/L Creatinine 0.58 L (0.66-1.25) mg/dL Glucose 216 H (74-99) mg/dL POC Glucose (mg/dL) 241 H (70-110) mg/dL Phosphorus 4.9 H (2.5-4.5) mg/dL Magnesium (1.6-2.3) mg/dL 08/30/24 08/30/24 Range/Units 10:02 11:27 RBC (4.30-5.90) m/uL Hgb (13.0-17.5) gm/dL Hct (39.0-53.0) % MCV (80.0-100.0) fL MCHC (31.0-37.0) g/dL Neutrophils # (1.3-7.7) k/uL Neutrophils # (Manual) (1.3-7.7) k/uL Lymphocytes # (Manual) (1.0-4.8) k/uL ABG pH 7.25 L (7.35-7.45) ABG pCO2 >98 H* (35-45) mmHg ABG pO2 81 L (83-108) mmHg ABG O2 Saturation 93.0 L (94-97) % Hemoglobin 11.6 L (13.0-17.5) gm/dL Chloride (98-107) mmol/L Carbon Dioxide (22-30) mmol/L Creatinine (0.66-1.25) mg/dL Glucose (74-99) mg/dL POC Glucose (mg/dL) 243 H (70-110) mg/dL Phosphorus (2.5-4.5) mg/dL Magnesium (1.6-2.3) mg/dL
[2024-08-30 17:17] LABS: Glucose,Whole Blood 229 mg/dL (70-110)
[2024-08-30] MEDS: ATORVASTATIN 40 MG TAB PO SCH (20:26)
[2024-08-30 23:37] LABS: Glucose,Whole Blood 333 mg/dL (70-110)
[2024-08-31 07:22] LABS: Glucose,Whole Blood 239 mg/dL (70-110)
[2024-08-31 08:18] LABS: HCT 36.9 % (39.0-53.0); HGB 10.9 gm/dL (13.0-17.5); Hypochromasia Marked; MCH 29.7 pg (25.0-35.0); MCHC 29.4 g/dL (31.0-37.0); MCV 100.9 fL (80.0-100.0); Macrocytosis Slight; Mean Platelet Volume 7.4; Platelet Count 230 k/uL (150-450); RBC 3.66 m/uL (4.30-5.90); RDW 14.7 % (11.5-15.5); WBC 12.2 k/uL (3.8-10.6)
[2024-08-31 08:42] LABS: African American GFR (CKD) >90 (>60 ml/min/1.73 sqM); Blood Urea Nitrogen 17 mg/dL (9-20); Calcium 8.2 mg/dL (8.4-10.2); Chloride 91 mmol/L (98-107); Glucose 218 mg/dL (74-99); Non-African American GFR(CKD) >90 (>60 ml/min/1.73 sqM); Potassium 4.5 mmol/L (3.5-5.1); Sodium 138 mmol/L (137-145)
[2024-08-31 08:48] LABS: Anion Gap 6 mmol/L
[2024-08-31 08:54] LABS: Carbon Dioxide 41 mmol/L (22-30)
[2024-08-31 11:48] LABS: Glucose,Whole Blood 289 mg/dL (70-110)
--- NOTE | 2024-08-31 13:24 | P.PN ---
Subjective Progress Note Date: 08/31/24 Principal diagnosis: Hospital course: Patient is a 64 year old male with past medical history of CHF, COPD, diabetes mellitus who presented to the ED with shortness of breath. Patient states that severe shortness of breath with dyspnea and that he cannot catch his breath. He admits to open oxygen at home at 2 L and has a history of COPD. Daily his ox ygen requirement has increased and he still remains short of breath. He reportedly had abdominal pain and felt that his belly was bloated. Patient was very drowsy at the time of this interview and would wake up to say a couple words before falling back to sleep again. Most of the HPI has been obtained from ED documentation. Later he was placed on BiPAP and was trying to remove the mask with his oxygen saturation dropping down to the high 70s. Denies fever, chills, cough, chest pain, palpitations, nausea, vomiting, hematuria, dysuria, hematochezia, melena, headache, slurred speech, numbness, tingling, dizziness, lightheadedness, blurred vision, double vision. ED documentation reviewed. In the ED patient was treated with magnesium oxide, magnesium sulfate, 0.9 normal saline, Solu-Medrol. Vitals on admission T 90 F, [place] 127 bpm, RR 24, BP 83/44, oxygen saturation 88% on 5 L via nasal cannula EKG independently interpreted as sinus tachycardia, rate 118 bpm, QTc 368 ms Chest x-ray shows cardiomegaly and mild pulmonary vascular congestion Abdomen and pelvis CT shows no acute abnormality in the abdomen/pelvis Abdomen ultrasound shows no ascites is demonstrated corresponding to CT Labs on admission show WBC 10.6, hemoglobin 12.6, platelet count 187, INR 0.9, sodium 137, potassium 3.6, bicarb 39, BUN 9, creatinine 0.8, glucose 253, magnesium 1.4, lactic acid 1.8, troponin I 0.014, NT proBNP 766 ABG shows pO2 81,pCO2 >98, pH 7.25 Respiratory panel is negative 08/31/24: Patient seen and examined at bedside today. Patient more awake and alert today. He is on 5L oxygen via nasal cannula. Labs today show WBC 12.2, hemoglobin 10.9, bicarb 41, creatinine 0.73. Review of systems: Pertinent positives and negatives as discussed in HPI, a complete review of systems was performed and all other systems are negative. Vitals: Signs Reviewed Physical examination: General: nontoxic, no distress, appears at stated age, obese Derm: warm, dry, intact Head: atraumatic, normocephalic, symmetric Eyes: EOMI, anicteric sclera Mouth: no lip lesion, mucus membranes moist Cardiovascular: S1 S2 reg, no murmur Lungs: bilateral wheezing, no accessory muscle use Abdominal: soft, non-tender to palpation Extremities: No cyanosis, clubbing, or pedal edema. Neuro: Awake, Oriented, Gross neurological examination did not reveal any focal deficits. Psych: well appearing, appropriate affect Assessment/Plan: Patient is a 64 year old male with past medical history of CHF, COPD, diabetes mellitus who presented to the ED with shortness of breath. Active: #. Acute on chronic hypoxemic respiratory failure #. Acute COPD exacerbation Chest x-ray shows cardiomegaly and mild pulmonary vascular congestion ABG shows pO2 81,pCO2 >98, pH 7.25 Continue supplemental oxygen to maintain oxygen saturation of 90% or greater, currently on 5L oxygen via nasal cannula Continue Duoneb QID and Q2HR PRN, Symbicort BID, Solumedrol 60 mg IV Q6HR Furosemide 40 mg BID changed from PO to IV Pulmonology is following #. Metabolic alkalosis secondary to diuretics Bicarb 39 on admission Monitor BMP #. Nausea and vomiting Continue Ondansetron 4 mg IVP Q8HR PRN #. Hypomagnesemia, resolved Chronic: #. Heart failure with preserved ejection fraction, EF 55-60% on 03/11/24 #. Pulmonary hypertension #. Hypertension #. Hyperlipidemia Continue Insulin sliding scale, Sildenafil 25 mg PO daily, Aspirin 81 mg PO daily, Atorvastatin 40 mg PO HS F: None E: Replete as required N: Heart healthy diet DVT prophylaxis: Heparin 5000 units SQ every 8 hours GI prophylaxis: Pantoprazole 40 mg p.o. daily Attestation: I have personally seen and examined the patient with Resident, reviewed the documentation and participated and agree with the assessment and plan as written. Marcus Adame MD Objective - Vital Signs Vital signs: Vital Signs Temp 98.4 F 08/30/24 11:28 Pulse 98 08/31/24 08:55 Resp 18 08/31/24 08:55 BP 138/71 03/04/25 08:55 Pulse Ox 95 08/31/24 08:55 FiO2 35 08/31/24 03:26 - Labs CBC & Chem 7: 09/01/24 07:18 09/01/24 07:18 Labs: Abnormal Lab Results - Last 24 Hours (Table) 08/30/24 08/30/24 08/30/24 Range/Units 08:09 10:02 11:27 WBC (3.8-10.6) k/uL RBC 4.05 L (4.30-5.90) m/uL Hgb 12.3 L (13.0-17.5) gm/dL Hct (39.0-53.0) % MCV 100.8 H (80.0-100.0) fL MCHC 30.1 L (31.0-37.0) g/dL Neutrophils # (Manual) 8.01 H (1.3-7.7) k/uL Lymphocytes # (Manual) 0.46 L (1.0-4.8) k/uL ABG pH 7.25 L (7.35-7.45) ABG pCO2 >98 H* (35-45) mmHg ABG pO2 81 L (83-108) mmHg ABG O2 Saturation 93.0 L (94-97) % Hemoglobin 11.6 L (13.0-17.5) gm/dL Chloride (98-107) mmol/L Carbon Dioxide (22-30) mmol/L Glucose (74-99) mg/dL POC Glucose (mg/dL) 243 H (70-110) mg/dL Calcium (8.4-10.2) mg/dL 08/30/24 08/30/24 08/31/24 Range/Units 17:16 23:36 07:20 WBC (3.8-10.6) k/uL RBC (4.30-5.90) m/uL Hgb (13.0-17.5) gm/dL Hct (39.0-53.0) % MCV (80.0-100.0) fL MCHC (31.0-37.0) g/dL Neutrophils # (Manual) (1.3-7.7) k/uL Lymphocytes # (Manual) (1.0-4.8) k/uL ABG pH (7.35-7.45) ABG pCO2 (35-45) mmHg ABG pO2 (83-108) mmHg ABG O2 Saturation (94-97) % Hemoglobin (13.0-17.5) gm/dL Chloride (98-107) mmol/L Carbon Dioxide (22-30) mmol/L Glucose (74-99) mg/dL POC Glucose (mg/dL) 229 H 333 H 239 H (70-110) mg/dL Calcium (8.4-10.2) mg/dL 08/31/24 08/31/24 Range/Units 07:32 07:32 WBC 12.2 H (3.8-10.6) k/uL RBC 3.66 L (4.30-5.90) m/uL Hgb 10.9 L (13.0-17.5) gm/dL Hct 36.9 L (39.0-53.0) % MCV 100.9 H (80.0-100.0) fL MCHC 29.4 L (31.0-37.0) g/dL Neutrophils # (Manual) (1.3-7.7) k/uL Lymphocytes # (Manual) (1.0-4.8) k/uL ABG pH (7.35-7.45) ABG pCO2 (35-45) mmHg ABG pO2 (83-108) mmHg ABG O2 Saturation (94-97) % Hemoglobin (13.0-17.5) gm/dL Chloride 91 L (98-107) mmol/L Carbon Dioxide 41 H* (22-30) mmol/L Glucose 218 H (74-99) mg/dL POC Glucose (mg/dL) (70-110) mg/dL Calcium 8.2 L (8.4-10.2) mg/dL
--- NOTE | 2024-08-31 13:52 | P.PN ---
Subjective Progress Note Date: 08/31/24 Patient is a 64-year-old male with past medical history significant for COPD, pulmonary pretension, and former tobacco dependence. Patient does follow in the pulmonary office with Dr. Dooley. He has severe COPD with an FEV1 45% of predicted. He is oxygen dependent at baseline, normally wears 3 to 4 L of supplemental oxygen /. Also, is being considered for sleep study. Patient presented the emergency department last night with a chief complaint of acute worsening of his chronic shortness of breath. Patient states that he cannot catch his breath, especially on exertion, and this started 3 to 4 days ago. He had to increase his home oxygen up to 5 L/min. States he recently started smoking up again, 10 or so cigarettes. Endorses increased productive cough. Denies fever/chills. Denies any sick contacts or recent travel. Denies any chest pain, nausea, diaphoresis. States he has noticed increased swelling in his legs. Workup in the emergency department including a chest x-ray which harsh wed cardiomegaly and possible mild pulmonary vascular congestion. No focal infiltrates or evidence of pneumonia. No pneumothoraces or pleural effusions. NT proBNP only 766. CBC: WBC count 10.6, hemoglobin 12.6, platelets 327. CMP: Sodium 137, potassium 3.6, chloride 88, serum bicarb 39, BUN 9, creatinine 0.8, glucose 253. Normal saline infusing at 75 mL/h. Serum bicarb likely reflecting a component of chronic hypercapnic respiratory failure, no signs of CO2 narcosis on clinical exam. Lactic 1.8. Magnesium 1.4, LFTs not elevated. Troponin 0.014. EKG: Sinus tachycardia, rate 118 bpm, no acute ST elevations. . Patient currently being evaluated the emergency department. Sitting up in a bedside recliner. He has a sunglasses on. He is on 5 L/min nasal cannula. No remarkable respiratory distress. He does have bilateral expiratory wheezing. Does report increased cough with a creamy yellow sputum production. States he has been severely fatigued and "out of energy". There is some lower extremity edema. He does normally take Lasix 40 mg twice a day, denies missing any doses. Afebrile. Current vital signs: Heart rate 116 bpm, blood pressure 116/65 mmHg, nontachypneic, SpO2 reading 95% on 5 L/min nasal cannula. The patient is seen today August 31, 2024 in follow-up on the regular medical floor. He is currently awake and alert in no acute distress. He is maintaining O2 saturation in the mid 90s on 5 L/min per nasal cannula. He has been afebrile. Hemodynamically stable. Not 12.2. Hemoglobin 10.9. Platelets 230. Sodium 138. Potassium 4.5. Bicarb 41. BUN 17. Creatinine 0.73. Glucose 218. Arterial blood gases on 40% FiO2 revealed a P O2 of 81, pCO2 greater than 98 and a pH of 7.25. He has been wearing BiPAP at night 14/6 and 35% FiO2. Abdominal ultrasound revealed no evidence of ascites. He is continued on DuoNeb inhalations, Symbicort, Solu-Medrol. Remains on IV diuretics. Heparin for DVT prophylaxis. No accurate I & O. Objective - Vital Signs Vital signs: Vital Signs Temp 98.4 F 08/30/24 11:28 Pulse 92 08/31/24 12:36 Resp 16 08/31/24 12:00 BP 121/71 08/31/24 12:00 Pulse Ox 97 08/31/24 12:00 FiO2 35 08/31/24 03:26 - Exam GENERAL EXAM: Alert, morbidly obese 64-year-old male, on 5 L nasal cannula, up in a chair, comfortable in no apparent distress. HEAD: Normocephalic. EYES: Normal reaction of pupils, equal size. NOSE: Clear with pink turbinates. THROAT: No erythema or exudates. NECK: No masses, no JVD. CHEST: No chest wall deformity. LUNGS: Equal air entry with crackles in the bilateral bases, end expiratory wheeze, diminished. CVS: S1 and S2 normal with no audible murmur, regular rhythm. ABDOMEN: No hepatosplenomegaly, normal bowel sounds, no guarding or rigidity. SPINE: No scoliosis or deformity SKIN: No rashes CENTRAL NERVOUS SYSTEM: No focal deficits, tone is normal in all 4 extremities. EXTREMITIES: Changes of chronic venous stasis. There is 2+ peripheral edema. No clubbing, no cyanosis. Peripheral pulses are intact. - Labs CBC & Chem 7: 08/31/24 07:32 08/31/24 07:32 Labs: Abnormal Lab Results - Last 24 Hours (Table) 03/09/2108/30/24 08/31/24 Range/Units 17:16 23:36 07:20 WBC (3.8-10.6) k/uL RBC (4.30-5.90) m/uL Hgb (13.0-17.5) gm/dL Hct (39.0-53.0) % MCV (80.0-100.0) fL MCHC (31.0-37.0) g/dL Chloride (98-107) mmol/L Carbon Dioxide (22-30) mmol/L Glucose (74-99) mg/dL POC Glucose (mg/dL) 229 H 333 H 239 H (70-110) mg/dL Hemoglobin A1c (<=6.0) % Calcium (8.4-10.2) mg/dL 08/31/24 08/31/24 08/31/24 Range/Units 07:32 07:32 07:32 WBC 12.2 H (3.8-10.6) k/uL RBC 3.66 L (4.30-5.90) m/uL Hgb 10.9 L (13.0-17.5) gm/dL Hct 36.9 L (39.0-53.0) % MCV 100.9 H (80.0-100.0) fL MCHC 29.4 L (31.0-37.0) g/dL Chloride 91 L (98-107) mmol/L Carbon Dioxide 41 H* (22-30) mmol/L Glucose 218 H (74-99) mg/dL POC Glucose (mg/dL) (70-110) mg/dL Hemoglobin A1c 8.9 H (<=6.0) % Calcium 8.2 L (8.4-10.2) mg/dL 08/31/24 Range/Units 11:46 WBC (3.8-10.6) k/uL RBC (4.30-5.90) m/uL Hgb (13.0-17.5) gm/dL Hct (39.0-53.0) % MCV (80.0-100.0) fL MCHC (31.0-37.0) g/dL Chloride (98-107) mmol/L Carbon Dioxide (22-30) mmol/L Glucose (74-99) mg/dL POC Glucose (mg/dL) 289 H (70-110) mg/dL Hemoglobin A1c (<=6.0) % Calcium (8.4-10.2) mg/dL Assessment and Plan Assessment: Acute on chronic hypoxemic respiratory failure, secondary to acute COPD exacerbation, chest x-ray which showed cardiomegaly and possible mild pulmonary vascular congestion. No focal infiltrates or evidence of pneumonia. No pneumothoraces or pleural effusions. NT proBNP only 766 Severe COPD, with an FEV1 that is 45% of predicted Chronic hypoxemic respiratory failure, on home O2 in the order of 3 to 4 L/min nasal cannula 20/01 Acute on chronic hypercapnic respiratory failure, awaiting sleep study appointment Morbid obesity, with a BMI of 42.5 kg/m Hypomagnesemia, replaced History of heart failure with preserved ejection fraction, most recent echocardiogram from 03/11/2024 estimating a preserved left ventricular ejection fraction of 55 to 60%, without any significant valvular abnormalities and mild to moderate pulmonary hypertension. History of pulmonary hypertension, on a phosphodiesterase inhibitor History of systemic hypertension Former tobacco dependence, relapsed, recently started smoking again Plan: The patient is seen and evaluated Labs and medications reviewed ABGs reviewed Qualifies for outpatient AVAPS Ultrasound shows no abdominal ascites Continued on IV diuretics Continued on bronchodilators, steroids Titrate down the FiO2 as tolerated BiPAP support as needed We will continue to follow I have personally seen and examined the patient, performed the documentation and the assessment and plan as written. Number of minutes spent on the visit: 20 Dictation was produced using [employer] dictation software. Please excuse any gramm atical, word or spelling errors.
[2024-08-31] MEDS ORDERED: ZINC OXIDE PASTE (Z-GUARD) 1 APPLIC TOPICAL PRN (16:13)
[2024-08-31 16:40] LABS: Glucose,Whole Blood 275 mg/dL (70-110)
[2024-08-31] MEDS: FUROSEMIDE 10 MG/ML 4 ML VIAL IV SCH (16:57)
[2024-08-31 20:02] LABS: Glucose,Whole Blood 420 mg/dL (70-110)
[2024-08-31] MEDS: IPRATROPIUM-ALBUTEROL 3 ML NEB INHALATION PRN (23:47)
[2024-09-01 06:17] LABS: Glucose,Whole Blood 336 mg/dL (70-110)
[2024-09-01 08:02] LABS: HCT 38.9 % (39.0-53.0); HGB 11.5 gm/dL (13.0-17.5); Hypochromasia Marked; MCH 29.9 pg (25.0-35.0); MCHC 29.5 g/dL (31.0-37.0); MCV 101.1 fL (80.0-100.0); Macrocytosis Slight; Mean Platelet Volume 7.8; Platelet Count 238 k/uL (150-450); RBC 3.85 m/uL (4.30-5.90); WBC 10.7 k/uL (3.8-10.6)
[2024-09-01 08:36] LABS: African American GFR (CKD) >90 (>60 ml/min/1.73 sqM); Anion Gap 7 mmol/L; Blood Urea Nitrogen 22 mg/dL (9-20); Calcium 8.1 mg/dL (8.4-10.2); Chloride 93 mmol/L (98-107); Glucose 267 mg/dL (74-99); Non-African American GFR(CKD) >90 (>60 ml/min/1.73 sqM); Potassium 4.1 mmol/L (3.5-5.1); Sodium 140 mmol/L (137-145)
[2024-09-01 08:52] LABS: Carbon Dioxide 40 mmol/L (22-30)
--- NOTE | 2024-09-01 11:40 | P.PN ---
Subjective Progress Note Date: 09/01/24 Principal diagnosis: Hospital course: Patient is a 64 year old male with past medical history of CHF, COPD, diabetes mellitus who presented to the ED with shortness of breath. Patient states that severe shortness of breath with dyspnea and that he cannot catch his breath. He admits to open oxygen at home at 2 L and has a history of COPD. Daily his ox ygen requirement has increased and he still remains short of breath. He reportedly had abdominal pain and felt that his belly was bloated. Patient was very drowsy at the time of this interview and would wake up to say a couple words before falling back to sleep again. Most of the HPI has been obtained from ED documentation. Later he was placed on BiPAP and was trying to remove the mask with his oxygen saturation dropping down to the high 70s. Denies fever, chills, cough, chest pain, palpitations, nausea, vomiting, hematuria, dysuria, hematochezia, melena, headache, slurred speech, numbness, tingling, dizziness, lightheadedness, blurred vision, double vision. ED documentation reviewed. In the ED patient was treated with magnesium oxide, magnesium sulfate, 0.9 normal saline, Solu-Medrol. Vitals on admission T 90 F, MI 127 bpm, RR 24, BP 83/44, oxygen saturation 88% on 5 L via nasal cannula EKG independently interpreted as sinus tachycardia, rate 118 bpm, QTc 368 ms Chest x-ray shows cardiomegaly and mild pulmonary vascular congestion Abdomen and pelvis CT shows no acute abnormality in the abdomen/pelvis Abdomen ultrasound shows no ascites is demonstrated corresponding to CT Labs on admission show WBC 10.6, hemoglobin 12.6, platelet count 187, INR 0.9, sodium 137, potassium 3.6, bicarb 39, BUN 9, creatinine 0.8, glucose 253, magnesium 1.4, lactic acid 1.8, troponin I 0.014, NT proBNP 766 ABG shows pO2 81,pCO2 >98, pH 7.25 Respiratory panel is negative 08/31/24: Patient seen and examined at bedside today. Patient more awake and alert today. He is on 5L oxygen via nasal cannula. Labs today show WBC 12.2, hemoglobin 10.9, bicarb 41, creatinine 0.73. 09/01/24: Patient evaluated today. He continues to be on 5L of oxygen via nasal cannula and is saturating at 94%. Labs today show WBC 10.7, hemoglobin 11.5, sodium 140, potassium 4.1, bicarb 40. BUN 22. Review of systems: Pertinent positives and negatives as discussed in HPI, a complete review of systems was performed and all other systems are negative. Vitals: Signs Reviewed Physical examination: General: nontoxic, no distress, appears at stated age, obese Derm: warm, dry, intact Head: atraumatic, normocephalic, symmetric Eyes: EOMI, anicteric sclera Mouth: no lip lesion, mucus membranes moist Cardiovascular: S1 S2 reg, no murmur Lungs: bilateral wheezing, no accessory muscle use Abdominal: soft, non-tender to palpation Extremities: No cyanosis, clubbing, or pedal edema. Neuro: Awake, Oriented, Gross neurological examination did not reveal any focal deficits. Psych: well appearing, appropriate affect Assessment/Plan: Patient is a 64 year old male with past medical history of CHF, COPD, diabetes mellitus who presented to the ED with shortness of breath. Active: #. Acute on chronic hypoxemic respiratory failure #. Acute COPD exacerbation Chest x-ray shows cardiomegaly and mild pulmonary vascular congestion ABG shows pO2 81,pCO2 >98, pH 7.25 Continue supplemental oxygen to maintain oxygen saturation of 90% or greater, currently on 5L oxygen via nasal cannula Continue Duoneb QID and Q2HR PRN, Symbicort BID, Solumedrol 60 mg IV Q6HR Continue Furosemide 40 mg IV BID Pulmonology is following, recommend that patient qualifies for outpatient AVAPS Encourage Incentive spirometry Q1H #. Contraction alkalosis Bicarb 39 on admission Monitor BMP #. Nausea and vomiting Continue Ondansetron 4 mg IVP Q8HR PRN #. Hypomagnesemia, resolved Chronic: #. Heart failure with preserved ejection fraction, EF 55-60% on 03/11/24 #. Pulmonary hypertension #. Hypertension #. Hyperlipidemia Continue Insulin sliding scale, Sildenafil 25 mg PO daily, Aspirin 81 mg PO daily, Atorvastatin 40 mg PO HS F: None E: Replete as required N: Heart healthy diet DVT prophylaxis: Heparin 5000 units SQ every 8 hours GI prophylaxis: Pantoprazole 40 mg p.o. daily Attestation: I have personally seen and examined the patient with Resident, reviewed the documentation and participated and agree with the assessment and plan as written. Marcus Adame MD Objective - Vital Signs Vital signs: Vital Signs Temp 97.8 F 08/31/24 23:33 Pulse 94 09/01/24 08:54 Resp 19 09/01/24 04:11 BP 127/67 09/01/24 04:11 Pulse Ox 94 L 09/01/24 04:11 FiO2 35 08/31/24 03:26 Intake & Output 08/31/24 09/01/24 09/01/24 18:59 06:59 18:59 Output Total 375 Balance -375 Weight 130.635 kg 137.1 kg Output: Urine 375 Other: Voiding Method Urinal Urinal - Labs CBC & Chem 7: 09/02/24 07:04 09/02/24 07:04 Labs: Abnormal Lab Results - Last 24 Hours (Table) 08/31/24 08/31/24 08/31/24 Range/Units 07:32 11:46 16:39 WBC (3.8-10.6) k/uL RBC (4.30-5.90) m/uL Hgb (13.0-17.5) gm/dL Hct (39.0-53.0) % MCV (80.0-100.0) fL MCHC (31.0-37.0) g/dL Chloride (98-107) mmol/L Carbon Dioxide (22-30) mmol/L BUN (9-20) mg/dL Glucose (74-99) mg/dL POC Glucose (mg/dL) 289 H 275 H (70-110) mg/dL Hemoglobin A1c 8.9 H (<=6.0) % Calcium (8.4-10.2) mg/dL 08/31/24 09/01/24 09/01/24 Range/Units 20:01 06:16 07:18 WBC 10.7 H (3.8-10.6) k/uL RBC 3.85 L (4.30-5.90) m/uL Hgb 11.5 L (13.0-17.5) gm/dL Hct 38.9 L (39.0-53.0) % MCV 101.1 H (80.0-100.0) fL MCHC 29.5 L (31.0-37.0) g/dL Chloride (98-107) mmol/L Carbon Dioxide (22-30) mmol/L BUN (9-20) mg/dL Glucose (74-99) mg/dL POC Glucose (mg/dL) 420 H 336 H (70-110) mg/dL Hemoglobin A1c (<=6.0) % Calcium (8.4-10.2) mg/dL 09/01/24 Range/Units 07:18 WBC (3.8-10.6) k/uL RBC (4.30-5.90) m/uL Hgb (13.0-17.5) gm/dL Hct (39.0-53.0) % MCV (80.0-100.0) fL MCHC (31.0-37.0) g/dL Chloride 93 L (98-107) mmol/L Carbon Dioxide 40 H (22-30) mmol/L BUN 22 H (9-20) mg/dL Glucose 267 H (74-99) mg/dL POC Glucose (mg/dL) (70-110) mg/dL Hemoglobin A1c (<=6.0) % Calcium 8.1 L (8.4-10.2) mg/dL
[2024-09-01 11:51] LABS: Glucose,Whole Blood 203 mg/dL (70-110)
--- NOTE | 2024-09-01 13:40 | P.PN ---
Subjective Progress Note Date: 09/01/24 Patient is a 64-year-old male with past medical history significant for COPD, pulmonary pretension, and former tobacco dependence. Patient does follow in the pulmonary office with Dr. Dooley. He has severe COPD with an FEV1 45% of predicted. He is oxygen dependent at baseline, normally wears 3 to 4 L of supplemental oxygen /. Also, is being considered for sleep study. Patient presented the emergency department last night with a chief complaint of acute worsening of his chronic shortness of breath. Patient states that he cannot catch his breath, especially on exertion, and this started 3 to 4 days ago. He had to increase his home oxygen up to 5 L/min. States he recently started smoking up again, 10 or so cigarettes. Endorses increased productive cough. Denies fever/chills. Denies any sick contacts or recent travel. Denies any chest pain, nausea, diaphoresis. States he has noticed increased swelling in his legs. Workup in the emergency department including a chest x-ray which harsh wed cardiomegaly and possible mild pulmonary vascular congestion. No focal infiltrates or evidence of pneumonia. No pneumothoraces or pleural effusions. NT proBNP only 766. CBC: WBC count 10.6, hemoglobin 12.6, platelets 327. CMP: Sodium 137, potassium 3.6, chloride 88, serum bicarb 39, BUN 9, creatinine 0.8, glucose 253. Normal saline infusing at 75 mL/h. Serum bicarb likely reflecting a component of chronic hypercapnic respiratory failure, no signs of CO2 narcosis on clinical exam. Lactic 1.8. Magnesium 1.4, LFTs not elevated. Troponin 0.014. EKG: Sinus tachycardia, rate 118 bpm, no acute ST elevations. . Patient currently being evaluated the emergency department. Sitting up in a bedside recliner. He has a sunglasses on. He is on 5 L/min nasal cannula. No remarkable respiratory distress. He does have bilateral expiratory wheezing. Does report increased cough with a creamy yellow sputum production. States he has been severely fatigued and "out of energy". There is some lower extremity edema. He does normally take Lasix 40 mg twice a day, denies missing any doses. Afebrile. Current vital signs: Heart rate 116 bpm, blood pressure 116/65 mmHg, nontachypneic, SpO2 reading 95% on 5 L/min nasal cannula. The patient is seen today August 31, 2024 in follow-up on the regular medical floor. He is currently awake and alert in no acute distress. He is maintaining O2 saturation in the mid 90s on 5 L/min per nasal cannula. He has been afebrile. Hemodynamically stable. Not 12.2. Hemoglobin 10.9. Platelets 230. Sodium 138. Potassium 4.5. Bicarb 41. BUN 17. Creatinine 0.73. Glucose 218. Arterial blood gases on 40% FiO2 revealed a P O2 of 81, pCO2 greater than 98 and a pH of 7.25. He has been wearing BiPAP at night 14/6 and 35% FiO2. Abdominal ultrasound revealed no evidence of ascites. He is continued on DuoNeb inhalations, Symbicort, Solu-Medrol. Remains on IV diuretics. Heparin for DVT prophylaxis. No accurate I & O. The patient is seen today September 01, 2024 in follow-up on the regular medical floor. He is currently sitting up in a chair at the bedside. Awake and alert in no acute distress. Maintaining O2 saturations in the 90s on 5 L/min per nasal cannula. No IV fluids. He did wear BiPAP last night 14/6 and 35% FiO2. White count 10.7. Hemoglobin 11.5. Platelets 238. Sodium 140. Potassium 4.1. Bicarb 40. BUN 22. Creatinine 0.66. Glucose 267. He is continued on DuoNeb inhalations, Symbicort, Solu-Medrol. Remains on IV diuretics. Heparin for DVT prophylaxis. Objective - Vital Signs Vital signs: Vital Signs Temp 97.9 F 09/01/24 09:15 Pulse 90 09/01/24 12:02 Resp 20 09/01/24 11:30 BP 99/63 09/01/24 11:30 Pulse Ox 97 09/01/24 11:30 FiO2 35 08/31/24 03:26 Intake & Output 08/31/24 09/01/24 09/01/24 18:59 06:59 18:59 Output Total 375 Balance -375 Weight 130.635 kg 137.1 kg Output: Urine 375 Other: Voiding Method Urinal Urinal Urinal # Voids 1 - Exam GENERAL EXAM: Alert, obese 64-year-old male, on 5 L nasal cannula, up in a chair, in no apparent distress. HEAD: Normocephalic. EYES: Normal reaction of pupils, equal size. NOSE: Clear with pink turbinates. THROAT: No erythema or exudates. NECK: No masses, no JVD. CHEST: No chest wall deformity. LUNGS: Equal air entry with crackles in the bilateral bases, end expiratory wheeze, diminished. CVS: S1 and S2 normal with no audible murmur, regular rhythm. ABDOMEN: No hepatosplenomegaly, normal bowel sounds, no guarding or rigidity. SPINE: No scoliosis or deformity SKIN: No rashes CENTRAL NERVOUS SYSTEM: No focal deficits, tone is normal in all 4 extremities. EXTREMITIES: Changes of chronic venous stasis. There is 2+ peripheral edema. No clubbing, no cyanosis. Peripheral pulses are intact. - Labs CBC & Chem 7: 09/01/24 07:18 09/01/24 07:18 Labs: Abnormal Lab Results - Last 24 Hours (Table) 08/31/24 08/31/24 09/01/24 Range/Units 16:39 20:01 06:16 WBC (3.8-10.6) k/uL RBC (4.30-5.90) m/uL Hgb (13.0-17.5) gm/dL Hct (39.0-53.0) % MCV (80.0-100.0) fL MCHC (31.0-37.0) g/dL Chloride (98-107) mmol/L Carbon Dioxide (22-30) mmol/L BUN (9-20) mg/dL Glucose (74-99) mg/dL POC Glucose (mg/dL) 275 H 420 H 336 H (70-110) mg/dL Calcium (8.4-10.2) mg/dL 09/01/24 09/01/24 09/01/24 Range/Units 07:18 07:18 11:49 WBC 10.7 H (3.8-10.6) k/uL RBC 3.85 L (4.30-5.90) m/uL Hgb 11.5 L (13.0-17.5) gm/dL Hct 38.9 L (39.0-53.0) % MCV 101.1 H (80.0-100.0) fL MCHC 29.5 L (31.0-37.0) g/dL Chloride 93 L (98-107) mmol/L Carbon Dioxide 40 H (22-30) mmol/L BUN 22 H (9-20) mg/dL Glucose 267 H (74-99) mg/dL POC Glucose (mg/dL) 203 H (70-110) mg/dL Calcium 8.1 L (8.4-10.2) mg/dL Assessment and Plan Assessment: Acute on chronic hypoxemic respiratory failure, secondary to acute COPD exacerbation, chest x-ray which showed cardiomegaly and possible mild pulmonary vascular congestion. No focal infiltrates or evidence of pneumonia. No pneumothoraces or pleural effusions. NT proBNP only 766 Severe COPD, with an FEV1 that is 45% of predicted Chronic hypoxemic respiratory failure, on home O2 in the order of 3 to 4 L/min nasal cannula 20/01 Acute on chronic hypercapnic respiratory failure, awaiting sleep study appointment Morbid obesity, with a BMI of 42.5 kg/m Hypomagnesemia, replaced History of heart failure with preserved ejection fraction, most recent echocardiogram from 03/11/2024 estimating a preserved left ventricular ejection fraction of 55 to 60%, without any significant valvular abnormalities and mild to moderate pulmonary hypertension. History of pulmonary hypertension, on a phosphodiesterase inhibitor History of systemic hypertension Former tobacco dependence, relapsed, recently started smoking again Plan: The patient is seen and evaluated Labs and medications reviewed Continued on IV diuretics Continued on bronchodilators, steroids Titrate down the FiO2 as tolerated BiPAP support 14/6 and 35% FiO2 as needed We will continue to follow I have personally seen and examined the patient, performed the documentation and the assessment and plan as written. Number of minutes spent on the visit: 10 Dictation was produced using [employer] dictation software. Please excuse any grammatical, word or spelling errors.
[2024-09-01 16:55] LABS: Glucose,Whole Blood 353 mg/dL (70-110)
[2024-09-01 20:17] LABS: Glucose,Whole Blood 291 mg/dL (70-110)
[2024-09-02 05:45] LABS: Glucose,Whole Blood 256 mg/dL (70-110)
[2024-09-02 07:43] LABS: HCT 43.6 % (39.0-53.0); HGB 13.1 gm/dL (13.0-17.5); Hypochromasia Marked; MCH 30.6 pg (25.0-35.0); MCV 102.1 fL (80.0-100.0); Macrocytosis Slight; Mean Platelet Volume 7.6; Platelet Count 240 k/uL (150-450); RBC 4.27 m/uL (4.30-5.90); RDW 14.5 % (11.5-15.5); WBC 11.6 k/uL (3.8-10.6)
[2024-09-02 08:22] LABS: African American GFR (CKD) >90 (>60 ml/min/1.73 sqM); Anion Gap 10 mmol/L; Blood Urea Nitrogen 21 mg/dL (9-20); Calcium 8.4 mg/dL (8.4-10.2); Chloride 93 mmol/L (98-107); Glucose 271 mg/dL (74-99); Non-African American GFR(CKD) >90 (>60 ml/min/1.73 sqM); Sodium 139 mmol/L (137-145)
[2024-09-02 08:25] LABS: Carbon Dioxide 36 mmol/L (22-30); Potassium 4.3 mmol/L (3.5-5.1)
[2024-09-02] MEDS ORDERED: SILDENAFIL CITRATE 25 MG PO SCH (11:03)
[2024-09-02 12:05] LABS: Glucose,Whole Blood 275 mg/dL (70-110)
[2024-09-02] MEDS: SILDENAFIL CITRATE 25 MG PO SCH (12:18)
--- NOTE | 2024-09-02 13:08 | P.PN ---
Subjective Progress Note Date: 09/02/24 Principal diagnosis: Hospital course: Patient is a 64 year old male with past medical history of CHF, COPD, diabetes mellitus who presented to the ED with shortness of breath. Patient states that severe shortness of breath with dyspnea and that he cannot catch his breath. He admits to open oxygen at home at 2 L and has a history of COPD. Daily his ox ygen requirement has increased and he still remains short of breath. He reportedly had abdominal pain and felt that his belly was bloated. Patient was very drowsy at the time of this interview and would wake up to say a couple words before falling back to sleep again. Most of the HPI has been obtained from ED documentation. Later he was placed on BiPAP and was trying to remove the mask with his oxygen saturation dropping down to the high 70s. Denies fever, chills, cough, chest pain, palpitations, nausea, vomiting, hematuria, dysuria, hematochezia, melena, headache, slurred speech, numbness, tingling, dizziness, lightheadedness, blurred vision, double vision. ED documentation reviewed. In the ED patient was treated with magnesium oxide, magnesium sulfate, 0.9 normal saline, Solu-Medrol. Vitals on admission T 90 F, NE 127 bpm, RR 24, BP 83/44, oxygen saturation 88% on 5 L via nasal cannula EKG independently interpreted as sinus tachycardia, rate 118 bpm, QTc 368 ms Chest x-ray shows cardiomegaly and mild pulmonary vascular congestion Abdomen and pelvis CT shows no acute abnormality in the abdomen/pelvis Abdomen ultrasound shows no ascites is demonstrated corresponding to CT Labs on admission show WBC 10.6, hemoglobin 12.6, platelet count 187, INR 0.9, sodium 137, potassium 3.6, bicarb 39, BUN 9, creatinine 0.8, glucose 253, magnesium 1.4, lactic acid 1.8, troponin I 0.014, NT proBNP 766 ABG shows pO2 81,pCO2 >98, pH 7.25 Respiratory panel is negative 08/31/24: Patient seen and examined at bedside today. Patient more awake and alert today. He is on 5L oxygen via nasal cannula. Labs today show WBC 12.2, hemoglobin 10.9, bicarb 41, creatinine 0.73. 09/01/24: Patient evaluated today. He continues to be on 5L of oxygen via nasal cannula and is saturating at 94%. Labs today show WBC 10.7, hemoglobin 11.5, sodium 140, potassium 4.1, bicarb 40. BUN 22. 3/12/22: Patient examined at bedside. He continues to be on 5L of oxygen via nasal cannula and is saturating at 94%. Patient used the BIPAP 14/6/35% at night briefly. Labs today show WBC 11.6, hemoglobin 13.1, sodium 139, bicarb 36, creatinine 0.7. Review of systems: Pertinent positives and negatives as discussed in HPI, a complete review of systems was performed and all other systems are negative. Vitals: Signs Reviewed Physical examination: General: nontoxic, no distress, appears at stated age, obese Derm: warm, dry, intact Head: atraumatic, normocephalic, symmetric Eyes: EOMI, anicteric sclera Mouth: no lip lesion, mucus membranes moist Cardiovascular: S1 S2 reg, no murmur Lungs: bilateral wheezing, no accessory muscle use Abdominal: soft, non-tender to palpation Extremities: No cyanosis, clubbing, or pedal edema. Neuro: Awake, Oriented, Gross neurological examination did not reveal any focal deficits. Psych: well appearing, appropriate affect Assessment/Plan: Patient is a 64 year old male with past medical history of CHF, COPD, diabetes mellitus who presented to the ED with shortness of breath. Active: #. Acute on chronic hypoxemic respiratory failure #. Acute COPD exacerbation Chest x-ray shows cardiomegaly and mild pulmonary vascular congestion ABG shows pO2 81,pCO2 >98, pH 7.25 Continue supplemental oxygen to maintain oxygen saturation of 90% or greater, currently on 5L oxygen via nasal cannula Continue Duoneb QID and Q2HR PRN, Symbicort BID, Solumedrol 60 mg IV Q6HR Continue Furosemide 40 mg IV BID Pulmonology is following, recommend that patient qualifies for outpatient AVAPS Encourage Incentive spirometry Q1H #. Contraction alkalosis Bicarb 39 on admission Monitor BMP #. Nausea and vomiting Continue Ondansetron 4 mg IVP Q8HR PRN #. Hypomagnesemia, resolved Chronic: #. Heart failure with preserved ejection fraction, EF 55-60% on 03/11/24 #. Pulmonary hypertension #. Hypertension #. Hyperlipidemia Continue Insulin sliding scale, Sildenafil 25 mg PO daily, Aspirin 81 mg PO daily, Atorvastatin 40 mg PO HS F: None E: Replete as required N: Heart healthy diet DVT prophylaxis: Heparin 5000 units SQ every 8 hours GI prophylaxis: Pantoprazole 40 mg p.o. daily Attestation: I have personally seen and examined the patient with Resident, reviewed the documentation and participated and agree with the assessment and plan as written. Marcus Adame MD Objective - Vital Signs Vital signs: Vital Signs Temp 98.0 F 09/01/24 19:50 Pulse 76 09/02/24 03:26 Resp 19 09/02/24 03:26 BP 119/84 09/02/24 03:26 Pulse Ox 93 L 09/02/24 03:26 FiO2 35 09/02/24 00:18 Intake & Output 09/01/24 09/02/24 09/02/24 18:59 06:59 18:59 Weight 137 kg Other: Voiding Method Urinal Urinal # Voids 3 1 - Labs CBC & Chem 7: 09/02/24 07:04 09/02/24 07:04 Labs: Abnormal Lab Results - Last 24 Hours (Table) 09/01/24 09/01/24 09/01/24 Range/Units 07:18 07:18 11:49 WBC 10.7 H (3.8-10.6) k/uL RBC 3.85 L (4.30-5.90) m/uL Hgb 11.5 L (13.0-17.5) gm/dL Hct 38.9 L (39.0-53.0) % MCV 101.1 H (80.0-100.0) fL MCHC 29.5 L (31.0-37.0) g/dL Chloride 93 L (98-107) mmol/L Carbon Dioxide 40 H (22-30) mmol/L BUN 22 H (9-20) mg/dL Glucose 267 H (74-99) mg/dL POC Glucose (mg/dL) 203 H (70-110) mg/dL Calcium 8.1 L (8.4-10.2) mg/dL 09/01/24 09/01/24 09/02/24 Range/Units 16:53 20:14 05:43 WBC (3.8-10.6) k/uL RBC (4.30-5.90) m/uL Hgb (13.0-17.5) gm/dL Hct (39.0-53.0) % MCV (80.0-100.0) fL MCHC (31.0-37.0) g/dL Chloride (98-107) mmol/L Carbon Dioxide (22-30) mmol/L BUN (9-20) mg/dL Glucose (74-99) mg/dL POC Glucose (mg/dL) 353 H 291 H 256 H (70-110) mg/dL Calcium (8.4-10.2) mg/dL 09/02/24 Range/Units 07:04 WBC 11.6 H (3.8-10.6) k/uL RBC 4.27 L (4.30-5.90) m/uL Hgb (13.0-17.5) gm/dL Hct (39.0-53.0) % MCV 102.1 H (80.0-100.0) fL MCHC 30.0 L (31.0-37.0) g/dL Chloride (98-107) mmol/L Carbon Dioxide (22-30) mmol/L BUN (9-20) mg/dL Glucose (74-99) mg/dL POC Glucose (mg/dL) (70-110) mg/dL Calcium (8.4-10.2) mg/dL
--- NOTE | 2024-09-02 14:55 | P.PN ---
Subjective Progress Note Date: 09/02/24 Patient is a 64-year-old male with past medical history significant for COPD, pulmonary pretension, and former tobacco dependence. Patient does follow in the pulmonary office with Dr. Dooley. He has severe COPD with an FEV1 45% of predicted. He is oxygen dependent at baseline, normally wears 3 to 4 L of supplemental oxygen /. Also, is being considered for sleep study. Patient presented the emergency department last night with a chief complaint of acute worsening of his chronic shortness of breath. Patient states that he cannot catch his breath, especially on exertion, and this started 3 to 4 days ago. He had to increase his home oxygen up to 5 L/min. States he recently started smoking up again, 10 or so cigarettes. Endorses increased productive cough. Denies fever/chills. Denies any sick contacts or recent travel. Denies any chest pain, nausea, diaphoresis. States he has noticed increased swelling in his legs. Workup in the emergency department including a chest x-ray which harsh wed cardiomegaly and possible mild pulmonary vascular congestion. No focal infiltrates or evidence of pneumonia. No pneumothoraces or pleural effusions. NT proBNP only 766. CBC: WBC count 10.6, hemoglobin 12.6, platelets 327. CMP: Sodium 137, potassium 3.6, chloride 88, serum bicarb 39, BUN 9, creatinine 0.8, glucose 253. Normal saline infusing at 75 mL/h. Serum bicarb likely reflecting a component of chronic hypercapnic respiratory failure, no signs of CO2 narcosis on clinical exam. Lactic 1.8. Magnesium 1.4, LFTs not elevated. Troponin 0.014. EKG: Sinus tachycardia, rate 118 bpm, no acute ST elevations. . Patient currently being evaluated the emergency department. Sitting up in a bedside recliner. He has a sunglasses on. He is on 5 L/min nasal cannula. No remarkable respiratory distress. He does have bilateral expiratory wheezing. Does report increased cough with a creamy yellow sputum production. States he has been severely fatigued and "out of energy". There is some lower extremity edema. He does normally take Lasix 40 mg twice a day, denies missing any doses. Afebrile. Current vital signs: Heart rate 116 bpm, blood pressure 116/65 mmHg, nontachypneic, SpO2 reading 95% on 5 L/min nasal cannula. The patient is seen today August 31, 2024 in follow-up on the regular medical floor. He is currently awake and alert in no acute distress. He is maintaining O2 saturation in the mid 90s on 5 L/min per nasal cannula. He has been afebrile. Hemodynamically stable. Not 12.2. Hemoglobin 10.9. Platelets 230. Sodium 138. Potassium 4.5. Bicarb 41. BUN 17. Creatinine 0.73. Glucose 218. Arterial blood gases on 40% FiO2 revealed a P O2 of 81, pCO2 greater than 98 and a pH of 7.25. He has been wearing BiPAP at night 14/6 and 35% FiO2. Abdominal ultrasound revealed no evidence of ascites. He is continued on DuoNeb inhalations, Symbicort, Solu-Medrol. Remains on IV diuretics. Heparin for DVT prophylaxis. No accurate I & O. The patient is seen today September 01, 2024 in follow-up on the regular medical floor. He is currently sitting up in a chair at the bedside. Awake and alert in no acute distress. Maintaining O2 saturations in the 90s on 5 L/min per nasal cannula. No IV fluids. He did wear BiPAP last night 14/6 and 35% FiO2. White count 10.7. Hemoglobin 11.5. Platelets 238. Sodium 140. Potassium 4.1. Bicarb 40. BUN 22. Creatinine 0.66. Glucose 267. He is continued on DuoNeb inhalations, Symbicort, Solu-Medrol. Remains on IV diuretics. Heparin for DVT prophylaxis. The patient is seen today September 02, 2024 in follow-up on the selective care unit. He is currently sitting up in a chair. Awake and alert in no acute distress. Maintaining O2 saturations in the 90s on 4 L/min per nasal cannula. No IV fluids. He did utilize BiPAP last night 14/6 and 35% FiO2. White count 11.6. Hemoglobin 13.1. Platelets 240. Sodium 139. Potassium 4.3. Bicarb 36. BUN 21. Creatinine 0.70. Glucose 271. He is continued on DuoNeb inhalations, Symbicort, Solu-Medrol. Heparin for DVT prophylaxis. Remains on IV diuretics. No accurate intake and output. Objective - Vital Signs Vital signs: Vital Signs Temp 98.2 F 09/02/24 11:54 Pulse 101 H 09/02/24 11:54 Resp 18 09/02/24 11:54 BP 121/61 09/02/24 11:54 Pulse Ox 95 09/02/24 11:54 FiO2 35 09/02/24 00:18 Intake & Output 09/01/24 09/02/24 09/02/24 18:59 06:59 18:59 Intake Total 772 Balance 772 Weight 137 kg 137.1 kg Intake: IV 10 Invasive Line 1 10 Oral 762 Other: Voiding Method Urinal Urinal Urinal # Voids 3 1 3 # Bowel Movements 2 - Exam GENERAL EXAM: Alert, pleasant, obese 64-year-old male, on 4 L nasal cannula, up in a chair, in no apparent distress. HEAD: Normocephalic. EYES: Normal reaction of pupils, equal size. NOSE: Clear with pink turbinates. THROAT: No erythema or exudates. NECK: No masses, no JVD. CHEST: No chest wall deformity. LUNGS: Equal air entry with crackles in the bilateral bases, end expiratory wheeze, diminished. CVS: S1 and S2 normal with no audible murmur, regular rhythm. ABDOMEN:. Obese, unable to appreciate for hepatosplenomegaly, normal bowel sounds, no guarding or rigidity. SPINE: No scoliosis or deformity SKIN: No rashes CENTRAL NERVOUS SYSTEM: No focal deficits, tone is normal in all 4 extremities. EXTREMITIES: Changes of chronic venous stasis. There is 2+ peripheral edema. No clubbing, no cyanosis. Peripheral pulses are intact. - Labs CBC & Chem 7: 09/02/24 07:04 09/02/24 07:04 Labs: Abnormal Lab Results - Last 24 Hours (Table) 09/01/24 09/01/24 09/02/24 Range/Units 16:53 20:14 05:43 WBC (3.8-10.6) k/uL RBC (4.30-5.90) m/uL MCV (80.0-100.0) fL MCHC (31.0-37.0) g/dL Chloride (98-107) mmol/L Carbon Dioxide (22-30) mmol/L BUN (9-20) mg/dL Glucose (74-99) mg/dL POC Glucose (mg/dL) 353 H 291 H 256 H (70-110) mg/dL 09/02/24 09/02/24 09/02/24 Range/Units 07:04 07:04 12:04 WBC 11.6 H (3.8-10.6) k/uL RBC 4.27 L (4.30-5.90) m/uL MCV 102.1 H (80.0-100.0) fL MCHC 30.0 L (31.0-37.0) g/dL Chloride 93 L (98-107) mmol/L Carbon Dioxide 36 H (22-30) mmol/L BUN 21 H (9-20) mg/dL Glucose 271 H (74-99) mg/dL POC Glucose (mg/dL) 275 H (70-110) mg/dL Assessment and Plan Assessment: Acute on chronic hypoxemic respiratory failure, secondary to acute COPD exacerbation, chest x-ray which showed cardiomegaly and possible mild pulmonary vascular congestion. No focal infiltrates or evidence of pneumonia. No pneumothoraces or pleural effusions. NT proBNP only 766 Severe COPD, with an FEV1 that is 45% of predicted Chronic hypoxemic respiratory failure, on home O2 in the order of 3 to 4 L/min nasal cannula 20/01 Acute on chronic hypercapnic respiratory failure, awaiting sleep study appointment Morbid obesity, with a BMI of 42.5 kg/m Hypomagnesemia, replaced History of heart failure with preserved ejection fraction, most recent echocardiogram from 03/11/2024 estimating a preserved left ventricular ejection fraction of 55 to 60%, without any significant valvular abnormalities and mild to moderate pulmonary hypertension. History of pulmonary hypertension, on a phosphodiesterase inhibitor History of systemic hypertension Former tobacco dependence, relapsed, recently started smoking again Plan: The patient is seen and evaluated Labs and medications reviewed Continued on IV diuretics Continued on bronchodilators, steroids Currently on 4 L/min per nasal cannula Titrate down the FiO2 as tolerated BiPAP support 14/6 and 35% FiO2 as needed We will continue to follow I have personally seen and examined the patient, performed the documentation and the assessment and plan as written. Number of minutes spent on the visit: 10 Dictation was produced using [employer] dictation software. Please excuse any grammatical, word or spelling errors.
[2024-09-02] MEDS: metOLazone 2.5 MG TAB PO SCH (15:54)
[2024-09-02] MEDS: FUROSEMIDE 10 MG/ML 4 ML VIAL IV SCH (15:54)
[2024-09-02 16:47] LABS: Glucose,Whole Blood 412 mg/dL (70-110)
[2024-09-02] MEDS: INSULIN LISPRO (HumaLOG) 100 UNIT/ML 10 mL VL SQ ONE (16:52)
[2024-09-02 17:09] LABS: Glucose,Whole Blood 418 mg/dL (70-110)
[2024-09-02 18:13] LABS: Glucose,Whole Blood 381 mg/dL (70-110)
[2024-09-02 20:27] LABS: Glucose,Whole Blood 422 mg/dL (70-110)
[2024-09-02] MEDS ORDERED: HYDROcodone/APAP 5-325MG 1 EACH TAB PO PRN (21:22)
[2024-09-02] MEDS ORDERED: methocarbamoL 500 MG TAB PO PRN (21:23)
[2024-09-02] MEDS: INSULIN GLARGINE (LANTUS) 100 UNIT/ML SYR SQ SCH (21:28)
[2024-09-03 06:11] LABS: Glucose,Whole Blood 320 mg/dL (70-110)
[2024-09-03 06:43] LABS: African American GFR (CKD) >90 (>60 ml/min/1.73 sqM); Blood Urea Nitrogen 26 mg/dL (9-20); Calcium 8.3 mg/dL (8.4-10.2); Chloride 83 mmol/L (98-107); Glucose 287 mg/dL (74-99); Non-African American GFR(CKD) >90 (>60 ml/min/1.73 sqM); Potassium 3.8 mmol/L (3.5-5.1); Sodium 133 mmol/L (137-145)
[2024-09-03 06:49] LABS: Anion Gap 5 mmol/L
[2024-09-03 07:10] LABS: Carbon Dioxide 45 mmol/L (22-30)
[2024-09-03 11:31] LABS: VBG PH 7.44 (7.31-7.41)
[2024-09-03 11:46] LABS: Glucose,Whole Blood 382 mg/dL (70-110)
--- NOTE | 2024-09-03 11:49 | P.PN ---
Subjective Progress Note Date: 09/03/24 Principal diagnosis: Hospital course: Patient is a 64 year old male with past medical history of CHF, COPD, diabetes mellitus who presented to the ED with shortness of breath. Patient states that severe shortness of breath with dyspnea and that he cannot catch his breath. He admits to open oxygen at home at 2 L and has a history of COPD. Daily his ox ygen requirement has increased and he still remains short of breath. He reportedly had abdominal pain and felt that his belly was bloated. Patient was very drowsy at the time of this interview and would wake up to say a couple words before falling back to sleep again. Most of the HPI has been obtained from ED documentation. Later he was placed on BiPAP and was trying to remove the mask with his oxygen saturation dropping down to the high 70s. Denies fever, chills, cough, chest pain, palpitations, nausea, vomiting, hematuria, dysuria, hematochezia, melena, headache, slurred speech, numbness, tingling, dizziness, lightheadedness, blurred vision, double vision. ED documentation reviewed. In the ED patient was treated with magnesium oxide, magnesium sulfate, 0.9 normal saline, Solu-Medrol. Vitals on admission T 90 F, NE 127 bpm, RR 24, BP 83/44, oxygen saturation 88% on 5 L via nasal cannula EKG independently interpreted as sinus tachycardia, rate 118 bpm, QTc 368 ms Chest x-ray shows cardiomegaly and mild pulmonary vascular congestion Abdomen and pelvis CT shows no acute abnormality in the abdomen/pelvis Abdomen ultrasound shows no ascites is demonstrated corresponding to CT Labs on admission show WBC 10.6, hemoglobin 12.6, platelet count 187, INR 0.9, sodium 137, potassium 3.6, bicarb 39, BUN 9, creatinine 0.8, glucose 253, magnesium 1.4, lactic acid 1.8, troponin I 0.014, NT proBNP 766 ABG shows pO2 81,pCO2 >98, pH 7.25 Respiratory panel is negative 08/31/24: Patient seen and examined at bedside today. Patient more awake and alert today. He is on 5L oxygen via nasal cannula. Labs today show WBC 12.2, hemoglobin 10.9, bicarb 41, creatinine 0.73. 09/01/24: Patient evaluated today. He continues to be on 5L of oxygen via nasal cannula and is saturating at 94%. Labs today show WBC 10.7, hemoglobin 11.5, sodium 140, potassium 4.1, bicarb 40. BUN 22. 09/02/24: Patient examined at bedside. He continues to be on 5L of oxygen via nasal cannula and is saturating at 94%. Patient used the BIPAP 14/6/35% at night briefly. Labs today show WBC 11.6, hemoglobin 13.1, sodium 139, bicarb 36, creatinine 0.7. 09/03/24: Patient evaluated at bedside. He is now on 3L of oxygen via nasal cannula and is saturating at 95%. He reports being short of breath when getting up to go to the restroom. Associated with that he has a productive cough. Labs today show sodium 133, bicarb 45, BUN 26, creatinine 0.7. Review of systems: Pertinent positives and negatives as discussed in HPI, a complete review of syst ems was performed and all other systems are negative. Vitals: Signs Reviewed Physical examination: General: nontoxic, no distress, appears at stated age, obese Derm: warm, dry, intact Head: atraumatic, normocephalic, symmetric Eyes: EOMI, anicteric sclera Mouth: no lip lesion, mucus membranes moist Cardiovascular: S1 S2 reg, no murmur Lungs: bilateral wheezing, no accessory muscle use Abdominal: soft, non-tender to palpation Extremities: pitting edema of bilateral lower extremities, No cyanosis, clubbing Neuro: Awake, Oriented, Gross neurological examination did not reveal any focal deficits. Psych: well appearing, appropriate affect Assessment/Plan: Patient is a 64 year old male with past medical history of CHF, COPD, diabetes mellitus who presented to the ED with shortness of breath. Active: #. Acute on chronic hypoxemic respiratory failure #. Acute COPD exacerbation Chest x-ray shows cardiomegaly and mild pulmonary vascular congestion ABG shows pO2 81,pCO2 >98, pH 7.25 Continue supplemental oxygen to maintain oxygen saturation of 90% or greater, currently on 3L oxygen via nasal cannula Continue Duoneb QID and Q2HR PRN, Symbicort BID, Solumedrol 60 mg IV Q6HR Continue Furosemide 40 mg IV BID, Metolazone 2.5 mg PO daily Pulmonology is following, recommend that patient qualifies for outpatient AVAPS Encourage Incentive spirometry Q1H #. Contraction alkalosis Bicarb 45 today Obtain VBG Monitor BMP #. Mild hyponatremia Na 133 on 09/03/24 Monitor BMP #. Nausea and vomiting Continue Ondansetron 4 mg IVP Q8HR PRN #. Hypomagnesemia, resolved Chronic: #. Heart failure with preserved ejection fraction, EF 55-60% on 03/11/24 #. Pulmonary hypertension #. Hypertension #. Hyperlipidemia Continue Insulin glargine 20 units, Insulin sliding scale, Sildenafil 25 mg PO daily, Aspirin 81 mg PO daily, Atorvastatin 40 mg PO HS F: None E: Replete as required N: Heart healthy diet DVT prophylaxis: Heparin 5000 units SQ every 8 hours GI prophylaxis: Pantoprazole 40 mg p.o. daily Attestation: I have personally seen and examined the patient with Resident, reviewed the documentation and participated and agree with the assessment and plan as written. Marcus Adame MD Objective - Vital Signs Vital signs: Vital Signs Temp 98.0 F 09/03/24 07:11 Pulse 83 09/03/24 08:25 Resp 17 09/03/24 07:11 BP 113/69 09/03/24 07:11 Pulse Ox 95 09/03/24 08:25 FiO2 35 09/03/24 02:52 Intake & Output 09/02/24 09/03/24 09/03/24 18:59 06:59 18:59 Intake Total 1182 10 Output Total 200 2100 Balance 982 -2090 Weight 137.1 kg Intake: IV 20 10 Invasive Line 1 10 Invasive Line 2 10 10 Oral 1162 Output: Urine 200 2100 Other: Voiding Method Urinal Toilet # Voids 3 1 1 # Bowel Movements 2 - Labs CBC & Chem 7: 09/02/24 07:04 09/03/24 05:22 Labs: Abnormal Lab Results - Last 24 Hours (Table) 09/02/24 09/02/24 09/02/24 Range/Units 12:04 16:46 17:09 Sodium (137-145) mmol/L Chloride (98-107) mmol/L Carbon Dioxide (22-30) mmol/L BUN (9-20) mg/dL Glucose (74-99) mg/dL POC Glucose (mg/dL) 275 H 412 H 418 H (70-110) mg/dL Calcium (8.4-10.2) mg/dL 09/02/24 09/02/24 09/03/24 Range/Units 18:12 20:26 05:22 Sodium 133 L (137-145) mmol/L Chloride 83 L (98-107) mmol/L Carbon Dioxide 45 H* (22-30) mmol/L BUN 26 H (9-20) mg/dL Glucose 287 H (74-99) mg/dL POC Glucose (mg/dL) 381 H 422 H (70-110) mg/dL Calcium 8.3 L (8.4-10.2) mg/dL 09/03/24 Range/Units 06:09 Sodium (137-145) mmol/L Chloride (98-107) mmol/L Carbon Dioxide (22-30) mmol/L BUN (9-20) mg/dL Glucose (74-99) mg/dL POC Glucose (mg/dL) 320 H (70-110) mg/dL Calcium (8.4-10.2) mg/dL
--- NOTE | 2024-09-03 14:31 | P.PN ---
Subjective Progress Note Date: 09/03/24 Patient is a 64-year-old male with past medical history significant for COPD, pulmonary pretension, and former tobacco dependence. Patient does follow in the pulmonary office with Dr. Dooley. He has severe COPD with an FEV1 45% of predicted. He is oxygen dependent at baseline, normally wears 3 to 4 L of supplemental oxygen /. Also, is being considered for sleep study. Patient presented the emergency department last night with a chief complaint of acute worsening of his chronic shortness of breath. Patient states that he cannot catch his breath, especially on exertion, and this started 3 to 4 days ago. He had to increase his home oxygen up to 5 L/min. States he recently started smoking up again, 10 or so cigarettes. Endorses increased productive cough. Denies fever/chills. Denies any sick contacts or recent travel. Denies any chest pain, nausea, diaphoresis. States he has noticed increased swelling in his legs. Workup in the emergency department including a chest x-ray which harsh wed cardiomegaly and possible mild pulmonary vascular congestion. No focal infiltrates or evidence of pneumonia. No pneumothoraces or pleural effusions. NT proBNP only 766. CBC: WBC count 10.6, hemoglobin 12.6, platelets 327. CMP: Sodium 137, potassium 3.6, chloride 88, serum bicarb 39, BUN 9, creatinine 0.8, glucose 253. Normal saline infusing at 75 mL/h. Serum bicarb likely reflecting a component of chronic hypercapnic respiratory failure, no signs of CO2 narcosis on clinical exam. Lactic 1.8. Magnesium 1.4, LFTs not elevated. Troponin 0.014. EKG: Sinus tachycardia, rate 118 bpm, no acute ST elevations. . Patient currently being evaluated the emergency department. Sitting up in a bedside recliner. He has a sunglasses on. He is on 5 L/min nasal cannula. No remarkable respiratory distress. He does have bilateral expiratory wheezing. Does report increased cough with a creamy yellow sputum production. States he has been severely fatigued and "out of energy". There is some lower extremity edema. He does normally take Lasix 40 mg twice a day, denies missing any doses. Afebrile. Current vital signs: Heart rate 116 bpm, blood pressure 116/65 mmHg, nontachypneic, SpO2 reading 95% on 5 L/min nasal cannula. The patient is seen today August 31, 2024 in follow-up on the regular medical floor. He is currently awake and alert in no acute distress. He is maintaining O2 saturation in the mid 90s on 5 L/min per nasal cannula. He has been afebrile. Hemodynamically stable. Not 12.2. Hemoglobin 10.9. Platelets 230. Sodium 138. Potassium 4.5. Bicarb 41. BUN 17. Creatinine 0.73. Glucose 218. Arterial blood gases on 40% FiO2 revealed a P O2 of 81, pCO2 greater than 98 and a pH of 7.25. He has been wearing BiPAP at night 14/6 and 35% FiO2. Abdominal ultrasound revealed no evidence of ascites. He is continued on DuoNeb inhalations, Symbicort, Solu-Medrol. Remains on IV diuretics. Heparin for DVT prophylaxis. No accurate I & O. The patient is seen today September 01, 2024 in follow-up on the regular medical floor. He is currently sitting up in a chair at the bedside. Awake and alert in no acute distress. Maintaining O2 saturations in the 90s on 5 L/min per nasal cannula. No IV fluids. He did wear BiPAP last night 14/6 and 35% FiO2. White count 10.7. Hemoglobin 11.5. Platelets 238. Sodium 140. Potassium 4.1. Bicarb 40. BUN 22. Creatinine 0.66. Glucose 267. He is continued on DuoNeb inhalations, Symbicort, Solu-Medrol. Remains on IV diuretics. Heparin for DVT prophylaxis. The patient is seen today September 02, 2024 in follow-up on the selective care unit. He is currently sitting up in a chair. Awake and alert in no acute distress. Maintaining O2 saturations in the 90s on 4 L/min per nasal cannula. No IV fluids. He did utilize BiPAP last night 14/6 and 35% FiO2. White count 11.6. Hemoglobin 13.1. Platelets 240. Sodium 139. Potassium 4.3. Bicarb 36. BUN 21. Creatinine 0.70. Glucose 271. He is continued on DuoNeb inhalations, Symbicort, Solu-Medrol. Heparin for DVT prophylaxis. Remains on IV diuretics. No accurate intake and output. The patient is seen today September 03, 2024 in follow-up on the regular medical floor. He is awake and alert in no acute distress. Sitting up in a chair at the bedside. Maintaining good O2 saturations in the 90s on 3 L/min per nasal cannula. He wore his BiPAP for approximately 4 hours on and off. Settings are 14/6 and 35% FiO2. He remains on DuoNeb inhalations, Symbicort, Solu-Medrol. Remains on IV diuretics. Remains on heparin for DVT prophylaxis. Currently in a -1.1 L balance. Less lower extremity edema. Sodium 133. Potassium 3.8. Bicarb 45. BUN 26. Creatinine 0.77. Glucose 287. Objective - Vital Signs Vital signs: Vital Signs Temp 98.0 F 09/03/24 07:11 Pulse 96 09/03/24 11:58 Resp 17 09/03/24 07:11 BP 113/69 09/03/24 07:11 Pulse Ox 95 09/03/24 08:25 FiO2 35 09/03/24 11:46 Intake & Output 09/02/24 09/03/24 09/03/24 18:59 06:59 18:59 Intake Total 1182 10 Output Total 200 2100 2100 Balance 98 Weight 137.1 kg 139.5 kg Intake: IV 20 10 Invasive Line 1 10 Invasive Line 2 10 10 Oral 1162 Output: Urine 200 2100 2100 Other: Voiding Method Urinal Toilet # Voids 3 1 1 # Bowel Movements 2 - Exam GENERAL EXAM: Alert, morbidly obese 64-year-old male, on 3 L nasal cannula, up in a chair, in no apparent distress. HEAD: Normocephalic. EYES: Normal reaction of pupils, equal size. NOSE: Clear with pink turbinates. THROAT: No erythema or exudates. NECK: No masses, no JVD. CHEST: No chest wall deformity. LUNGS: Equal air entry with crackles in the bilateral bases, end expiratory wheeze, diminished. CVS: S1 and S2 normal with no audible murmur, regular rhythm. ABDOMEN:. Obese, unable to appreciate for hepatosplenomegaly, normal bowel sounds, no guarding or rigidity. SPINE: No scoliosis or deformity SKIN: No rashes CENTRAL NERVOUS SYSTEM: No focal deficits, tone is normal in all 4 extremities. EXTREMITIES: Changes of chronic venous stasis. There is 1+ peripheral edema. No clubbing, no cyanosis. Peripheral pulses are intact. - Labs CBC & Chem 7: 09/02/24 07:04 09/03/24 05:22 Labs: Abnormal Lab Results - Last 24 Hours (Table) 09/02/24 09/02/24 09/02/24 Range/Units 16:46 17:09 18:12 VBG pH (7.31-7.41) VBG pCO2 (37-51) mmHg VBG HCO3 (24-28) mmol/L Sodium (137-145) mmol/L Chloride (98-107) mmol/L Carbon Dioxide (22-30) mmol/L BUN (9-20) mg/dL Glucose (74-99) mg/dL POC Glucose (mg/dL) 412 H 418 H 381 H (70-110) mg/dL Calcium (8.4-10.2) mg/dL 09/02/24 09/03/24 09/03/24 Range/Units 20:26 05:22 06:09 VBG pH (7.31-7.41) VBG pCO2 (37-51) mmHg VBG HCO3 (24-28) mmol/L Sodium 133 L (137-145) mmol/L Chloride 83 L (98-107) mmol/L Carbon Dioxide 45 H* (22-30) mmol/L BUN 26 H (9-20) mg/dL Glucose 287 H (74-99) mg/dL POC Glucose (mg/dL) 422 H 320 H (70-110) mg/dL Calcium 8.3 L (8.4-10.2) mg/dL 09/03/24 09/03/24 Range/Units 11:10 11:44 VBG pH 7.44 H (7.31-7.41) VBG pCO2 72 H* (37-51) mmHg VBG HCO3 49 H (24-28) mmol/L Sodium (137-145) mmol/L Chloride (98-107) mmol/L Carbon Dioxide (22-30) mmol/L BUN (9-20) mg/dL Glucose (74-99) mg/dL POC Glucose (mg/dL) 382 H (70-110) mg/dL Calcium (8.4-10.2) mg/dL Assessment and Plan Assessment: Acute on chronic hypoxemic respiratory failure, secondary to acute COPD exacerbation, chest x-ray which showed cardiomegaly and possible mild pulmonary vascular congestion. No focal infiltrates or evidence of pneumonia. No pneumothoraces or pleural effusions. NT proBNP only 766 Severe COPD, with an FEV1 that is 45% of predicted Chronic hypoxemic respiratory failure, on home O2 in the order of 3 to 4 L/min nasal cannula 20/01 Acute on chronic hypercapnic respiratory failure, utilizing BiPAP here, awaiting an appointment at the sleep center Morbid obesity, with a BMI of 45.5 kg/m Hypomagnesemia, replaced History of heart failure with preserved ejection fraction, most recent echocardiogram from 03/11/2024 estimating a preserved left ventricular ejection fraction of 55 to 60%, without any significant valvular abnormalities and mild to moderate pulmonary hypertension. History of pulmonary hypertension, on a phosphodiesterase inhibitor History of systemic hypertension Former tobacco dependence, relapsed, recently started smoking again Plan: The patient is seen and evaluated Labs and medications reviewed Continued on IV diuretics Continued on bronchodilators, steroids Currently on 3 L/min per nasal cannula Titrate down the FiO2 as tolerated Encouraged to use BiPAP as much as possible Plan is for a sleep center appointment post discharge I have personally seen and examined the patient, performed the documentation and the assessment and plan as written. Number of minutes spent on the visit: 10 Dictation was produced using [employer] dictation software. Please excuse any grammatical, word or spelling errors.
[2024-09-03 15:55] VITALS: BMI 45.3
[2024-09-03 16:58] LABS: Glucose,Whole Blood 384 mg/dL (70-110)
[2024-09-03 20:22] LABS: Glucose,Whole Blood 339 mg/dL (70-110)
[2024-09-03] MEDS: METOPROLOL TARTRATE 12.5 MG TAB PO SCH (23:39)
[2024-09-04 05:30] LABS: HCT 41.8 % (39.0-53.0); HGB 12.5 gm/dL (13.0-17.5); Hypochromasia Moderate; MCH 29.5 pg (25.0-35.0); MCHC 29.8 g/dL (31.0-37.0); MCV 99.2 fL (80.0-100.0); Macrocytosis Slight; Mean Platelet Volume 8.2; Platelet Count 291 k/uL (150-450); RBC 4.22 m/uL (4.30-5.90); WBC 10.8 k/uL (3.8-10.6)
[2024-09-04 05:56] LABS: African American GFR (CKD) >90 (>60 ml/min/1.73 sqM); Blood Urea Nitrogen 35 mg/dL (9-20); Calcium 8.4 mg/dL (8.4-10.2); Chloride 80 mmol/L (98-107); Glucose 337 mg/dL (74-99); Non-African American GFR(CKD) >90 (>60 ml/min/1.73 sqM); Potassium 3.9 mmol/L (3.5-5.1); Sodium 132 mmol/L (137-145)
[2024-09-04 06:02] LABS: Anion Gap 7 mmol/L
[2024-09-04 06:29] LABS: Glucose,Whole Blood 318 mg/dL (70-110)
[2024-09-04 06:41] LABS: Carbon Dioxide 45 mmol/L (22-30)
[2024-09-04 11:44] LABS: Glucose,Whole Blood 430 mg/dL (70-110)
[2024-09-04 13:53] VITALS: BP 111/69; PULSE 94; RESP 18; TEMP 98.1
--- NOTE | 2024-09-04 14:33 | P.DS ---
Providers Date of admission: 08/29/24 22:44 Expected date of discharge: 09/04/24 Attending physician: Peri Quinteros Consults: 08/29/24 22:44 Consult Physician Routine Consulting Provider: Yung Kearns Consult Reason/Comments: copd Do you want consulting provider notified?: Yes Primary care physician: Vandana Wilkinson Hospital Course: Discharge diagnoses; #. Acute on chronic hypoxemic respiratory failure #. Acute COPD exacerbation Continue home inhaler regimen Discharged on tapering dose of prednisone #. Contraction alkalosis Monitor BMP #. Mild hyponatremia Monitor BMP #. Nausea and vomiting Continue Ondansetron 4 mg IVP Q8HR PRN #. Hypomagnesemia, resolved Chronic: #. Heart failure with preserved ejection fraction, EF 55-60% on 03/11/24 #. Pulmonary hypertension #. Hypertension #. Hyperlipidemia Hospital course; Patient is a 64 year old male with past medical history of CHF, COPD, diabetes mellitus who presented to the ED with shortness of breath. Patient states that severe shortness of breath with dyspnea and that he cannot catch his breath. He admits to open oxygen at home at 2 L and has a history of COPD. Daily his oxygen requirement has increased and he still remains short of breath. He r eportedly had abdominal pain and felt that his belly was bloated. Patient was very drowsy at the time of this interview and would wake up to say a couple words before falling back to sleep again. Most of the HPI has been obtained from ED documentation. Later he was placed on BiPAP and was trying to remove the mask with his oxygen saturation dropping down to the high 70s. Denies fever, chills, cough, chest pain, palpitations, nausea, vomiting, hematuria, dysuria, hematochezia, melena, headache, slurred speech, numbness, tingling, dizziness, lightheadedness, blurred vision, double vision. ED documentation reviewed. In the ED patient was treated with magnesium oxide, magnesium sulfate, 0.9 normal saline, Solu-Medrol. Vitals on admission T 90 F, PA 127 bpm, RR 24, BP 83/44, oxygen saturation 88% on 5 L via nasal cannula EKG independently interpreted as sinus tachycardia, rate 118 bpm, QTc 368 ms Chest x-ray shows cardiomegaly and mild pulmonary vascular congestion Abdomen and pelvis CT shows no acute abnormality in the abdomen/pelvis Abdomen ultrasound shows no ascites is demonstrated corresponding to CT Labs on admission show WBC 10.6, hemoglobin 12.6, platelet count 187, INR 0.9, sodium 137, potassium 3.6, bicarb 39, BUN 9, creatinine 0.8, glucose 253, magnesium 1.4, lactic acid 1.8, troponin I 0.014, NT proBNP 766 ABG shows pO2 81,pCO2 >98, pH 7.25 Respiratory panel is negative 08/31/24: Patient seen and examined at bedside today. Patient more awake and alert today. He is on 5L oxygen via nasal cannula. Labs today show WBC 12.2, hemoglobin 10.9, bicarb 41, creatinine 0.73. 09/01/24: Patient evaluated today. He continues to be on 5L of oxygen via nasal cannula and is saturating at 94%. Labs today show WBC 10.7, hemoglobin 11.5, sodium 140, potassium 4.1, bicarb 40. BUN 22. 09/02/24: Patient examined at bedside. He continues to be on 5L of oxygen via nasal cannula and is saturating at 94%. Patient used the BIPAP 14/6/35% at night briefly. Labs today show WBC 11.6, hemoglobin 13.1, sodium 139, bicarb 36, creatinine 0.7. 09/03/24: Patient evaluated at bedside. He is now on 3L of oxygen via nasal cannula and is saturating at 95%. He reports being short of breath when getting up to go to the restroom. Associated with that he has a productive cough. Labs today show sodium 133, bicarb 45, BUN 26, creatinine 0.7. 09/04. Patient seen and examined. Blood work done this morning showed WBC 1.8, hemoglobin 12.5, platelet count 291, sodium 132, potassium 3.9, carbon is a 45, BUN 35, creatinine 0.78. Pulmonology aware to the patient, recommended discharging on tapering dose of prednisone. Patient currently at his home O2 oxygen requirements level PHYSICAL EXAMINATION: GENERAL: The patient is alert and oriented x3, ill looking HEENT: Pupils are round and equally reacting to light. EOMI. No scleral icterus. No conjunctival pallor. Normocephalic, atraumatic. No pharyngeal erythema. No thyromegaly. CARDIOVASCULAR: S1 and S2 present. No murmurs, rubs, or gallops. PULMONARY: Coarse breath sounds bilaterally, no wheezing or crackles. ABDOMEN: Soft, nontender, nondistended, normoactive bowel sounds. No palpable organomegaly. MUSCULOSKELETAL: No joint swelling or deformity. EXTREMITIES: No cyanosis, clubbing, or pedal edema. NEUROLOGICAL: Gross neurological examination did not reveal any focal deficits. SKIN: No rashes. Dictation was produced using [employer] dictation software. please excuse any grammatical, word or spelling errors. Patient Condition at Discharge: Fair Plan - Discharge Summary Discharge Rx Participant: No New Discharge Prescriptions: New predniSONE 10 mg PO DAILY 8 Days #20 tab Metoprolol Tartrate [Lopressor] 12.5 mg PO BID 30 Days #60 tab Continue Sildenafil Citrate 25 mg PO DAILY Ipratropium-Albuterol Nebulize [Duoneb 0.5 mg-3 mg/3 ml Soln] 3 ml INHALATION RT-QID PRN PRN Reason: Shortness Of Breath Artificial Tears-Hypromellose [Artificial Tear Drops] 2 drops BOTH EYES QID PRN ml PRN Reason: Dry Eye(S) Atorvastatin [Lipitor] 40 mg PO HS #30 tab Furosemide [Lasix] 40 mg PO BID metFORMIN HCL [Glucophage] 500 mg PO BID Albuterol Sulfate [Albuterol Sulfate Hfa] 2 puff PO RT-Q4H PRN PRN Reason: Shortness Of Breath Aspirin 81 mg PO DAILY #0 tab Magnesium Oxide [Mag-Ox] 400 mg PO BID 2 Days #4 tab Potassium Chloride ER [K-Dur 20] 20 meq PO BID 10 Days #20 tab Discharge Medication List Sildenafil Citrate 25 mg PO DAILY 10/29/22 [History] Albuterol Sulfate [Albuterol Sulfate Hfa] 2 puff PO RT-Q4H PRN 07/09/24 [History] Ipratropium-Albuterol Nebulize [Duoneb 0.5 mg-3 mg/3 ml Soln] 3 ml INHALATION RT-QID PRN 07/09/24 [History] metFORMIN HCL [Glucophage] 500 mg PO BID 07/09/24 [History] Artificial Tears-Hypromellose [Artificial Tear Drops] 2 drops BOTH EYES QID PRN ml 07/14/24 [Rx] Aspirin 81 mg PO DAILY #0 tab 07/14/24 [Rx] Atorvastatin [Lipitor] 40 mg PO HS #30 tab 07/14/24 [Rx] Furosemide [Lasix] 40 mg PO BID 08/12/24 [History] Magnesium Oxide [Mag-Ox] 400 mg PO BID 2 Days #4 tab 08/16/24 [Rx] Potassium Chloride ER [K-Dur 20] 20 meq PO BID 10 Days #20 tab 08/16/24 [Rx] Metoprolol Tartrate [Lopressor] 12.5 mg PO BID 30 Days #60 tab 09/04/24 [Rx] predniSONE 10 mg PO DAILY 8 Days #20 tab 09/04/24 [Rx] Follow up Appointment(s)/Referral(s): [facility] [NON-STAFF] - Ed Dooley DO [Doctor of Osteopathic Medicine] - 1 Week [facility], [NON-STAFF] - 1 Week Vandana Wilkinson DO [Primary Care Provider] - 1-2 days Discharge/Stand Alone Forms: Who Do I Call? Discharge Disposition: HOME SELF-CARE
--- NOTE | 2024-09-04 15:05 | P.PN ---
Subjective Progress Note Date: 09/04/24 Patient is a 64-year-old male with past medical history significant for COPD, pulmonary pretension, and former tobacco dependence. Patient does follow in the pulmonary office with Dr. Dooley. He has severe COPD with an FEV1 45% of predicted. He is oxygen dependent at baseline, normally wears 3 to 4 L of supplemental oxygen /. Also, is being considered for sleep study. Patient presented the emergency department last night with a chief complaint of acute worsening of his chronic shortness of breath. Patient states that he cannot catch his breath, especially on exertion, and this started 3 to 4 days ago. He had to increase his home oxygen up to 5 L/min. States he recently started smoking up again, 10 or so cigarettes. Endorses increased productive cough. Denies fever/chills. Denies any sick contacts or recent travel. Denies any chest pain, nausea, diaphoresis. States he has noticed increased swelling in his legs. Workup in the emergency department including a chest x-ray which harsh wed cardiomegaly and possible mild pulmonary vascular congestion. No focal infiltrates or evidence of pneumonia. No pneumothoraces or pleural effusions. NT proBNP only 766. CBC: WBC count 10.6, hemoglobin 12.6, platelets 327. CMP: Sodium 137, potassium 3.6, chloride 88, serum bicarb 39, BUN 9, creatinine 0.8, glucose 253. Normal saline infusing at 75 mL/h. Serum bicarb likely reflecting a component of chronic hypercapnic respiratory failure, no signs of CO2 narcosis on clinical exam. Lactic 1.8. Magnesium 1.4, LFTs not elevated. Troponin 0.014. EKG: Sinus tachycardia, rate 118 bpm, no acute ST elevations. . Patient currently being evaluated the emergency department. Sitting up in a bedside recliner. He has a sunglasses on. He is on 5 L/min nasal cannula. No remarkable respiratory distress. He does have bilateral expiratory wheezing. Does report increased cough with a creamy yellow sputum production. States he has been severely fatigued and "out of energy". There is some lower extremity edema. He does normally take Lasix 40 mg twice a day, denies missing any doses. Afebrile. Current vital signs: Heart rate 116 bpm, blood pressure 116/65 mmHg, nontachypneic, SpO2 reading 95% on 5 L/min nasal cannula. The patient is seen today August 31, 2024 in follow-up on the regular medical floor. He is currently awake and alert in no acute distress. He is maintaining O2 saturation in the mid 90s on 5 L/min per nasal cannula. He has been afebrile. Hemodynamically stable. Not 12.2. Hemoglobin 10.9. Platelets 230. Sodium 138. Potassium 4.5. Bicarb 41. BUN 17. Creatinine 0.73. Glucose 218. Arterial blood gases on 40% FiO2 revealed a P O2 of 81, pCO2 greater than 98 and a pH of 7.25. He has been wearing BiPAP at night 14/6 and 35% FiO2. Abdominal ultrasound revealed no evidence of ascites. He is continued on DuoNeb inhalations, Symbicort, Solu-Medrol. Remains on IV diuretics. Heparin for DVT prophylaxis. No accurate I & O. The patient is seen today September 01, 2024 in follow-up on the regular medical floor. He is currently sitting up in a chair at the bedside. Awake and alert in no acute distress. Maintaining O2 saturations in the 90s on 5 L/min per nasal cannula. No IV fluids. He did wear BiPAP last night 14/6 and 35% FiO2. White count 10.7. Hemoglobin 11.5. Platelets 238. Sodium 140. Potassium 4.1. Bicarb 40. BUN 22. Creatinine 0.66. Glucose 267. He is continued on DuoNeb inhalations, Symbicort, Solu-Medrol. Remains on IV diuretics. Heparin for DVT prophylaxis. The patient is seen today September 02, 2024 in follow-up on the selective care unit. He is currently sitting up in a chair. Awake and alert in no acute distress. Maintaining O2 saturations in the 90s on 4 L/min per nasal cannula. No IV fluids. He did utilize BiPAP last night 14/6 and 35% FiO2. White count 11.6. Hemoglobin 13.1. Platelets 240. Sodium 139. Potassium 4.3. Bicarb 36. BUN 21. Creatinine 0.70. Glucose 271. He is continued on DuoNeb inhalations, Symbicort, Solu-Medrol. Heparin for DVT prophylaxis. Remains on IV diuretics. No accurate intake and output. The patient is seen today September 03, 2024 in follow-up on the regular medical floor. He is awake and alert in no acute distress. Sitting up in a chair at the bedside. Maintaining good O2 saturations in the 90s on 3 L/min per nasal cannula. He wore his BiPAP for approximately 4 hours on and off. Settings are 14/6 and 35% FiO2. He remains on DuoNeb inhalations, Symbicort, Solu-Medrol. Remains on IV diuretics. Remains on heparin for DVT prophylaxis. Currently in a -1.1 L balance. Less lower extremity edema. Sodium 133. Potassium 3.8. Bicarb 45. BUN 26. Creatinine 0.77. Glucose 287. The patient is seen today September 04, 2024 in follow-up on the regular medical floor. He is currently sitting up in a chair at the bedside. Awake and alert in no acute distress. Maintaining good O2 saturations in the 90s on 4 L/min per nasal cannula. He has alternating with BiPAP 14/6 and 35% FiO2. He remains on DuoNeb and elations, Symbicort, Solu-Medrol. Heparin for DVT prophylaxis. Remains on IV diuretics. Diuresing up to 5 L of urine. White count 10.8. H emoglobin 12.5. Platelets 291. Sodium 132. Potassium 3.9. Bicarb 45. BUN 35. Creatinine 0.78. Glucose 337. Objective - Vital Signs Vital signs: Vital Signs Temp 98.1 F 09/04/24 13:30 Pulse 94 09/04/24 13:30 Resp 18 09/04/24 13:30 BP 111/69 09/04/24 13:30 Pulse Ox 92 L 09/04/24 13:30 FiO2 35 09/04/24 00:02 Intake & Output 09/03/24 09/04/24 09/04/24 18:59 06:59 18:59 Output Total 3500 1500 Balance -3500 -1500 Weight 139.5 kg Output: Urine 3500 1500 Other: # Voids 1 # Bowel Movements 2 - Exam GENERAL EXAM: Alert, pleasant, morbidly obese 64-year-old male, on 4 L nasal cannula, up in a chair, in no apparent distress. HEAD: Normocephalic. EYES: Normal reaction of pupils, equal size. NOSE: Clear with pink turbinates. THROAT: No erythema or exudates. NECK: No masses, no JVD. CHEST: No chest wall deformity. LUNGS: Equal air entry with crackles in the bilateral bases, end expiratory wheeze, diminished. CVS: S1 and S2 normal with no audible murmur, regular rhythm. ABDOMEN:. Obese, unable to appreciate for hepatosplenomegaly, normal bowel sounds, no guarding or rigidity. SPINE: No scoliosis or deformity SKIN: No rashes CENTRAL NERVOUS SYSTEM: No focal deficits, tone is normal in all 4 extremities. EXTREMITIES: Changes of chronic venous stasis. There is 1+ peripheral edema. No clubbing, no cyanosis. Peripheral pulses are intact. - Labs CBC & Chem 7: 09/04/24 04:55 09/04/24 04:55 Labs: Abnormal Lab Results - Last 24 Hours (Table) 09/03/24 09/03/24 09/04/24 Range/Units 16:54 20:20 04:55 WBC 10.8 H (3.8-10.6) k/uL RBC 4.22 L (4.30-5.90) m/uL Hgb 12.5 L (13.0-17.5) gm/dL MCHC 29.8 L (31.0-37.0) g/dL Sodium (137-145) mmol/L Chloride (98-107) mmol/L Carbon Dioxide (22-30) mmol/L BUN (9-20) mg/dL Glucose (74-99) mg/dL POC Glucose (mg/dL) 384 H 339 H (70-110) mg/dL 09/04/24 09/04/24 09/04/24 Range/Units 04:55 06:27 11:33 WBC (3.8-10.6) k/uL RBC (4.30-5.90) m/uL Hgb (13.0-17.5) gm/dL MCHC (31.0-37.0) g/dL Sodium 132 L (137-145) mmol/L Chloride 80 L (98-107) mmol/L Carbon Dioxide 45 H* (22-30) mmol/L BUN 35 H (9-20) mg/dL Glucose 337 H (74-99) mg/dL POC Glucose (mg/dL) 318 H 430 H (70-110) mg/dL Assessment and Plan Assessment: Acute on chronic hypoxemic respiratory failure, secondary to acute COPD exacerbation, chest x-ray which showed cardiomegaly and possible mild pulmonary vascular congestion. No focal infiltrates or evidence of pneumonia. No pneumothoraces or pleural effusions. NT proBNP only 766 Severe COPD, with an FEV1 that is 45% of predicted Chronic hypoxemic respiratory failure, on home O2 in the order of 3 to 4 L/min nasal cannula 20/01 Acute on chronic hypercapnic respiratory failure, utilizing BiPAP here, awaiting an appointment at the sleep center Morbid obesity, with a BMI of 45.5 kg/m Hypomagnesemia, replaced History of heart failure with preserved ejection fraction, most recent echocard iogram from 03/11/2024 estimating a preserved left ventricular ejection fraction of 55 to 60%, without any significant valvular abnormalities and mild to moderate pulmonary hypertension. History of pulmonary hypertension, on a phosphodiesterase inhibitor History of systemic hypertension Former tobacco dependence, relapsed, recently started smoking again Plan: The patient is seen and evaluated Labs and medications reviewed Continued on IV diuretics Diuresing very well Continued on bronchodilators, steroids Currently on 4 L/min per nasal cannula Encouraged to use BiPAP as much as possible Plan is for a sleep center appointment post discharge I have personally seen and examined the patient, performed the documentation and the assessment and plan as written. Number of minutes spent on the visit: 10 Dictation was produced using [employer] dictation software. Please excuse any grammatical, word or spelling errors.
== END 2024-09-04 16:24 | disposition home health service (06) | DRG 189 ==
LOC: EC 19:43 → 4SSUR 22:44 → 3SCARD 08-30 12:57 → 4SSUR 09-02 16:59
PROVIDERS: ADMIT Hospitalist; ATTEND Hospitalist
PROC: 5A09357 Assistance with Respiratory Ventilation, Less than 24 Consecutive Hours, Continuous Positive Airway Pressure (ICD-10-PCS; principal; 2024-08-30)
DX: J96.21 Acute and chronic respiratory failure with hypoxia (principal); E87.3 Alkalosis; E87.1 Hypo-osmolality and hyponatremia; I27.20 Pulmonary hypertension, unspecified; J44.1 Chronic obstructive pulmonary disease with (acute) exacerbation; I50.32 Chronic diastolic (congestive) heart failure; Z68.42 Body mass index [BMI] 45.0-49.9, adult; I11.0 Hypertensive heart disease with heart failure; E11.9 Type 2 diabetes mellitus without complications; E66.01 Morbid (severe) obesity due to excess calories; I27.81 Cor pulmonale (chronic); J96.22 Acute and chronic respiratory failure with hypercapnia; E83.42 Hypomagnesemia; I87.8 Other specified disorders of veins; T50.2X5A Adverse effect of carbonic-anhydrase inhibitors, benzothiadiazides and other diuretics, initial encounter; F41.9 Anxiety disorder, unspecified; E78.5 Hyperlipidemia, unspecified; R11.2 Nausea with vomiting, unspecified; F17.210 Nicotine dependence, cigarettes, uncomplicated; Z99.81 Dependence on supplemental oxygen; Z79.82 Long term (current) use of aspirin; Z79.84 Long term (current) use of oral hypoglycemic drugs; Z79.899 Other long term (current) drug therapy
CPT/HCPCS: 36415; 36600; 71045; 74176; 76705; 80048; 80053; 82803; 82805; 83036; 83605; 83735; 83880; 84100; 84484; 85025; 85027; 85610; 85730; 87636; 93005; 94640; 94660; 94760; 96361; 96365; 96372; 96375; 96376; 99291

== ENCOUNTER → 2024-09-22 | Outpatient (CLI) | payer BC ==
--- NOTE | 2024-10-03 21:11 | P.PN ---
Progress Note - Text Progress Note Date: 10/03/24 The patient was given an HST with high clinical suspicion for obstructive sleep apnea. The patient failed to return the machine the following day. Upon contacting the patient, he stated that he did not do the study that night. Accordingly, the machine was returned back to sleep center and the study needs to be rescheduled.
== END ==
LOC: 3 N SLEEP 10:47
PROVIDERS: ATTEND Internal Medicine Critical Care Medicine
DX: G47.33 Obstructive sleep apnea (adult) (pediatric) (principal); F17.200 Nicotine dependence, unspecified, uncomplicated

== ENCOUNTER 2024-09-27 07:41 | Inpatient (IN) | payer BC ==
[2024-09-27] MEDS: methylPREDNISolone SOD SUCCI 125 MG/2 ML VIAL IV STA (08:11)
--- NOTE | 2024-09-27 08:16 | ED ---
General Adult HPI - General Stated complaint: TOM Time Seen by Provider: 09/27/24 07:42 Source: patient, EMS, RN notes reviewed, old records reviewed Mode of arrival: EMS Limitations: no limitations - History of Present Illness Initial comments: 64-year-old male presents emergency department with chief complaint of shortness of breath. Patient presents via EMS he was recently admitted and states that he signed himself out AGAINST MEDICAL ADVICE. Patient has a history of CHF and COPD oxygen dependent usually around 2 L. Patient states that he continues to smoke EMS states that he has been having some erratic behavior very staff. Patient please follow-up with pulmonology and cardiology. Patient states that he has recently gained significant weight and has had increasing dyspnea difficulty walking secondary to shortness of breath. - Related Data Home Medications Medication Instructions Recorded Confirmed Sildenafil Citrate 25 mg PO DAILY 10/29/22 09/27/24 Albuterol Sulfate [Albuterol 2 puff INHALATION RT-Q4H PRN 07/09/24 09/27/24 Sulfate Hfa] Ipratropium-Albuterol Nebulize 3 ml INHALATION RT-QID PRN 07/09/24 09/27/24 [Duoneb 0.5 mg-3 mg/3 ml Soln] metFORMIN HCL [Glucophage] 500 mg PO BID 07/09/24 09/27/24 Furosemide [Lasix] 40 mg PO BID 08/12/24 09/27/24 Metoprolol Tartrate [Lopressor] 12.5 mg PO DIRECTED 09/27/24 09/27/24 Potassium Chloride ER [K-Dur 10] 10 meq PO DAILY 09/27/24 09/27/24 Previous Rx's Medication Instructions Recorded Artificial Tears-Hypromellose 2 drops BOTH EYES QID PRN ml 07/14/24 [Artificial Tear Drops] Aspirin 81 mg PO DAILY #0 tab 07/14/24 Atorvastatin [Lipitor] 40 mg PO HS #30 tab 07/14/24 Magnesium Oxide [Mag-Ox] 400 mg PO BID 2 Days #4 tab 08/16/24 Allergies Allergy/AdvReac Type Severity Reaction Status Date / Time No Known Allergies Allergy Verified 09/27/24 11:26 Review of Systems ROS Statement: Those systems with pertinent positive or pertinent negative responses have been documented in the HPI. ROS Other: All systems not noted in ROS Statement are negative. Past Medical History Past Medical History: Heart Failure, COPD, Diabetes Mellitus Additional Past Medical History / Comment(s): Chronic oxygen dependence on 3-5 L/m History of Any Multi-Drug Resistant Organisms: None Reported Past Surgical History: Hernia Repair, Tonsillectomy Additional Past Surgical History / Comment(s): dental implants. Past Anesthesia/Blood Transfusion Reactions: No Reported Reaction Past Psychological History: No Psychological Hx Reported Smoking Status: Former smoker Past Alcohol Use History: Occasional Past Drug Use History: None Reported - Past Family History Father Additional Family Medical History / Comment(s): father and grandfather had heartattacks 60's. General Exam Limitations: no limitations General appearance: alert, in no apparent distress Head exam: Present: atraumatic, normocephalic, normal inspection Eye exam: Present: normal appearance, PERRL, EOMI. Absent: scleral icterus, conjunctival injection, periorbital swelling ENT exam: Present: normal exam, normal oropharynx, mucous membranes moist Neck exam: Present: normal inspection, full ROM. Absent: tenderness, meningismus, lymphadenopathy Respiratory exam: Present: wheezes, decreased breath sounds. Absent: normal lung sounds bilaterally, respiratory distress, rales, rhonchi, stridor Cardiovascular Exam: Present: regular rate, normal rhythm, normal heart sounds. Absent: systolic murmur, diastolic murmur, rubs, gallop, clicks GI/Abdominal exam: Present: soft, normal bowel sounds. Absent: distended, tenderness, guarding, rebound, rigid Course Vital Signs 09/27/24 09/27/24 09/27/24 07:50 09:00 10:00 Temperature 97.7 F Pulse Rate 107 H 98 106 H Respiratory 24 22 28 H Rate Blood Pressure 139/115 137/85 117/70 O2 Sat by Pulse 77 L 91 L 91 L Oximetry Fraction of Inspired Oxygen (FIO2) 09/27/24 09/27/24 09/27/24 10:11 12:00 12:43 Temperature Pulse Rate 107 H Respiratory 34 H Rate Blood Pressure 121/87 O2 Sat by Pulse 95 Oximetry Fraction of 40 40 Inspired Oxygen (FIO2) 09/27/24 09/27/24 09/27/24 12:46 12:58 13:09 Temperature 97.6 F Pulse Rate 103 H 103 H 105 H Respiratory 37 H Rate Blood Pressure 114/70 O2 Sat by Pulse 93 L Oximetry Fraction of Inspired Oxygen (FIO2) 09/27/24 09/27/24 09/27/24 15:36 17:53 19:10 Temperature Pulse Rate 106 H 99 96 Respiratory 22 17 Rate Blood Pressure 102/75 116/45 O2 Sat by Pulse 92 L 89 L Oximetry Fraction of Inspired Oxygen (FIO2) 09/27/24 09/27/24 09/28/24 20:05 22:42 01:47 Temperature Pulse Rate 100 94 Respiratory 20 Rate Blood Pressure 117/75 133/86 O2 Sat by Pulse 92 L 89 L Oximetry Fraction of Inspired Oxygen (FIO2) 09/28/24 09/28/24 02:01 02:03 Temperature Pulse Rate 96 Respiratory 19 20 Rate Blood Pressure 127/77 O2 Sat by Pulse 89 L Oximetry Fraction of Inspired Oxygen (FIO2) EKG Findings - EKG Comments: EKG Findings:: EKG performed 8: 09 sinus tach with rate of 102 QRS 105 QT/QTc 335/394 noted previously noted - EKG Results: EKG: interpreted by RASHAWN Medical Decision Making - Medical Decision Making Was pt. sent in by a medical professional or institution (, PA, [employer] WORKER HELPER, urgent care, hospital, or fdc...) When possible be specific @ -No Did you speak to anyone other than the patient for history (EMS, parent, family, police, friend...)? What history was obtained from this source @ -No Did you review nursing and triage notes (agree or disagree)? Why? @ -I reviewed and agree with nursing and triage notes Were old charts reviewed (outside hosp., previous admission, EMS record, old EKG, old radiological studies, urgent care reports/EKG's, fdc records)? Report findings @ -Reviewed prior inpatient records including pulmonary cardiology evaluation Differential Diagnosis (chest pain, altered mental status, abdominal pain women, abdominal pain men, vaginal bleeding, weakness, fever, dyspnea, syncope, headach e, dizziness, GI bleed, back pain, seizure, CVA, palpatations, mental health, musculoskeletal)? @ -Differential Dyspnea: Coronary syndrome, arrhythmia, tamponade, asthma, COPD, pulmonary embolism, pn eumonia, pneumothorax, pulmonary effusion, anaphylaxis, diabetic ketoacidosis, flailed chest, pulmonary contusion, diaphragmatic rupture, anemia, neuromuscular, this is not meant to be an all-inclusive list. EKG interpreted by me (3pts min.). @ -As above X-rays interpreted by me (1pt min.). @ -Chest x-ray shows COPD changes, mild pulmonary edema CT interpreted by me (1pt min.). @ -None done U/S interpreted by me (1pt. min.). @ -None done What testing was considered but not performed or refused? (CT, X-rays, U/S, labs)? Why? @ -None What meds were considered but not given or refused? Why? @ -None Did you discuss the management of the patient with other professionals (professionals i.e. , PA, [employer] WORKER HELPER, lab, RT, psych nurse, rn social services, finished metal repairer, teacher, certification officer, shoe caser)? Give summary @ -EMH for admission Was smoking cessation discussed for >3mins.? @ -No Was critical care preformed (if so, how long)? @ -35 minutes Were there social determinants of health that impacted care today? How? (Homelessness, low income, unemployed, alcoholism, drug addiction, transportation, low edu. Level, literacy, decrease access to med. care, group home, rehab)? @ -No Was there de-escalation of care discussed even if they declined (Discuss DNR or withdrawal of care, Hospice)? DNR status @ -No What co-morbidities impacted this encounter? (DM, HTN, Smoking, COPD, CAD, Cancer, CVA, ARF, Chemo, Hep., AIDS, mental health diagnosis, sleep apnea, morbid obesity)? @ -COPD Was patient admitted / discharged? Hospital course, mention meds given and route, prescriptions, significant lab abnormalities, going to OR and other pertinent info. @ -Admitted patient's found to be in acute hypoxic respiratory failure with hypercapnia patient was started on BiPAP patient did have some altered mental status like related to encephalopathy. Patient did have ABG ordered which was not successful by respiratory which patient and elevated CO2 was started on BiPAP. Patient continue DuoNeb treatments patient started on starting Medrol 07/19/1959 every 6 patient will require extensive monitoring, further treatments and evaluation with pulmonary. Undiagnosed new problem with uncertain prognosis? @ -No Drug Therapy requiring intensive monitoring for toxicity (Heparin, Nitro, Insulin, Cardizem)? @ -No Were any procedures done? @ -No Diagnosis/symptom? @ -Acute hypoxic hypercapnia respiratory failure, COPD exacerbation Acute, or Chronic, or Acute on Chronic? @ -Acute Uncomplicated (without systemic symptoms) or Complicated (systemic symptoms)? @ -Complicated Side effects of treatment? @ -No Exacerbation, Progression, or Severe Exacerbation? @ -COPD exacerbation Poses a threat to life or bodily function? How? (Chest pain, USA, CT, pneumonia, PE, COPD, DKA, ARF, appy, cholecystitis, CVA, Diverticulitis, Homicidal, Suicidal, threat to staff... and all critical care pts) @ -Yes respiratory failure - Lab Data Result diagrams: 09/28/24 02:58 09/28/24 01:54 Lab Results 09/27/24 09/27/24 09/27/24 Range/Units 08:11 08:11 08:11 WBC 8.3 (3.8-10.6) k/uL RBC 4.45 (4.30-5.90) m/uL Hgb 13.5 (13.0-17.5) gm/dL Hct 45.5 (39.0-53.0) % MCV 102.1 H (80.0-100.0) fL MCH 30.3 (25.0-35.0) pg MCHC 29.6 L (31.0-37.0) g/dL RDW 14.6 (11.5-15.5) % Plt Count 194 (150-450) k/uL MPV 7.4 Neutrophils % 77 % Lymphocytes % 13 % Monocytes % 6 % Eosinophils % 2 % Basophils % 0 % Neutrophils # 6.4 (1.3-7.7) k/uL Lymphocytes # 1.0 (1.0-4.8) k/uL Monocytes # 0.5 (0-1.0) k/uL Eosinophils # 0.1 (0-0.7) k/uL Basophils # 0.0 (0-0.2) k/uL Hypochromasia Marked Macrocytosis Slight PT 10.2 (10.0-12.5) sec INR 0.9 (<1.2) APTT 23.8 (22.0-30.0) sec Sodium 136 L (137-145) mmol/L Potassium 5.6 H (3.5-5.1) mmol/L Chloride 88 L (98-107) mmol/L Carbon Dioxide 44 H* (22-30) mmol/L Anion Gap 4 mmol/L BUN 24 H (9-20) mg/dL Creatinine 0.60 L (0.66-1.25) mg/dL Est GFR (CKD-EPI)AfAm >90 (>60 ml/min/1.73 sqM) Est GFR (CKD-EPI)NonAf >90 (>60 ml/min/1.73 sqM) Glucose 300 H (74-99) mg/dL Plasma Lactic Acid Nakul (0.7-2.0) mmol/L Calcium 8.7 (8.4-10.2) mg/dL Magnesium 2.0 (1.6-2.3) mg/dL Total Bilirubin 0.8 (0.2-1.3) mg/dL AST 40 (17-59) U/L ALT 39 (4-49) U/L Alkaline Phosphatase 96 (38-126) U/L Troponin I (0.000-0.034) ng/mL NT-Pro-B Natriuret Pep 335 pg/mL Total Protein 6.4 (6.3-8.2) g/dL Albumin 3.6 (3.5-5.0) g/dL Procalcitonin (0.02-0.50) ng/mL 09/27/24 09/27/24 09/27/24 Range/Units 08:11 08:11 08:11 WBC (3.8-10.6) k/uL RBC (4.30-5.90) m/uL Hgb (13.0-17.5) gm/dL Hct (39.0-53.0) % MCV (80.0-100.0) fL MCH (25.0-35.0) pg MCHC (31.0-37.0) g/dL RDW (11.5-15.5) % Plt Count (150-450) k/uL MPV Neutrophils % % Lymphocytes % % Monocytes % % Eosinophils % % Basophils % % Neutrophils # (1.3-7.7) k/uL Lymphocytes # (1.0-4.8) k/uL Monocytes # (0-1.0) k/uL Eosinophils # (0-0.7) k/uL Basophils # (0-0.2) k/uL Hypochromasia Macrocytosis PT (10.0-12.5) sec INR (<1.2) APTT (22.0-30.0) sec Sodium (137-145) mmol/L Potassium (3.5-5.1) mmol/L Chloride (98-107) mmol/L Carbon Dioxide (22-30) mmol/L Anion Gap mmol/L BUN (9-20) mg/dL Creatinine (0.66-1.25) mg/dL Est GFR (CKD-EPI)AfAm (>60 ml/min/1.73 sqM) Est GFR (CKD-EPI)NonAf (>60 ml/min/1.73 sqM) Glucose (74-99) mg/dL Plasma Lactic Acid Nakul 1.7 (0.7-2.0) mmol/L Calcium (8.4-10.2) mg/dL Magnesium (1.6-2.3) mg/dL Total Bilirubin (0.2-1.3) mg/dL AST (17-59) U/L ALT (4-49) U/L Alkaline Phosphatase (38-126) U/L Troponin I 0.025 (0.000-0.034) ng/mL NT-Pro-B Natriuret Pep pg/mL Total Protein (6.3-8.2) g/dL Albumin (3.5-5.0) g/dL Procalcitonin 0.08 (0.02-0.50) ng/mL Critical Care Time Critical Care Time: Yes Total Critical Care Time: 35 Disposition Clinical Impression: Acute exacerbation of chronic obstructive airways disease, Hypoxia, Hypercapnic respiratory failure Disposition: ADMITTED IP TO THIS HOSP Condition: Fair Time of Disposition: 10:22
[2024-09-27 08:23] LABS: Basophils % (A) 0 %; Eosinophils # (A) 0.1 k/uL (0-0.7); Eosinophils % (A) 2 %; HCT 45.5 % (39.0-53.0); HGB 13.5 gm/dL (13.0-17.5); Hypochromasia Marked; Lymphocytes % (A) 13 %; MCH 30.3 pg (25.0-35.0); MCHC 29.6 g/dL (31.0-37.0); MCV 102.1 fL (80.0-100.0); Macrocytosis Slight; Mean Platelet Volume 7.4; Monocytes # (A) 0.5 k/uL (0-1.0); Monocytes % (A) 6 %; Neutrophils # (A) 6.4 k/uL (1.3-7.7); Neutrophils % (A) 77 %; Platelet Count 194 k/uL (150-450); RBC 4.45 m/uL (4.30-5.90); RDW 14.6 % (11.5-15.5); WBC 8.3 k/uL (3.8-10.6)
[2024-09-27 08:31] LABS: INR 0.9 (<1.2); Partial Thromboplastin Time 23.8 sec (22.0-30.0); Prothrombin Time 10.2 sec (10.0-12.5)
--- NOTE | 2024-09-27 08:37 | XR ---
EXAMINATION TYPE: XR chest 2V DATE OF EXAM: 09/27/2024 8:32 AM COMPARISON: Chest radiographs from 08/29/2024 CLINICAL INDICATION: Male, 64 years old with history of difficulty breathing; [facility] TECHNIQUE: XR chest 2V Frontal and lateral views of the chest. FINDINGS: Lungs/Pleura: There is no evidence of pleural effusion, focal consolidation, or pneumothorax. Pulmonary vascularity: Unremarkable. Heart/mediastinum: Cardiomediastinal silhouette is unremarkable. Musculoskeletal: No acute osseous pathology. Other findings: None IMPRESSION: Low lung volumes with a generalized hazy appearance which could represent atelectasis versus pulmonar y edema versus atypical pneumonia correlate with serum BNP. [facility], , 09/27/2024 8:35 AM
[2024-09-27 08:38] LABS: ALT 39 U/L (4-49); African American GFR (CKD) >90 (>60 ml/min/1.73 sqM); Blood Urea Nitrogen 24 mg/dL (9-20); Calcium 8.7 mg/dL (8.4-10.2); Chloride 88 mmol/L (98-107); Glucose 300 mg/dL (74-99); Non-African American GFR(CKD) >90 (>60 ml/min/1.73 sqM); Sodium 136 mmol/L (137-145)
[2024-09-27 08:44] LABS: Anion Gap 4 mmol/L
[2024-09-27 08:46] LABS: NT-Pro-B-Type Natriuretic Pept 335 pg/mL
[2024-09-27 08:54] LABS: AST 40 U/L (17-59); Albumin 3.6 g/dL (3.5-5.0); Alkaline Phosphatase 96 U/L (38-126); Carbon Dioxide 44 mmol/L (22-30); Total Bilirubin 0.8 mg/dL (0.2-1.3); Total Protein 6.4 g/dL (6.3-8.2)
[2024-09-27 09:06] LABS: Potassium 5.6 mmol/L (3.5-5.1)
[2024-09-27] MEDS ORDERED: IPRATROPIUM-ALBUTEROL 3 ML NEB INHALATION PRN ×3 (10:19→20:01)
[2024-09-27] MEDS ORDERED: NALOXONE 0.4 MG/ML 1 ML VIAL IVP PRN (10:22)
[2024-09-27] MEDS: methylPREDNISolone SOD SUCCI 125 MG/2 ML VIAL IV SCH (11:38)
[2024-09-27] MEDS: IPRATROPIUM-ALBUTEROL 3 ML NEB INHALATION SCH (12:45)
[2024-09-27] MEDS ORDERED: DEXTROSE 50% SYRINGE 50 ML IVP PRN ×2 (13:22)
--- NOTE | 2024-09-27 13:24 | P.HPIM ---
History of Present Illness This is a pleasant [age] years old male with past medical history of COPD and heart failure. Presents because of worsening dyspnea over 3 days. He uses oxygen 3 to 5 L/min at home. Also his cough and making yellow phlegm and chest pain with coughing. He has some diarrhea but no abdominal pain or vomiting or abdominal tenderness. He denies urinary complaint. No headache dizziness no weakness or numbness. Currently he is on BiPAP. He is afebrile. He is tachycardic and tachypneic with heart rate is in the 20s. Also he is a previous smoker he denies alcohol or illicit drugs. Patient sodium is 136, potassium 5.6, carbon dioxide is elevated at 44 and glucose of 300. Creatinine within the reference range. CBC LFT INR within the reference range as well Troponin not elevated at 0.0 25. Chest x-ray showing cardiomegaly and low lung volume which could be secondary to atelectasis versus CHF versus pneumonia. proBNP is 325 only which might be limited by his body habitus Echocardiogram from 02/2024 showing ejection fraction preserved at 55 to 60% with severely dilated right ventricle, Review of Systems Review of systems CONSTITUTIONAL: No fever, no malaise, no fatigue. HEENT: No recent visual problems or hearing problems. Denied any sore throat. CARDIOVASCULAR: No orthopnea, PND, no palpitations, no syncope. PULMONARY: No chest wall tenderness, no hemoptysis. GASTROINTESTINAL: No diarrhea, no nausea, no vomiting, no abdominal pain. Normoactive bowel sounds. NEUROLOGICAL: No headaches, no weakness, no numbness. HEMATOLOGICAL: Denies any bleeding or petechiae. GENITOURINARY: Denies any burning micturition, frequency, or urgency. MUSCULOSKELETAL/RHEUMATOLOGICAL: Denies any joint pain, swelling, or any muscle pain. ENDOCRINE: Denies any polyuria or polydipsia. Past Medical History Past Medical History: Heart Failure, COPD, Diabetes Mellitus Additional Past Medical History / Comment(s): Chronic oxygen dependence on 3-5 L/m History of Any Multi-Drug Resistant Organisms: None Reported Past Surgical History: Hernia Repair, Tonsillectomy Additional Past Surgical History / Comment(s): dental implants. Past Anesthesia/Blood Transfusion Reactions: No Reported Reaction Past Psychological History: No Psychological Hx Reported Smoking Status: Former smoker Past Alcohol Use History: Occasional Past Drug Use History: None Reported - Past Family History Father Additional Family Medical History / Comment(s): father and grandfather had heartattacks 60's. Medications and Allergies Home Medications Medication Instructions Recorded Confirmed Type RX: Sildenafil Citrate 25 mg PO DAILY 10/29/22 09/27/24 History RX: Albuterol Sulfate [Albuterol 2 puff INHALATION RT-Q4H PRN 07/09/24 09/27/24 History Sulfate Hfa] RX: Ipratropium-Albuterol Nebulize 3 ml INHALATION RT-QID PRN 07/09/24 09/27/24 History [Duoneb 0.5 mg-3 mg/3 ml Soln] RX: metFORMIN HCL [Glucophage] 500 mg PO BID 07/09/24 09/27/24 History RX: Artificial Tears-Hypromellose 2 drops BOTH EYES QID PRN ml 07/14/24 09/27/24 Rx [Artificial Tear Drops] RX: Aspirin 81 mg PO DAILY #0 tab 07/14/24 09/27/24 Rx RX: Atorvastatin [Lipitor] 40 mg PO HS #30 tab 07/14/24 09/27/24 Rx RX: Furosemide [Lasix] 40 mg PO BID 08/12/24 09/27/24 History RX: Magnesium Oxide [Mag-Ox] 400 mg PO BID 2 Days #4 tab 08/16/24 09/27/24 Rx Potassium Chloride ER [K-Dur 10] 10 meq PO DAILY 09/27/24 09/27/24 History RX: Metoprolol Tartrate [Lopressor] 12.5 mg PO DIRECTED 09/27/24 09/27/24 History Allergies Allergy/AdvReac Type Severity Reaction Status Date / Time No Known Allergies Allergy Verified 09/27/24 11:26 Physical Exam Vitals: Vital Signs Temp Pulse Resp BP Pulse Ox FiO2 09/27/24 13:09 97.6 F 105 H 37 H 114/70 93 L 09/27/24 12:58 103 H 09/27/24 12:46 103 H 09/27/24 12:43 40 09/27/24 10:11 40 09/27/24 10:00 106 H 28 H 117/70 91 L 09/27/24 09:00 98 22 137/85 91 L 09/27/24 07:50 97.7 F 107 H 24 139/115 77 L Intake and Output 09/26/24 09/27/24 09/27/24 22:59 06:59 14:59 Other: Weight 127.006 kg GENERAL: The patient is alert and oriented x3, not in any acute distress. Well developed, well nourished. Obese HEENT: Pupils are round and equally reacting to light. EOMI. No scleral icterus. No conjunctival pallor. Normocephalic, atraumatic. No pharyngeal erythema. No thyromegaly. CARDIOVASCULAR: S1 and S2 present. No murmurs, rubs, or gallops. -PULMONARY: Chest is clear to auscultation, bilateral scattered wheezing , bilateral coarse crackles. On BiPAP ABDOMEN: Soft, nontender, nondistended, normoactive bowel sounds. No palpable organomegaly. MUSCULOSKELETAL: No joint swelling or deformity. -EXTREMITIES: No cyanosis, clubbing, bilateral pitting leg edema 1-2+ NEUROLOGICAL: Gross neurological examination did not reveal any focal deficits. SKIN: No rashes. no petechiae. Results CBC & Chem 7: 09/27/24 08:11 09/27/24 08:11 Labs: Abnormal Lab Results - Last 24 Hours (Table) 09/27/24 09/27/24 Range/Units 08:11 08:11 MCV 102.1 H (80.0-100.0) fL MCHC 29.6 L (31.0-37.0) g/dL Sodium 136 L (137-145) mmol/L Potassium 5.6 H (3.5-5.1) mmol/L Chloride 88 L (98-107) mmol/L Carbon Dioxide 44 H* (22-30) mmol/L BUN 24 H (9-20) mg/dL Creatinine 0.60 L (0.66-1.25) mg/dL Glucose 300 H (74-99) mg/dL Assessment and Plan Assessment: Acute COPD exacerbation Acute hypoxic hypercapnic respiratory failure, with preserved ejection fraction Acute cor pulmonale with severely dilated right ventricle Chronic CHF with acute exacerbation Diabetes mellitus Hypertension Morbid obesity with BMI of 40.8 Plan: Continue with IV Solu-Medrol Continue with oxygen therapy and BiPAP as needed Continue with bronchodilator Pulmonary team consult Start IV Lasix 40 mg twice daily. Check viral panel. Check procalcitonin. Hold metformin and continue with insulin sliding scale Labs and medication were reviewed.. Continue same treatment. Continue with symptomatic treatment. Resume home medication. Monitor labs and vitals. DVT and GI prophylaxis. Further recommendations as per clinical course of the patient DVT prophylaxis: Subcutaneous heparin GI Prophylaxis: Pepcid PT/OT: Pending Prognosis is guarded
[2024-09-27 13:54] LABS: Influenza A Not Detected (Not Detectd); Influenza B Not Detected (Not Detectd); RSV Not Detected (Not Detectd)
[2024-09-27] MEDS: FUROSEMIDE 10 MG/ML 4 ML VIAL IV SCH (14:57)
[2024-09-27] MEDS: METOPROLOL TARTRATE 12.5 MG TAB PO SCH (14:58)
[2024-09-27 16:36] LABS: Glucose,Whole Blood 378 mg/dL (70-110)
[2024-09-27] MEDS ORDERED: ARTIFICIAL TEARS-HYPROMELLOSE DROPS 15 ML BTL BOTH EYES PRN (16:52)
[2024-09-27] MEDS: INSULIN LISPRO (HumaLOG) 100 UNIT/ML 10 mL VL SQ SCH (17:56)
[2024-09-27] MEDS: ENOXAPARIN 40 MG/0.4 ML SYRINGE SQ SCH (17:56)
[2024-09-27] MEDS: INSULIN GLARGINE (LANTUS) 100 UNIT/ML SYR SQ SCH (17:56)
--- NOTE | 2024-09-27 18:04 | P.CNPUL ---
History of Present Illness Consult date: 09/27/24 Reason for consult: dyspnea, COPD History of present illness: Patient is a 64-year-old male with past medical history significant for obesity, COPD, pulmonary hypertension, and former tobacco dependence. Patient does follow in the pulmonary office with Dr. Dooley. He has severe COPD with an FEV1 45% of predicted. He is oxygen dependent at baseline, normally wears 3 to 4 L of supplemental oxygen /. Also, is being considered for sleep study. Patient presented the emergency department last night with a chief complaint of acute worsening of his chronic shortness of breath. Patient has had multiple hospitalizations for the same. Earlier this month, the patient was admitted to the hospital on 08/30/2024 with chief complaint of worsening shortness of breath and he was treated and discharged home on 09/04/2024 on a prednisone burst taper and DuoNeb updrafts. The patient presented back to the emergency department on 09/27/2024 for worsening dyspnea. Apparently he has been behaving erratic and he was still smoking. He also had gained weight along with his worsening shortness of breath. In the ED, the patient was found to have a white cell count of 8.3, hemoglobin 15.5 and a platelet count of 194. Serum bicarb was at 44 with a potassium level of 5.6 and a sodium level 136. BUN is 24 with a creatinine of 0.6. proBNP was 335. Troponin was negative. Viral screen was also negative. Chest x-ray showing no focal consolidation. Lung volumes are small with some atelectatic changes and some mild increased interstitial prominence. Previous echocardiogram from 03/12/2024 showed preserved LV function, no valvular abnormalities, pulmonary hypertension moderately severe with a RVSP of 46 mmHg. RV was dilated. Patient is currently on BiPAP. Started on bronchodilators, started on IV Lasix, started on steroids with IV Solu-Medrol. Review of Systems Constitutional: Reports daytime sleepiness, Reports fatigue Eyes: denies as per HPI, denies blurred vision, denies bulging eye, denies decreased vision, denies diplopia, denies discharge, denies dry eye, denies irritation, denies itching, denies pain, denies photophobia, denies loss of peripheral vision, denies loss of vision, denies tunnel vision/blind spots Ears: deny: decreased hearing, ear discharge, earache, tinnitus Ears, nose, mouth and throat: Reports as per HPI Breasts: absent: as per HPI, gynecomastia Respiratory: Reports dyspnea, Reports home oxygen, Reports sleep apnea, Reports snoring Gastrointestinal: Reports as per HPI Genitourinary: Reports as per HPI Musculoskeletal: Reports as per HPI Musculoskeletal: bilateral: ankle swelling, absent: ankle pain, ankle stiffness Integumentary: Reports as per HPI Neurological: Reports as per HPI Psychiatric: Reports as per HPI, Reports change in sleep habits, Reports hy persomnia, Reports sleep disturbances Hematologic/Lymphatic: Reports as per HPI Allergic/Immunologic: Reports as per HPI Past Medical History Past Medical History: Heart Failure, COPD, Diabetes Mellitus Additional Past Medical History / Comment(s): Chronic oxygen dependence on 3-5 L/m History of Any Multi-Drug Resistant Organisms: None Reported Past Surgical History: Hernia Repair, Tonsillectomy Additional Past Surgical History / Comment(s): dental implants. Past Anesthesia/Blood Transfusion Reactions: No Reported Reaction Past Psychological History: No Psychological Hx Reported Smoking Status: Former smoker Past Alcohol Use History: Occasional Past Drug Use History: None Reported - Past Family History Father Additional Family Medical History / Comment(s): father and grandfather had heartattacks 60's. Medications and Allergies Home Medications Medication Instructions Recorded Confirmed Type Sildenafil Citrate 25 mg PO DAILY 10/29/22 09/27/24 History Albuterol Sulfate [Albuterol 2 puff INHALATION RT-Q4H PRN 07/09/24 09/27/24 History Sulfate Hfa] Ipratropium-Albuterol Nebulize 3 ml INHALATION RT-QID PRN 07/09/24 09/27/24 History [Duoneb 0.5 mg-3 mg/3 ml Soln] metFORMIN HCL [Glucophage] 500 mg PO BID 07/09/24 09/27/24 History Artificial Tears-Hypromellose 2 drops BOTH EYES QID PRN ml 07/14/24 09/27/24 Rx [Artificial Tear Drops] Aspirin 81 mg PO DAILY #0 tab 07/14/24 09/27/24 Rx Atorvastatin [Lipitor] 40 mg PO HS #30 tab 07/14/24 09/27/24 Rx Furosemide [Lasix] 40 mg PO BID 08/12/24 09/27/24 History Magnesium Oxide [Mag-Ox] 400 mg PO BID 2 Days #4 tab 08/16/24 09/27/24 Rx Metoprolol Tartrate [Lopressor] 12.5 mg PO DIRECTED 09/27/24 09/27/24 History Potassium Chloride ER [K-Dur 10] 10 meq PO DAILY 09/27/24 09/27/24 History Allergies Allergy/AdvReac Type Severity Reaction Status Date / Time No Known Allergies Allergy Verified 09/27/24 11:26 Physical Exam Vitals: Vital Signs Temp Pulse Resp BP Pulse Ox FiO2 09/27/24 15:36 106 H 09/27/24 13:09 97.6 F 105 H 37 H 114/70 93 L 09/27/24 12:58 103 H 09/27/24 12:46 103 H 09/27/24 12:43 40 09/27/24 12:00 107 H 34 H 121/87 95 09/27/24 10:11 40 09/27/24 10:00 106 H 28 H 117/70 91 L 09/27/24 09:00 98 22 137/85 91 L 09/27/24 07:50 97.7 F 107 H 24 139/115 77 L Intake and Output 09/27/24 09/27/24 09/27/24 06:59 14:59 22:59 Output Total 1100 Balance -1100 Output: Urine 1100 Other: # Voids 5 Weight 127.006 kg GENERAL EXAM: Obtunded, 64-year-old obese male,, comfortable on BiPAP for respiratory support at 12/6 , 40 % FIO2 HEAD: Normocephalic and atraumatic EYES: Normal reaction of pupils, equal size. NOSE: Clear with pink turbinates. THROAT: No erythema or exudates. NECK: No masses, no JVD. CHEST: No chest wall deformity. LUNGS: Equal air entry with diminished lung sounds bilaterally and bilateral rhonchi. CVS: S1 and S2 normal with no audible murmur, regular rhythm. No extra heart sounds ABDOMEN: No hepatosplenomegaly, active bowel sounds, no guarding or rigidity. SPINE: No scoliosis or deformity SKIN: No rashes CENTRAL NERVOUS SYSTEM: Awake and alert and not confused oriented to self and place. No focal deficits, tone is normal in all 4 extremities. EXTREMITIES: Bilateral lower extremity 2+ pitting edema. No clubbing or cyanosis. Peripheral pulses are intact. Results - Laboratory Findings CBC and BMP: 09/27/24 08:11 09/27/24 08:11 PT/INR, D-dimer PT 10.2 sec (10.0-12.5) 09/27/24 08:11 INR 0.9 (<1.2) 09/27/24 08:11 Abnormal lab findings: Abnormal Labs 09/27/24 09/27/24 09/27/24 08:11 08:11 16:35 MCV 102.1 H MCHC 29.6 L Sodium 136 L Potassium 5.6 H Chloride 88 L Carbon Dioxide 44 H* BUN 24 H Creatinine 0.60 L Glucose 300 H POC Glucose (mg/dL) 378 H Assessment and Plan Plan: Acute on chronic hypoxemic and hypercapnic respiratory failure, secondary to acute COPD exacerbation, Chest x-ray shows cardiomegaly, bilateral patchy and interstitial airspace disease, possible pulmonary edema, superimposed infectious process is not excluded. NT proBNP was low. Viral 4 Plex screen was negative for influenza, RSV, COVID. The patient is currently on BiPAP 12/6, 40% and typically he is on O2 at 5 L of O2 nasal cannula. Altered mental status, likely secondary to component of hypercapnic encephalopathy, improved and the mental status is normalized. The patient was quite delirious in the emergency department, briefly placed on Precedex and this was subsequent discontinued Severe COPD, with an FEV1 that is 45% of predicted Chronic hypoxemic respiratory failure, on home O2 at 5 L/min nasal cannula 20/01 History of heart failure with preserved ejection fraction, most recent echocardiogram from 03/11/2024 estimating a preserved left ventricular ejection fraction of 55 to 60%, without any significant valvular abnormalities and mild to moderate pulmonary hypertension. Pulmonary hypertension , WHO group 3 Systemic hypertension Generalized weakness and deconditioning, patient's [id number] is concerned about the patient's ability to take care of himself dependently at home Morbid obesity, with a BMI of 38.5 kg/m Former tobacco dependence Plan: Keep the patient on O2 at 3 L and gradually wean it down BiPAP overnight to the pressure of 12/6 cm of water Continue combination of DuoNebs IV Solu-Medrol ABG at 3 liter/min 02 Lasix 20 mg every 12 hours IV Resume home meds Lantus for BS control at 10 units His previous echocardiogram has indicated preserved LV function with severe pulmonary hypertension. He has chronic hypoxic respiratory failure, WHO group 3 pulmonary hypertension. The viral screen was negative. If compliance, he would benefit from an outpatient noninvasive positive pressure ventilator/BiPAP machine. Ideally a sleep study will be also needed. Will continue to follow
[2024-09-27 20:15] LABS: Glucose,Whole Blood 326 mg/dL (70-110)
[2024-09-27 22:30] LABS: Glucose,Whole Blood 222 mg/dL (70-110)
[2024-09-27] MEDS: ATORVASTATIN 40 MG TAB PO SCH (22:31)
[2024-09-27] MEDS: MAGNESIUM OXIDE 400 MG TAB PO SCH (22:31)
[2024-09-27] MEDS: FAMOTIDINE 20 MG/2 ML VIAL IV SCH (22:33)
[2024-09-28 01:30] LABS: VBG PH 7.36 (7.31-7.41)
[2024-09-28 02:03] LABS: Glucose,Whole Blood 189 mg/dL (70-110)
[2024-09-28] MEDS: DEXMEDETOMIDINE/0.9% NACL(PMX) 400 MCG in EMPTY BAG 1 BAG IV SCH (02:24)
[2024-09-28] MEDS: LORazepam 2 MG/ML INJ IV STA (02:25)
[2024-09-28 03:18] LABS: African American GFR (CKD) >90 (>60 ml/min/1.73 sqM); Blood Urea Nitrogen 26 mg/dL (9-20); Calcium 8.8 mg/dL (8.4-10.2); Glucose 180 mg/dL (74-99); Magnesium 2.1 mg/dL (1.6-2.3); Non-African American GFR(CKD) >90 (>60 ml/min/1.73 sqM); Sodium 135 mmol/L (137-145)
[2024-09-28 03:25] LABS: Anion Gap 2 mmol/L
[2024-09-28 03:40] LABS: Carbon Dioxide 46 mmol/L (22-30); Chloride 87 mmol/L (98-107)
[2024-09-28 04:35] LABS: Basophils % (A) 0 %; Eosinophils % (A) 0 %; HCT 42.8 % (39.0-53.0); HGB 12.7 gm/dL (13.0-17.5); Hypochromasia Marked; Lymphocytes # (A) 0.4 k/uL (1.0-4.8); Lymphocytes % (A) 5 %; MCH 30.5 pg (25.0-35.0); MCHC 29.6 g/dL (31.0-37.0); MCV 102.9 fL (80.0-100.0); Macrocytosis Slight; Mean Platelet Volume 8.5; Monocytes # (A) 0.3 k/uL (0-1.0); Monocytes % (A) 4 %; Neutrophils # (A) 7.5 k/uL (1.3-7.7); Neutrophils % (A) 91 %; Platelet Count 199 k/uL (150-450); RBC 4.16 m/uL (4.30-5.90); RDW 14.9 % (11.5-15.5); WBC 8.3 k/uL (3.8-10.6)
[2024-09-28 05:46] LABS: ABG Base Excess 21.4 mmol/L; ABG PH 7.34 (7.35-7.45); ABG PO2 70 mmHg (83-108); ABG TCO2 55 mmol/L (19-24); Allen Test Performed? Yes
[2024-09-28 05:49] LABS: ABG HCO3 52 mmol/L (21-25); ABG PCO2 98 mmHg (35-45)
[2024-09-28 06:14] LABS: Glucose,Whole Blood 278 mg/dL (70-110)
[2024-09-28] MEDS: IPRATROPIUM-ALBUTEROL 3 ML NEB INHALATION SCH (08:07)
--- NOTE | 2024-09-28 09:46 | XR ---
EXAMINATION TYPE: XR chest 1V portable DATE OF EXAM: 09/28/2024 9:39 AM COMPARISON: Chest radiographs from 09/27/2024 CLINICAL INDICATION: Male, 64 years old with history of shortness of breath; [facility] TECHNIQUE: XR chest 1V portable Frontal view of the chest. FINDINGS: Lungs/Pleura: There is no evidence of pleural effusion, focal consolidation, or pneumothorax. Pulmonary vascularity: Unremarkable. Heart/mediastinum: Cardiomediastinal silhouette is unremarkable. Musculoskeletal: No acute osseous pathology. Other findings: None IMPRESSION: Low lung volumes with a generalized hazy appearance which could represent atelectasis versus pulmonar y edema versus atypical pneumonia correlate with serum BNP. [facility], , 09/28/2024 9:44 AM
[2024-09-28] MEDS: ASPIRIN 81 MG PO SCH (10:09)
[2024-09-28 11:07] LABS: Glucose,Whole Blood 244 mg/dL (70-110)
[2024-09-28] MEDS ORDERED: OLANZapine 10 MG VIAL IM PRN (12:53)
[2024-09-28] MEDS ORDERED: OLANZapine 5 MG TAB PO PRN (12:53)
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
--- NOTE | 2024-09-28 13:17 | P.PN ---
Subjective Progress Note Date: 09/28/24 Patient is a 64-year-old male with past medical history significant for obesity, COPD, pulmonary hypertension, and former tobacco dependence. Patient does follow in the pulmonary office with Dr. Dooley. He has severe COPD with an FEV1 45% of predicted. He is oxygen dependent at baseline, normally wears 3 to 4 L of supplemental oxygen /. Also, is being considered for sleep study. Patient presented the emergency department last night with a chief complaint of acute worsening of his chronic shortness of breath. Patient has had multiple hospitalizations for the same. Earlier this month, the patient was admitted to the hospital on 08/30/2024 with chief complaint of worsening shortness of breath and he was treated and discharged home on 09/04/2024 on a prednisone burst taper and DuoNeb updrafts. The patient presented back to the emergency department on 09/27/2024 for worsening dyspnea. Apparently he has been behaving erratic and he was still smoking. He also had gained weight along with his worsening shortness of breath. In the ED, the patient was found to have a white cell count of 8.3, hemoglobin 15.5 and a platelet count of 194. Serum bicarb was at 44 with a potassium level of 5.6 and a sodium level 136. BUN is 24 with a creatinine of 0.6. proBNP was 335. Troponin was negative. Viral screen was also negative. Chest x-ray showing no focal consolidation. Lung volumes are small with some atelectatic changes and some mild increased interstitial prominence. Previous echocardiogram from 03/12/2024 showed preserved LV function, no valvular abnormal ities, pulmonary hypertension moderately severe with a RVSP of 46 mmHg. RV was dilated. Patient is currently on BiPAP. Started on bronchodilators, started on IV Lasix, started on steroids with IV Solu-Medrol. On 09/28/2024, the patient is being seen for a follow-up. Noted, overnight, the patient became quite restless, hostile and somewhat agitated especially towards female nurses. He was also refusing to utilize his BiPAP. Based on that, the patient was started on Precedex and he was placed on a BiPAP which she is able to tolerate reasonably well. This morning, the patient on Precedex running at 0.5 mcg/kg/h. He is also on BiPAP pressure of 16 over 6 cm of water with an FiO2 of 45%. He is significantly more comfortable and synchronous with the BiPAP. His generated tidal volumes above 400. Follow-up blood gas from today showed a pH of 7.33 with a pCO2 of 97 and pO2 of 69. Remains on bronchodilators. Remains on IV Lasix. Remains on IV Solu-Medrol. Fluid balance is -1.3 L over the past 24 hours. In terms of his labs, the patient's white cell count is at 8.3, hemoglobin 12.7 and a platelet count of 199. The patient has a sodium level 135, potassium is at 5, serum bicarb is 46 BUN of 26 and a creatinine of 0.6. A follow-up chest x-ray from today shows small lung volumes and generalized haziness and hazy appearance along with some atelectatic changes and mild pulmonary vascular congestion. The patient is arousable yet well sedated on Precedex at this point. Objective - Vital Signs Vital signs: Vital Signs Temp 97.7 F 09/28/24 04:00 Pulse 77 09/28/24 08:21 Resp 20 09/28/24 07:00 BP 111/69 09/28/24 07:00 Pulse Ox 93 L 09/28/24 07:00 FiO2 45 09/28/24 08:06 Intake & Output 09/27/24 09/28/24 09/28/24 18:59 06:59 18:59 Intake Total 55.037 Output Total 1100 265 35 Balance -1100 -209.963 -35 Weight 127.006 kg 127.006 kg Intake: Intake, IV Titration 55.037 Amount Dexmedetomidine/0.9% NaCl 55.037 (Pmx) 400 mcg In Empty Bag 1 bag @ 0.2 MCG/KG/HR 6.35 mls/hr IV .[id number] [facility] Rx#:[id number] Output: Urine 1100 265 35 Other: Voiding Method Indwelling Catheter # Voids 5 - Exam GENERAL EXAM: Obtunded, 64-year-old obese male,, comfortable on BiPAP for respiratory support at Patient is on a BiPAP at a pressure of 16 over 6 cm of water with an FiO2 of 40%. Patient is calm and comfortable and synchronous with the BiPAP machine. The patient was sedated on Precedex. HEAD: Normocephalic and atraumatic EYES: Normal reaction of pupils, equal size. NOSE: Clear with pink turbinates. THROAT: No erythema or exudates. NECK: No masses, no JVD. CHEST: No chest wall deformity. LUNGS: Equal air entry with diminished lung sounds bilaterally and bilateral rhonchi. CVS: S1 and S2 normal with no audible murmur, regular rhythm. No extra heart sounds ABDOMEN: No hepatosplenomegaly, active bowel sounds, no guarding or rigidity. SPINE: No scoliosis or deformity SKIN: No rashes CENTRAL NERVOUS SYSTEM: Sedated, calm and comfortable . No focal deficits, tone is normal in all 4 extremities. EXTREMITIES: Bilateral lower extremity 2+ pitting edema. No clubbing or cyanosis. Peripheral pulses are intact. - Labs CBC & Chem 7: 09/28/24 02:58 09/28/24 07:09 Labs: Abnormal Lab Results - Last 24 Hours (Table) 09/27/24 09/27/24 09/27/24 Range/Units 16:35 20:14 22:29 RBC (4.30-5.90) m/uL Hgb (13.0-17.5) gm/dL MCV (80.0-100.0) fL MCHC (31.0-37.0) g/dL Lymphocytes # (1.0-4.8) k/uL ABG pH (7.35-7.45) ABG pCO2 (35-45) mmHg ABG pO2 (83-108) mmHg ABG HCO3 (21-25) mmol/L ABG Total CO2 (19-24) mmol/L ABG O2 Saturation (94-97) % VBG pCO2 (37-51) mmHg VBG HCO3 (24-28) mmol/L Hemoglobin (13.0-17.5) gm/dL Sodium (137-145) mmol/L Chloride (98-107) mmol/L Carbon Dioxide (22-30) mmol/L BUN (9-20) mg/dL Creatinine (0.66-1.25) mg/dL Glucose (74-99) mg/dL POC Glucose (mg/dL) 378 H 326 H 222 H (70-110) mg/dL Hemoglobin A1c (<=6.0) % 09/28/24 09/28/24 09/28/24 Range/Units 00:58 01:54 02:00 RBC (4.30-5.90) m/uL Hgb (13.0-17.5) gm/dL MCV (80.0-100.0) fL MCHC (31.0-37.0) g/dL Lymphocytes # (1.0-4.8) k/uL ABG pH (7.35-7.45) ABG pCO2 (35-45) mmHg ABG pO2 (83-108) mmHg ABG HCO3 (21-25) mmol/L ABG Total CO2 (19-24) mmol/L ABG O2 Saturation (94-97) % VBG pCO2 91 H* (37-51) mmHg VBG HCO3 51 H (24-28) mmol/L Hemoglobin (13.0-17.5) gm/dL Sodium 135 L (137-145) mmol/L Chloride 87 L (98-107) mmol/L Carbon Dioxide 46 H* (22-30) mmol/L BUN 26 H (9-20) mg/dL Creatinine 0.65 L (0.66-1.25) mg/dL Glucose 180 H (74-99) mg/dL POC Glucose (mg/dL) 189 H (70-110) mg/dL Hemoglobin A1c (<=6.0) % 09/28/24 09/28/24 09/28/24 Range/Units 02:58 02:58 05:44 RBC 4.16 L (4.30-5.90) m/uL Hgb 12.7 L (13.0-17.5) gm/dL MCV 102.9 H (80.0-100.0) fL MCHC 29.6 L (31.0-37.0) g/dL Lymphocytes # 0.4 L (1.0-4.8) k/uL ABG pH 7.34 L (7.35-7.45) ABG pCO2 98 H* (35-45) mmHg ABG pO2 70 L (83-108) mmHg ABG HCO3 52 H* (21-25) mmol/L ABG Total CO2 55 H (19-24) mmol/L ABG O2 Saturation 92.0 L (94-97) % VBG pCO2 (37-51) mmHg VBG HCO3 (24-28) mmol/L Hemoglobin 12.0 L (13.0-17.5) gm/dL Sodium (137-145) mmol/L Chloride (98-107) mmol/L Carbon Dioxide (22-30) mmol/L BUN (9-20) mg/dL Creatinine (0.66-1.25) mg/dL Glucose (74-99) mg/dL POC Glucose (mg/dL) (70-110) mg/dL Hemoglobin A1c 9.1 H (<=6.0) % 09/28/24 Range/Units 06:11 RBC (4.30-5.90) m/uL Hgb (13.0-17.5) gm/dL MCV (80.0-100.0) fL MCHC (31.0-37.0) g/dL Lymphocytes # (1.0-4.8) k/uL ABG pH (7.35-7.45) ABG pCO2 (35-45) mmHg ABG pO2 (83-108) mmHg ABG HCO3 (21-25) mmol/L ABG Total CO2 (19-24) mmol/L ABG O2 Saturation (94-97) % VBG pCO2 (37-51) mmHg VBG HCO3 (24-28) mmol/L Hemoglobin (13.0-17.5) gm/dL Sodium (137-145) mmol/L Chloride (98-107) mmol/L Carbon Dioxide (22-30) mmol/L BUN (9-20) mg/dL Creatinine (0.66-1.25) mg/dL Glucose (74-99) mg/dL POC Glucose (mg/dL) 278 H (70-110) mg/dL Hemoglobin A1c (<=6.0) % Assessment and Plan Plan: Acute on chronic hypoxemic and hypercapnic respiratory failure, secondary to acute COPD exacerbation, Chest x-ray shows cardiomegaly, bilateral patchy and interstitial airspace disease, possible pulmonary edema, superimposed infectious process is not excluded. NT proBNP was low. Viral 4 Plex screen was negative for influenza, RSV, COVID. The patient is currently on BiPAP at a pressure of 16/6 with an FiO2 of 45%. Blood gas from this morning still showing an acute on top of chronic hypoxic and hypercapnic respiratory failure. Altered mental status, likely secondary to component of hypercapnic encephalopathy, improved and the mental status is normalized. The patient was quite delirious in the emergency department, and the patient continued to have agitation and hostile activity. The patient was placed on Precedex which is running at 0.5 mcg/kg/h. Severe COPD, with an FEV1 that is 45% of predicted Chronic hypoxemic respiratory failure, on home O2 at 5 L/min nasal cannula 20/01 History of heart failure with preserved ejection fraction, most recent echocardiogram from 03/11/2024 estimating a preserved left ventricular ejection fraction of 55 to 60%, without any significant valvular abnormalities and mild to moderate pulmonary hypertension. Pulmonary hypertension , WHO group 3 Systemic hypertension Generalized weakness and deconditioning, patient's [id number] is concerned about the patient's ability to take care of himself dependently at home Morbid obesity, with a BMI of 38.5 kg/m Former tobacco dependence Plan: Keep the patient on Precedex for now and titrate the dose to lower degree of sedation. Continue BiPAP for respiratory support, same setting Continue combination of DuoNebs Continue IV Solu-Medrol Blood gas from this morning was noted The patient will be given Diamox 500 mg every 12 hours Lasix 20 mg every 12 hours IV Resume home meds Lantus for BS control at 10 units His previous echocardiogram has indicated preserved LV function with severe pulmonary hypertension. He has chronic hypoxic respiratory failure, WHO group 3 pulmonary hypertension. The viral screen was negative. Will continue with Lasix 40 mg every 24 hours. Monitor fluid balance and electrolytes Monitor serum bicarb level Obtain daily blood gases Increase the Lantus dose to 20 units daily and sliding scale coverage Will continue to follow. The patient be kept in the intensive care unit for now. Critical care evaluation, 32 minutes. Time with Patient: Greater than 30
[2024-09-28 16:07] LABS: Glucose,Whole Blood 202 mg/dL (70-110)
[2024-09-28 20:16] LABS: Glucose,Whole Blood 151 mg/dL (70-110)
--- NOTE | 2024-09-29 01:40 | PN ---
PROGRESS NOTE DATE OF SERVICE: 09/28/2024 SUBJECTIVE: This is a 64-year-old gentleman, who was admitted with CHF and COPD acute exacerbation, cor pulmonale, is closely being monitored in ICU at this time. The patient was combative and the patient was started on Precedex and subsequently BiPAP was initiated. Currently, the patient is sedated. Psychiatry evaluation has been also sought. The chest x-ray showed bilateral CHF and may be possibly some infiltrates also. The viral panel testing was negative and procalcitonin is also negative. PAST MEDICAL HISTORY: Reviewed. REVIEW OF SYSTEMS: Could not be taken. CURRENT MEDICATIONS: Reviewed. PHYSICAL EXAMINATION: VITAL SIGNS: Pulse is 88, blood pressure 106/67, respirations 21. HEENT: Conjunctivae normal. NECK: No JVD. CARDIOVASCULAR: S1, S2. RESPIRATIONS: Breath sounds diminished at the bases. Scattered rhonchi and crackles. ABDOMEN: Soft, nontender. NERVOUS SYSTEM: Nonfocal. LABORATORY DATA: Reviewed. ASSESSMENT: 1. Shortness of breath with chronic obstructive pulmonary disease and congestive heart failure acute exacerbation with acute hypoxic respiratory failure, on BiPAP. 2. Diabetes mellitus, type 2. 3. Hypertension. 4. Obesity. 5. Multiple complex medical issues. RECOMMENDATIONS AND DISCUSSION: I recommend to continue current management. Continue symptomatic treatment. Continue with bronchodilators, steroids. I would also recommend D-dimer. Closely follow with Pulmonary and continue to monitor the blood sugars also. IV steroids. Insulin has been initiated. Guarded prognosis. Further recommendations to follow. See orders for further details. MMODL / IJN: [id number] /
[2024-09-29 06:09] LABS: Glucose,Whole Blood 257 mg/dL (70-110)
[2024-09-29] MEDS: INSULIN GLARGINE (LANTUS) 100 UNIT/ML SYR SQ SCH (06:09)
[2024-09-29 06:24] LABS: African American GFR (CKD) >90 (>60 ml/min/1.73 sqM); Blood Urea Nitrogen 27 mg/dL (9-20); Calcium 8.8 mg/dL (8.4-10.2); Chloride 90 mmol/L (98-107); Glucose 220 mg/dL (74-99); Magnesium 2.2 mg/dL (1.6-2.3); Non-African American GFR(CKD) 89 (>60 ml/min/1.73 sqM); Potassium 3.9 mmol/L (3.5-5.1); Sodium 136 mmol/L (137-145)
[2024-09-29 06:31] LABS: Anion Gap 7 mmol/L
[2024-09-29 06:34] LABS: Carbon Dioxide 39 mmol/L (22-30)
[2024-09-29] MEDS ORDERED: Potassium Replacement Protocol 1 EACH MISC MISCELLANE PRN (07:07)
[2024-09-29] MEDS: POTASSIUM CHLORIDE ER 20 MEQ TAB.ER PO SCH (08:41)
[2024-09-29] MEDS: FUROSEMIDE 10 MG/ML 4 ML VIAL IV SCH (08:42)
[2024-09-29 10:29] LABS: Basophils % (A) 0 %; Eosinophils % (A) 0 %; HCT 45.8 % (39.0-53.0); HGB 13.3 gm/dL (13.0-17.5); Hypochromasia Marked; Lymphocytes # (A) 0.3 k/uL (1.0-4.8); Lymphocytes % (A) 3 %; MCH 30.3 pg (25.0-35.0); MCHC 29.1 g/dL (31.0-37.0); MCV 104.3 fL (80.0-100.0); Macrocytosis Moderate; Mean Platelet Volume 9.2; Monocytes # (A) 0.5 k/uL (0-1.0); Monocytes % (A) 5 %; Neutrophils # (A) 8.9 k/uL (1.3-7.7); Neutrophils % (A) 91 %; Platelet Count 212 k/uL (150-450); RBC 4.39 m/uL (4.30-5.90); RDW 14.8 % (11.5-15.5); WBC 9.8 k/uL (3.8-10.6)
[2024-09-29 10:47] LABS: ABG Base Excess 12.4 mmol/L; ABG Oxygen Saturation 90.4 % (94-97); ABG PH 7.35 (7.35-7.45); ABG PO2 64 mmHg (83-108); ABG TCO2 44 mmol/L (19-24); Allen Test Performed? Yes
[2024-09-29 10:53] LABS: ABG HCO3 42 mmol/L (21-25); ABG PCO2 76 mmHg (35-45)
[2024-09-29 11:22] LABS: Glucose,Whole Blood 217 mg/dL (70-110)
[2024-09-29 11:23] VITALS: BMI 40.7
[2024-09-29] MEDS: METOPROLOL TARTRATE 25 MG TAB PO STA (13:32)
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
--- NOTE | 2024-09-29 14:35 | P.CRDCN ---
History of Present Illness Consult date: 09/29/24 History of present illness: HISTORY OF PRESENTING ILLNESS: 64-year-old with PMH of COPD, pulmonary hypertension, former tobacco use, morbid obesity, untreated sleep apnea. He was recently hospitalized earlier this month with acute hypoxic respiratory failure and COPD exacerbation. This time he presents to the hospital with similar complaints. On admission he was noticed to be hypoxic and hypercapnic with some concerns of metabolic encephalopathy because of hypercapnia. His admission EKG shows multifocal atrial tachycardia. Cardiology was consulted for shortness of breath evaluation, assisting with the treatment for pulmonary hypertension and multifocal atrial tachycardia. It is unclear if patient is really compliant to his medications and medical recommendations. He has not received treatment for his sleep apnea. On discharge last time he was discharged on Lasix 40 mg twice daily. This time he appears mildly volume overloaded based off physical exam and chest x-ray. Vitals: 130/83, heart rate 85 bpm Labs: Hb 13.3, BUN 27, creatinine 0.9, bicarb 44 on admission, repeat 39 after acetazolamide. Troponin was negative, NT-proBNP 335, A1c 9.1 Admission EKG: Multifocal atrial tachycardia heart rate 113 bpm, nonspecific ST changes Imaging: Mild bilateral lower lung increased interstitial markings. Mild fluid overload, cardiomegaly Prior cardiac testing: Echo from 02/2024 shows preserved LV size systolic function, severely dilated RV and RA with severe pulmonary hypertension Limited echo from 06/2024 shows similar finding when compared to 02/2024 REVIEW OF SYSTEMS: 14 point review of system is negative except what is mentioned above in HPI. PHYSICAL EXAMINATION: Neck: Brisk carotid upstroke, no jugular venous distention. Lungs: Poor inspiratory effort, diminished breath sounds, mild wheezing audible Heart: Irregular pulse because of multifocal atrial tachycardia, S1-S2, no murmur or rub. Abdomen: Soft nontender, positive bowel sounds. Extremities: 1-2+ pitting edema bilateral lower extremity Neuro: Alert, oritented, no focal deficits. Detailed neuro exam was not performed. ASSESSMENT: # Acute on chronic hypoxic and hypercapnic respiratory failure, likely from COPD exacerbation. # Severe pulmonary hypertension with severely dilated RV. Likely WHO group 3 from COPD and untreated sleep apnea # Mild acute on chronic HFpEF exacerbation with Right-sided heart failure with cor pulmonale. NYHA class III. # Multifocal atrial tachycardia # Metabolic encephalopathy, multifactorial, likely from hypercapnia # Severe COPD with FEV1 of 45% # Chronic hypoxia 24-hour 5 L nasal cannula oxygen at home # Essential hypertension # Type 2 diabetes, poorly controlled HbA1c 9.1 # Central obesity # Suspected obesity hypoventilation syndrome with JASON # Tobacco smoker # Concerns of noncompliance PLAN: Continue IV Lasix 40 mg twice daily today. Last time he was discharged on 40 mg p.o. twice daily Lasix. This time discharge him on Bumex 1 mg p.o. twice daily. Aspirin 81 mg, Lipitor 40 mg Farxiga 10 mg daily Aldactone 25 mg daily, losartan 25 mg daily Reduce metoprolol to XL 50 mg daily Amlodipine 2.5 mg daily for pulmonary hypertension. Sildenafil has limited efficacy, will try not using it. Agree with acetazolamide. Recommend continuous BiPAP support and CPAP at nighttime. Intensify COPD management, consider Daliresp and may be Williamson valve for emphysema management. Shoaib Nichols MD, FACC, RPVI Thank you for allowing [facility] to participate in this patient's care. Feel free to reach out in case of any followup questions. Past Medical History Past Medical History: Heart Failure, COPD, Diabetes Mellitus Additional Past Medical History / Comment(s): Chronic oxygen dependence on 3-5 L/m History of Any Multi-Drug Resistant Organisms: None Reported Past Surgical History: Hernia Repair, Tonsillectomy Additional Past Surgical History / Comment(s): dental implants. Past Anesthesia/Blood Transfusion Reactions: No Reported Reaction Past Psychological History: No Psychological Hx Reported Smoking Status: Former smoker Past Alcohol Use History: Occasional Past Drug Use History: None Reported - Past Family History Father Additional Family Medical History / Comment(s): father and grandfather had heartattacks 60's. Medications and Allergies Home Medications Medication Instructions Recorded Confirmed Type Sildenafil Citrate 25 mg PO DAILY 10/29/22 09/27/24 History Albuterol Sulfate [Albuterol 2 puff INHALATION RT-Q4H PRN 07/09/24 09/27/24 History Sulfate Hfa] Ipratropium-Albuterol Nebulize 3 ml INHALATION RT-QID PRN 07/09/24 09/27/24 History [Duoneb 0.5 mg-3 mg/3 ml Soln] metFORMIN HCL [Glucophage] 500 mg PO BID 07/09/24 09/27/24 History Artificial Tears-Hypromellose 2 drops BOTH EYES QID PRN ml 07/14/24 09/27/24 Rx [Artificial Tear Drops] Aspirin 81 mg PO DAILY #0 tab 07/14/24 09/27/24 Rx Atorvastatin [Lipitor] 40 mg PO HS #30 tab 07/14/24 09/27/24 Rx Furosemide [Lasix] 40 mg PO BID 08/12/24 09/27/24 History Magnesium Oxide [Mag-Ox] 400 mg PO BID 2 Days #4 tab 08/16/24 09/27/24 Rx Metoprolol Tartrate [Lopressor] 12.5 mg PO DIRECTED 09/27/24 09/27/24 History Potassium Chloride ER [K-Dur 10] 10 meq PO DAILY 09/27/24 09/27/24 History Allergies Allergy/AdvReac Type Severity Reaction Status Date / Time No Known Allergies Allergy Verified 09/27/24 11:26 Physical Exam Vitals: Vital Signs Temp Pulse Resp BP Pulse Ox 09/29/24 11:29 89 09/29/24 11:00 85 23 130/83 88 L 09/29/24 10:00 112 H 23 112/87 86 L 09/29/24 09:00 101 H 24 147/73 94 L 09/29/24 08:00 97.7 F 103 H 26 H 152/132 92 L 09/29/24 07:00 98 17 144/78 93 L 09/29/24 06:17 90 09/29/24 06:05 98 09/29/24 06:00 93 26 H 128/68 94 L 09/29/24 05:00 86 28 H 132/75 93 L 09/29/24 04:00 98.2 F 93 19 124/74 95 09/29/24 03:00 92 26 H 115/81 92 L 09/29/24 02:00 86 27 H 126/83 93 L 09/29/24 01:00 92 26 H 134/85 95 09/29/24 00:00 98.5 F 92 22 107/77 95 09/28/24 23:46 87 32 H 117/77 98 09/28/24 23:00 71 16 110/65 91 L 09/28/24 22:00 93 23 127/63 96 09/28/24 21:00 93 25 H 99/59 93 L 09/28/24 20:05 75 09/28/24 20:00 72 22 114/68 98 09/28/24 19:52 74 09/28/24 19:00 93 23 101/61 94 L 09/28/24 18:00 71 27 H 105/66 09/28/24 17:00 70 30 H 101/74 97 09/28/24 16:00 98.8 F 79 25 H 100/61 95 09/28/24 15:00 73 26 H 98/55 94 L Intake and Output 09/28/24 09/29/24 09/29/24 22:59 06:59 14:59 Intake Total 600 500 222 Output Total 4116 124 5007 Balance -554 -288 -655 Intake: Intake, IV Titration 100 Amount Dexmedetomidine/0.9% NaCl 100 (Pmx) 400 mcg In Empty Bag 1 bag @ 0.2 MCG/KG/HR 6.35 mls/hr IV .[id number] [facility] Rx#:[id number] Oral 500 500 222 Output: Urine 0636 385 1768 Other: Voiding Method Indwelling Catheter Indwelling Catheter Indwelling Catheter # Bowel Movements 0 Weight 127 kg 127 kg Results 09/29/24 05:22 09/29/24 05:22 CBC 09/29/24 Range/Units 05:22 WBC 9.8 (3.8-10.6) k/uL RBC 4.39 (4.30-5.90) m/uL Hgb 13.3 (13.0-17.5) gm/dL Hct 45.8 (39.0-53.0) % Plt Count 212 (150-450) k/uL Comprehensive Metabolic Panel 09/29/24 Range/Units 05:22 Sodium 136 L (137-145) mmol/L Potassium 3.9 (3.5-5.1) mmol/L Chloride 90 L (98-107) mmol/L Carbon Dioxide 39 H (22-30) mmol/L BUN 27 H (9-20) mg/dL Creatinine 0.91 (0.66-1.25) mg/dL Glucose 220 H (74-99) mg/dL Calcium 8.8 (8.4-10.2) mg/dL Current Medications Generic Name Dose Route Start Last Admin Trade Name Freq PRN Reason Stop Dose Admin Acetazolamide Sodium 500 mg 09/28/24 10:00 09/29/24 08:43 Acetazolamide Sodium 500 Mg Vial IV 500 mg Q12HR EILE[facility] Administration Albuterol/Ipratropium 3 ml 09/28/24 08:00 09/29/24 11:28 Ipratropium-Albuterol 3 Ml Neb INHALATION 3 ml RT-QID EILEEN Administration Albuterol/Ipratropium 3 ml 09/27/24 20:01 Ipratropium-Albuterol 3 Ml Neb INHALATION RT-Q2H PRN Shortness Of Breath Or Wheezing Artificial Tears 2 drops 09/27/24 16:52 Artificial Tears-Hypromellose Drops 15 Ml Btl BOTH EYES QID PRN Dry Eye(s) Aspirin 81 mg 09/28/24 09:00 09/29/24 08:42 Aspirin 81 Mg PO 81 mg DAILY EILEEN Administration Atorvastatin Calcium 40 mg 09/27/24 21:00 09/28/24 20:06 Atorvastatin 40 Mg Tab PO 40 mg HS EILEEN Administration Bumetanide 1 mg 09/30/24 09:00 Bumetanide 1 Mg Tab PO BID@0900,1600 [facility] Dapagliflozin 10 mg 09/29/24 14:30 Dapagliflozin Propanediol 10 Mg Tablet PO DAILY [facility] Dextrose/Water 25 ml 09/27/24 13:22 Dextrose 50% Syringe 50 Ml IVP PER PROTOCOL PRN Hypoglycemia Protocol Dextrose/Water 50 ml 09/27/24 13:22 Dextrose 50% Syringe 50 Ml IVP PER PROTOCOL PRN Hypoglycemia Protocol Enoxaparin Sodium 40 mg 09/27/24 17:00 09/29/24 08:42 Enoxaparin 40 Mg/0.4 Ml Syringe SQ 40 mg DAILY EILEEN Administration Famotidine 20 mg 09/27/24 21:00 09/29/24 08:42 Famotidine 20 Mg/2 Ml Vial IV 20 mg Q12HR EILEEN Administration Insulin Glargine 25 unit 09/30/24 07:00 Insulin Glargine (Lantus) 100 Unit/Ml Syr SQ DAILY@0700 [facility] Insulin Human Lispro 0 unit 09/27/24 17:30 09/29/24 13:32 Insulin Lispro (Humalog) 100 Unit/Ml 10 Ml Vl SQ 6 unit ACHS EILEEN Administration Protocol Losartan Potassium 25 mg 09/29/24 14:30 Losartan 25 Mg Tab PO DAILY [facility] Methylprednisolone Sodium Succinate 60 mg 09/27/24 12:00 09/29/24 13:32 Methylprednisolone Sod Succi 125 Mg/2 Ml Vial IV 60 mg Q6HR EILEEN Administration Metoprolol Succinate 50 mg 09/29/24 21:00 Metoprolol Succinate (Er) 50 Mg Tab.Er.24h PO DAILY [facility] Miscellaneous Information 1 each 09/29/24 07:07 Potassium Replacement Protocol 1 Each Misc MISCELLANE DAILY PRN Per Protocol Protocol Naloxone HCl 0.2 mg 09/27/24 10:22 Naloxone 0.4 Mg/Ml 1 Ml Vial IVP Q2M PRN Opioid Reversal Olanzapine 5 mg 09/28/24 12:53 Olanzapine 5 Mg Tab PO Q6H PRN Agitation Olanzapine 5 mg 09/28/24 12:53 Olanzapine 10 Mg Vial IM Q6H PRN Agitation Spironolactone 25 mg 09/29/24 14:30 Spironolactone 25 Mg Tab PO DAILY [facility] Intake and Output 09/28/24 09/29/24 09/29/24 22:59 06:59 14:59 Intake Total 600 500 222 Output Total 3246 209 7267 Balance -400 -549 -675 Intake: Intake, IV Titration 100 Amount Dexmedetomidine/0.9% NaCl 100 (Pmx) 400 mcg In Empty Bag 1 bag @ 0.2 MCG/KG/HR 6.35 mls/hr IV .[id number] [facility] Rx#:[id number] Oral 500 500 222 Output: Urine 5711 773 6914 Other: Voiding Method Indwelling Catheter Indwelling Catheter Indwelling Catheter # Bowel Movements 0 Weight 127 kg 127 kg Patient Weight 09/30/24 06:59 Weight 127 kg 09/29/24 05:22 09/29/24 05:22
--- NOTE | 2024-09-29 14:41 | P.PN ---
Subjective Progress Note Date: 09/29/24 Patient is a 64-year-old male with past medical history significant for obesity, COPD, pulmonary hypertension, and former tobacco dependence. Patient does follow in the pulmonary office with Dr. Dooley. He has severe COPD with an FEV1 45% of predicted. He is oxygen dependent at baseline, normally wears 3 to 4 L of supplemental oxygen /. Also, is being considered for sleep study. Patient presented the emergency department last night with a chief complaint of acute worsening of his chronic shortness of breath. Patient has had multiple hospitalizations for the same. Earlier this month, the patient was admitted to the hospital on 08/30/2024 with chief complaint of worsening shortness of breath and he was treated and discharged home on 09/04/2024 on a prednisone burst taper and DuoNeb updrafts. The patient presented back to the emergency department on 09/27/2024 for worsening dyspnea. Apparently he has been behaving erratic and he was still smoking. He also had gained weight along with his worsening shortness of breath. In the ED, the patient was found to have a white cell count of 8.3, hemoglobin 15.5 and a platelet count of 194. Serum bicarb was at 44 with a potassium level of 5.6 and a sodium level 136. BUN is 24 with a creatinine of 0.6. proBNP was 335. Troponin was negative. Viral screen was also negative. Chest x-ray showing no focal consolidation. Lung volumes are small with some atelectatic changes and some mild increased interstitial prominence. Previous echocardiogram from 03/12/2024 showed preserved LV function, no valvular abnormal ities, pulmonary hypertension moderately severe with a RVSP of 46 mmHg. RV was dilated. Patient is currently on BiPAP. Started on bronchodilators, started on IV Lasix, started on steroids with IV Solu-Medrol. On 09/28/2024, the patient is being seen for a follow-up. Noted, overnight, the patient became quite restless, hostile and somewhat agitated especially towards female nurses. He was also refusing to utilize his BiPAP. Based on that, the patient was started on Precedex and he was placed on a BiPAP which she is able to tolerate reasonably well. This morning, the patient on Precedex running at 0.5 mcg/kg/h. He is also on BiPAP pressure of 16 over 6 cm of water with an FiO2 of 45%. He is significantly more comfortable and synchronous with the BiPAP. His generated tidal volumes above 400. Follow-up blood gas from today showed a pH of 7.33 with a pCO2 of 97 and pO2 of 69. Remains on bronchodilators. Remains on IV Lasix. Remains on IV Solu-Medrol. Fluid balance is -1.3 L over the past 24 hours. In terms of his labs, the patient's white cell count is at 8.3, hemoglobin 12.7 and a platelet count of 199. The patient has a sodium level 135, potassium is at 5, serum bicarb is 46 BUN of 26 and a creatinine of 0.6. A follow-up chest x-ray from today shows small lung volumes and generalized haziness and hazy appearance along with some atelectatic changes and mild pulmonary vascular congestion. The patient is arousable yet well sedated on Precedex at this point. On 09/29/2024, the patient is being seen for a follow-up. He seems much more awake and alert on today's evaluation. He was taken off the BiPAP and the patient is currently on 3 Suboxone by nasal cannula. He has been also off Precedex since yesterday. He continues to be on a combination of diuretics. The patient on IV Lasix and the patient is also on Diamox. Fluid balance is - 1.8 L over the past 24 hours. Follow-up blood gases showed improvement in acid- base status. The patient's blood gas showed a pH of 7.35 with a pCO2 of 76 and pO2 of 64. Remains on bronchodilators. Remains on steroids. The sodium levels at 136, serum bicarb is at 39 with a BUN of 27 and a creatinine of 0.9. Blood sugar slightly elevated. The patient is on Lantus insulin. White cell count of 9.8 with a heme of 13.3 and a platelet count of 212. Awake and alert and communicating. He is morbidly obese with typical features of obstructive sleep apnea based hypoventilation syndrome. No agitation. No confusion. Objective - Vital Signs Vital signs: Vital Signs Temp 98.2 F 09/29/24 04:00 Pulse 98 09/29/24 07:00 Resp 17 09/29/24 07:00 BP 144/78 09/29/24 07:00 Pulse Ox 93 L 09/29/24 07:00 FiO2 40 0401/25 12:00 Intake & Output 09/28/24 09/29/24 09/29/24 18:59 06:59 18:59 Intake Total 1100 Output Total 1545 1425 100 Balance -1545 -325 -100 Weight 127 kg Intake: Intake, IV Titration 100 Amount Dexmedetomidine/0.9% NaCl 100 (Pmx) 400 mcg In Empty Bag 1 bag @ 0.2 MCG/KG/HR 6.35 mls/hr IV .[id number] [facility] Rx#:[id number] Oral 1000 Output: Urine 1545 1425 100 Other: Voiding Method Indwelling Catheter Indwelling Catheter # Bowel Movements 0 - Exam GENERAL EXAM: Obtunded, 64-year-old obese male,, comfortable, awake and alert off Precedex and the patient is currently on 3 L of oxygen nasal cannula HEAD: Normocephalic and atraumatic EYES: Normal reaction of pupils, equal size. NOSE: Clear with pink turbinates. THROAT: No erythema or exudates. NECK: No masses, no JVD. CHEST: No chest wall deformity. LUNGS: Equal air entry with diminished lung sounds bilaterally and bilateral rhonchi. CVS: S1 and S2 normal with no audible murmur, regular rhythm. No extra heart sounds ABDOMEN: No hepatosplenomegaly, active bowel sounds, no guarding or rigidity. SPINE: No scoliosis or deformity SKIN: No rashes CENTRAL NERVOUS SYSTEM: Sedated, calm and comfortable . No focal deficits, tone is normal in all 4 extremities. EXTREMITIES: Bilateral lower extremity 2+ pitting edema. No clubbing or cyanosis. Peripheral pulses are intact. - Labs CBC & Chem 7: 09/29/24 05:22 09/29/24 05:22 Labs: Abnormal Lab Results - Last 24 Hours (Table) 09/28/24 09/28/24 09/28/24 Range/Units 11:05 14:45 16:06 D-Dimer 0.67 H (<0.60) mg/L FEU Sodium (137-145) mmol/L Chloride (98-107) mmol/L Carbon Dioxide (22-30) mmol/L BUN (9-20) mg/dL Glucose (74-99) mg/dL POC Glucose (mg/dL) 244 H 202 H (70-110) mg/dL 09/28/24 09/29/24 09/29/24 Range/Units 20:14 05:22 06:08 D-Dimer (<0.60) mg/L FEU Sodium 136 L (137-145) mmol/L Chloride 90 L (98-107) mmol/L Carbon Dioxide 39 H (22-30) mmol/L BUN 27 H (9-20) mg/dL Glucose 220 H (74-99) mg/dL POC Glucose (mg/dL) 151 H 257 H (70-110) mg/dL Assessment and Plan Plan: Acute on chronic hypoxemic and hypercapnic respiratory failure, secondary to acute COPD exacerbation, Chest x-ray shows cardiomegaly, bilateral patchy and in terstitial airspace disease, possible pulmonary edema, superimposed infectious process is not excluded. NT proBNP was low. Viral 4 Plex screen was negative for influenza, RSV, COVID. The patient was supported with BiPAP and the patient was diuresed and given bronchodilators and steroids. Improvement in acid-base status. Improvement in the volume status. Currently on 3 L of oxygen by nasal cannula. No signs of any CO2 narcosis. Altered mental status, likely secondary to component of hypercapnic encephalopathy, improved and the mental status is normalized. The patient is currently off Precedex. Severe COPD, with an FEV1 that is 45% of predicted Chronic hypoxemic respiratory failure, on home O2 at 5 L/min nasal cannula 20/01 History of heart failure with preserved ejection fraction, most recent echocardiogram from 03/11/2024 estimating a preserved left ventricular ejection fraction of 55 to 60%, without any significant valvular abnormalities and mild to moderate pulmonary hypertension. Pulmonary hypertension , WHO group 3 Systemic hypertension Generalized weakness and deconditioning, patient's [id number] is concerned about the patient's ability to take care of himself dependently at home Morbid obesity, with a BMI of 38.5 kg/m Former tobacco dependence Plan: Keep the patient off Precedex Continue BiPAP for respiratory support, same setting mainly to be utilized overnight. The patient prefers not to utilize the BiPAP during the day. Continue combination of DuoNebs Continue IV Solu-Medrol Continue Diamox 500 mg every 12 hours Lasix 20 mg every 12 hours Fluid balance is negative Improvement in acid-base status Lantus for BS control at 25 units daily in addition to sliding scale coverage His previous echocardiogram has indicated preserved LV function with severe pulmonary hypertension. He has chronic hypoxic respiratory failure, WHO group 3 pulmonary hypertension. The viral screen was negative. Will continue with Lasix 40 mg every 24 hours. Monitor fluid balance and electrolytes Monitor serum bicarb level Obtain daily blood gases Will continue to follow. The patient be kept in the intensive care unit for now. Critical care evaluation, 32 minutes. Time with Patient: Greater than 30
[2024-09-29 16:45] LABS: Glucose,Whole Blood 142 mg/dL (70-110)
[2024-09-29] MEDS: DAPAGLIFLOZIN PROPANEDIOL 10 MG TABLET PO SCH (17:34)
[2024-09-29] MEDS: TAMSULOSIN 0.4 MG CAP.ER.24H PO STA (17:34)
[2024-09-29] MEDS: LOSARTAN 25 MG TAB PO SCH (17:34)
[2024-09-29] MEDS: SPIRONOLACTONE 25 MG TAB PO SCH (17:37)
[2024-09-29] MEDS: amLODIPine 2.5 MG TAB PO SCH (17:49)
[2024-09-29 20:13] LABS: Glucose,Whole Blood 276 mg/dL (70-110)
[2024-09-29] MEDS: METOPROLOL SUCCINATE (ER) 50 MG TAB.ER.24H PO SCH (20:45)
[2024-09-29] MEDS ORDERED: METOPROLOL TARTRATE 50 MG TAB PO SCH (21:00)
[2024-09-29] MEDS ORDERED: METOPROLOL TARTRATE 12.5 MG TAB PO SCH (21:00)
--- NOTE | 2024-09-30 02:10 | PN ---
PROGRESS NOTE DATE OF SERVICE: 09/29/2024 SUBJECTIVE: This is a 64-year-old gentleman, who was admitted with CHF and COPD, is closely monitored. The patient is much more alert today, still short of breath. The patient is not compliant with the BiPAP, though closely monitored in ICU. The chest x-ray showed bilateral lesions. ProCal is normal. PAST MEDICAL HISTORY: Reviewed. REVIEW OF SYSTEMS: Fourteen-point review of systems negative except as mentioned earlier. CURRENT MEDICATIONS: Reviewed. PHYSICAL EXAMINATION: VITAL SIGNS: Pulse is 76, blood pressure 130/83, and respirations 23. HEENT: Conjunctivae normal. NECK: No JVD. CARDIOVASCULAR: S1, S2. RESPIRATIONS: Breath sounds diminished at the bases. Scattered rhonchi. ABDOMEN: Soft. NERVOUS SYSTEM: Nonfocal. LABORATORY DATA: Reviewed. PH is 7.35, slightly improved. ASSESSMENT: 1. Shortness of breath with chronic obstructive pulmonary disease, and also congestive heart failure acute exacerbation with acute hypoxic hypercarbic respiratory failure, on BiPAP. 2. Change in mental status, metabolic encephalopathy secondary to hypercarbic respiratory failure. 3. Diabetes mellitus type 2. 4. Hypertension. 5. Obesity. 6. Multiple medical issues. RECOMMENDATIONS AND DISCUSSION: Recommend to continue current medications, continue symptomatic treatment. Repeat labs. Continue with intensive bronchodilators. Monitor blood sugars closely. Continue with IV steroids. Closely follow with Pulmonary and Cardiology. I will repeat chest x-ray tomorrow. Further recommendations to follow. MMODL / IJN: [id number] /
[2024-09-30 03:11] LABS: Basophils % (A) 0 %; Eosinophils % (A) 0 %; HCT 45.3 % (39.0-53.0); HGB 13.2 gm/dL (13.0-17.5); Hypochromasia Marked; Lymphocytes # (A) 0.3 k/uL (1.0-4.8); Lymphocytes % (A) 3 %; MCH 29.8 pg (25.0-35.0); MCHC 29.2 g/dL (31.0-37.0); Macrocytosis Slight; Mean Platelet Volume 7.9; Monocytes # (A) 0.4 k/uL (0-1.0); Monocytes % (A) 4 %; Neutrophils # (A) 8.5 k/uL (1.3-7.7); Neutrophils % (A) 92 %; Platelet Count 244 k/uL (150-450); RBC 4.44 m/uL (4.30-5.90); WBC 9.3 k/uL (3.8-10.6)
[2024-09-30 03:28] LABS: African American GFR (CKD) 83 (>60 ml/min/1.73 sqM); Blood Urea Nitrogen 32 mg/dL (9-20); Calcium 8.9 mg/dL (8.4-10.2); Chloride 90 mmol/L (98-107); Glucose 191 mg/dL (74-99); Non-African American GFR(CKD) 72 (>60 ml/min/1.73 sqM); Potassium 3.8 mmol/L (3.5-5.1); Sodium 133 mmol/L (137-145)
[2024-09-30 03:37] LABS: Anion Gap 8 mmol/L
[2024-09-30 03:40] LABS: Carbon Dioxide 35 mmol/L (22-30)
[2024-09-30 06:15] LABS: Glucose,Whole Blood 286 mg/dL (70-110)
[2024-09-30] MEDS: INSULIN GLARGINE (LANTUS) 100 UNIT/ML SYR SQ SCH (06:35)
--- NOTE | 2024-09-30 08:26 | XR ---
EXAMINATION TYPE: XR chest 1V portable DATE OF EXAM: 09/30/2024 5:36 AM COMPARISON: Chest radiograph from one day prior. CLINICAL INDICATION: Male, 64 years old with history of chf; [facility] TECHNIQUE: XR chest 1V portable Frontal view of the chest. FINDINGS: Lungs/Pleura: There is no evidence of pleural effusion, focal consolidation, or pneumothorax. Pulmonary vascularity: Unremarkable. Heart/mediastinum: Cardiomediastinal silhouette is unremarkable. Musculoskeletal: No acute osseous pathology. Other findings: None IMPRESSION: Low lung volumes with a generalized hazy appearance which could represent atelectasis versus pulmonar y edema versus atypical pneumonia correlate with serum BNP. [facility], , 09/30/2024 8:24 AM
[2024-09-30] MEDS: TAMSULOSIN 0.4 MG CAP.ER.24H PO SCH (09:24)
[2024-09-30 12:41] LABS: Glucose,Whole Blood 214 mg/dL (70-110)
[2024-09-30] MEDS: predniSONE 20 MG TAB PO SCH (12:46)
--- NOTE | 2024-09-30 13:19 | P.PN ---
Subjective Progress Note Date: 09/30/24 HISTORY OF PRESENTING ILLNESS: 64-year-old with PMH of COPD, pulmonary hypertension, former tobacco use, morbid obesity, untreated sleep apnea. He was recently hospitalized earlier this month with acute hypoxic respiratory failure and COPD exacerbation. This time he presents to the hospital with similar complaints. On admission he was noticed to be hypoxic and hypercapnic with some concerns of metabolic encephalopathy because of hypercapnia. His admission EKG shows multifocal atrial tachycardia. Cardiology was consulted for shortness of breath evaluation, assisting with the treatment for pulmonary hypertension and multifocal atrial tachycardia. It is unclear if patient is really compliant to his medications and medical recommendations. He has not received treatment for his sleep apnea. On discharge last time he was discharged on Lasix 40 mg twice daily. This time he appears mildly volume overloaded based off physical exam and chest x-ray. Vitals: 130/83, heart rate 85 bpm Labs: Hb 13.3, BUN 27, creatinine 0.9, bicarb 44 on admission, repeat 39 after acetazolamide. Troponin was negative, NT-proBNP 335, A1c 9.1 Admission EKG: Multifocal atrial tachycardia heart rate 113 bpm, nonspecific ST changes Imaging: Mild bilateral lower lung increased interstitial markings. Mild fluid overload, cardiomegaly Prior cardiac testing: Echo from 02/2024 shows preserved LV size systolic function, severely dilated RV and RA with severe pulmonary hypertension Limited echo from 06/2024 shows similar finding when compared to 02/202409/30/2024 Patient is seen and examined at bedside. He is feeling better as compared to the time he presented to the hospital. Blood pressure 113/93, heart rate 112 bpm, rhythm appears to be multifocal atrial tachycardia, swelling in the legs have improved. Still on 4 to 5 L of supplemental oxygen. Kidney function is stable, bicarb is improved. PHYSICAL EXAMINATION: Neck: Brisk carotid upstroke, no jugular venous distention. Lungs: Poor inspiratory effort, diminished breath sounds, mild wheezing audible Heart: Irregular pulse because of multifocal atrial tachycardia, S1-S2, no murmur or rub. Abdomen: Soft nontender, positive bowel sounds. Extremities: 1-2+ pitting edema bilateral lower extremity Neuro: Alert, oritented, no focal deficits. Detailed neuro exam was not performed. ASSESSMENT: # Acute on chronic hypoxic and hypercapnic respiratory failure, likely from COPD exacerbation. # Severe pulmonary hypertension with severely dilated RV. Likely WHO group 3 from COPD and untreated sleep apnea # Mild acute on chronic HFpEF exacerbation with Right-sided heart failure with cor pulmonale. NYHA class III. # Multifocal atrial tachycardia # Metabolic encephalopathy, multifactorial, likely from hypercapnia # Severe COPD with FEV1 of 45% # Chronic hypoxia 24-hour 5 L nasal cannula oxygen at home # Essential hypertension # Type 2 diabetes, poorly controlled HbA1c 9.1 # Central obesity # Suspected obesity hypoventilation syndrome with JASON # Tobacco smoker # Concerns of noncompliance PLAN: Continue IV Lasix 40 mg twice daily today. Last time he was discharged on 40 mg p.o. twice daily Lasix. This time discharge him on Bumex 1 mg p.o. twice daily. Aspirin 81 mg, Lipitor 40 mg Farxiga 10 mg daily Aldactone 25 mg daily, losartan 25 mg daily Reduce metoprolol to XL 50 mg daily Amlodipine 2.5 mg daily for pulmonary hypertension. Sildenafil has limited efficacy, will try not using it. Agree with acetazolamide. Fluid restriction 50 ounce per day Recommend continuous BiPAP support and CPAP at nighttime. Intensify COPD management, consider Daliresp and may be [place] valve for emphysema management. From cardiology perspective, patient can be moved from ICU to telemetry floor. Objective - Vital Signs Vital signs: Vital Signs Temp 98.2 F 09/30/24 12:00 Pulse 75 09/30/24 12:17 Resp 14 09/30/24 12:00 BP 107/69 09/30/24 12:00 Pulse Ox 96 09/30/24 12:00 FiO2 45 09/30/24 04:39 Intake & Output 09/29/24 09/30/24 09/30/24 18:59 06:59 18:59 Intake Total 622 500 Output Total 1400 500 600 Balance -778 0 -600 Weight 127 kg Intake: Oral 622 500 Output: Urine 1400 500 600 Other: Voiding Method Bedside Commode Bedside Commode Bedside Commode Urinal Urinal Urinal - Labs CBC & Chem 7: 09/30/24 02:56 09/30/24 02:56 Labs: Abnormal Lab Results - Last 24 Hours (Table) 09/29/24 09/29/24 09/30/24 Range/Units 16:43 20:12 02:56 MCV 102.0 H (80.0-100.0) fL MCHC 29.2 L (31.0-37.0) g/dL Neutrophils # 8.5 H (1.3-7.7) k/uL Lymphocytes # 0.3 L (1.0-4.8) k/uL Sodium (137-145) mmol/L Chloride (98-107) mmol/L Carbon Dioxide (22-30) mmol/L BUN (9-20) mg/dL Glucose (74-99) mg/dL POC Glucose (mg/dL) 142 H 276 H (70-110) mg/dL 09/30/24 09/30/24 09/30/24 Range/Units 02:56 06:13 12:40 MCV (80.0-100.0) fL MCHC (31.0-37.0) g/dL Neutrophils # (1.3-7.7) k/uL Lymphocytes # (1.0-4.8) k/uL Sodium 133 L (137-145) mmol/L Chloride 90 L (98-107) mmol/L Carbon Dioxide 35 H (22-30) mmol/L BUN 32 H (9-20) mg/dL Glucose 191 H (74-99) mg/dL POC Glucose (mg/dL) 286 H 214 H (70-110) mg/dL
[2024-09-30] MEDS: BUMETANIDE 1 MG TAB PO SCH (15:49)
[2024-09-30 16:11] LABS: Glucose,Whole Blood 293 mg/dL (70-110)
[2024-09-30] MEDS: POTASSIUM CHLORIDE ER 20 MEQ TAB.ER PO SCH (17:07)
--- NOTE | 2024-09-30 19:51 | P.PN ---
Subjective Progress Note Date: 09/30/24 Patient is a 64-year-old male with past medical history significant for obesity, COPD, pulmonary hypertension, and former tobacco dependence. Patient does follow in the pulmonary office with Dr. Dooley. He has severe COPD with an FEV1 45% of predicted. He is oxygen dependent at baseline, normally wears 3 to 4 L of supplemental oxygen /. Also, is being considered for sleep study. Patient presented the emergency department last night with a chief complaint of acute worsening of his chronic shortness of breath. Patient has had multiple hospitalizations for the same. Earlier this month, the patient was admitted to the hospital on 08/30/2024 with chief complaint of worsening shortness of breath and he was treated and discharged home on 09/04/2024 on a prednisone burst taper and DuoNeb updrafts. The patient presented back to the emergency department on 09/27/2024 for worsening dyspnea. Apparently he has been behaving erratic and he was still smoking. He also had gained weight along with his worsening shortness of breath. In the ED, the patient was found to have a white cell count of 8.3, hemoglobin 15.5 and a platelet count of 194. Serum bicarb was at 44 with a potassium level of 5.6 and a sodium level 136. BUN is 24 with a creatinine of 0.6. proBNP was 335. Troponin was negative. Viral screen was also negative. Chest x-ray showing no focal consolidation. Lung volumes are small with some atelectatic changes and some mild increased interstitial prominence. Previous echocardiogram from 03/12/2024 showed preserved LV function, no valvular abnormal ities, pulmonary hypertension moderately severe with a RVSP of 46 mmHg. RV was dilated. Patient is currently on BiPAP. Started on bronchodilators, started on IV Lasix, started on steroids with IV Solu-Medrol. On 09/28/2024, the patient is being seen for a follow-up. Noted, overnight, the patient became quite restless, hostile and somewhat agitated especially towards female nurses. He was also refusing to utilize his BiPAP. Based on that, the patient was started on Precedex and he was placed on a BiPAP which she is able to tolerate reasonably well. This morning, the patient on Precedex running at 0.5 mcg/kg/h. He is also on BiPAP pressure of 16 over 6 cm of water with an FiO2 of 45%. He is significantly more comfortable and synchronous with the BiPAP. His generated tidal volumes above 400. Follow-up blood gas from today showed a pH of 7.33 with a pCO2 of 97 and pO2 of 69. Remains on bronchodilators. Remains on IV Lasix. Remains on IV Solu-Medrol. Fluid balance is -1.3 L over the past 24 hours. In terms of his labs, the patient's white cell count is at 8.3, hemoglobin 12.7 and a platelet count of 199. The patient has a sodium level 135, potassium is at 5, serum bicarb is 46 BUN of 26 and a creatinine of 0.6. A follow-up chest x-ray from today shows small lung volumes and generalized haziness and hazy appearance along with some atelectatic changes and mild pulmonary vascular congestion. The patient is arousable yet well sedated on Precedex at this point. On 09/29/2024, the patient is being seen for a follow-up. He seems much more awake and alert on today's evaluation. He was taken off the BiPAP and the patient is currently on 3 Suboxone by nasal cannula. He has been also off Precedex since yesterday. He continues to be on a combination of diuretics. The patient on IV Lasix and the patient is also on Diamox. Fluid balance is - 1.8 L over the past 24 hours. Follow-up blood gases showed improvement in acid- base status. The patient's blood gas showed a pH of 7.35 with a pCO2 of 76 and pO2 of 64. Remains on bronchodilators. Remains on steroids. The sodium levels at 136, serum bicarb is at 39 with a BUN of 27 and a creatinine of 0.9. Blood sugar slightly elevated. The patient is on Lantus insulin. White cell count of 9.8 with a heme of 13.3 and a platelet count of 212. Awake and alert and communicating. He is morbidly obese with typical features of obstructive sleep apnea based hypoventilation syndrome. No agitation. No confusion. On 09/30/2024, the patient is awake and alert and communicating. No signs of any CO2 narcosis. The patient used BiPAP briefly overnight. He was at a pressure of 16 over 60 degrees of water. This morning he is on 40 of oxygen by nasal cannula. Doing well. No specific complaints. Serum bicarb is at 35. Sodium levels at 133, the white cell count of 9.3 with a hemoglobin 13.2 and a platelet count of 244. Denies having any significant shortness of breath. Less bronchospastic and wheezy and there is improved air entry bilaterally. Follow- up chest x-ray from today shows low lung volumes with a generalized haziness which may represent atelectasis versus mild pulm vessel congestion. For now, the patient is on bronchodilators, steroids with IV Solu-Medrol, Bumex 1 mg p.o. twice a day and Aldactone 25 mg p.o. daily. Fluid balance over the past 24 hours -778 cc. No chest pain. No altered mentation. As for the blood sugars, the patient is on Lantus 25 units daily and sliding scale coverage. Blood sugars are still somewhat elevated and the patient will be taken off the IV Solu-Medrol and started on a prednisone burst taper today. Objective - Vital Signs Vital signs: Vital Signs Temp 97.7 F 09/30/24 04:00 Pulse 79 09/30/24 09:22 Resp 24 09/30/24 08:00 BP 98/60 09/30/24 08:00 Pulse Ox 94 L 09/30/24 09:03 FiO2 45 09/30/24 04:39 Intake & Output 09/29/24 09/30/24 09/30/24 18:59 06:59 18:59 Intake Total 622 500 Output Total 1400 500 600 Balance -778 0 -600 Weight 127 kg Intake: Oral 622 500 Output: Urine 1400 500 600 Other: Voiding Method Bedside Commode Bedside Commode Bedside Commode Urinal Urinal Urinal - Exam GENERAL EXAM: Obtunded, 64-year-old obese male,, comfortable, awake and alert off Precedex and the patient is currently on 4 L of oxygen nasal cannula HEAD: Normocephalic and atraumatic EYES: Normal reaction of pupils, equal size. NOSE: Clear with pink turbinates. THROAT: No erythema or exudates. NECK: No masses, no JVD. CHEST: No chest wall deformity. LUNGS: Equal air entry with diminished lung sounds bilaterally and bilateral rhonchi. CVS: S1 and S2 normal with no audible murmur, regular rhythm. No extra heart sounds ABDOMEN: No hepatosplenomegaly, active bowel sounds, no guarding or rigidity. SPINE: No scoliosis or deformity SKIN: No rashes CENTRAL NERVOUS SYSTEM: Sedated, calm and comfortable . No focal deficits, tone is normal in all 4 extremities. EXTREMITIES: Bilateral lower extremity 2+ pitting edema. No clubbing or cyanosis. Peripheral pulses are intact. - Labs CBC & Chem 7: 09/30/24 02:56 09/30/24 02:56 Labs: Abnormal Lab Results - Last 24 Hours (Table) 09/29/24 09/29/24 09/29/24 Range/Units 05:22 10:44 11:19 MCV 104.3 H (80.0-100.0) fL MCHC 29.1 L (31.0-37.0) g/dL Neutrophils # 8.9 H (1.3-7.7) k/uL Lymphocytes # 0.3 L (1.0-4.8) k/uL ABG pCO2 76 H* (35-45) mmHg ABG pO2 64 L (83-108) mmHg ABG HCO3 42 H* (21-25) mmol/L ABG Total CO2 44 H (19-24) mmol/L ABG O2 Saturation 90.4 L (94-97) % Sodium (137-145) mmol/L Chloride (98-107) mmol/L Carbon Dioxide (22-30) mmol/L BUN (9-20) mg/dL Glucose (74-99) mg/dL POC Glucose (mg/dL) 217 H (70-110) mg/dL 09/29/24 09/29/24 09/30/24 Range/Units 16:43 20:12 02:56 MCV 102.0 H (80.0-100.0) fL MCHC 29.2 L (31.0-37.0) g/dL Neutrophils # 8.5 H (1.3-7.7) k/uL Lymphocytes # 0.3 L (1.0-4.8) k/uL ABG pCO2 (35-45) mmHg ABG pO2 (83-108) mmHg ABG HCO3 (21-25) mmol/L ABG Total CO2 (19-24) mmol/L ABG O2 Saturation (94-97) % Sodium (137-145) mmol/L Chloride (98-107) mmol/L Carbon Dioxide (22-30) mmol/L BUN (9-20) mg/dL Glucose (74-99) mg/dL POC Glucose (mg/dL) 142 H 276 H (70-110) mg/dL 09/30/24 09/30/24 Range/Units 02:56 06:13 MCV (80.0-100.0) fL MCHC (31.0-37.0) g/dL Neutrophils # (1.3-7.7) k/uL Lymphocytes # (1.0-4.8) k/uL ABG pCO2 (35-45) mmHg ABG pO2 (83-108) mmHg ABG HCO3 (21-25) mmol/L ABG Total CO2 (19-24) mmol/L ABG O2 Saturation (94-97) % Sodium 133 L (137-145) mmol/L Chloride 90 L (98-107) mmol/L Carbon Dioxide 35 H (22-30) mmol/L BUN 32 H (9-20) mg/dL Glucose 191 H (74-99) mg/dL POC Glucose (mg/dL) 286 H (70-110) mg/dL Assessment and Plan Plan: Acute on chronic hypoxemic and hypercapnic respiratory failure, secondary to acute COPD exacerbation, Chest x-ray shows cardiomegaly, bilateral patchy and interstitial airspace disease, possible pulmonary edema, superimposed infectious process is not excluded. NT proBNP was low. Viral 4 Plex screen was negative for influenza, RSV, COVID. The patient was supported with BiPAP and the patient was diuresed and given bronchodilators and steroids. Improvement in acid-base status. Improvement in the volume status. Currently on 4 L of oxygen by nasal cannula. Awake and alert. Currently off BiPAP. No signs of any CO2 narcosis. Altered mental status, likely secondary to component of hypercapnic encephalopathy, improved and the mental status is normalized. The patient is currently off Precedex. Severe COPD, with an FEV1 that is 45% of predicted Chronic hypoxemic respiratory failure, on home O2 at 5 L/min nasal cannula 20/01 History of heart failure with preserved ejection fraction, most recent echocardiogram from 03/11/2024 estimating a preserved left ventricular ejection fraction of 55 to 60%, without any significant valvular abnormalities and mild to moderate pulmonary hypertension. Pulmonary hypertension , WHO group 3 Systemic hypertension Generalized weakness and deconditioning, patient's [id number] is concerned about the patient's ability to take care of himself dependently at home Morbid obesity, with a BMI of 38.5 kg/m Former tobacco dependence Plan: Awake and alert and communicating Continue BiPAP for respiratory support, same setting mainly to be utilized overnight. The patient prefers not to utilize the BiPAP during the day. Continue combination of DuoNebs Stop the IV Solu-Medrol start the patient on prednisone burst taper Discontinue Diamox Bumex 1 mg p.o. twice a day Aldactone 25 mg p.o. daily Fluid balance is negative Improvement in acid-base status Lantus for BS control at 25 units daily in addition to sliding scale coverage Monitor the blood sugar and make further adjustments in the Lantus insulin dose accordingly His previous echocardiogram has indicated preserved LV function with severe pulmonary hypertension. He has chronic hypoxic respiratory failure, WHO group 3 pulmonary hypertension. The viral screen was negative. Monitor fluid balance and electrolytes Monitor serum bicarb level Obtain daily blood gases Will continue to follow. The patient will be downgraded to selective. Time with Patient: Greater than 30
[2024-09-30] MEDS: FAMOTIDINE 20 MG TAB PO SCH (20:07)
[2024-09-30 20:09] LABS: Glucose,Whole Blood 215 mg/dL (70-110)
--- NOTE | 2024-09-30 22:32 | PN ---
PROGRESS NOTE DATE OF SERVICE: 09/30/2024 SUBJECTIVE: This is a 64-year-old gentleman admitted with acute hypoxic respiratory failure, change in mental status, hypercarbia, CHF, and COPD, who is being evaluated for outpatient BiPAP. At this time, the patient is being closely monitored in the ICU. The most recent chest x-ray which I reviewed personally showed bilaterally increased bronchovascular prominence. PAST MEDICAL HISTORY: Reviewed. REVIEW OF SYSTEMS: Fourteen-point review of systems negative except as mentioned earlier. PHYSICAL EXAMINATION: VITAL SIGNS: Pulse is 73, blood pressure 106/69, respirations 14. HEENT: Conjunctivae normal. NECK: No JVD. CARDIOVASCULAR: S1, S2. RESPIRATIONS: Breath sounds diminished at the bases. Bilaterally scattered rhonchi and crackles. ABDOMEN: Soft. NERVOUS SYSTEM: Nonfocal. LABORATORY DATA: Noted. ASSESSMENT: 1. Shortness of breath, possibly multifactorial with chronic obstructive pulmonary disease and congestive heart failure with acute exacerbation with acute hypoxic hypercarbic respiratory failure, on BiPAP. 2. Change in mental status and acute metabolic encephalopathy, secondary to hypercarbic respiratory failure. 3. Diabetes mellitus type 2. 4. Hypertension. 5. Obesity. 6. Multiple medical issues. RECOMMENDATIONS: Recommended to continue with current management, continue with symptomatic treatment. Steroids, bronchodilators, and monitor blood sugars closely. Taper the steroids. Otherwise, repeat labs in the morning. PT/OT evaluation, and I would also recommend to arrange possible BiPAP at home per Pulmonary. MMODL / IJN: [id number] /
[2024-10-01 03:40] LABS: Basophils % (A) 0 %; Eosinophils % (A) 0 %; HGB 13.4 gm/dL (13.0-17.5); Hypochromasia Moderate; Lymphocytes # (A) 0.7 k/uL (1.0-4.8); Lymphocytes % (A) 7 %; MCH 29.3 pg (25.0-35.0); MCV 100.9 fL (80.0-100.0); Macrocytosis Slight; Mean Platelet Volume 8.3; Monocytes # (A) 0.9 k/uL (0-1.0); Monocytes % (A) 9 %; Neutrophils # (A) 7.5 k/uL (1.3-7.7); Neutrophils % (A) 81 %; Platelet Count 254 k/uL (150-450); RBC 4.56 m/uL (4.30-5.90); WBC 9.2 k/uL (3.8-10.6)
[2024-10-01 04:30] LABS: African American GFR (CKD) >90 (>60 ml/min/1.73 sqM); Anion Gap 4 mmol/L; Blood Urea Nitrogen 33 mg/dL (9-20); Carbon Dioxide 37 mmol/L (22-30); Chloride 96 mmol/L (98-107); Glucose 130 mg/dL (74-99); Non-African American GFR(CKD) >90 (>60 ml/min/1.73 sqM); Potassium 3.8 mmol/L (3.5-5.1); Sodium 137 mmol/L (137-145)
[2024-10-01 05:40] LABS: Glucose,Whole Blood 157 mg/dL (70-110)
[2024-10-01 10:49] LABS: Glucose,Whole Blood 202 mg/dL (70-110)
--- NOTE | 2024-10-01 14:05 | P.PN ---
Subjective Progress Note Date: 10/01/24 HISTORY OF PRESENTING ILLNESS: 64-year-old with PMH of COPD, pulmonary hypertension, former tobacco use, morbid obesity, untreated sleep apnea. He was recently hospitalized earlier this month with acute hypoxic respiratory failure and COPD exacerbation. This time he presents to the hospital with similar complaints. On admission he was noticed to be hypoxic and hypercapnic with some concerns of metabolic encephalopathy because of hypercapnia. His admission EKG shows multifocal atrial tachycardia. Cardiology was consulted for shortness of breath evaluation, assisting with the treatment for pulmonary hypertension and multifocal atrial tachycardia. It is unclear if patient is really compliant to his medications and medical recommendations. He has not received treatment for his sleep apnea. On discharge last time he was discharged on Lasix 40 mg twice daily. This time he appears mildly volume overloaded based off physical exam and chest x-ray. Vitals: 130/83, heart rate 85 bpm Labs: Hb 13.3, BUN 27, creatinine 0.9, bicarb 44 on admission, repeat 39 after acetazolamide. Troponin was negative, NT-proBNP 335, A1c 9.1 Admission EKG: Multifocal atrial tachycardia heart rate 113 bpm, nonspecific ST changes Imaging: Mild bilateral lower lung increased interstitial markings. Mild fluid overload, cardiomegaly Prior cardiac testing: Echo from 02/2024 shows preserved LV size systolic function, severely dilated RV and RA with severe pulmonary hypertension Limited echo from 06/2024 shows similar finding when compared to 02/202409/30/2024 Patient is seen and examined at bedside. He is feeling better as compared to the time he presented to the hospital. Blood pressure 113/93, heart rate 112 bpm, rhythm appears to be multifocal atrial tachycardia, swelling in the legs have improved. Still on 4 to 5 L of supplemental oxygen. Kidney function is stable, bicarb is improved. 10/01/2024 Seen and examined at bedside this a.m. Reporting to be feeling better, less short of breath, very eager to go home. Telemetry shows irregular narrow complex tachycardia with heart rate in around 90 bpm. Appears to be multifocal atrial tachycardia. PHYSICAL EXAMINATION: Neck: Brisk carotid upstroke, no jugular venous distention. Lungs: Poor inspiratory effort, diminished breath sounds, mild wheezing audible Heart: Irregular pulse because of multifocal atrial tachycardia, S1-S2, no murmur or rub. Abdomen: Soft nontender, positive bowel sounds. Extremities: 1-2+ pitting edema bilateral lower extremity Neuro: Alert, oritented, no focal deficits. Detailed neuro exam was not performed. ASSESSMENT: # Acute on chronic hypoxic and hypercapnic respiratory failure, likely from COPD exacerbation. # Severe pulmonary hypertension with severely dilated RV. Likely WHO group 3 from COPD and untreated sleep apnea # Mild acute on chronic HFpEF exacerbation with Right-sided heart failure with cor pulmonale. NYHA class III. # Multifocal atrial tachycardia # Metabolic encephalopathy, multifactorial, likely from hypercapnia # Severe COPD with FEV1 of 45% # Chronic hypoxia 24-hour 5 L nasal cannula oxygen at home # Essential hypertension # Type 2 diabetes, poorly controlled HbA1c 9.1 # Central obesity # Suspected obesity hypoventilation syndrome with JASON # Tobacco smoker # Concerns of noncompliance PLAN: Continue IV Lasix 40 mg twice daily today. Last time he was discharged on 40 mg p.o. twice daily Lasix. This time discharge him on Bumex 1 mg p.o. twice daily. Aspirin 81 mg, Lipitor 40 mg Farxiga 10 mg daily Aldactone 25 mg daily, reduce losartan to 12.5 mg daily due to borderline BP Reduce metoprolol to XL 50 mg daily Amlodipine 2.5 mg daily for pulmonary hypertension. Sildenafil has limited efficacy, will try not using it. Agree with acetazolamide. Fluid restriction 50 ounce per day Recommend continuous BiPAP support and CPAP at nighttime. Intensify COPD management, consider Daliresp and may be [place] valve for emphysema management. From cardiology perspective, patient can be moved from ICU to telemetry floor. Objective - Vital Signs Vital signs: Vital Signs Temp 97.7 F 10/01/24 12:15 Pulse 74 10/01/24 13:04 Resp 13 10/01/24 12:15 BP 91/63 10/01/24 12:15 Pulse Ox 93 L 10/01/24 12:15 FiO2 45 09/30/24 04:39 Intake & Output 09/30/24 10/01/24 10/01/24 18:59 06:59 18:59 Intake Total 800 500 360 Output Total 1400 975 980 Balance -231 -757 -474 Weight 126.4 kg Intake: Oral 800 500 360 Output: Urine 1400 975 980 Other: Voiding Method Bedside Commode Bedside Commode Bedside Commode Urinal Urinal Urinal - Labs CBC & Chem 7: 10/01/24 03:08 10/01/24 03:08 Labs: Abnormal Lab Results - Last 24 Hours (Table) 09/30/24 09/30/24 10/01/24 Range/Units 16:09 20:07 03:08 MCV 100.9 H (80.0-100.0) fL MCHC 29.0 L (31.0-37.0) g/dL Lymphocytes # 0.7 L (1.0-4.8) k/uL Chloride (98-107) mmol/L Carbon Dioxide (22-30) mmol/L BUN (9-20) mg/dL Glucose (74-99) mg/dL POC Glucose (mg/dL) 293 H 215 H (70-110) mg/dL 10/01/24 10/01/24 10/01/24 Range/Units 03:08 05:38 10:47 MCV (80.0-100.0) fL MCHC (31.0-37.0) g/dL Lymphocytes # (1.0-4.8) k/uL Chloride 96 L (98-107) mmol/L Carbon Dioxide 37 H (22-30) mmol/L BUN 33 H (9-20) mg/dL Glucose 130 H (74-99) mg/dL POC Glucose (mg/dL) 157 H 202 H (70-110) mg/dL
--- NOTE | 2024-10-01 14:12 | P.PN ---
Subjective Progress Note Date: 10/01/24 Patient is a 64-year-old male with past medical history significant for obesity, COPD, pulmonary hypertension, and former tobacco dependence. Patient does follow in the pulmonary office with Dr. Dooley. He has severe COPD with an FEV1 45% of predicted. He is oxygen dependent at baseline, normally wears 3 to 4 L of supplemental oxygen /. Also, is being considered for sleep study. Patient presented the emergency department last night with a chief complaint of acute worsening of his chronic shortness of breath. Patient has had multiple hospitalizations for the same. Earlier this month, the patient was admitted to the hospital on 08/30/2024 with chief complaint of worsening shortness of breath and he was treated and discharged home on 09/04/2024 on a prednisone burst taper and DuoNeb updrafts. The patient presented back to the emergency department on 09/27/2024 for worsening dyspnea. Apparently he has been behaving erratic and he was still smoking. He also had gained weight along with his worsening shortness of breath. In the ED, the patient was found to have a white cell count of 8.3, hemoglobin 15.5 and a platelet count of 194. Serum bicarb was at 44 with a potassium level of 5.6 and a sodium level 136. BUN is 24 with a creatinine of 0.6. proBNP was 335. Troponin was negative. Viral screen was also negative. Chest x-ray showing no focal consolidation. Lung volumes are small with some atelectatic changes and some mild increased interstitial prominence. Previous echocardiogram from 03/12/2024 showed preserved LV function, no valvular abnormal ities, pulmonary hypertension moderately severe with a RVSP of 46 mmHg. RV was dilated. Patient is currently on BiPAP. Started on bronchodilators, started on IV Lasix, started on steroids with IV Solu-Medrol. On 09/28/2024, the patient is being seen for a follow-up. Noted, overnight, the patient became quite restless, hostile and somewhat agitated especially towards female nurses. He was also refusing to utilize his BiPAP. Based on that, the patient was started on Precedex and he was placed on a BiPAP which she is able to tolerate reasonably well. This morning, the patient on Precedex running at 0.5 mcg/kg/h. He is also on BiPAP pressure of 16 over 6 cm of water with an FiO2 of 45%. He is significantly more comfortable and synchronous with the BiPAP. His generated tidal volumes above 400. Follow-up blood gas from today showed a pH of 7.33 with a pCO2 of 97 and pO2 of 69. Remains on bronchodilators. Remains on IV Lasix. Remains on IV Solu-Medrol. Fluid balance is -1.3 L over the past 24 hours. In terms of his labs, the patient's white cell count is at 8.3, hemoglobin 12.7 and a platelet count of 199. The patient has a sodium level 135, potassium is at 5, serum bicarb is 46 BUN of 26 and a creatinine of 0.6. A follow-up chest x-ray from today shows small lung volumes and generalized haziness and hazy appearance along with some atelectatic changes and mild pulmonary vascular congestion. The patient is arousable yet well sedated on Precedex at this point. On 09/29/2024, the patient is being seen for a follow-up. He seems much more awake and alert on today's evaluation. He was taken off the BiPAP and the patient is currently on 3 Suboxone by nasal cannula. He has been also off Precedex since yesterday. He continues to be on a combination of diuretics. The patient on IV Lasix and the patient is also on Diamox. Fluid balance is - 1.8 L over the past 24 hours. Follow-up blood gases showed improvement in acid- base status. The patient's blood gas showed a pH of 7.35 with a pCO2 of 76 and pO2 of 64. Remains on bronchodilators. Remains on steroids. The sodium levels at 136, serum bicarb is at 39 with a BUN of 27 and a creatinine of 0.9. Blood sugar slightly elevated. The patient is on Lantus insulin. White cell count of 9.8 with a heme of 13.3 and a platelet count of 212. Awake and alert and communicating. He is morbidly obese with typical features of obstructive sleep apnea based hypoventilation syndrome. No agitation. No confusion. On 09/30/2024, the patient is awake and alert and communicating. No signs of any CO2 narcosis. The patient used BiPAP briefly overnight. He was at a pressure of 16 over 60 degrees of water. This morning he is on 40 of oxygen by nasal cannula. Doing well. No specific complaints. Serum bicarb is at 35. Sodium levels at 133, the white cell count of 9.3 with a hemoglobin 13.2 and a platelet count of 244. Denies having any significant shortness of breath. Less bronchospastic and wheezy and there is improved air entry bilaterally. Follow- up chest x-ray from today shows low lung volumes with a generalized haziness which may represent atelectasis versus mild pulm vessel congestion. For now, the patient is on bronchodilators, steroids with IV Solu-Medrol, Bumex 1 mg p.o. twice a day and Aldactone 25 mg p.o. daily. Fluid balance over the past 24 hours -778 cc. No chest pain. No altered mentation. As for the blood sugars, the patient is on Lantus 25 units daily and sliding scale coverage. Blood sugars are still somewhat elevated and the patient will be taken off the IV Solu-Medrol and started on a prednisone burst taper today. [place] 10/01/2024, patient is being seen for a follow-up. Awake and alert and calm and comfortable. No significant respiratory distress at rest. Currently on 2 L of oxygen by nasal cannula with a pulse ox of 93%. No chest pain. No significant shortness of breath. Remains on bronchodilators. Remains on steroids. The patient is on DuoNeb updrafts 4 times a day and the patient is on prednisone burst taper that was started as of yesterday. Remains on Lovenox for DVT prophylaxis. Remains on Bumex 1 mg p.o. twice a day and Aldactone 25 mg p. o. daily. Fluid balance is -1 L over past 24 hours. The white cell count is 9.2 with a heme of 13.4 and a platelet count of 254. BUN 33 with a creatinine of 0.8. Sodium levels at 137. Calcium level is at 9.0. Objective - Vital Signs Vital signs: Vital Signs Temp 97.8 F 10/01/24 00:00 Pulse 74 10/01/24 09:37 Resp 26 H 10/01/24 08:00 BP 105/72 10/01/24 03:54 Pulse Ox 96 10/01/24 09:29 FiO2 45 09/30/24 04:39 Intake & Output 09/30/24 10/01/24 10/01/24 18:59 06:59 18:59 Intake Total 800 500 Output Total 1400 975 230 Balance -600 -475 -736 Weight 126.4 kg Intake: Oral 800 500 Output: Urine 1400 975 230 Other: Voiding Method Bedside Commode Bedside Commode Urinal Urinal - Exam GENERAL EXAM: Obtunded, 64-year-old obese male,, comfortable, awake and alert on 2 L of oxygen by nasal cannula HEAD: Normocephalic and atraumatic EYES: Normal reaction of pupils, equal size. NOSE: Clear with pink turbinates. THROAT: No erythema or exudates. NECK: No masses, no JVD. CHEST: No chest wall deformity. LUNGS: Equal air entry with diminished lung sounds bilaterally and bilateral rhonchi. CVS: S1 and S2 normal with no audible murmur, regular rhythm. No extra heart sounds ABDOMEN: No hepatosplenomegaly, active bowel sounds, no guarding or rigidity. SPINE: No scoliosis or deformity SKIN: No rashes CENTRAL NERVOUS SYSTEM: Sedated, calm and comfortable . No focal deficits, tone is normal in all 4 extremities. EXTREMITIES: Bilateral lower extremity 1+ pitting edema. No clubbing or cyanosis. Peripheral pulses are intact. - Labs CBC & Chem 7: 10/01/24 03:08 10/01/24 03:08 Labs: Abnormal Lab Results - Last 24 Hours (Table) 09/30/24 09/30/24 09/30/24 Range/Units 12:40 16:09 20:07 MCV (80.0-100.0) fL MCHC (31.0-37.0) g/dL Lymphocytes # (1.0-4.8) k/uL Chloride (98-107) mmol/L Carbon Dioxide (22-30) mmol/L BUN (9-20) mg/dL Glucose (74-99) mg/dL POC Glucose (mg/dL) 214 H 293 H 215 H (70-110) mg/dL 10/01/24 10/01/24 10/01/24 Range/Units 03:08 03:08 05:38 MCV 100.9 H (80.0-100.0) fL MCHC 29.0 L (31.0-37.0) g/dL Lymphocytes # 0.7 L (1.0-4.8) k/uL Chloride 96 L (98-107) mmol/L Carbon Dioxide 37 H (22-30) mmol/L BUN 33 H (9-20) mg/dL Glucose 130 H (74-99) mg/dL POC Glucose (mg/dL) 157 H (70-110) mg/dL Assessment and Plan Plan: Acute on chronic hypoxemic and hypercapnic respiratory failure, secondary to acute COPD exacerbation, Chest x-ray shows cardiomegaly, bilateral patchy and interstitial airspace disease, possible pulmonary edema, superimposed infectious process is not excluded. NT proBNP was low. Viral 4 Plex screen was negative for influenza, RSV, COVID. The patient was supported with BiPAP and the patient was diuresed and given bronchodilators and steroids. Improvement in acid-base status. Improvement in the volume status. Currently on 2 L of oxygen nasal cannula. No signs of any CO2 narcosis. Altered mental status, likely secondary to component of hypercapnic encephalopathy, improved and the mental status is normalized. Severe COPD, with an FEV1 that is 45% of predicted Chronic hypoxemic respiratory failure, on home O2 at 5 L/min nasal cannula 20/01 History of heart failure with preserved ejection fraction, most recent echoc ardiogram from 03/11/2024 estimating a preserved left ventricular ejection fraction of 55 to 60%, without any significant valvular abnormalities and mild to moderate pulmonary hypertension. Pulmonary hypertension , WHO group 3 Systemic hypertension Generalized weakness and deconditioning, patient's [id number] is concerned about the patient's ability to take care of himself dependently at home Morbid obesity, with a BMI of 38.5 kg/m Former tobacco dependence Plan: Awake and alert and communicating Continue BiPAP for respiratory support, same setting mainly to be utilized overnight. Will try to arrange a BiPAP machine for this patient also on outpatient basis based on his history of recurrent hypercapnic respiratory failure and COPD exacerbation. He also has features of obstructive sleep apnea. Continue combination of DuoNebs Prednisone burst taper Bumex 1 mg p.o. twice a day Aldactone 25 mg p.o. daily Fluid balance is negative Improvement in acid-base status Lantus for BS control at 25 units daily in addition to sliding scale coverage Monitor the blood sugar and make further adjustments in the Lantus insulin dose accordingly His previous echocardiogram has indicated preserved LV function with severe pulmonary hypertension. He has chronic hypoxic respiratory failure, WHO group 3 pulmonary hypertension. The viral screen was negative. Monitor fluid balance and electrolytes Monitor serum bicarb level Obtain daily blood gases Will continue to follow. The patient will be downgraded to selective. Time with Patient: Greater than 30
[2024-10-01 16:19] LABS: Glucose,Whole Blood 268 mg/dL (70-110)
[2024-10-01 20:44] LABS: Glucose,Whole Blood 268 mg/dL (70-110)
--- NOTE | 2024-10-02 01:01 | PN ---
PROGRESS NOTE DATE OF SERVICE: 10/01/2024 SUBJECTIVE: This is a 64-year-old gentleman, admitted with shortness of breath, possible multifactorial COPD and CHF, who also has change in mental status. The patient is on BiPAP at this time. The patient is being closely monitored. PAST MEDICAL HISTORY: Reviewed. REVIEW OF SYSTEMS: Fourteen-point review of systems negative except as mentioned earlier. CURRENT MEDICATIONS: Reviewed. PHYSICAL EXAMINATION: VITAL SIGNS: Pulse is 74, blood pressure 91/66, respirations 13. CHEST: Has a few scattered rhonchi. CARDIOVASCULAR: S1, S2. ABDOMEN: Soft. LEGS: No edema. NERVOUS SYSTEM: Nonfocal. LABORATORY DATA: Noted. ASSESSMENT: 1. Shortness of breath, possibly multifactorial with chronic obstructive pulmonary disease and congestive heart failure with acute exacerbation with acute hypoxic hypercarbic respiratory failure, on BiPAP. 2. Change in mental status with acute metabolic acidosis, secondary to hypercapnic respiratory failure. 3. Diabetes mellitus type 2. 4. Hypertension. 5. Relative hypotension. 6. Obesity. 7. Multiple medical issues. RECOMMENDATIONS AND DISCUSSION: Recommended to continue with current management, continue with symptomatic treatment. Continue with BiPAP. The patient might require home BiPAP. Otherwise, we will closely monitor. We will recommend to hold the Norvasc. At this time, monitor blood pressure closely. Further recommendations to follow. MMODL / IJN: [id number] /
[2024-10-02 03:21] LABS: Basophils % (A) 0 %; Eosinophils % (A) 0 %; HCT 44.5 % (39.0-53.0); Hypochromasia Moderate; Lymphocytes # (A) 0.7 k/uL (1.0-4.8); Lymphocytes % (A) 7 %; MCH 29.5 pg (25.0-35.0); MCHC 29.3 g/dL (31.0-37.0); MCV 100.7 fL (80.0-100.0); Macrocytosis Slight; Mean Platelet Volume 8.3; Monocytes # (A) 0.9 k/uL (0-1.0); Monocytes % (A) 9 %; Neutrophils # (A) 8.2 k/uL (1.3-7.7); Neutrophils % (A) 82 %; Platelet Count 216 k/uL (150-450); RBC 4.42 m/uL (4.30-5.90); RDW 15.1 % (11.5-15.5)
[2024-10-02 03:36] LABS: ALT 24 U/L (4-49); AST 17 U/L (17-59); African American GFR (CKD) >90 (>60 ml/min/1.73 sqM); Albumin 3.4 g/dL (3.5-5.0); Alkaline Phosphatase 65 U/L (38-126); Anion Gap 3 mmol/L; Blood Urea Nitrogen 31 mg/dL (9-20); Carbon Dioxide 39 mmol/L (22-30); Chloride 95 mmol/L (98-107); Glucose 132 mg/dL (74-99); Non-African American GFR(CKD) >90 (>60 ml/min/1.73 sqM); Potassium 3.3 mmol/L (3.5-5.1); Sodium 137 mmol/L (137-145); Total Bilirubin 0.6 mg/dL (0.2-1.3); Total Protein 5.7 g/dL (6.3-8.2)
[2024-10-02] MEDS: POTASSIUM CHLORIDE ER 20 MEQ TAB.ER PO SCH (04:17)
[2024-10-02 06:03] LABS: Glucose,Whole Blood 121 mg/dL (70-110)
[2024-10-02 08:20] VITALS: TEMP 97.7
[2024-10-02] MEDS: LOSARTAN 25 MG TAB PO SCH (10:05)
[2024-10-02 12:11] LABS: Glucose,Whole Blood 271 mg/dL (70-110)
[2024-10-02 12:44] VITALS: BP 98/59; PULSE 74; RESP 18
--- NOTE | 2024-10-02 15:38 | P.PN ---
Subjective Progress Note Date: 10/02/24 Patient is a 64-year-old male with past medical history significant for obesity, COPD, pulmonary hypertension, and former tobacco dependence. Patient does follow in the pulmonary office with Dr. Dooley. He has severe COPD with an FEV1 45% of predicted. He is oxygen dependent at baseline, normally wears 3 to 4 L of supplemental oxygen /. Also, is being considered for sleep study. Patient presented the emergency department last night with a chief complaint of acute worsening of his chronic shortness of breath. Patient has had multiple hospitalizations for the same. Earlier this month, the patient was admitted to the hospital on 08/30/2024 with chief complaint of worsening shortness of breath and he was treated and discharged home on 09/04/2024 on a prednisone burst taper and DuoNeb updrafts. The patient presented back to the emergency department on 09/27/2024 for worsening dyspnea. Apparently he has been behaving erratic and he was still smoking. He also had gained weight along with his worsening shortness of breath. In the ED, the patient was found to have a white cell count of 8.3, hemoglobin 15.5 and a platelet count of 194. Serum bicarb was at 44 with a potassium level of 5.6 and a sodium level 136. BUN is 24 with a creatinine of 0.6. proBNP was 335. Troponin was negative. Viral screen was also negative. Chest x-ray showing no focal consolidation. Lung volumes are small with some atelectatic changes and some mild increased interstitial prominence. Previous echocardiogram from 03/12/2024 showed preserved LV function, no valvular abnormal ities, pulmonary hypertension moderately severe with a RVSP of 46 mmHg. RV was dilated. Patient is currently on BiPAP. Started on bronchodilators, started on IV Lasix, started on steroids with IV Solu-Medrol. On 09/28/2024, the patient is being seen for a follow-up. Noted, overnight, the patient became quite restless, hostile and somewhat agitated especially towards female nurses. He was also refusing to utilize his BiPAP. Based on that, the patient was started on Precedex and he was placed on a BiPAP which she is able to tolerate reasonably well. This morning, the patient on Precedex running at 0.5 mcg/kg/h. He is also on BiPAP pressure of 16 over 6 cm of water with an FiO2 of 45%. He is significantly more comfortable and synchronous with the BiPAP. His generated tidal volumes above 400. Follow-up blood gas from today showed a pH of 7.33 with a pCO2 of 97 and pO2 of 69. Remains on bronchodilators. Remains on IV Lasix. Remains on IV Solu-Medrol. Fluid balance is -1.3 L over the past 24 hours. In terms of his labs, the patient's white cell count is at 8.3, hemoglobin 12.7 and a platelet count of 199. The patient has a sodium level 135, potassium is at 5, serum bicarb is 46 BUN of 26 and a creatinine of 0.6. A follow-up chest x-ray from today shows small lung volumes and generalized haziness and hazy appearance along with some atelectatic changes and mild pulmonary vascular congestion. The patient is arousable yet well sedated on Precedex at this point. On 09/29/2024, the patient is being seen for a follow-up. He seems much more awake and alert on today's evaluation. He was taken off the BiPAP and the patient is currently on 3 Suboxone by nasal cannula. He has been also off Precedex since yesterday. He continues to be on a combination of diuretics. The patient on IV Lasix and the patient is also on Diamox. Fluid balance is - 1.8 L over the past 24 hours. Follow-up blood gases showed improvement in acid- base status. The patient's blood gas showed a pH of 7.35 with a pCO2 of 76 and pO2 of 64. Remains on bronchodilators. Remains on steroids. The sodium levels at 136, serum bicarb is at 39 with a BUN of 27 and a creatinine of 0.9. Blood sugar slightly elevated. The patient is on Lantus insulin. White cell count of 9.8 with a heme of 13.3 and a platelet count of 212. Awake and alert and communicating. He is morbidly obese with typical features of obstructive sleep apnea based hypoventilation syndrome. No agitation. No confusion. On 09/30/2024, the patient is awake and alert and communicating. No signs of any CO2 narcosis. The patient used BiPAP briefly overnight. He was at a pressure of 16 over 60 degrees of water. This morning he is on 40 of oxygen by nasal cannula. Doing well. No specific complaints. Serum bicarb is at 35. Sodium levels at 133, the white cell count of 9.3 with a hemoglobin 13.2 and a platelet count of 244. Denies having any significant shortness of breath. Less bronchospastic and wheezy and there is improved air entry bilaterally. Follow- up chest x-ray from today shows low lung volumes with a generalized haziness which may represent atelectasis versus mild pulm vessel congestion. For now, the patient is on bronchodilators, steroids with IV Solu-Medrol, Bumex 1 mg p.o. twice a day and Aldactone 25 mg p.o. daily. Fluid balance over the past 24 hours -778 cc. No chest pain. No altered mentation. As for the blood sugars, the patient is on Lantus 25 units daily and sliding scale coverage. Blood sugars are still somewhat elevated and the patient will be taken off the IV Solu-Medrol and started on a prednisone burst taper today. [place] 10/01/2024, patient is being seen for a follow-up. Awake and alert and calm and comfortable. No significant respiratory distress at rest. Currently on 2 L of oxygen by nasal cannula with a pulse ox of 93%. No chest pain. No significant shortness of breath. Remains on bronchodilators. Remains on steroids. The patient is on DuoNeb updrafts 4 times a day and the patient is on prednisone burst taper that was started as of yesterday. Remains on Lovenox for DVT prophylaxis. Remains on Bumex 1 mg p.o. twice a day and Aldactone 25 mg p. o. daily. Fluid balance is -1 L over past 24 hours. The white cell count is 9.2 with a heme of 13.4 and a platelet count of 254. BUN 33 with a creatinine of 0.8. Sodium levels at 137. Calcium level is at 9.0. On 10/02/2024, patient is stable, doing well on 3 L of oxygen by nasal cannula with a pulse ox of 93%. Fluid balance is -2.7 L of over the past 24 hours. No significant chest pain. No significant shortness of breath. No encephalopathy and the patient utilizing BiPAP overnight. The white cell count is at 10 with a hemoglobin 13 and platelet count of 216. BUN 31 with a creatinine of 0.7. Sodium levels at 137 and potassium level is 3.3. Bicarb levels at 39. Remains on DuoNeb of chest. Prednisone burst taper. Bumex 1 mg p.o. twice a day. Rest of the medications are essentially unchanged. Remains on Lantus insulin 25 units daily and sliding scale coverage. Objective - Vital Signs Vital signs: Vital Signs Temp 97.7 F 10/02/24 08:02 Pulse 100 10/02/24 08:02 Resp 22 10/02/24 08:02 BP 117/74 10/02/24 08:02 Pulse Ox 98 10/02/24 08:02 FiO2 45 10/02/24 04:08 Intake & Output 10/01/24 10/02/24 10/02/24 18:59 06:59 18:59 Intake Total 360 Output Total 1680 1400 Balance -1320 -1400 Weight 126.5 kg Intake: Oral 360 Output: Urine 1680 1400 Other: Voiding Method Bedside Commode Bedside Commode Urinal Urinal - Exam GENERAL EXAM: Obtunded, 64-year-old obese male,, comfortable, awake and alert on 2 L of oxygen by nasal cannula HEAD: Normocephalic and atraumatic EYES: Normal reaction of pupils, equal size. NOSE: Clear with pink turbinates. THROAT: No erythema or exudates. NECK: No masses, no JVD. CHEST: No chest wall deformity. LUNGS: Equal air entry with diminished lung sounds bilaterally and bilateral rhonchi. CVS: S1 and S2 normal with no audible murmur, regular rhythm. No extra heart sounds ABDOMEN: No hepatosplenomegaly, active bowel sounds, no guarding or rigidity. SPINE: No scoliosis or deformity SKIN: No rashes CENTRAL NERVOUS SYSTEM: Sedated, calm and comfortable . No focal deficits, tone is normal in all 4 extremities. EXTREMITIES: Bilateral lower extremity 1+ pitting edema. No clubbing or cyanosis. Peripheral pulses are intact. - Labs CBC & Chem 7: 10/02/24 02:50 10/02/24 02:50 Labs: Abnormal Lab Results - Last 24 Hours (Table) 10/01/24 10/01/24 10/01/24 Range/Units 10:47 16:18 20:42 MCV (80.0-100.0) fL MCHC (31.0-37.0) g/dL Neutrophils # (1.3-7.7) k/uL Lymphocytes # (1.0-4.8) k/uL Potassium (3.5-5.1) mmol/L Chloride (98-107) mmol/L Carbon Dioxide (22-30) mmol/L BUN (9-20) mg/dL Glucose (74-99) mg/dL POC Glucose (mg/dL) 202 H 268 H 268 H (70-110) mg/dL Total Protein (6.3-8.2) g/dL Albumin (3.5-5.0) g/dL 10/02/24 10/02/24 10/02/24 Range/Units 02:50 02:50 06:01 MCV 100.7 H (80.0-100.0) fL MCHC 29.3 L (31.0-37.0) g/dL Neutrophils # 8.2 H (1.3-7.7) k/uL Lymphocytes # 0.7 L (1.0-4.8) k/uL Potassium 3.3 L (3.5-5.1) mmol/L Chloride 95 L (98-107) mmol/L Carbon Dioxide 39 H (22-30) mmol/L BUN 31 H (9-20) mg/dL Glucose 132 H (74-99) mg/dL POC Glucose (mg/dL) 121 H (70-110) mg/dL Total Protein 5.7 L (6.3-8.2) g/dL Albumin 3.4 L (3.5-5.0) g/dL Assessment and Plan Plan: Acute on chronic hypoxemic and hypercapnic respiratory failure, secondary to acu te COPD exacerbation, Chest x-ray shows cardiomegaly, bilateral patchy and interstitial airspace disease, possible pulmonary edema, superimposed infectious process is not excluded. NT proBNP was low. Viral 4 Plex screen was negative for influenza, RSV, COVID. The patient was supported with BiPAP and the patient was diuresed and given bronchodilators and steroids. Improvement in acid-base status. Improvement in the volume status. Currently on 3 L of oxygen nasal cannula. No signs of any CO2 narcosis. Altered mental status, likely secondary to component of hypercapnic encephalopathy, improved and the mental status is normalized. Severe COPD, with an FEV1 that is 45% of predicted Chronic hypoxemic respiratory failure, on home O2 at 5 L/min nasal cannula 20/01 History of heart failure with preserved ejection fraction, most recent echocardiogram from 03/11/2024 estimating a preserved left ventricular ejection fraction of 55 to 60%, without any significant valvular abnormalities and mild to moderate pulmonary hypertension. Pulmonary hypertension , WHO group 3 Systemic hypertension Generalized weakness and deconditioning, patient's [id number] is concerned about the patient's ability to take care of himself dependently at home Morbid obesity, with a BMI of 38.5 kg/m Former tobacco dependence Plan: Awake and alert and communicating, utilizing the BiPAP overnight currently on 3 days of oxygen by nasal cannula Continue combination of DuoNebs Prednisone burst taper Bumex 1 mg p.o. twice a day, remains in negative fluid balance Aldactone 25 mg p.o. daily Lantus for BS control at 25 units daily in addition to sliding scale coverage Monitor the blood sugar and make further adjustments in the Lantus insulin dose accordingly His previous echocardiogram has indicated preserved LV function with severe pulmonary hypertension. He has chronic hypoxic respiratory failure, WHO group 3 pulmonary hypertension. The viral screen was negative. Monitor fluid balance and electrolytes Monitor serum bicarb level Will continue to follow. Being transferred to the medical floor
--- NOTE | 2024-10-02 20:46 | DS ---
DISCHARGE SUMMARY FINAL DIAGNOSES: 1. Shortness of breath, multifactorial with chronic obstructive pulmonary disease and congestive heart failure with acute exacerbation with acute hypoxic respiratory failure and hypercarbic respiratory failure, on BiPAP. 2. Change in mental status with acute metabolic encephalopathy, secondary to hypercapnic respiratory failure. 3. Diabetes mellitus type 2. 4. Multiple medical issues. DISCHARGE DISPOSITION: The patient will be discharged in stable condition and guarded prognosis. HISTORY OF PRESENT ILLNESS: This is a 64-year-old gentleman with multiple medical problems, admitted with acute respiratory failure, secondary to CHF and COPD exacerbation. The patient was treated intensively in ICU. The patient improved significantly. Outpatient BiPAP was recommended. Currently, the patient improved significantly. Few scattered rhonchi. I would recommend that the patient be discharged with the following medications with: 1. Bumex 1 mg p.o. b.i.d. 2. Farxiga 10 mg p.o. daily. 3. Lantus 25 units subcu daily. Hold if Accu-Chek less than 120. 4. Accu-Chek a.c. and h.s. Follow up in the outpatient setting. 5. Toprol-XL 50 mg p.o. daily. 6. Aldactone 25 mg daily. 7. Cozaar 12.5 mg daily. 8. Flomax 0.4 with breakfast. 9. Tapering prednisone. Follow up with Dr. Nichols, Dr. Vandana Wilkinson, and follow up with Dr. Fritz as recommended. MMODL / IJN: [id number] /
== END 2024-10-02 15:20 | disposition home or self-care (01) | DRG 189 ==
LOC: EC 07:41 → 3SCARD 10:21 → 2SICU 09-28 01:56 → 5NMEDONC 10-02 07:47
PROVIDERS: ADMIT Internal Medicine; ATTEND Internal Medicine
PROC: 5A09457 Assistance with Respiratory Ventilation, 24-96 Consecutive Hours, Continuous Positive Airway Pressure (ICD-10-PCS; principal; 2024-09-27)
DX: J96.21 Acute and chronic respiratory failure with hypoxia (principal); G93.41 Metabolic encephalopathy; I50.33 Acute on chronic diastolic (congestive) heart failure; I26.09 Other pulmonary embolism with acute cor pulmonale; E66.2 Morbid (severe) obesity with alveolar hypoventilation; J44.1 Chronic obstructive pulmonary disease with (acute) exacerbation; I11.0 Hypertensive heart disease with heart failure; E11.65 Type 2 diabetes mellitus with hyperglycemia; I27.29 Other secondary pulmonary hypertension; Z68.41 Body mass index [BMI] 40.0-44.9, adult; E87.21 Acute metabolic acidosis; I47.19 Other supraventricular tachycardia; Z59.00 Homelessness unspecified; J96.22 Acute and chronic respiratory failure with hypercapnia; I50.82 Biventricular heart failure; Z79.4 Long term (current) use of insulin; Z11.52 Encounter for screening for COVID-19; Z99.81 Dependence on supplemental oxygen; F17.210 Nicotine dependence, cigarettes, uncomplicated; Z79.82 Long term (current) use of aspirin; Z79.84 Long term (current) use of oral hypoglycemic drugs; Z79.899 Other long term (current) drug therapy; Z78.1 Physical restraint status
CPT/HCPCS: 36415; 36600; 51798; 71045; 71046; 80048; 80053; 82803; 82805; 83036; 83605; 83735; 83880; 84132; 84145; 84484; 85025; 85379; 85610; 85730; 87636; 93005; 94640; 94660; 94760; 96365; 96372; 96375; 96376; 99291